=== PATIENT | female | born 1960 | race Caucasian/White ===

== ENCOUNTER 2016-08-13 15:13 | Inpatient (IN) | payer MEDICARE, MEDICAID ==
[2016-08-13] MEDS ORDERED: MAGNESIUM HYDROXIDE 2,400 MG/10 ML CUP PO PRN (18:42)
[2016-08-13] MEDS ORDERED: ZIPRASIDONE 20 MG VIAL IM PRN (18:42)
[2016-08-13] MEDS ORDERED: ACETAMINOPHEN TAB 325 MG TAB PO PRN (18:42)
[2016-08-13] MEDS ORDERED: MAG HYDROX/AL HYDROX/SIMETH 30 ML CUP PO PRN (18:42)
[2016-08-13] MEDS ORDERED: LORazepam 2 MG/ML SYRINGE IM PRN (18:47)
[2016-08-13] MEDS ORDERED: LORazepam 1 MG TAB PO PRN (18:47)
[2016-08-13 20:02] VITALS: BMI 28.0
[2016-08-13 20:26] LABS: Appearance,Urine Cloudy (Clear); Bacteria,Urine Rare /hpf; Bilirubin,Urine 1+ (Negative); Calcium Oxalate Crystals,Urine Many /hpf; Glucose,Urine (UA) Negative (Negative); Ketones,Urine Trace (Negative); Leukocyte Esterase,Urine Small (Negative); Mucus,Urine Occasional /hpf; Nitrite,Urine Negative (Negative); PH, Urine 5.5 (5.0-8.0); Particle Count 4212; Protein,Urine Trace (Negative); RBC,Urine 8 /hpf (0-5); Specific Gravity,Urine 1.027 (1.001-1.035); Squamous Epithelial Cell,Urine 5 /hpf (0-4); UA Billing (MACRO vs. MICRO) MICRO; WBC,Urine 5 /hpf (0-5)
[2016-08-13] MEDS: LORazepam 0.5 MG TAB PO SCH (21:39)
[2016-08-13] MEDS: BENZTROPINE MESYLATE 1 MG TAB PO SCH (21:39)
[2016-08-13] MEDS: risperiDONE 2 MG TAB PO SCH (21:40)
[2016-08-14] MEDS: risperiDONE 2 MG TAB PO SCH ×2 (09:20→20:25)
[2016-08-14] MEDS: LORATADINE 10 MG TAB PO SCH (09:20)
[2016-08-14] MEDS: DOCUSATE 100 MG CAP PO SCH (09:20)
[2016-08-14] MEDS: LISINOPRIL 2.5 MG TAB PO SCH (09:20)
[2016-08-14] MEDS: LORazepam 0.5 MG TAB PO SCH ×2 (09:20→20:25)
[2016-08-14] MEDS: BENZTROPINE MESYLATE 1 MG TAB PO SCH ×2 (09:21→20:24)
[2016-08-14 11:56] LABS: Basophils % (A) 1 %; CH 31.6; CHCM 33.6; Eosinophils % (A) 1 %; HCT 43.9 % (34.0-46.0); HDW 2.67; HGB 14.1 gm/dL (11.4-16.0); Luc # (Auto) 0.07; Luc % (Auto) 2; Lymphocytes # (A) 0.9 k/uL (1.0-4.8); Lymphocytes % (A) 19 %; MCH 30.3 pg (25.0-35.0); MCV 94.6 fL (80.0-100.0); Mean Platelet Volume 7.7; Monocytes # (A) 0.4 k/uL (0-1.0); Monocytes % (A) 10 %; Neutrophils % (A) 68 %; RBC 4.65 m/uL (3.80-5.40); RDW 13.4 % (11.5-15.5); WBC 4.5 k/uL (3.8-10.6); WBC (Perox) 4.97
[2016-08-14] MEDS: CALCIUM CARB-VIT D 500MG-200UN 1 EACH TAB PO SCH (12:17)
[2016-08-14] MEDS: THIAMINE 100 MG TAB PO SCH (12:17)
[2016-08-14 12:19] LABS: ALT 25 U/L (9-52); AST 27 U/L (14-36); Alkaline Phosphatase 95 U/L (38-126); Anion Gap 14 mmol/L; Blood Urea Nitrogen 10 mg/dL (7-17); Calcium 9.9 mg/dL (8.4-10.2); Carbon Dioxide 23 mmol/L (22-30); Chloride 108 mmol/L (98-107); Glucose 116 mg/dL (74-99); Non-African American GFR(MDRD) 57 (>60 ml/min/1.73 sqM); Potassium 3.6 mmol/L (3.5-5.1); Sodium 145 mmol/L (137-145); Total Bilirubin 0.6 mg/dL (0.2-1.3); Total Protein 7.6 g/dL (6.3-8.2)
--- NOTE | 2016-08-14 13:29 | P.HP ---
Psychiatric H&P - . H&P Date: 08/14/16 History & Physical: IDENTIFYING DATA: Ms. Stallings is a 56-year-old single female who has a history of a schizoaffective disorder. She presented to the unit voluntarily with complaints of suicidal ideation. HISTORY OF PRESENT ILLNESS: According to EMR she presented to the ED with suicidal thoughts. She told the psychiatric nurse that she was having thoughts of drowning herself in the bathtub. I reviewed the medical record, interviewed Ms. Stallings and discuss her presentation and history with the treatment team. She is well known to the unit from prior admissions. We discharged her last on 09/25/2014 with the diagnosis of a schizoaffective disorder. Her discharge medications included Abilify 50 mg daily and lorazepam 0.5 mg 3 times a day when necessary. She is involved with [facility] team. Ms. Stallings stated that she was having thoughts of stabbing herself. She stated that she has been attending "group meetings" at her buddhist every Wednesday. "I think about the buddhist. The meetings are pretty important. ... I feel out of place. I'm not working. I don't have children children. I feel at a place at the buddhist. ... I tried to kill myself. Tried to stab myself. I got too scared." She was unable to provide a coherent explanation as to the reason for this admission other than she felt frightened and had thoughts of self-harm. She perseverated on the buddhist meetings as a source of her concern and distress. She did not express any clear organize paranoid or delusional belief. She was not overtly religiously preoccupied beyond the preoccupation with the buddhist meetings. In response to questions about depression and anxiety she replied "yes". I was unable to elicit further information about her feelings. She denied experiencing auditory or visual hallucinations. PAST PSYCHIATRIC HISTORY: She has had multiple psychiatric hospitalization and a well-established diagnosis of a schizophrenia disorder and treated with Risperdal Consta IM 12.5 mg every 2 weeks. PAST MEDICAL HISTORY: According to EMR, she has history of GERD, hyperlipidemia , hypertension and memory impairment. ALLERGIES: No known ALLERGIES. SUBSTANCE USE HISTORY: She denied the use of alcohol or drugs to get high, help her sleep or change her mood. According to the EMR she has no history of drug or alcohol use problems. Tobacco use: She is a nonsmoker FAMILY PSYCHIATRIC/SUBSTANCE USE HISTORY: She has a sister who has history of a schizophrenia. LEGAL HISTORY: She has no history of arrests or time in [facility]. She has a public guardian, Kindra Goins. SOCIAL HISTORY: She was born and raised in [place]. She graduated from high school and attended community college. She was never and has no children. She has 3 sisters and 1 brother. She feels estranged from one sister and has not spoken to her brother since her mother 4 years ago. She lives alone in an apartment. MENTAL STATUS EXAM: She presented as a disheveled appearing 56-year-old woman wearing hospital gown. She made eye contact and at times did not appear to attend to the interview. She had a slow and slightly unsteady gait with decreased associated movements. She showed frequent shuffling of her feet and intermittent tremor of her hands. She had slightly increase muscle tone without cogwheeling. She showed psychomotor retardation and akathetic movements. Her speech was not spontaneous. He had decreased rate, rhythm and volume. She had no articulation difficulties. Her affect was flat. She described suicidal thoughts without intent or plan. She described depressive cognitions including hopelessness, helplessness and worthlessness. She ruminated on her buddhist and her feeling that she is a social outcast. She denied phobias. She denied ideas of reference. She denies express clear paranoid ideation or delusional thoughts. When I asked her about thought broadcasting she smiled, paused for a few seconds and asked me to repeat the sentence. She stated that she sometimes "has that" (referring to thought broadcasting) "from my family". She denied auditory or visual hallucinations but appeared to be responding to internal stimuli. Global impression of intellect is average. She has no insight or understanding of her illness. We completed the [facility] Cognitive Assessment. Her total score was 21/30 suggesting cognitive impairments. She sold some visual spatial/executive impairment and that she was unable to copy to kill (however, she was able to perform alternating trails and draw the clock. She had no impairment in naming or registration. She had difficulties with attention as demonstrated by impairment of reverse digits, vigilance and serial sevens. She had some language impairment in that she had difficulty repeating one of the 2 sentences and was only able to produce 8 words over 60 seconds. Her interpretation of proverbs wwere concrete. She recalled 3 of the 5 words. She knew the date, month, year, day, place and city. STRENGTHS: Good physical health, stable income, stable housing, strong count includes the [facility] mental health services. WEAKNESSES: Chronic and severe mental illness. IMPRESSION: She is a 56-year-old woman who has a history of a schizoaffective disorder. She's had multiple psychiatric hospitalization and her diagnosis well -established. She presented with suicidal ideation and preoccupation about her buddhist and her social and functional impairments. She should best be treated inpatient basis with a combination of psychopharmacology and multimodal therapy. PRINCIPLE DIAGNOSIS: Schizoaffective disorder depressed type chronic with acute exacerbation, cognitive impairment, EPS RECOMMENDATION: Continue inpatient psychiatric treatment for depression and suicidal ideation. Obtain records from [facility]. Risperidone 2 mg by mouth twice a day and benztropine 1 mg twice a day. Consider trial of antidepressants after reviewing mental health records from [facility] Encourage participation in therapeutic groups and activities, evaluate clinical status and response to treatment daily basis. Allergies Allergy/AdvReac Type Severity Reaction Status Date / Time No Known Allergies Allergy Verified 08/13/16 20:02 Vital Signs Temp 98.3 F 08/14/16 06:53 Pulse 109 H 08/14/16 06:53 Resp 16 08/14/16 06:53 BP 131/78 08/14/16 06:53 Pulse Ox 93 L 08/13/16 20:04 Intake & Output 08/13/16 08/14/16 08/14/16 18:59 06:59 18:59 Weight 91.8 kg Laboratory Last Values WBC 4.5 k/uL (3.8-10.6) 08/14/16 10:55 RBC 4.65 m/uL (3.80-5.40) 08/14/16 10:55 Hgb 14.1 gm/dL (11.4-16.0) 08/14/16 10:55 Hct 43.9 % (34.0-46.0) 08/14/16 10:55 MCV 94.6 fL (80.0-100.0) 08/14/16 10:55 MCH 30.3 pg (25.0-35.0) 08/14/16 10:55 MCHC 32.0 g/dL (31.0-37.0) 08/14/16 10:55 RDW 13.4 % (11.5-15.5) 08/14/16 10:55 Plt Count 229 k/uL (150-450) 08/14/16 10:55 Neutrophils % 68 % 08/14/16 10:55 Lymphocytes % 19 % 08/14/16 10:55 Monocytes % 10 % 08/14/16 10:55 Eosinophils % 1 % 08/14/16 10:55 Basophils % 1 % 08/14/16 10:55 Neutrophils # 3.0 k/uL (1.3-7.7) 08/14/16 10:55 Lymphocytes # 0.9 k/uL (1.0-4.8) L 08/14/16 10:55 Monocytes # 0.4 k/uL (0-1.0) 08/14/16 10:55 Eosinophils # 0.0 k/uL (0-0.7) 08/14/16 10:55 Basophils # 0.0 k/uL (0-0.2) 08/14/16 10:55 Urine Color Yellow 08/13/16 15:44 Urine Appearance Cloudy (Clear) H 08/13/16 15:44 Urine pH 5.5 (5.0-8.0) 08/13/16 15:44 Ur Specific [place] 1.027 (1.001-1.035) 08/13/16 15:44 Urine Protein Trace (Negative) H 08/13/16 15:44 Urine Glucose (UA) Negative (Negative) 08/13/16 15:44 Urine Ketones Trace (Negative) H 08/13/16 15:44 Urine Blood Trace (Negative) H 08/13/16 15:44 Urine Nitrate Negative (Negative) 08/13/16 15:44 Urine Bilirubin 1+ (Negative) H 08/13/16 15:44 Urine Urobilinogen 3.0 mg/dL (<2.0) 08/13/16 15:44 Ur Leukocyte Esterase Small (Negative) H 08/13/16 15:44 Urine RBC 8 /hpf (0-5) H 08/13/16 15:44 Urine WBC 5 /hpf (0-5) 08/13/16 15:44 Ur Squamous Epith Cells 5 /hpf (0-4) H 08/13/16 15:44 Calcium Oxalate Crystal Many /hpf (None) H 08/13/16 15:44 Urine Bacteria Rare /hpf (None) H 08/13/16 15:44 Urine Mucus Occasional /hpf (None) H 08/13/16 15:44 Urine Opiates Screen Not Detected (NotDetected) 08/13/16 15:44 Ur Oxycodone Screen Not Detected (NotDetected) 08/13/16 15:44 Urine Methadone Screen Not Detected (NotDetected) 08/13/16 15:44 Ur Propoxyphene Screen Not Detected (NotDetected) 08/13/16 15:44 Ur Barbiturates Screen Not Detected (NotDetected) 08/13/16 15:44 U Tricyclic Antidepress Not Detected (NotDetected) 08/13/16 15:44 Ur Phencyclidine Scrn Not Detected (NotDetected) 08/13/16 15:44 Ur Amphetamines Screen Not Detected (NotDetected) 08/13/16 15:44 U Methamphetamines Scrn Not Detected (NotDetected) 08/13/16 15:44 U Benzodiazepines Scrn Not Detected (NotDetected) 08/13/16 15:44 Urine Cocaine Screen Not Detected (NotDetected) 08/13/16 15:44 U Marijuana (THC) Screen Not Detected (NotDetected) 08/13/16 15:44 08/14/16 12:59
[2016-08-14] MEDS: SULFAMETHOX-TMP 800-160MG 1 EACH TAB PO SCH ×2 (14:18→20:24)
--- NOTE | 2016-08-14 14:28 | CONS ---
DATE OF CONSULTATION: REASON FOR CONSULTATION: Advice regarding hypertension, hyperlipidemia, and multiple medical issues requested by psychiatry. HISTORY OF PRESENT ILLNESS: This 56-year-old woman with past medical history of gastroesophageal reflux disease, hypertension, hyperlipidemia, memory impairment, history of anxiety, bipolar, depression being followed by Dr. Jillian Piper in the outpatient setting was admitted for psychiatric evaluation. There is no history of fever, rigors. No history of headache, loss of consciousness, seizures. Patient except reactions from psych medications. Patient has a low affect. PAST MEDICAL HISTORY: History of hypertension, hyperlipidemia, GERD, memory impairment, history of anxiety, bipolar and depression. Medications are: 1. Risperdal Consta 25 mg IM q. 14 days. 2. Vitamin B 100 mg daily. 3. Claritin 10 mg daily. 4. Zestril 2.5 mg daily. 5. Ativan 0.5 mg b.i.d. 6. Colace 100 mg p.o. q.48 hours. 7. Calcium with vitamin D 1 p.o. daily. 8. Cogentin 1 mg p.o. b.i.d. Allergies are none. FAMILY HISTORY: No history of heart disease or strokes in the family. SOCIAL HISTORY: No history of smoking, no history of alcohol. REVIEW OF SYSTEMS: ENT: No diminished hearing or vision. CARDIOVASCULAR: No angina or palpitations. RESPIRATORY: No cough or hemoptysis. GI: No nausea. : No dysuria. NERVOUS SYSTEM: No numbness or weakness, otherwise as mentioned earlier. ALLERGY/IMMUNOLOGY: No asthma or hayfever. MUSCULOSKELETAL: As mentioned earlier. HEMATOLOGY: No history of anemia. ENDOCRINE: No history of diabetes or hypothyroidism. CONSTITUTIONAL: As mentioned earlier. DERMATOLOGY: Negative. RHEUMATOLOGY: Negative. PSYCHIATRY: As mentioned earlier. PHYSICAL EXAMINATION: Patient is alert and oriented x3. Pulse 135, blood pressure 150/90, respirations 15, temperature 97.7, pulse ox of 93% on room air. HEENT: Conjunctivae normal. Oral mucosa moist. NECK: No jugular venous distention. No carotid bruit. No lymph node enlargement. CARDIOVASCULAR: S1 and S2, tachycardic. No S3, no S4. No murmur. RESPIRATORY: Breath sounds diminished at the bases. No rhonchi, no crackles. ABDOMEN: Soft, nontender, no mass palpable. LEGS: No edema, no swelling. NERVOUS SYSTEM: Higher function as mentioned. Cranial nerves are full and intact and no nystagmus, no visual difficulties. Other cranial nerves II through XII grossly intact. Facial movements are symmetrical and equal. Otherwise moves all four limbs. Power is grade 5. Tone is slightly increased. No tremors. Gait is normal. LYMPHATIC: No lymphadenopathy in the neck, axillae or groin. SKIN: No ulcer, rash or bleeding. LABS: CBC within normal limits. UA shows 1+ bilirubin, small leukocyte esterase and rare urine bacteria. ASSESSMENT: 1. Hypertension. 2. Hyperlipidemia. 3. Anxiety, bipolar, depression. 4. Possible urinary tract infection. 5. Gastroesophageal reflux disease. 6. History of memory impairment. 7. Numerous inpatient psychiatric admissions. 8. Early symptoms, possibly secondary to medications. RECOMMENDATIONS AND DISCUSSION: This 56-year-old woman who presented with multiple complex medical issues, I would recommend to continue current medications, continue with symptomatic treatment. I would also recommend a course of antibiotics for presumed urinary tract infection. Otherwise, continue the rest of the medications. Further recommendations to follow. Patient may be asked to follow with Dr. Shon Piper closely after discharge. The home medications may be restarted. See orders for details. Monitor blood pressure closely. KENY
[2016-08-15] MEDS: LORazepam 0.5 MG TAB PO SCH ×2 (08:58→21:27)
[2016-08-15] MEDS: risperiDONE 2 MG TAB PO SCH ×2 (08:58→21:27)
[2016-08-15] MEDS: LISINOPRIL 2.5 MG TAB PO SCH (08:58)
[2016-08-15] MEDS: LORATADINE 10 MG TAB PO SCH (08:58)
[2016-08-15] MEDS: BENZTROPINE MESYLATE 1 MG TAB PO SCH ×2 (08:58→21:27)
[2016-08-15] MEDS: SULFAMETHOX-TMP 800-160MG 1 EACH TAB PO SCH ×2 (08:58→21:27)
[2016-08-15] MEDS: CALCIUM CARB-VIT D 500MG-200UN 1 EACH TAB PO SCH (12:14)
[2016-08-15] MEDS: THIAMINE 100 MG TAB PO SCH (12:14)
--- NOTE | 2016-08-15 16:11 | P.PN ---
Subjective Psychiatric progress notes. Patient is a 56-year-old female who was admitted to mental health unit on a voluntary basis due to having suicidal thoughts. When seen today covering for Dr. Calderón patient was cooperative and stated that she was here because of her suicidal thoughts and she felt out of place at the taoism group. According to her the other members of the group were all working and had their own families and she was the only one without at family-oriented job. She felt out of place and was considering suicide. She requested me to pray for her and gives her encouragement. Did not voice any other problems. Mental status. An average built female dressed in her own clothes, some degree dishevelled and possibly with some psychomotor retardation. During the evaluation patient maintained adequate eye contact and though was not spontaneous in her speech answering to questions relevantly and coherently. Speech was somewhat slow and possibly her thought process as well. Affect was restricted. Became some what more animated when she was talking about the time she had spent with her sister and family during the [place]. No evidence of any delusions or hallucinations. Patient denies having any thoughts of harm to herself. Appears to be somewhat limited in insight and judgment. Continue current treatment plans. Objective - Vital Signs Vital signs: Vital Signs Temp 98.3 F 08/14/16 06:53 Pulse 109 H 08/14/16 06:53 Resp 16 08/14/16 06:53 BP 114/58 08/15/16 09:09 Pulse Ox 93 L 08/13/16 20:04 - Labs CBC & Chem 7: 08/14/16 10:55 08/14/16 10:55
[2016-08-16] MEDS: LORATADINE 10 MG TAB PO SCH (08:55)
[2016-08-16] MEDS: LISINOPRIL 2.5 MG TAB PO SCH (08:55)
[2016-08-16] MEDS: risperiDONE 2 MG TAB PO SCH ×2 (08:55→21:00)
[2016-08-16] MEDS: DOCUSATE 100 MG CAP PO SCH (08:55)
[2016-08-16] MEDS: LORazepam 0.5 MG TAB PO SCH ×2 (08:55→21:00)
[2016-08-16] MEDS: BENZTROPINE MESYLATE 1 MG TAB PO SCH ×2 (08:55→21:00)
[2016-08-16] MEDS: SULFAMETHOX-TMP 800-160MG 1 EACH TAB PO SCH ×2 (08:56→21:01)
[2016-08-16] MEDS: CALCIUM CARB-VIT D 500MG-200UN 1 EACH TAB PO SCH (12:31)
[2016-08-16] MEDS: THIAMINE 100 MG TAB PO SCH (12:31)
--- NOTE | 2016-08-16 15:27 | P.PN ---
Subjective Psychiatric progress notes. Patient is a 56-year-old female was admitted because of her suicidal thoughts, feeling that she did not fit with the other people attending a taoist group. Patient indicates that she is not feeling that way now and again requesting to pray for her. Though she is compliant with medication and some degree participating in treatment activities by and large she is withdrawn and mostly staying in her room. Though she did not report any adverse effect her medications she seems to be showing some psychomotor retardation and tremulousness of her upper extremities, possibly EPS, in spite of her being on Cogentin. Mental status. Average built female dressed in her own clothes who comes readily for the evaluation and is cooperative. Patient does not speak spontaneously but answers to questions briefly what relevantly. Generally she is a bit withdrawn with psychomotor retardation. Speech and thought process somewhat slow. Seems to be having delusional thinking of a depressive nature. Denies any hallucinations and her affect is somewhat restricted. Reports sleeping alright. Limited in insight and judgment. Continue current treatment plans. Objective - Vital Signs Vital signs: Vital Signs Temp 98.5 F 08/16/16 06:48 Pulse 89 08/16/16 06:48 Resp 14 08/16/16 06:48 BP 119/65 08/16/16 06:48 Pulse Ox 95 08/15/16 22:32 Intake & Output 08/15/16 08/16/16 08/16/16 18:59 06:59 18:59 Weight 71.4 kg - Labs CBC & Chem 7: 08/14/16 10:55 08/14/16 10:55
[2016-08-17] MEDS: LISINOPRIL 2.5 MG TAB PO SCH (08:42)
[2016-08-17] MEDS: risperiDONE 2 MG TAB PO SCH (08:42)
[2016-08-17] MEDS: SULFAMETHOX-TMP 800-160MG 1 EACH TAB PO SCH ×2 (08:42→20:50)
[2016-08-17] MEDS: BENZTROPINE MESYLATE 1 MG TAB PO SCH ×2 (08:42→20:51)
[2016-08-17] MEDS: LORATADINE 10 MG TAB PO SCH (08:42)
[2016-08-17] MEDS: LORazepam 0.5 MG TAB PO SCH ×2 (08:42→20:50)
[2016-08-17] MEDS: THIAMINE 100 MG TAB PO SCH (12:55)
[2016-08-17] MEDS: CALCIUM CARB-VIT D 500MG-200UN 1 EACH TAB PO SCH (12:55)
--- NOTE | 2016-08-17 13:48 | P.PN ---
Progress Note - Text CLINICAL PROBLEMS: She is a 56-year-old single woman who has a history of a schizophrenia. She presented voluntarily with increasing thought disorganization, depression, anxiety, and increased involuntary movements. 24 HOUR EVENTS: She had episode of anxiety and restlessness yesterday responded to treatment with lorazepam 1 mg by mouth. She remains on 15 minute checks. She is posed no management problem and demonstrated no self-harm behaviors. She has been attending therapeutic groups and activities. EXAMINATION: She presented as a casually groomed 56-year-old female dressed in street clothes. She she had medium cropped oily straight hair. Her skin was pale and oily. She had a flat facial expression. She was alert and oriented to person, place and time. She showed psychomotor retardation with decreased associated movements. She had a slight tremor of her left hand. She had increased muscle tone in both arms with some cogwheeling in her left arm. Her speech was not spontaneous and had decreased rate, rhythm and volume. Her affect was bright but blunted; she smiled during the interview. She denied suicidal ideation or wishes. She denied homicidal ideation. She denied depressive cognitions such as hopelessness, helplessness and worthlessness. She shared an incident where she felt shunned by members of her yazidi (she encountered some yazidi members at a restaurant and they "turned their backs"). She denied experiencing ideas reference or paranoid ideation. She did not expressed delusional thoughts. Her thinking was concrete but her associations were coherent and logical. She denied hallucinations and did not appear to be responding to internal stimuli. PERTINENT DATA: She's been compliant with prescribed medications. She slept 6 hours last night. She has not required when necessary ziprasidone for agitation or acute psychosis. ASSESSMENT: She appears less depressed and less internally preoccupied. She did not volunteer concerns about her yazidi and was not preoccupied about mormon. She continues to show signs of parkinsonism but the severity of the tremor has decreased from admission. PLAN: Decrease risperidone to 1 mg by mouth twice a day, continue lorazepam 0.5 mg twice a day and 1 mg by mouth every 8 hours when necessary for anxiety or agitation, continue to encourage participation in therapeutic groups and activities, evaluate clinical status response to treatment on a daily basis, consider discharge home on 08/18/2016.
[2016-08-17] MEDS: risperiDONE 1 MG TAB PO SCH (20:50)
[2016-08-18 06:52] VITALS: TEMP 97.7
[2016-08-18] MEDS: LISINOPRIL 2.5 MG TAB PO SCH (08:55)
[2016-08-18] MEDS: LORATADINE 10 MG TAB PO SCH (08:55)
[2016-08-18] MEDS: DOCUSATE 100 MG CAP PO SCH (08:55)
[2016-08-18] MEDS: SULFAMETHOX-TMP 800-160MG 1 EACH TAB PO SCH ×2 (08:55→15:34)
[2016-08-18] MEDS: BENZTROPINE MESYLATE 1 MG TAB PO SCH (08:56)
[2016-08-18] MEDS: risperiDONE 1 MG TAB PO SCH (08:56)
[2016-08-18] MEDS: LORazepam 0.5 MG TAB PO SCH (08:56)
[2016-08-18 10:02] VITALS: BP 100/56; PULSE 122; RESP 16
--- NOTE | 2016-08-18 11:19 | P.DS ---
Providers Date of admission: 08/13/16 18:30 Attending physician: Justin Calderón MD Consults: 08/13/16 18:42 Consult Physician Routine Consulting Provider: Manuel Velasquez Consult Reason/Comments: follow up H & P Do you want consulting provider notified?: Yes Primary care physician: Shon Piper - Discharge Diagnosis(es) (1) Schizoaffective disorder, chronic condition with acute exacerbation Current Visit: Yes Status: Chronic Priority: High (2) Parkinsonism Current Visit: Yes Status: Chronic Priority: Medium Hospital Course: She is a 56-year-old single female who has a history of a schizoaffective disorder. She presented to the unit voluntarily with complaints of suicidal ideation. According to EMR she presented to the ED with suicidal thoughts. She told the psychiatric nurse that she was having thoughts of drowning herself in the bathtub. She is well known to the unit from prior admissions. We discharged her last on 09/25/2014 with the diagnosis of a schizoaffective disorder. Her discharge medications included Abilify 50 mg daily and lorazepam 0.5 mg 3 times a day when necessary. She is involved with [facility] mental health [facility] team. Ms. Stallings stated that she was having thoughts of stabbing herself. She stated that she has been attending "group meetings" at her jainism every Wednesday. "I think about the jainism. The meetings are pretty important. ... I feel out of place. I'm not working. I don't have children children. I feel at a place at the jainism. ... I tried to kill myself. Tried to stab myself. I got too scared." She was unable to provide a coherent explanation as to the reason for this admission other than she felt frightened and had thoughts of self-harm. She perseverated on the jainism meetings as a source of her concern and distress. She did not express any clear organize paranoid or delusional belief. She was not overtly religiously preoccupied beyond the preoccupation with the jainism meetings. In response to questions about depression and anxiety she replied "yes". I was unable to elicit further information about her feelings. She denied experiencing auditory or visual hallucinations. She presented as a disheveled appearing 56-year-old woman wearing hospital gown. She made eye contact and at times did not appear to attend to the interview. She had a slow and slightly unsteady gait with decreased associated movements. She showed frequent shuffling of her feet and intermittent tremor of her hands. She had slightly increase muscle tone without cogwheeling. She showed psychomotor retardation and akathetic movements. Her speech was not spontaneous. He had decreased rate, rhythm and volume. She had no articulation difficulties. Her affect was flat. She described suicidal thoughts without intent or plan. She described depressive cognitions including hopelessness, helplessness and worthlessness. She ruminated on her jainism and her feeling that she is a social outcast. She denied phobias. She denied ideas of reference. She denies express clear paranoid ideation or delusional thoughts. When I asked her about thought broadcasting she smiled, paused for a few seconds and asked me to repeat the sentence. She stated that she sometimes "has that" (referring to thought broadcasting) "from my family". She denied auditory or visual hallucinations but appeared to be responding to internal stimuli. Global impression of intellect is average. She has no insight or understanding of her illness. We completed the [facility] Cognitive Assessment. Her total score was 21/30 suggesting cognitive impairments. She sold some visual spatial/executive impairment and that she was unable to copy to kill (however, she was able to perform alternating trails and draw the clock. She had no impairment in naming or registration. She had difficulties with attention as demonstrated by impairment of reverse digits, vigilance and serial sevens. She had some language impairment in that she had difficulty repeating one of the 2 sentences and was only able to produce 8 words over 60 seconds. Her interpretation of proverbs wwere concrete. She recalled 3 of the 5 words. She knew the date, month, year, day, place and city. We admitted her to the psychiatric unit under the care of this poem writer. We provided a biopsychosocial assessment. The medical cash poster to the initial history and physical examination. She received a 3 day course of Bactrim DS one tab by mouth twice a day. We started risperidone 2 mg by mouth twice a day to augment the biweekly Risperdal Consta injections. She showed moderately severe Parkinson's symptoms including decreased associated movements, tremor and increase muscle tone. She was withdrawn and suspicious when she arrived on the unit. She denied psychotic symptoms but appeared to be responding to internal stimuli. However, she participated in therapeutic groups and activities. She showed a decrease in internal preoccupation and a marked improvement in her mood. We decreased the risperidone 1 mg by mouth twice a day to decrease EPS. At the time of discharge she was pleasant on approach. Her affect was wanted but bright. Her thinking was concrete but organized, coherent and goal directed. She denied auditory or visual hallucinations and did not appear to be responding to internal stimuli. She denied suicidal ideation, plan or intent. She has an appointment for her next Risperdal Consta injection on 08/21/2015. We recommend to taper the oral risperidone gradually over the next 2-4 weeks. Patient Condition at Discharge: Good Plan - Discharge Summary Discharge Medication List Benztropine Mesylate [Cogentin] 1 mg PO BID 08/13/16 [History] Calcium Carbonate/Vitamin D3 [Calcium 600-Vit D3 400 Caplet] 1 tab PO DAILY [History] Docusate [Colace] 100 mg PO Q48H 08/13/16 [History] LORazepam [Ativan] 0.5 mg PO BID 08/13/16 [History] Lisinopril [Zestril] 2.5 mg PO DAILY 08/13/16 [History] Loratadine [Claritin] 10 mg PO DAILY 08/13/16 [History] Thiamine [Vitamin B-1] 100 mg PO DAILY 08/13/16 [History] risperiDONE MICROSPHERES [RisperDAL CONSTA] 25 mg IM Q14D 08/13/16 [History] Follow up Appointment(s)/Referral(s): [facility] [Outside] - 1 Week (w/ ACT Team on 08/19/16 @ 10am at home.) Shon Piper DO [Primary Care Provider] - 1 Week Patient Instructions/Handouts: Brief Psychotic Disorder (DC) Activity/Diet/Wound Care/Special Instructions: Take medications as prescribed. No alcohol or street drugs. Notify your care provider of the crisis line if symptoms worsen. Crisis line no. . Regular diet. Activity as tolerated.
[2016-08-18] MEDS: THIAMINE 100 MG TAB PO SCH (13:04)
[2016-08-18] MEDS: CALCIUM CARB-VIT D 500MG-200UN 1 EACH TAB PO SCH (13:05)
--- NOTE | 2016-10-01 11:32 | ED ---
Psych HPI - General Chief Complaint: Psychiatric Symptoms Stated Complaint: Suicidal Time Seen by Provider: 08/13/16 15:28 Source: police Mode of arrival: ambulatory - History of Present Illness Initial Comments: Patient complains of suicidal ideation. She states that she wants to drown herself. She has no fevers or chills. She has no chest pain or shortness of breath. - Related Data Home Medications Medication Instructions Recorded Confirmed Benztropine Mesylate [Cogentin] 1 mg PO BID 08/13/16 08/13/16 Calcium Carbonate/Vitamin D3 1 tab PO DAILY 08/13/16 08/13/16 [Calcium 600-Vit D3 400 Caplet] Docusate [Colace] 100 mg PO Q48H 08/13/16 08/13/16 LORazepam [Ativan] 0.5 mg PO BID 08/13/16 08/13/16 Lisinopril [Zestril] 2.5 mg PO DAILY 08/13/16 08/13/16 Thiamine [Vitamin B-1] 100 mg PO DAILY 08/13/16 08/13/16 risperiDONE MICROSPHERES 25 mg IM Q14D 08/13/16 08/13/16 [RisperDAL CONSTA] Previous Rx's Medication Instructions Recorded Loratadine [Claritin] 10 mg PO DAILY tab 08/18/16 risperiDONE [RisperDAL] 1 mg PO BID #28 tab 08/18/16 Allergies Allergy/AdvReac Type Severity Reaction Status Date / Time No Known Allergies Allergy Verified 08/13/16 20:02 Review of Systems ROS Statement: Those systems with pertinent positive or pertinent negative responses have been documented in the HPI. ROS Other: All systems not noted in ROS Statement are negative. Past Medical History Past Medical History: GERD/Reflux, Hyperlipidemia, Hypertension, Memory Impairment History of Any Multi-Drug Resistant Organisms: None Reported Past Surgical History: Unable to Obtain Additional Past Surgical History / Comment(s): Non-cancerous growths removed from stomach when patient was in high school. Past Anesthesia/Blood Transfusion Reactions: Unable to Obtain Additional Past Anesthesia/Blood Transfusion Reaction / Comment(s): Unkown. Past Psychological History: Anxiety, Bipolar, Depression Additional Psychological History / Comment(s): Numerous inpatient psychiatric admissions. Open with [facility], Patient sees Lakshmi from the ACT team. Smoking Status: Never smoker Past Alcohol Use History: Occasional Past Drug Use History: None Reported Additional Drug Use History / Comment(s): Patient denies. - Past Family History Mother Family Medical History: No Reported History Father Family Medical History: Cancer Sister(s) Family Medical History: No Reported History Brother(s) Family Medical History: No Reported History General Exam General appearance: alert, in no apparent distress Head exam: Present: atraumatic, normocephalic, normal inspection Eye exam: Present: normal appearance, PERRL, EOMI. Absent: scleral icterus, conjunctival injection, periorbital swelling ENT exam: Present: normal exam, mucous membranes moist Neck exam: Present: normal inspection. Absent: tenderness, meningismus, lymphadenopathy Respiratory exam: Present: normal lung sounds bilaterally. Absent: respiratory distress, wheezes, rales, rhonchi, stridor Cardiovascular Exam: Present: regular rate, normal rhythm, normal heart sounds. Absent: systolic murmur, diastolic murmur, rubs, gallop, clicks GI/Abdominal exam: Present: soft, normal bowel sounds. Absent: distended, tenderness, guarding, rebound, rigid Extremities exam: Present: normal inspection, full ROM, normal capillary refill. Absent: tenderness, pedal edema, joint swelling, calf tenderness Back exam: Present: normal inspection Neurological exam: Present: alert, oriented X3, CN II-XII intact Psychiatric exam: Present: depressed Skin exam: Present: warm, dry, intact, normal color. Absent: rash Course Vital Signs 08/13/16 08/13/16 15:17 18:36 Temperature 97.8 F 98 F Pulse Rate 108 H 78 Respiratory 18 16 Rate Blood Pressure 140/80 130/70 O2 Sat by Pulse 95 98 Oximetry Medical Decision Making - Medical Decision Making Patient presents with psychiatric disorder. She will be admitted to the hospital. - Lab Data Result diagrams: 08/14/16 10:55 08/14/16 10:55 Lab Results 08/13/16 08/13/16 Range/Units 15:44 15:44 Urine Color Yellow Urine Appearance Cloudy H (Clear) Urine pH 5.5 (5.0-8.0) Ur Specific [place] 1.027 (1.001-1.035) Urine Protein Trace H (Negative) Urine Glucose (UA) Negative (Negative) Urine Ketones Trace H (Negative) Urine Blood Trace H (Negative) Urine Nitrate Negative (Negative) Urine Bilirubin 1+ H (Negative) Urine Urobilinogen 3.0 (<2.0) mg/dL Ur Leukocyte Esterase Small H (Negative) Urine RBC 8 H (0-5) /hpf Urine WBC 5 (0-5) /hpf Ur Squamous Epith Cells 5 H (0-4) /hpf Calcium Oxalate Crystal Many H (None) /hpf Urine Bacteria Rare H (None) /hpf Urine Mucus Occasional H (None) /hpf Urine Opiates Screen Not Detected (NotDetected) Ur Oxycodone Screen Not Detected (NotDetected) Urine Methadone Screen Not Detected (NotDetected) Ur Propoxyphene Screen Not Detected (NotDetected) Ur Barbiturates Screen Not Detected (NotDetected) U Tricyclic Antidepress Not Detected (NotDetected) Ur Phencyclidine Scrn Not Detected (NotDetected) Ur Amphetamines Screen Not Detected (NotDetected) U Methamphetamines Scrn Not Detected (NotDetected) U Benzodiazepines Scrn Not Detected (NotDetected) Urine Cocaine Screen Not Detected (NotDetected) U Marijuana (THC) Screen Not Detected (NotDetected) Disposition Clinical Impression: Depression Disposition: ADMITTED IP TO THIS [facility] Condition: Good
== END 2016-08-18 15:50 | disposition home or self-care (01) | DRG 885 ==
LOC: EC 15:13 → 3MHU 18:30
PROVIDERS: ADMIT Psychiatry & Neurology Psychiatry; ATTEND Psychiatry & Neurology Psychiatry
DX: F25.1 Schizoaffective disorder, depressive type (principal); R45.851 Suicidal ideations; N39.0 Urinary tract infection, site not specified; G20 Parkinson's disease; I10 Essential (primary) hypertension; E78.5 Hyperlipidemia, unspecified; F41.9 Anxiety disorder, unspecified; K21.9 Gastro-esophageal reflux disease without esophagitis; Z63.8 Other specified problems related to primary support group
CPT/HCPCS: 80053; 80300; 81001; 82075; 84443; 85025; 99285

== ENCOUNTER 2018-02-25 15:47 | Inpatient (IN) | payer MEDICAID, MEDICARE ==
--- NOTE | 2018-02-25 16:21 | ED ---
General Adult HPI - General Source: patient, RN notes reviewed Mode of arrival: ambulatory Limitations: no limitations <Frederic Desai - Last Filed: 02/25/18 16:19> <Braden Ceballos - Last Filed: 02/25/18 20:10> - General Chief complaint: Psychiatric Symptoms Stated complaint: Mental Health Time Seen by Provider: 02/25/18 15:59 - History of Present Illness Initial comments: Patient 58-year-old female presenting to the emergency room today with a chief complaint of suicidal ideation. Patient does admit that she was thinking about probably herself. She states that she was walking down towards the river. She states she stopped her self to Come Here to Get Help. Patient Admits That She' s Had Thoughts of Hurting Herself in the past. She States She Has Not Seen a Therapist or Counselor 3 Months. She States She Has Been Taking Her Medications. She Denies Any Homicidal Thoughts or Plans. She Denies Any Visual or Auditory Hallucinations. Patient Denies Any Other Physical Complaints. Patient denies any recent fever, chills, shortness of breath, chest pain, back pain, abdominal pain, nausea or vomiting, constipation or diarrhea, headaches or visual changes, or any other complaints. (Frederic Desai) - Related Data Home Medications Medication Instructions Recorded Confirmed Benztropine Mesylate [Cogentin] 1 mg PO BID 08/13/16 02/25/18 Calcium Carbonate/Vitamin D3 1 tab PO DAILY 08/13/16 02/25/18 [Calcium 600-Vit D3 400 Caplet] Docusate [Colace] 100 mg PO Q48H 08/13/16 02/25/18 LORazepam [Ativan] 0.5 mg PO BID 08/13/16 02/25/18 Lisinopril [Zestril] 2.5 mg PO DAILY 08/13/16 02/25/18 Thiamine [Vitamin B-1] 100 mg PO DAILY 08/13/16 02/25/18 risperiDONE MICROSPHERES 25 mg IM Q14D 08/13/16 02/25/18 [RisperDAL CONSTA] Atorvastatin [Lipitor] 10 mg PO DAILY 02/25/18 02/25/18 Ergocalciferol [Vitamin D2] 50,000 unit PO Q14D 02/25/18 02/25/18 Montelukast Sodium [Singulair] 10 mg PO HS 02/25/18 02/25/18 Previous Rx's Medication Instructions Recorded Loratadine [Claritin] 10 mg PO DAILY tab 08/18/16 Allergies Allergy/AdvReac Type Severity Reaction Status Date / Time No Known Allergies Allergy Verified 02/25/18 16:25 Review of Systems ROS Other: All systems not noted in ROS Statement are negative. <Frederic Desai - Last Filed: 02/25/18 16:19> ROS Other: All systems not noted in ROS Statement are negative. <Braden Ceballos - Last Filed: 02/25/18 20:10> ROS Statement: Those systems with pertinent positive or pertinent negative responses have been documented in the HPI. Past Medical History Past Medical History: GERD/Reflux, Hyperlipidemia, Hypertension, Memory Impairment History of Any Multi-Drug Resistant Organisms: None Reported Past Surgical History: Unable to Obtain Additional Past Surgical History / Comment(s): Non-cancerous growths removed from stomach when patient was in high school. Past Anesthesia/Blood Transfusion Reactions: Unable to Obtain Additional Past Anesthesia/Blood Transfusion Reaction / Comment(s): Unkown. Past Psychological History: Anxiety, Bipolar, Depression Smoking Status: Never smoker Past Alcohol Use History: None Reported Past Drug Use History: None Reported - Past Family History Mother Family Medical History: No Reported History Father Family Medical History: Cancer Sister(s) Family Medical History: No Reported History Brother(s) Family Medical History: No Reported History <Frederic Desai - Last Filed: 02/25/18 16:19> General Exam Limitations: no limitations <Frederic Desai - Last Filed: 02/25/18 16:19> <Braden Ceballos - Last Filed: 02/25/18 20:10> - General Exam Comments Initial Comments: General: The patient is awake and alert, in no distress, and does not appear acutely ill. Eye: Pupils are equal, round and reactive to light, extra-ocular movements are intact. No nystagmus. There is normal conjunctiva bilaterally. No signs of icterus. Ears, nose, mouth and throat: There are moist mucous membranes and no oral lesions. Neck: The neck is supple Cardiovascular: There is a regular rate and rhythm. No murmur, rub or gallop is appreciated. Respiratory: Lungs are clear to auscultation, respirations are non-labored, breath sounds are equal. No wheezes, stridor, rales, or rhonchi. Musculoskeletal: Normal ROM, no tenderness. Strength 5/5. Sensation intact. Neurological: A&O x 3. CN II-XII intact, There are no obvious motor or sensory deficits. Coordination appears grossly intact. Speech is normal. Skin: Skin is warm and dry and no rashes or lesions are noted. Psychiatric: Cooperative (Frederic Desai) Vital Signs 02/25/18 02/25/18 15:52 20:07 Temperature 98.6 F 98.1 F Pulse Rate 109 H 60 Respiratory 16 18 Rate Blood Pressure 117/75 168/78 O2 Sat by Pulse 96 97 Oximetry Medical Decision Making <Frederic Desai - Last Filed: 02/25/18 16:19> - Lab Data Result diagrams: 02/25/18 18:45 02/25/18 18:45 <Braden Ceballos - Last Filed: 02/25/18 20:10> - Medical Decision Making The patient was seen and examined. All diagnostics are reviewed. The laboratory overall is fairly unremarkable. The psychiatric nurse did evaluate the patient. Appears that she is still suicidal. He would like to admit her to the hospital for further psychiatric treatment. (Braden Ceballos) - Lab Data Lab Results 02/25/18 02/25/18 02/25/18 Range/Units 16:18 18:45 18:45 WBC 6.0 (3.8-10.6) k/uL RBC 4.46 (3.80-5.40) m/uL Hgb 13.7 (11.4-16.0) gm/dL Hct 40.4 (34.0-46.0) % MCV 90.5 (80.0-100.0) fL MCH 30.7 (25.0-35.0) pg MCHC 33.9 (31.0-37.0) g/dL RDW 13.2 (11.5-15.5) % Plt Count 203 (150-450) k/uL Neutrophils % 71 % Lymphocytes % 20 % Monocytes % 7 % Eosinophils % 1 % Basophils % 0 % Neutrophils # 4.3 (1.3-7.7) k/uL Lymphocytes # 1.2 (1.0-4.8) k/uL Monocytes # 0.4 (0-1.0) k/uL Eosinophils # 0.0 (0-0.7) k/uL Basophils # 0.0 (0-0.2) k/uL Sodium 141 (137-145) mmol/L Potassium 4.0 (3.5-5.1) mmol/L Chloride 109 H (98-107) mmol/L Carbon Dioxide 21 L (22-30) mmol/L Anion Gap 11 mmol/L BUN 16 (7-17) mg/dL Creatinine 0.96 (0.52-1.04) mg/dL Est GFR (CKD-EPI)AfAm 75 (>60 ml/min/1.73 sqM) Est GFR (CKD-EPI)NonAf 65 (>60 ml/min/1.73 sqM) Glucose 96 (74-99) mg/dL Calcium 9.3 (8.4-10.2) mg/dL Total Bilirubin 0.5 (0.2-1.3) mg/dL AST 22 (14-36) U/L ALT 23 (9-52) U/L Alkaline Phosphatase 103 (38-126) U/L Total Protein 6.8 (6.3-8.2) g/dL Albumin 4.3 (3.5-5.0) g/dL Urine Opiates Screen Not Detected (NotDetected) Ur Oxycodone Screen Not Detected (NotDetected) Urine Methadone Screen Not Detected (NotDetected) Ur Propoxyphene Screen Not Detected (NotDetected) Ur Barbiturates Screen Not Detected (NotDetected) U Tricyclic Antidepress Not Detected (NotDetected) Ur Phencyclidine Scrn Not Detected (NotDetected) Ur Amphetamines Screen Not Detected (NotDetected) U Methamphetamines Scrn Not Detected (NotDetected) U Benzodiazepines Scrn Detected H (NotDetected) Urine Cocaine Screen Not Detected (NotDetected) U Marijuana (THC) Screen Not Detected (NotDetected) Disposition <Frederic Desai - Last Filed: 02/25/18 16:19> Is patient prescribed a controlled substance at d/c from ED?: No Time of Disposition: 20:10 Decision Date: 02/25/18 Decision Time: 20:10 <Braden Ceballos - Last Filed: 02/25/18 20:10> Clinical Impression: Suicidal ideation, Major depression, Hypertension Disposition: ADMITTED IP TO THIS HOSP Condition: Fair
[2018-02-25 16:36] LABS: Amphetamine Screen,Urine Not Detected (NotDetected); Barbiturate Screen,Urine Not Detected (NotDetected); Benzodiazepines Screen,Urine Detected (NotDetected); Cocaine Screen,Urine Not Detected (NotDetected); Methadone Screen, Urine Not Detected (NotDetected); Opiate Screen,Urine Not Detected (NotDetected); Oxycodone Screen, Urine Not Detected (NotDetected); Phencyclidine Screen,Urine Not Detected (NotDetected); Tricyclic Antidepressant,Urine Not Detected (NotDetected); Urn Cannabinoid Scrn Not Detected (NotDetected)
[2018-02-25 19:01] LABS: Basophils % (A) 0 %; Eosinophils % (A) 1 %; HCT 40.4 % (34.0-46.0); HGB 13.7 gm/dL (11.4-16.0); Lymphocytes # (A) 1.2 k/uL (1.0-4.8); Lymphocytes % (A) 20 %; MCH 30.7 pg (25.0-35.0); MCHC 33.9 g/dL (31.0-37.0); MCV 90.5 fL (80.0-100.0); Mean Platelet Volume 6.9; Monocytes # (A) 0.4 k/uL (0-1.0); Monocytes % (A) 7 %; Neutrophils # (A) 4.3 k/uL (1.3-7.7); Neutrophils % (A) 71 %; Platelet Count 203 k/uL (150-450); RBC 4.46 m/uL (3.80-5.40); RDW 13.2 % (11.5-15.5)
[2018-02-25 19:08] LABS: Albumin 4.3 g/dL (3.5-5.0); Calcium 9.3 mg/dL (8.4-10.2); Total Bilirubin 0.5 mg/dL (0.2-1.3); Total Protein 6.8 g/dL (6.3-8.2)
[2018-02-25] MEDS ORDERED: MAGNESIUM HYDROXIDE 2,400 MG/10 ML CUP PO PRN (20:11)
[2018-02-25] MEDS ORDERED: ACETAMINOPHEN TAB 325 MG TAB PO PRN (20:11)
[2018-02-25] MEDS ORDERED: ZIPRASIDONE 20 MG VIAL IM PRN (20:11)
[2018-02-25] MEDS ORDERED: MAG HYDROX/AL HYDROX/SIMETH 30 ML CUP PO PRN (20:11)
[2018-02-25] MEDS: BENZTROPINE MESYLATE 1 MG TAB PO SCH (21:25)
--- NOTE | 2018-02-26 04:50 | XR ---
EXAMINATION TYPE: XR elbow limited RT DATE OF EXAM: 02/26/2018 COMPARISON: NONE HISTORY: Elbow pain TECHNIQUE: 2 views FINDINGS: I see no fracture nor dislocation. Joint spaces are normal. There is no sign of elbow joint effusion. IMPRESSION: Negative right elbow exam.
--- NOTE | 2018-02-26 07:00 | P.MDCNMH ---
History of Present Illness H&P Date: 02/26/18 Chief Complaint: Medical management 58-year-old female with no significant past medical history except for depression. Patient presented to the hospital due to overwhelming depression and suicidal ideation she had a plan of drowning herself she started walking toward the leg however she changes her mind and decided to call for help. Medicine consulted for medical management currently she denies any fevers or chills denies any chest pain or trouble breathing she denies any weight changes denies any bleeding, denies any abdominal pain or changes in her bowel habits or urinary habits she denies any focal neurologic deficits. RN reported to me that she had a fall early this morning around 4 in the morning , it's thought to be mechanical patient claims that she got tangled in her bed sheets and fell without any loss of consciousness or head injury she fell on her right elbow x-rays showed no acute fractures or any injuries patient denies any history of falls Review of Systems Pertinent positives as noted in HPI. All other systems were reviewed and are negative Past Medical History Past Medical History: GERD/Reflux, Hyperlipidemia, Hypertension, Memory Impairment History of Any Multi-Drug Resistant Organisms: None Reported Past Surgical History: Unable to Obtain Additional Past Surgical History / Comment(s): Non-cancerous growths removed from stomach when patient was in high school. Past Anesthesia/Blood Transfusion Reactions: Unable to Obtain Additional Past Anesthesia/Blood Transfusion Reaction / Comment(s): Unkown. Past Psychological History: Anxiety, Bipolar, Depression Smoking Status: Never smoker Past Alcohol Use History: None Reported Past Drug Use History: None Reported - Past Family History Mother Family Medical History: No Reported History Father Family Medical History: Cancer Sister(s) Family Medical History: No Reported History Brother(s) Family Medical History: No Reported History Medications and Allergies Home Medications Medication Instructions Recorded Confirmed Type Benztropine Mesylate [Cogentin] 1 mg PO BID 08/13/16 02/25/18 History Calcium Carbonate/Vitamin D3 1 tab PO DAILY 08/13/16 02/25/18 History [Calcium 600-Vit D3 400 Caplet] Docusate [Colace] 100 mg PO Q48H 08/13/16 02/25/18 History LORazepam [Ativan] 0.5 mg PO BID 08/13/16 02/25/18 History Lisinopril [Zestril] 2.5 mg PO DAILY 08/13/16 02/25/18 History Thiamine [Vitamin B-1] 100 mg PO DAILY 08/13/16 02/25/18 History risperiDONE MICROSPHERES 25 mg IM Q14D 08/13/16 02/25/18 History [RisperDAL CONSTA] Loratadine [Claritin] 10 mg PO DAILY tab 08/18/16 02/25/18 Rx Atorvastatin [Lipitor] 10 mg PO DAILY 02/25/18 02/25/18 History Ergocalciferol [Vitamin D2] 50,000 unit PO Q14D 02/25/18 02/25/18 History Montelukast Sodium [Singulair] 10 mg PO HS 02/25/18 02/25/18 History Allergies Allergy/AdvReac Type Severity Reaction Status Date / Time No Known Allergies Allergy Verified 02/25/18 16:25 Physical Exam Vitals: Vital Signs Temp Pulse Pulse Resp BP BP Pulse Ox 02/26/18 04:12 51 L 16 162/71 02/25/18 20:30 97.4 F L 105 H 16 142/87 02/25/18 20:07 98.1 F 60 18 168/78 97 02/25/18 15:52 98.6 F 109 H 16 117/75 96 Intake and Output 02/25/18 02/25/18 02/26/18 14:59 22:59 06:59 Other: Weight 68.492 kg Constitutional: No acute distress, conversant, pleasant Eyes: Anicteric sclerae, moist conjunctiva, no lid-lag Pupils equal round reactive to light ENMT: NC/AT Oropharynx clear, no erythema, or exudates Neck: Supple, FROM, no masses, or JVD No carotid bruits No thyromegaly Lungs: Clear to auscultation Clear to percussion Normal respiratory effort, no accessory muscle use Cardiovascular: Heart regular in rate and rhythm, No murmurs, gallops, or rubs No peripheral edema Abdominal: Soft Nontender, no guarding, rebound or rigidity Abdomen moving with respiration Normoactive bowel sounds No hepatomegaly, No splenomegaly No palpable mass No abdominal wall hernia noted Skin: Normal temperature, tone, texture, turgor No induration No subcutaneous nodules No rash, lesions No ulcers Extremities: No digital cyanosis No clubbing Pedal pulses intact and symmetrical Radial pulses intact and symmetrical No calf tenderness Psychiatric: Alert and oriented to person, place and time Flat affect Poor judgment Neuro Muscles Strength 5/5 in all 4 extremities Sensation to light touch grossly present throughout No focal sensory deficits Lymphatics: no palpable cervical or supraclavicular , or inguinal lymph nodes Cranial Nerve Examination - Cranial Nerves Cranial Nerve II- Optic: Intact Cranial Nerve III- Oculomotor: Intact Cranial Nerve IV- Trochlear: Intact Cranial Nerve V- Trigeminal: Intact Cranial Nerve - Abducens: Intact Cranial Nerve VII- Facial: Intact Cranial Nerve VIII- Auditory: Intact Cranial Nerve IX- Glossopharyngeal: Intact Cranial Nerve X- Vagus: Intact Cranial Nerve XI- Accessory: Intact Cranial Nerve XII- Hypoglossal: Intact Results CBC & Chem 7: 02/25/18 18:45 02/25/18 18:45 Labs: Abnormal Lab Results - Last 24 Hours (Table) 02/25/18 02/25/18 Range/Units 16:18 18:45 Chloride 109 H (98-107) mmol/L Carbon Dioxide 21 L (22-30) mmol/L U Benzodiazepines Scrn Detected H (NotDetected) Assessment and Plan Assessment: 58-year-old female with no significant past medical history, presented to the hospital due to overwhelming depression and suicidal ideation medicine was counseled for medical management currently she has no medical concerns or complaints. Plan: Overwhelming depression and suicidal ideation Management per psychiatry Suicidal precautions Labs reviewed and unremarkable Thank you for allowing us to participate in the care of this patient. We will follow peripherally. Do not hesitate to contact us with questions. Someone can be reached from the [facility] hospitalist group at all hours of the day at [phone].
[2018-02-26 08:22] LABS: Albumin 4.5 g/dL (3.5-5.0); Bilirubin, Delta 0.2 mg/dL (0.0-0.2); Bilirubin,Unconjugated 0.4 mg/dL (0.0-1.1); Calcium 9.8 mg/dL (8.4-10.2); Potassium 4.2 mmol/L (3.5-5.1); Total Bilirubin 0.6 mg/dL (0.2-1.3); Total Protein 7.3 g/dL (6.3-8.2)
[2018-02-26] MEDS: BENZTROPINE MESYLATE 1 MG TAB PO SCH ×2 (09:23→20:12)
[2018-02-26] MEDS: DOCUSATE 100 MG CAP PO SCH (09:23)
[2018-02-26] MEDS: ATORVASTATIN 10 MG TAB PO SCH (09:23)
[2018-02-26] MEDS: CALCIUM CARB-VIT D 500MG-200UN 1 EACH TAB PO SCH (09:23)
--- NOTE | 2018-02-26 11:57 | P.HP ---
Psychiatric H&P - . H&P Date: 02/26/18 History & Physical: Allergies Allergy/AdvReac Type Severity Reaction Status Date / Time No Known Allergies Allergy Verified 02/25/18 16:25 Vital Signs Temp 97.4 F L 02/25/18 20:30 Pulse 51 L 02/26/18 04:12 Resp 16 02/26/18 04:12 BP 162/71 02/26/18 04:12 Pulse Ox 97 02/25/18 20:07 Intake & Output 02/25/18 02/26/18 02/26/18 18:59 06:59 18:59 Weight 68.492 kg Laboratory Last Values WBC 6.0 k/uL (3.8-10.6) 02/25/18 18:45 RBC 4.46 m/uL (3.80-5.40) 02/25/18 18:45 Hgb 13.7 gm/dL (11.4-16.0) 02/25/18 18:45 Hct 40.4 % (34.0-46.0) 02/25/18 18:45 MCV 90.5 fL (80.0-100.0) 02/25/18 18:45 MCH 30.7 pg (25.0-35.0) 02/25/18 18:45 MCHC 33.9 g/dL (31.0-37.0) 02/25/18 18:45 RDW 13.2 % (11.5-15.5) 02/25/18 18:45 Plt Count 203 k/uL (150-450) 02/25/18 18:45 Neutrophils % 71 % 02/25/18 18:45 Lymphocytes % 20 % 02/25/18 18:45 Monocytes % 7 % 02/25/18 18:45 Eosinophils % 1 % 02/25/18 18:45 Basophils % 0 % 02/25/18 18:45 Neutrophils # 4.3 k/uL (1.3-7.7) 02/25/18 18:45 Lymphocytes # 1.2 k/uL (1.0-4.8) 02/25/18 18:45 Monocytes # 0.4 k/uL (0-1.0) 02/25/18 18:45 Eosinophils # 0.0 k/uL (0-0.7) 02/25/18 18:45 Basophils # 0.0 k/uL (0-0.2) 02/25/18 18:45 Sodium 143 mmol/L (137-145) 02/26/18 07:36 Potassium 4.2 mmol/L (3.5-5.1) 02/26/18 07:36 Chloride 111 mmol/L (98-107) H 02/26/18 07:36 Carbon Dioxide 20 mmol/L (22-30) L 02/26/18 07:36 Anion Gap 12 mmol/L 02/26/18 07:36 BUN 14 mg/dL (7-17) 02/26/18 07:36 Creatinine 0.87 mg/dL (0.52-1.04) 02/26/18 07:36 Est GFR (CKD-EPI)AfAm 85 (>60 ml/min/1.73 sqM) 02/26/18 07:36 Est GFR (CKD-EPI)NonAf 73 (>60 ml/min/1.73 sqM) 02/26/18 07:36 Glucose 104 mg/dL (74-99) H 02/26/18 07:36 Calcium 9.8 mg/dL (8.4-10.2) 02/26/18 07:36 Total Bilirubin 0.6 mg/dL (0.2-1.3) 02/26/18 07:36 Conjugated Bilirubin 0.0 mg/dL (0.0-0.3) 02/26/18 07:36 Unconjugated Bilirubin 0.4 mg/dL (0.0-1.1) 02/26/18 07:36 Delta Bilirubin 0.2 mg/dL (0.0-0.2) 02/26/18 07:36 AST 25 U/L (14-36) 02/26/18 07:36 ALT 24 U/L (9-52) 02/26/18 07:36 Alkaline Phosphatase 88 U/L (38-126) 02/26/18 07:36 Total Protein 7.3 g/dL (6.3-8.2) 02/26/18 07:36 Albumin 4.5 g/dL (3.5-5.0) 02/26/18 07:36 Triglycerides 70 mg/dL (<150) 02/26/18 07:36 Cholesterol 191 mg/dL (<200) 02/26/18 07:36 LDL Cholesterol, Calc 99 mg/dL (0-99) 02/26/18 07:36 HDL Cholesterol 78 mg/dL (40-60) H 02/26/18 07:36 TSH 2.700 mIU/L (0.465-4.680) 02/26/18 07:36 Urine Opiates Screen Not Detected (NotDetected) 02/25/18 16:18 Ur Oxycodone Screen Not Detected (NotDetected) 02/25/18 16:18 Urine Methadone Screen Not Detected (NotDetected) 02/25/18 16:18 Ur Propoxyphene Screen Not Detected (NotDetected) 02/25/18 16:18 Ur Barbiturates Screen Not Detected (NotDetected) 02/25/18 16:18 U Tricyclic Antidepress Not Detected (NotDetected) 02/25/18 16:18 Ur Phencyclidine Scrn Not Detected (NotDetected) 02/25/18 16:18 Ur Amphetamines Screen Not Detected (NotDetected) 02/25/18 16:18 U Methamphetamines Scrn Not Detected (NotDetected) 02/25/18 16:18 U Benzodiazepines Scrn Detected (NotDetected) H 02/25/18 16:18 Urine Cocaine Screen Not Detected (NotDetected) 02/25/18 16:18 U Marijuana (THC) Screen Not Detected (NotDetected) 02/25/18 16:18 02/26/18 11:46 IDENTIFYING DATA: 58-year-old female patient HPI: Patient admitted to the inpatient psychiatric unit [facility] on a voluntary basis with recent concerns of depression, thoughts of suicide. Patient states she's been feeling depressed for about 9 years. She says her level of depression is about the same. She says she was walking to the river and was going to drown herself. Says she had just gotten back to her place and on the loaded her groceries and started thinking that way. She says she proceeded to call 911. She verbalizes that she quit taking her medications for a couple of days. She does make reference to that she starts getting anxious and does some compulsive, repetitive cleaning. She tends to obsess about cleanliness. PAST PSYCHIATRIC HISTORY: Patient reports that she's had more than 3 inpatient psychiatric admissions. She says she's had at least 2 suicide attempts one was an overdose and one she tried to hang herself. She says she has a history of being on Ativan and Risperdal. She thinks she's been on Paxil past but is not sure how she didn't do that. She doesn't think she's been on many SSRIs. She says she has a history of bipolar disorder and schizophrenia. Previous chart diagnosis was schizoaffective disorder depressive type. She denies any history of hallucinations. She denies any significant paranoid thoughts. She does sometimes she feels confused and disorganized. She is also recently been on Risperdal constant which she says she received past . She sees Dr. Lawrence for her psychiatrist and [place] for her counselor. PMH: Denies ALLERGIES: No known ALLERGIES MEDICATIONS: Tylenol when necessary, Maalox when necessary, Lipitor, Cogentin, [place] 500+ D, Colace, vitamin D2, milk of magnesia when necessary, Geodon when necessary CHEMICAL DEPENDENCY HISTORY: Patient denies FAMILY PSYCHIATRIC HISTORY: She relays she thinks her sister had schizophrenia FAMILY CHEMICAL DEPENDENCY HISTORY: None known at this time SOCIAL HISTORY: Currently lives by herself. She has been once and . She does not have any children. She is on disability. MENTAL STATUS EXAM: She is alert and cooperative with the interview. Her speech is fluent, not rapid or pressured. Thought processes currently are organized. She does not verbalize any israel delusions. Her mood is described as "fairly good." She denies any current thoughts of harm to self or others. She denies any current hallucinations. She does not show any agitation. I do not note any significant disorientation or significant memory disturbance. Her insight is adequate, judgment shows evidence of recent impairment. STRENGTHS/WEAKNESSES: Strengths-in active outpatient treatment; weaknesses- coping skills INTELLECTUAL FUNCTIONING: Average IMPRESSIONS: Schizoaffective disorder, depressive type, unspecified anxiety disorder, rule out OCD PLAN: Patient is admitted to the inpatient psychiatric unit [facility] on a voluntary basis. She will be placed on SP 15 minute precautions. Baseline laboratory workup will be done the patient and medical consultation will be ordered. She is currently on Risperdal Constar every 2 weeks which she just recently received. We will initiate Lexapro for 10 mg daily for mood as well as some anxiety symptoms. we will look into possible support systems. She' ll participate in group and activity therapies. Estimated length of stay is 3- 5 days. Prognosis is guarded.
[2018-02-26] MEDS: ESCITALOPRAM 10 MG TAB PO SCH (14:49)
[2018-02-26 15:42] LABS: Appearance,Urine Clear (Clear); Bacteria,Urine Rare /hpf; Bilirubin,Urine Negative (Negative); Blood,Urine Moderate (Negative); Color,Urine Yellow; Glucose,Urine (UA) Negative (Negative); Ketones,Urine 1+ (Negative); Leukocyte Esterase,Urine Moderate (Negative); Mucus,Urine Few /hpf; Nitrite,Urine Negative (Negative); PH, Urine 5.5 (5.0-8.0); Protein,Urine Trace (Negative); RBC,Urine 11 /hpf (0-5); Specific Gravity,Urine 1.028 (1.001-1.035); Squamous Epithelial Cell,Urine 1 /hpf (0-4); WBC,Urine 20 /hpf (0-5)
--- NOTE | 2018-02-26 17:37 | P.CNPUL ---
History of Present Illness Consult date: 02/26/18 Reason for consult: asthma Chief complaint: Mood disorder depression History of present illness: 58-year-old female with a remote history of smoking sees Kiara Zhao on outpatient setting patient presented into the emergency department with issues associated with worsening of depression along with suicidal ideation and thought , on specific questioning she denies any chest pain shortness of breath denies any cough or sputum production respiratory status stable in terms of mood she is feeling slightly better no desire for smoking her breathing has been stable denies any cough or sputum production denies any night sweats or fever or chills , denies any seizure-like to a loss of consciousness), denies any bowel or bladder dysfunction or problems Past Medical History Past Medical History: GERD/Reflux, Hyperlipidemia, Hypertension, Memory Impairment History of Any Multi-Drug Resistant Organisms: None Reported Past Surgical History: Unable to Obtain Additional Past Surgical History / Comment(s): Non-cancerous growths removed from stomach when patient was in high school. Past Anesthesia/Blood Transfusion Reactions: Unable to Obtain Additional Past Anesthesia/Blood Transfusion Reaction / Comment(s): Unkown. Past Psychological History: Anxiety, Bipolar, Depression Smoking Status: Never smoker Past Alcohol Use History: None Reported Past Drug Use History: None Reported - Past Family History Mother Family Medical History: No Reported History Father Family Medical History: Cancer Sister(s) Family Medical History: No Reported History Brother(s) Family Medical History: No Reported History Medications and Allergies Home Medications Medication Instructions Recorded Confirmed Type Benztropine Mesylate [Cogentin] 1 mg PO BID 08/13/16 02/25/18 History Calcium Carbonate/Vitamin D3 1 tab PO DAILY 08/13/16 02/25/18 History [Calcium 600-Vit D3 400 Caplet] Docusate [Colace] 100 mg PO Q48H 08/13/16 02/26/18 History LORazepam [Ativan] 0.5 mg PO BID 08/13/16 02/25/18 History Lisinopril [Zestril] 2.5 mg PO DAILY 08/13/16 02/25/18 History Thiamine [Vitamin B-1] 100 mg PO DAILY 08/13/16 02/25/18 History risperiDONE MICROSPHERES 25 mg IM Q14D 08/13/16 02/25/18 History [RisperDAL CONSTA] Loratadine [Claritin] 10 mg PO DAILY tab 08/18/16 02/25/18 Rx Atorvastatin [Lipitor] 10 mg PO DAILY 02/25/18 02/25/18 History Ergocalciferol [Vitamin D2] 50,000 unit PO Q14D 02/25/18 02/26/18 History Montelukast Sodium [Singulair] 10 mg PO HS 02/25/18 02/25/18 History Allergies Allergy/AdvReac Type Severity Reaction Status Date / Time No Known Allergies Allergy Verified 02/25/18 16:25 Physical Exam Vitals: Vital Signs Temp Pulse Pulse Resp BP BP Pulse Ox 02/26/18 04:12 51 L 16 162/71 02/25/18 20:30 97.4 F L 105 H 16 142/87 02/25/18 20:07 98.1 F 60 18 168/78 97 General: The patient is awake and alert, in no distress, and does not appear acutely ill. Eye: Pupils are equal, round and reactive to light, extra-ocular movements are intact. No nystagmus. There is normal conjunctiva bilaterally. No signs of icterus. Ears, nose, mouth and throat: There are moist mucous membranes and no oral lesions. Neck: The neck is supple Cardiovascular: There is a regular rate and rhythm. No murmur, rub or gallop is appreciated. Respiratory: Lungs are clear to auscultation, respirations are non-labored, breath sounds are equal. No wheezes, stridor, rales, or rhonchi. Musculoskeletal: Normal ROM, no tenderness. Strength 5/5. Sensation intact. Neurological: A&O x 3. CN II-XII intact, There are no obvious motor or sensory deficits. Coordination appears grossly intact. Speech is normal. Skin: Skin is warm and dry and no rashes or lesions are noted. Psychiatric: Cooperative Results - Laboratory Findings CBC and BMP: 02/25/18 18:45 02/26/18 07:36 Abnormal lab findings: Abnormal Labs 02/25/18 02/25/18 02/26/18 16:18 18:45 07:36 Chloride 109 H 111 H Carbon Dioxide 21 L 20 L Glucose 104 H HDL Cholesterol 78 H Urine Protein Urine Ketones Urine Blood Ur Leukocyte Esterase Urine RBC Urine WBC Urine Bacteria Urine Mucus U Benzodiazepines Scrn Detected H 02/26/18 15:25 Chloride Carbon Dioxide Glucose HDL Cholesterol Urine Protein Trace H Urine Ketones 1+ H Urine Blood Moderate H Ur Leukocyte Esterase Moderate H Urine RBC 11 H Urine WBC 20 H Urine Bacteria Rare H Urine Mucus Few H U Benzodiazepines Scrn Assessment and Plan Assessment: Major depression Suicidal ideation and thought History of mild intermittent asthma History of smoking remotely Recent fall Plan: Continue to optimize psychiatric care and therapy Fall precautions Suicide precautions Follow-up at [facility] with Kiara Zhao Overall patient is stable from pulmonary critical care standpoint we'll be available if needed her eyes for now we'll sign off Time with Patient: Greater than 30
[2018-02-26 18:34] LABS: Hemoglobin A1C 5.3 % (4.0-6.0)
[2018-02-27] MEDS: CALCIUM CARB-VIT D 500MG-200UN 1 EACH TAB PO SCH (09:09)
[2018-02-27] MEDS: ESCITALOPRAM 10 MG TAB PO SCH (09:09)
[2018-02-27] MEDS: ATORVASTATIN 10 MG TAB PO SCH (09:09)
[2018-02-27] MEDS: BENZTROPINE MESYLATE 1 MG TAB PO SCH ×2 (09:09→20:16)
--- NOTE | 2018-02-27 13:52 | P.PN ---
Progress Note - Text Progress Note Date: 02/27/18 Interval history: Patient is seen in [facility] [place]. He reports that she does better today. She seems to be tolerating the Lexapro fine. She slept at least 8 hours last night. She reports that her mood is improved today and she is having less anxiety. Mental status exam: She is alert, cooperative. She reports improved mood today. She denies any thoughts of harm to self or others. She does not verbalize any hallucinations or israel delusional thoughts. She does not show any agitation. She does show some range of affect. Plan: Patient will be maintained on Lexapro which has been initiated. She is also on Cogentin and receives IM antipsychotic which she received just prior to hospitalization.
[2018-02-28] MEDS: ATORVASTATIN 10 MG TAB PO SCH (08:51)
[2018-02-28] MEDS: DOCUSATE 100 MG CAP PO SCH (08:51)
[2018-02-28] MEDS: CALCIUM CARB-VIT D 500MG-200UN 1 EACH TAB PO SCH (08:51)
[2018-02-28] MEDS: ESCITALOPRAM 10 MG TAB PO SCH (08:51)
[2018-02-28] MEDS: BENZTROPINE MESYLATE 1 MG TAB PO SCH (08:51)
[2018-02-28] MEDS ORDERED: ERGOCALCIFEROL 50,000 UNIT CAP PO SCH (09:00)
--- NOTE | 2018-02-28 14:13 | P.PN ---
Progress Note - Text Progress Note Date: 02/28/18 Interval History: Patient is a 58-year-old female who was seen today and she reports that she is no longer feeling suicidal and states that she had been thinking about her mother's and asked why she thought of trying to drown herself. She states that she misses her mother. Patient states that she had not been taking her meds because her pillbox was dirty. Patient states she is feeling better today still sad about her mother's and did sleep well last evening. She states that she is no longer having suicidal thoughts and her appetite is good. Patient could not identify any precipitant to her having suicidal ideation at the time of admission. Mental Status: Appearance/Attitude: Patient is casually dressed and makes eye contact and is cooperative Behavior: Patient does not exhibit any psychomotor agitation or retardation. Speech/Language: Patient responds to questions, with brief sentences a little elaboration she speaks in a normal volume and rhythm and he is coherent Thought Process: Patient is goal-directed there is no evidence of loose association or flight of ideas Thought Content: Patient denies any current auditory or visual hallucinations no delusions or paranoid ideation were elicited. Patient states that she missed her mother and asked why she thought of drowning herself prior to admission, she states that she also wasn't taking her medication because her pillbox was dirty. Patient states she's sleeping and eating currently and is still sad about her mother but reports no longer having suicidal thoughts. Suicidal/Homicidal Ideation: Patient denies any current suicidal or homicidal ideation Sensorium/Cognition: Patient is alert and oriented to person, place and time and her recent and remote memory were not formally tested. Patient on MOCA given in 2016 at some evidence of neurocognitive deficits. Mood/Affect: Patient's mood was slightly sad and her affect is blunted Insight/Judgment: Patient's insight and judgment are limited Assessment: Patient reports no longer having any suicidal ideation and has been compliant with her medication here. She states that she thought of drowning herself because she missed her mother who 10 years ago. Patient also reported that she hadn't been taking her meds recently because her pillbox was dirty, however the only psychotropic medication that was in her pillbox would' ve been Ativan and Cogentin. Patient states that she sleeping and eating well and is feeling better. Patient was given a MOCA in 2016 which showed some neurocognitive deficits and the patient currently does have a public guardian. Plan: Patient will continue on Risperdal Consta 25 mg every 14 days her next injection is due on March 10. Patient has been also prescribed Ativan 0.5 mg twice a day and this was restarted and her Cogentin dosage was corrected to 0.5 mg twice a day after speaking with community mental health liaison. Patient lives in an apartment independently and she reported to me that she does cook and clean for herself and is followed by the act team. Will consider discharge on Wednesday should the patient continued to report no current suicidal ideation
[2018-02-28] MEDS: LORazepam 0.5 MG TAB PO SCH (20:57)
[2018-02-28] MEDS: BENZTROPINE MESYLATE 0.5 MG TAB PO SCH (20:57)
[2018-03-01] MEDS: BENZTROPINE MESYLATE 0.5 MG TAB PO SCH ×2 (08:14→20:06)
[2018-03-01] MEDS: LORazepam 0.5 MG TAB PO SCH ×2 (08:14→20:06)
[2018-03-01] MEDS: ESCITALOPRAM 10 MG TAB PO SCH (08:14)
[2018-03-01] MEDS: ATORVASTATIN 10 MG TAB PO SCH (08:14)
[2018-03-01] MEDS: CALCIUM CARB-VIT D 500MG-200UN 1 EACH TAB PO SCH (08:14)
--- NOTE | 2018-03-01 13:37 | P.PN ---
Progress Note - Text Progress Note Date: 03/01/18 Interval History: Patient is a 58-year-old female who was seen today. She reports that she is doing okay. She states that she has not had any crying spells is eating okay and sleeping okay. She states that she is not feeling as sad. She states that she has not had any side effects from the new medication. Mental Status: Appearance/Attitude: Patient is casually dressed, makes eye contact and was cooperative Behavior: Patient does not display any psychomotor agitation or retardation. Speech/Language: Patient was not spontaneous only responding to questions, she speaks in a soft voice in a normal rhythm and he is coherent Thought Process: Patient is goal-directed although her responses are brief with little elaboration there is no evidence of loose association or flight of ideas. Thought Content: Patient denied any auditory or visual hallucinations no paranoid or delusional ideation was elicited. She states that she is not as sad about the loss of her mother. She reports no crying spells and states that she's been eating and sleeping well. Suicidal/Homicidal Ideation: Patient denied any current suicidal or homicidal ideation. Sensorium/Cognition: Patient is alert and oriented to person, place, and time and her recent and remote memory are grossly intact Mood/Affect: Patient's mood is restricted and her affect is blunted Insight/Judgment: Patient's insight and judgment are limited Assessment: Patient has been sleeping and eating well, and she states that she is no longer feeling sad about the loss of her mother. She states that she is not hearing voices and no other psychotic symptoms were elicited. Patient has been attending groups but with limited participation. Patient states that she feels better on the new medication. She had no complaints of side effects from the Lexapro. Plan: Patient continue on Cogentin 0.5 mg twice a day, Ativan 0.5 mg twice a day and Lexapro 10 mg daily. Patient and I discussed returning to her apartment tomorrow and she was agreeable with this plan, the act team will visit the patient. Patient will continue on Risperdal Consta 25 mg every 2 weeks.
[2018-03-02 06:49] VITALS: BP 134/65; PULSE 89; RESP 18; TEMP 97.4
[2018-03-02] MEDS: ATORVASTATIN 10 MG TAB PO SCH (09:25)
[2018-03-02] MEDS: ESCITALOPRAM 10 MG TAB PO SCH (09:26)
[2018-03-02] MEDS: CALCIUM CARB-VIT D 500MG-200UN 1 EACH TAB PO SCH (09:26)
[2018-03-02] MEDS: DOCUSATE 100 MG CAP PO SCH (09:26)
[2018-03-02] MEDS: LORazepam 0.5 MG TAB PO SCH (09:26)
[2018-03-02] MEDS: BENZTROPINE MESYLATE 0.5 MG TAB PO SCH (09:26)
--- NOTE | 2018-03-02 10:30 | P.DS ---
Providers Date of admission: 02/25/18 20:06 Expected date of discharge: 03/02/18 Attending physician: Maryana Leal MD Consults: 02/25/18 20:11 Consult Physician Routine Consulting Provider: Tj Harrison Consult Reason/Comments: H & P and medical care Do you want consulting provider notified?: Yes Primary care physician: Charito Michelle [facility] Hospital Course: Discharge Diagnosis: Schizoaffective disorder, depressive type; unspecified anxiety disorder Reason for Admission: 58-year-old female patient. Patient admitted to the inpatient psychiatric unit [facility] on a voluntary basis with recent concerns of depression, thoughts of suicide. Patient states she's been feeling depressed for about 9 years. She says her level of depression is about the same. She says she was walking to the river and was going to drown herself. Says she had just gotten back to her place and on the loaded her groceries and started thinking that way. She says she proceeded to call 911. She verbalizes that she quit taking her medications for a couple of days. She does make reference to that she starts getting anxious and does some compulsive, repetitive cleaning. She tends to obsess about cleanliness. MENTAL STATUS EXAM on admission: She is alert and cooperative with the interview. Her speech is fluent, not rapid or pressured. Thought processes currently are organized. She does not verbalize any israel delusions. Her mood is described as "fairly good." She denies any current thoughts of harm to self or others. She denies any current hallucinations. She does not show any agitation. I do not note any significant disorientation or significant memory disturbance. Her insight is adequate, judgment shows evidence of recent impairment. Hospital Course: Patient was admitted on a voluntary basis, routine will observation was ordered as well as group and activity therapy. Patient received medical consultation and had routine laboratory studies. Patient was continued on her prior psychiatric medications were [facility] with [facility], Ativan 0.5 mg twice a day, Cogentin 0.5 mg twice a day, patient is also maintained on Risperdal Consta 25 mg every 14 days which is due on March 10. Patient was begun on Lexapro 10 mg to target her depressive symptoms. Patient responded to the Lexapro reporting she was no longer having suicidal thoughts, states that she was feeling happier and was seen on the unit smiling. Patient did attend groups and activities however with minimal participation. Patient reported that she was sleeping well and eating well. Patient stated that she hadn't been taking her medication prior to admission because her pillbox was dirty however later in the admission she reported that she would be compliant with her medications as an outpatient. Patient does have a public guardian and lives in her own apartment and is followed by the act team. Patient reports that she was doing much better, stated she was feeling happy and was eager to return to her apartment. Patient was compliant with medication while in the hospital and reported that she had no side effects from the medication. Patient felt she was ready to return to her apartment. Allergies No Known Allergies Allergy (Verified 02/25/18 16:25) Laboratory Last Values WBC 6.0 k/uL (3.8-10.6) 02/25/18 18:45 RBC 4.46 m/uL (3.80-5.40) 02/25/18 18:45 Hgb 13.7 gm/dL (11.4-16.0) 02/25/18 18:45 Hct 40.4 % (34.0-46.0) 02/25/18 18:45 MCV 90.5 fL (80.0-100.0) 02/25/18 18:45 MCH 30.7 pg (25.0-35.0) 02/25/18 18:45 MCHC 33.9 g/dL (31.0-37.0) 02/25/18 18:45 RDW 13.2 % (11.5-15.5) 02/25/18 18:45 Plt Count 203 k/uL (150-450) 02/25/18 18:45 Neutrophils % 71 % 02/25/18 18:45 Lymphocytes % 20 % 02/25/18 18:45 Monocytes % 7 % 02/25/18 18:45 Eosinophils % 1 % 02/25/18 18:45 Basophils % 0 % 02/25/18 18:45 Neutrophils # 4.3 k/uL (1.3-7.7) 02/25/18 18:45 Lymphocytes # 1.2 k/uL (1.0-4.8) 02/25/18 18:45 Monocytes # 0.4 k/uL (0-1.0) 02/25/18 18:45 Eosinophils # 0.0 k/uL (0-0.7) 02/25/18 18:45 Basophils # 0.0 k/uL (0-0.2) 02/25/18 18:45 Sodium 143 mmol/L (137-145) 02/26/18 07:36 Potassium 4.2 mmol/L (3.5-5.1) 02/26/18 07:36 Chloride 111 mmol/L (98-107) H 02/26/18 07:36 Carbon Dioxide 20 mmol/L (22-30) L 02/26/18 07:36 Anion Gap 12 mmol/L 02/26/18 07:36 BUN 14 mg/dL (7-17) 02/26/18 07:36 Creatinine 0.87 mg/dL (0.52-1.04) 02/26/18 07:36 Est GFR (CKD-EPI)AfAm 85 (>60 ml/min/1.73 sqM) 02/26/18 07:36 Est GFR (CKD-EPI)NonAf 73 (>60 ml/min/1.73 sqM) 02/26/18 07:36 Glucose 104 mg/dL (74-99) H 02/26/18 07:[address] Glu mg/dL 105 02/26/18 07:36 Hemoglobin A1c 5.3 % (4.0-6.0) 02/26/18 07:36 Calcium 9.8 mg/dL (8.4-10.2) 02/26/18 07:36 Total Bilirubin 0.6 mg/dL (0.2-1.3) 02/26/18 07:36 Conjugated Bilirubin 0.0 mg/dL (0.0-0.3) 02/26/18 07:36 Unconjugated Bilirubin 0.4 mg/dL (0.0-1.1) 02/26/18 07:36 Delta Bilirubin 0.2 mg/dL (0.0-0.2) 02/26/18 07:36 AST 25 U/L (14-36) 02/26/18 07:36 ALT 24 U/L (9-52) 02/26/18 07:36 Alkaline Phosphatase 88 U/L (38-126) 02/26/18 07:36 Total Protein 7.3 g/dL (6.3-8.2) 02/26/18 07:36 Albumin 4.5 g/dL (3.5-5.0) 02/26/18 07:36 Triglycerides 70 mg/dL (<150) 02/26/18 07:36 Cholesterol 191 mg/dL (<200) 02/26/18 07:36 LDL Cholesterol, Calc 99 mg/dL (0-99) 02/26/18 07:36 HDL Cholesterol 78 mg/dL (40-60) H 02/26/18 07:36 TSH 2.700 mIU/L (0.465-4.680) 02/26/18 07:36 Urine Color Yellow 02/26/18 15:25 Urine Appearance Clear (Clear) 02/26/18 15:25 Urine pH 5.5 (5.0-8.0) 02/26/18 15:25 Ur Specific [place] 1.028 (1.001-1.035) 02/26/18 15:25 Urine Protein Trace (Negative) H 02/26/18 15:25 Urine Glucose (UA) Negative (Negative) 02/26/18 15:25 Urine Ketones 1+ (Negative) H 02/26/18 15:25 Urine Blood Moderate (Negative) H 02/26/18 15:25 Urine Nitrite Negative (Negative) 02/26/18 15:25 Urine Bilirubin Negative (Negative) 02/26/18 15:25 Urine Urobilinogen 2.0 mg/dL (<2.0) 02/26/18 15:25 Ur Leukocyte Esterase Moderate (Negative) H 02/26/18 15:25 Urine RBC 11 /hpf (0-5) H 02/26/18 15:25 Urine WBC 20 /hpf (0-5) H 02/26/18 15:25 Ur Squamous Epith Cells 1 /hpf (0-4) 02/26/18 15:25 Urine Bacteria Rare /hpf (None) H 02/26/18 15:25 Urine Mucus Few /hpf (None) H 02/26/18 15:25 Urine Opiates Screen Not Detected (NotDetected) 02/25/18 16:18 Ur Oxycodone Screen Not Detected (NotDetected) 02/25/18 16:18 Urine Methadone Screen Not Detected (NotDetected) 02/25/18 16:18 Ur Propoxyphene Screen Not Detected (NotDetected) 02/25/18 16:18 Ur Barbiturates Screen Not Detected (NotDetected) 02/25/18 16:18 U Tricyclic Antidepress Not Detected (NotDetected) 02/25/18 16:18 Ur Phencyclidine Scrn Not Detected (NotDetected) 02/25/18 16:18 Ur Amphetamines Screen Not Detected (NotDetected) 02/25/18 16:18 U Methamphetamines Scrn Not Detected (NotDetected) 02/25/18 16:18 U Benzodiazepines Scrn Detected (NotDetected) H 02/25/18 16:18 Urine Cocaine Screen Not Detected (NotDetected) 02/25/18 16:18 U Marijuana (THC) Screen Not Detected (NotDetected) 02/25/18 16:18 Discharge Mental Status: Appearance/Attitude: Patient is casually dressed, made good eye contact and was cooperative. Behavior: Patient does not exhibit any psychomotor agitation or retardation. Speech/Language: Patient's speech is of normal volume and rhythm, she responds to questions but does not initiate conversation and was coherent Thought Process: Patient was goal-directed, there is no evidence of loose association or flight of ideas Thought Content: Patient denied any auditory or visual hallucinations and no delusions or paranoid ideation were elicited. Patient was not ruminating about cleanliness. She stated that she was eager to return to her own apartment, was sleeping and eating well. She stated that she was no longer thinking about suicide, stated she was feeling much happier. Suicidal/Homicidal Ideation: Patient denied any current suicidal or homicidal ideation Sensorium/Cognition: Patient was alert and oriented to person, situation and further cognitive testing was not performed Mood/Affect: Patient's mood was pleasant, patient states that she is feeling happy and her affect was slightly blunted Insight/Judgment: Patient's insight and judgment are limited Risk Assessment: Patient's risk for self harm is low patient has been compliant with medication, followed by the act team Discharge Plan: Patient will return to her own apartment, she is followed by the act team. Patient will continue on Lexapro 10 mg in the morning, Ativan 0.5 mg twice a day, Cogentin 0.5 mg twice a day as well as her Lipitor, [place], Colace, vitamin D. Patient also will continue on Risperdal Consta 25 mg every 2 weeks next dose is due on March 10. Patient will be given a prescription for Lexapro 10 mg in the morning as her other medications are unchanged from admission. Patient will [facility] with [facility] after discharge. Patient was encouraged to be compliant with her medication. Patient Condition at Discharge: Stable Plan - Discharge Summary New Discharge Prescriptions: New Benztropine Mesylate [Cogentin] 0.5 mg PO BID tab Escitalopram [Lexapro] 10 mg PO DAILY #14 tab Continue Lisinopril [Zestril] 2.5 mg PO DAILY risperiDONE MICROSPHERES [RisperDAL CONSTA] 25 mg IM Q14D Docusate [Colace] 100 mg PO Q48H Thiamine [Vitamin B-1] 100 mg PO DAILY Calcium Carbonate/Vitamin D3 [Calcium 600-Vit D3 400 Caplet] 1 tab PO DAILY LORazepam [Ativan] 0.5 mg PO BID Loratadine [Claritin] 10 mg PO DAILY tab Montelukast Sodium [Singulair] 10 mg PO HS Ergocalciferol [Vitamin D2 (DRISDOL)] 50,000 unit PO Q14D Atorvastatin [Lipitor] 10 mg PO DAILY Discontinued Benztropine Mesylate [Cogentin] 1 mg PO BID Discharge Medication List Calcium Carbonate/Vitamin D3 [Calcium 600-Vit D3 400 Caplet] 1 tab PO DAILY [History] Docusate [Colace] 100 mg PO Q48H 08/13/16 [History] LORazepam [Ativan] 0.5 mg PO BID 08/13/16 [History] Lisinopril [Zestril] 2.5 mg PO DAILY 08/13/16 [History] Thiamine [Vitamin B-1] 100 mg PO DAILY 08/13/16 [History] risperiDONE MICROSPHERES [RisperDAL CONSTA] 25 mg IM Q14D 08/13/16 [History] Loratadine [Claritin] 10 mg PO DAILY tab 08/18/16 [Rx] Atorvastatin [Lipitor] 10 mg PO DAILY 02/25/18 [History] Ergocalciferol [Vitamin D2 (DRISDOL)] 50,000 unit PO Q14D 02/25/18 [History] Montelukast Sodium [Singulair] 10 mg PO HS 02/25/18 [History] Benztropine Mesylate [Cogentin] 0.5 mg PO BID tab 03/02/18 [Rx] Escitalopram [Lexapro] 10 mg PO DAILY #14 tab 03/02/18 [Rx] Follow up Appointment(s)/Referral(s): [facility] [Outside] - 03/02/18 1:00 pm (03/02/18 at 100 on unit with ACT 03-22-18 @ 1:[address] Lawrence) Debbie Zhao NPC [Nurse Practitioner] - 1-2 days Activity/Diet/Wound Care/Special Instructions: Activity and diet as tolerated. Avoid the use of street drugs and alcohol. Remove all firearms from the home. Take all medications as prescribed. Follow up with your Primary Care Physician in one to two days. When you are in need of refills on your medications please contact your medical provider and/or your outpatient psychiatrist to have this done. Please go to the scheduled outpatient appointment for aftercare. If symptoms return or become worse call the crisis line and/ or go the nearest emergency room for an evaluation. l Discharge Disposition: HOME SELF-CARE
== END 2018-03-02 12:40 | disposition home or self-care (01) | DRG 885 ==
LOC: EC 15:47 → 3MHU 20:06
PROVIDERS: ADMIT Psychiatry & Neurology Psychiatry; ATTEND Psychiatry & Neurology Psychiatry
DX: F25.1 Schizoaffective disorder, depressive type (principal); R45.851 Suicidal ideations; F41.9 Anxiety disorder, unspecified; I10 Essential (primary) hypertension; K21.9 Gastro-esophageal reflux disease without esophagitis; E78.5 Hyperlipidemia, unspecified; J45.20 Mild intermittent asthma, uncomplicated; Z79.899 Other long term (current) drug therapy; Z91.5 Personal history of self-harm; Z87.891 Personal history of nicotine dependence; Z81.8 Family history of other mental and behavioral disorders
CPT/HCPCS: 36415; 80053; 80061; 80306; 81001; 82075; 82248; 83036; 84443; 85025; 99285

== ENCOUNTER 2019-05-10 15:51 | Emergency (ER) | payer MEDICARE, OTHER ==
[2019-05-10 16:12] VITALS: RESP 18
[2019-05-10 17:01] LABS: Basophils % (A) 1 %; Eosinophils % (A) 1 %; HCT 39.2 % (34.0-46.0); HGB 12.8 gm/dL (11.4-16.0); Lymphocytes # (A) 0.9 k/uL (1.0-4.8); Lymphocytes % (A) 15 %; MCH 30.2 pg (25.0-35.0); MCHC 32.7 g/dL (31.0-37.0); MCV 92.5 fL (80.0-100.0); Mean Platelet Volume 7.6; Monocytes # (A) 0.5 k/uL (0-1.0); Monocytes % (A) 8 %; Neutrophils # (A) 4.7 k/uL (1.3-7.7); Neutrophils % (A) 75 %; Platelet Count 166 k/uL (150-450); RBC 4.24 m/uL (3.80-5.40); RDW 13.4 % (11.5-15.5); WBC 6.2 k/uL (3.8-10.6)
[2019-05-10 17:16] LABS: Appearance,Urine Clear (Clear); Bilirubin,Urine Negative (Negative); Blood,Urine Trace (Negative); Color,Urine Yellow; Glucose,Urine (UA) Negative (Negative); Ketones,Urine Negative (Negative); Leukocyte Esterase,Urine Trace (Negative); Mucus,Urine Rare /hpf; Nitrite,Urine Negative (Negative); PH, Urine 5.5 (5.0-8.0); Protein,Urine Negative (Negative); RBC,Urine 1 /hpf (0-5); Specific Gravity,Urine 1.008 (1.001-1.035); Squamous Epithelial Cell,Urine <1 /hpf (0-4); Urobilinogen,Urine <2.0 mg/dL (<2.0); WBC,Urine 1 /hpf (0-5)
[2019-05-10 17:18] LABS: Acetaminophen <10.0 ug/mL; African American GFR (CKD) 72 (>60 ml/min/1.73 sqM); Anion Gap 11 mmol/L; Blood Urea Nitrogen 10 mg/dL (7-17); Calcium 9.8 mg/dL (8.4-10.2); Carbon Dioxide 22 mmol/L (22-30); Chloride 109 mmol/L (98-107); Glucose 95 mg/dL (74-99); Potassium 3.1 mmol/L (3.5-5.1); Salicylate <1.0 mg/dL; Sodium 142 mmol/L (137-145)
[2019-05-10 17:19] LABS: Amphetamine Screen,Urine Not Detected (NotDetected); Barbiturate Screen,Urine Not Detected (NotDetected); Benzodiazepines Screen,Urine Not Detected (NotDetected); Cocaine Screen,Urine Not Detected (NotDetected); Methadone Screen, Urine Not Detected (NotDetected); Opiate Screen,Urine Not Detected (NotDetected); Oxycodone Screen, Urine Not Detected (NotDetected); Phencyclidine Screen,Urine Not Detected (NotDetected); Tricyclic Antidepressant,Urine Not Detected (NotDetected); Urn Cannabinoid Scrn Not Detected (NotDetected)
--- NOTE | 2019-05-10 17:23 | XR ---
EXAMINATION TYPE: XR chest 2V DATE OF EXAM: 05/10/2019 COMPARISON: 08/12/2012 HISTORY: Cough TECHNIQUE: Frontal and lateral views of the chest are obtained. FINDINGS: Cardiomediastinal silhouette is enlarged. There is diffuse interstitial prominence. On the lateral view there is peribronchial cuffing centrally. Pulmonary hyperinflation is compatible with u nderlying COPD. Mild degenerative changes of the spine. IMPRESSION: 1. Peribronchial cuffing on the lateral view suggests reactive or infectious airway disease. 2. Cardiomegaly with chronic interstitial prominence.
[2019-05-10] MEDS ORDERED: POTASSIUM CHLORIDE ER 20 MEQ TAB.ER PO STA (19:27)
--- NOTE | 2019-05-10 19:54 | ED ---
Psych HPI - General Chief Complaint: Psychiatric Symptoms Stated Complaint: mental health Time Seen by Provider: 05/10/19 16:05 Source: patient Mode of arrival: EMS - History of Present Illness Initial Comments: The patient is a 59-year-old female who presents to the emergency Department with reported suicidal ideations. The patient does have a history of depression. States she's been previously admitted for her depression in the past. States last of which was approximately one year ago. Patient reports today that she was feeling depressed over the loss of her mother. She did lose her mother several years ago. States that today she had thoughts about drowning herself in the bathtub. She did call EMS to transfer her to the hospital. She denies any attempts. Reports that she is on medication for depression. She does see a psychiatrist. They recently took her off of her Ativan 2 weeks ago. States that she's felt anxious since she stopped taking it. She denies any substance abuse. No homicidal ideations or hallucinations. She denies any additional symptoms to include chest pain, shortness of breath, abdominal pain, nausea or vomiting. No headaches or visual changes. There are no other alleviating, precipitating or modifying factors - Related Data Home Medications Medication Instructions Recorded Confirmed Thiamine [Vitamin B-1] 100 mg PO DAILY 08/13/16 05/10/19 risperiDONE MICROSPHERES 25 mg IM Q14D 08/13/16 05/10/19 [RisperDAL CONSTA] Atorvastatin [Lipitor] 10 mg PO DAILY 02/25/18 05/10/19 Cholecalciferol [Vitamin D3 (25 5,000 unit PO DAILY 05/10/19 05/10/19 Mcg = 1000 Iu)] Escitalopram Oxalate [Lexapro] 20 mg PO DAILY 05/10/19 05/10/19 Allergies Allergy/AdvReac Type Severity Reaction Status Date / Time No Known Allergies Allergy Verified 05/10/19 16:12 Review of Systems ROS Statement: Those systems with pertinent positive or pertinent negative responses have been documented in the HPI. ROS Other: All systems not noted in ROS Statement are negative. Past Medical History Past Medical History: GERD/Reflux, Hyperlipidemia, Hypertension, Memory Impairment History of Any Multi-Drug Resistant Organisms: None Reported Past Surgical History: Unable to Obtain Additional Past Surgical History / Comment(s): Non-cancerous growths removed from stomach when patient was in high school. Past Anesthesia/Blood Transfusion Reactions: Unable to Obtain Additional Past Anesthesia/Blood Transfusion Reaction / Comment(s): Unkown. Past Psychological History: Anxiety, Bipolar, Depression Smoking Status: Never smoker Past Alcohol Use History: None Reported Past Drug Use History: None Reported - Past Family History Mother Family Medical History: No Reported History Father Family Medical History: Cancer Sister(s) Family Medical History: No Reported History Brother(s) Family Medical History: No Reported History General Exam Limitations: no limitations General appearance: alert, in no apparent distress Head exam: Present: atraumatic, normocephalic, normal inspection Eye exam: Present: normal appearance, PERRL, EOMI. Absent: scleral icterus, conjunctival injection, periorbital swelling ENT exam: Present: normal exam, mucous membranes moist Neck exam: Present: normal inspection. Absent: tenderness, meningismus, lymphadenopathy Respiratory exam: Present: normal lung sounds bilaterally. Absent: respiratory distress, wheezes, rales, rhonchi, stridor Cardiovascular Exam: Present: regular rate, irregular rhythm, normal heart sounds. Absent: systolic murmur, diastolic murmur, rubs, gallop, clicks GI/Abdominal exam: Present: soft, normal bowel sounds. Absent: distended, tenderness, guarding, rebound, rigid Extremities exam: Present: normal inspection, full ROM, normal capillary refill. Absent: tenderness, pedal edema, joint swelling, calf tenderness Back exam: Present: normal inspection Neurological exam: Present: alert, oriented X3, CN II-XII intact Psychiatric exam: Present: depressed, flat affect Skin exam: Present: warm, dry, intact, normal color. Absent: rash Course Vital Signs 05/10/19 05/10/19 16:00 20:58 Temperature 97.7 F 98.1 F Pulse Rate 52 L 56 L Respiratory 18 18 Rate Blood Pressure 130/98 146/86 O2 Sat by Pulse 96 96 Oximetry Medical Decision Making - Medical Decision Making Upon arrival the patient is placed into room 12. A thorough history and physical exam was performed. I did perform laboratory studies on the patient. Potassium is 3.1. Urinalysis shows trace blood, trace leukocyte esterase and rare mucous. Urine drug screen is negative. Blood is negative for acetaminophen and salicylates. I did discuss these results with the patient. I did order a 12-lead EKG she does report to a history of abnormal heart rhythm. EKG does demonstrate a bigeminy rhythm. The patient denies having any active chest pain, dizziness or shortness of breath. She reports feeling asymptomatic. EPS evaluates the patient. They did call the patient's guardian. The patient does have have an appointment with her counselor tomorrow. The guardian does request that she follow up with this appointment and not be admitted. The patient is reevaluated and states that she has no plans of harming herself when she goes home. I instructed her if she has any worsening symptoms that she call EMS and return to the emergency room. The guardian does provide a ride home for the patient. She was discharged in stable condition - Lab Data Result diagrams: 05/10/19 16:50 05/10/19 16:50 Lab Results 05/10/19 05/10/19 05/10/19 Range/Units 16:50 16:50 16:50 WBC 6.2 (3.8-10.6) k/uL RBC 4.24 (3.80-5.40) m/uL Hgb 12.8 (11.4-16.0) gm/dL Hct 39.2 (34.0-46.0) % MCV 92.5 (80.0-100.0) fL MCH 30.2 (25.0-35.0) pg MCHC 32.7 (31.0-37.0) g/dL RDW 13.4 (11.5-15.5) % Plt Count 166 (150-450) k/uL Neutrophils % 75 % Lymphocytes % 15 % Monocytes % 8 % Eosinophils % 1 % Basophils % 1 % Neutrophils # 4.7 (1.3-7.7) k/uL Lymphocytes # 0.9 L (1.0-4.8) k/uL Monocytes # 0.5 (0-1.0) k/uL Eosinophils # 0.0 (0-0.7) k/uL Basophils # 0.0 (0-0.2) k/uL Sodium 142 (137-145) mmol/L Potassium 3.1 L (3.5-5.1) mmol/L Chloride 109 H (98-107) mmol/L Carbon Dioxide 22 (22-30) mmol/L Anion Gap 11 mmol/L BUN 10 (7-17) mg/dL Creatinine 0.99 (0.52-1.04) mg/dL Est GFR (CKD-EPI)AfAm 72 (>60 ml/min/1.73 sqM) Est GFR (CKD-EPI)NonAf 62 (>60 ml/min/1.73 sqM) Glucose 95 (74-99) mg/dL Calcium 9.8 (8.4-10.2) mg/dL Urine Color Yellow Urine Appearance Clear (Clear) Urine pH 5.5 (5.0-8.0) Ur Specific [place] 1.008 (1.001-1.035) Urine Protein Negative (Negative) Urine Glucose (UA) Negative (Negative) Urine Ketones Negative (Negative) Urine Blood Trace H (Negative) Urine Nitrite Negative (Negative) Urine Bilirubin Negative (Negative) Urine Urobilinogen <2.0 (<2.0) mg/dL Ur Leukocyte Esterase Trace H (Negative) Urine RBC 1 (0-5) /hpf Urine WBC 1 (0-5) /hpf Ur Squamous Epith Cells <1 (0-4) /hpf Urine Mucus Rare H (None) /hpf Salicylates <1.0 mg/dL Urine Opiates Screen Not Detected (NotDetected) Ur Oxycodone Screen Not Detected (NotDetected) Urine Methadone Screen Not Detected (NotDetected) Ur Propoxyphene Screen Not Detected (NotDetected) Acetaminophen <10.0 ug/mL Ur Barbiturates Screen Not Detected (NotDetected) U Tricyclic Antidepress Not Detected (NotDetected) Ur Phencyclidine Scrn Not Detected (NotDetected) Ur Amphetamines Screen Not Detected (NotDetected) U Methamphetamines Scrn Not Detected (NotDetected) U Benzodiazepines Scrn Not Detected (NotDetected) Urine Cocaine Screen Not Detected (NotDetected) U Marijuana (THC) Screen Not Detected (NotDetected) - EKG Data EKG Comments: EKG demonstrates a bigeminy rhythm with frequent premature ventricular complexes. Rate on EKG is 110 however tachycardia related rate appears to be 85. No acute ST segment elevations. No ST depression. There are some PACs. Baseline artifact. Compared to previous EKG for which the patient did have notable PVCs Disposition Clinical Impression: Depression Disposition: HOME SELF-CARE Condition: Stable Instructions (If sedation given, give patient instructions): Depression (ED) Additional Instructions: Please follow-up at your scheduled appointment tomorrow. Return to the emergency room for any new or worsening symptoms Is patient prescribed a controlled substance at d/c from ED?: No Referrals: [facility] [Primary Care Provider] - 1-2 days Time of Disposition: 19:54
[2019-05-10 21:01] VITALS: BP 146/86; PULSE 56; TEMP 98.1
== END 2019-05-10 20:58 | disposition home or self-care (01) ==
LOC: EC 15:51
DX: F31.30 Bipolar disorder, current episode depressed, mild or moderate severity, unspecified (principal); R31.9 Hematuria, unspecified; R82.998 Other abnormal findings in urine; I49.9 Cardiac arrhythmia, unspecified; E78.5 Hyperlipidemia, unspecified; I10 Essential (primary) hypertension; F41.9 Anxiety disorder, unspecified; Z79.899 Other long term (current) drug therapy; Z63.4 Disappearance and death of family member
CPT/HCPCS: 99285; 82075; 36415; 93005; 80048; 85025; 81001; 80306; 83520; 71046; G0480; 80329

== ENCOUNTER 2020-02-14 11:01 | Inpatient (IN) | payer MEDICARE, OTHER ==
[2020-02-14 11:53] LABS: Basophils % (A) 0 %; Eosinophils # (A) 0.1 k/uL (0-0.7); Eosinophils % (A) 1 %; HCT 39.2 % (34.0-46.0); Hypochromasia Slight; Lymphocytes # (A) 1.3 k/uL (1.0-4.8); Lymphocytes % (A) 16 %; MCH 32.3 pg (25.0-35.0); MCHC 33.1 g/dL (31.0-37.0); MCV 97.4 fL (80.0-100.0); Monocytes # (A) 0.8 k/uL (0-1.0); Monocytes % (A) 9 %; Neutrophils # (A) 6.2 k/uL (1.3-7.7); Neutrophils % (A) 73 %; Platelet Count 133 k/uL (150-450); RBC 4.02 m/uL (3.80-5.40); RDW 15.1 % (11.5-15.5); WBC 8.6 k/uL (3.8-10.6)
--- NOTE | 2020-02-14 11:59 | XR ---
EXAMINATION TYPE: XR chest 2V DATE OF EXAM: 02/14/2020 COMPARISON: Prior chest x-ray 05/10/2019 HISTORY: Difficulty breathing TECHNIQUE: Frontal and lateral views of the chest are obtained. FINDINGS: Patient is rotated. Heart is enlarged. Interstitium is increased. There is no pneumothorax or pleural effusion. Pulmonary vascularity mildly prominent centrally. Bone mineralization is stable . Possible bronchial wall thickening similar to prior. IMPRESSION: Correlate for pulmonary venous hypertension and interstitial edema.
[2020-02-14 12:00] LABS: INR 1.6 (<1.2); Prothrombin Time 15.4 sec (9.0-12.0)
[2020-02-14 12:19] LABS: Albumin 3.2 g/dL (3.5-5.0); Potassium 3.2 mmol/L (3.5-5.1); Total Protein 5.5 g/dL (6.3-8.2)
[2020-02-14] MEDS ORDERED: FUROSEMIDE 10 MG/ML 4 ML VIAL IV STA (12:32)
[2020-02-14] MEDS ORDERED: HEPARIN SODIUM,PORCINE 5,000 UNIT/ML 1 ML VIAL IV PRN (13:10)
[2020-02-14] MEDS ORDERED: HEPARIN SODIUM,PORCINE 5,000 UNIT/ML 1 ML VIAL IV ONE (13:10)
[2020-02-14] MEDS ORDERED: HEPARIN SOD,PORK IN 0.45% NACL 25,000 UNIT in 0.45% NACL 1 250ML.BAG IV SCH (13:15)
--- NOTE | 2020-02-14 13:59 | CT ---
EXAMINATION TYPE: CT chest angio for PE DATE OF EXAM: 02/14/2020 COMPARISON: Chest x-ray same date HISTORY: LIANNE; elevated d-dimer CT DLP: 310.6 mGycm Automated exposure control for dose reduction was used. CONTRAST: CT Chest for pulmonary embolism performed with without and with IV Contrast, patient injected with 10 0 ml mL of Isovue 370. FINDINGS: LUNGS: there is no concerning parenchymal mass or nodule identified. Interlobular septal pleural line s are present. Some central groundglass opacities present in the perihilar locations. There is no pn eumothorax seen. There is a small right pleural effusion. The tracheobronchial tree is patent. MEDIASTINUM: There is satisfactory enhancement of the pulmonary artery, there is limited enhancement of the segmental branches possibly due to heart failure. There are no greater than 1 cm hilar or med iastinal lymph nodes. The heart is markedly enlarged. There is reflux of contrast into the inferior v terry cava and hepatic veins. No pericardial effusion is seen. AORTA: No additional significant abnormality is seen. OTHER: No additional significant abnormality is seen. IMPRESSION: As noted on plain film, findings consistent with pulmonary venous hypertension and interstitial edema . There is evidence of right heart failure. Small right pleural effusion. No evident pulmonary emboli sm with limitations as described.
[2020-02-14] MEDS ORDERED: POTASSIUM CHLORIDE ER 10 MEQ TAB.ER.PRT PO STA (14:05)
[2020-02-14] MEDS ORDERED: NITROGLYCERIN SL TABS 0.4 MG TAB SUBLINGUAL PRN (14:12)
--- NOTE | 2020-02-14 14:12 | ED ---
SOB HPI - General Chief Complaint: Shortness of Breath Stated Complaint: LIANNE Time Seen by Provider: 02/14/20 11:22 Source: patient, EMS Mode of arrival: EMS Limitations: no limitations - History of Present Illness Initial Comments: 60-year-old female with history of HTN, HLD, schizophrenia presenting for shortness of breath she states the past 2-3 weeks she's been treated for what they thought was possibly an upper respiratory infection she states she has been on antibiotics and steroids she states that when she continued to cough and shortness of breath she was told to come to the emergency department for further evaluation. Patient states she has no chest pain she states that she has a uneasy feeling in her chest but no pain. Patient states that she has had some diarrhea no vomiting she denies history of diarrhea. He denies any bloody stoo ls vomiting nausea jaw pain arm pain. Patient has a known history of blood clots. Patient states that she has not had a fever to knowledge but has been sweating more than usual and noted that her ankles/feet have been swollen. SOB increases with walking. Denies hemoptysis, pain wtih deep inspiration. patient denies active cancer, history of recent surgical procedures. She states outpatient covid testing was (-)> patient appears slightly tachypneic on arrival. BP within acceptable limits as is oxygen saturation. HR elevated. Overall patient poor at describing symptoms, but not appears acute altered. - Related Data Home Medications Medication Instructions Recorded Confirmed risperiDONE MICROSPHERES 25 mg IM Q14D 08/13/16 02/14/20 [RisperDAL CONSTA] Atorvastatin [Lipitor] 10 mg PO DAILY 02/25/18 02/14/20 Cholecalciferol [Vitamin D3 (25 5,000 unit PO DAILY 05/10/19 02/14/20 Mcg = 1000 Iu)] Albuterol Sulfate [Albuterol 2 puff PO RT-Q6H PRN 02/14/20 02/14/20 Sulfate Hfa] Atorvastatin [Lipitor] 10 mg PO DAILY 02/14/20 02/14/20 Americo/D3/Mag11/Zinc/Veneer Marker/Nando/Bor 1 tab PO DAILY 02/14/20 02/14/20 [Caltrate 600+D Plus Tablet] DULoxetine HCL [Cymbalta] 60 mg PO DAILY 02/14/20 02/14/20 LORazepam [Ativan] 0.5 mg PO TID 02/14/20 02/14/20 Loratadine [Claritin] 10 mg PO DAILY 02/14/20 02/14/20 Montelukast [Singulair] 10 mg PO HS 02/14/20 02/14/20 Allergies Allergy/AdvReac Type Severity Reaction Status Date / Time No Known Allergies Allergy Verified 02/14/20 12:19 Review of Systems ROS Statement: Those systems with pertinent positive or pertinent negative responses have been documented in the HPI. ROS Other: All systems not noted in ROS Statement are negative. Past Medical History Past Medical History: GERD/Reflux, Hyperlipidemia, Hypertension, Memory Impairment History of Any Multi-Drug Resistant Organisms: None Reported Past Surgical History: Unable to Obtain Additional Past Surgical History / Comment(s): Non-cancerous growths removed from stomach when patient was in high school. Past Anesthesia/Blood Transfusion Reactions: Unable to Obtain Additional Past Anesthesia/Blood Transfusion Reaction / Comment(s): Unkown. Past Psychological History: Anxiety, Bipolar, Depression, Schizophrenia Smoking Status: Never smoker Past Alcohol Use History: None Reported Past Drug Use History: None Reported - Past Family History Mother Family Medical History: No Reported History Father Family Medical History: Cancer Sister(s) Family Medical History: No Reported History Brother(s) Family Medical History: No Reported History General Exam - General Exam Comments Initial Comments: General: The patient is awake and alert Eye: +3 mm pupils are equal, round and reactive to light, extra-ocular movements are intact. No nystagmus. There is normal conjunctiva bilaterally. No signs of icterus. Ears, nose, mouth and throat: There are moist mucous membranes and no oral lesions. Neck: The neck is supple, there is no tenderness. Noted JVD. Cardiovascular: There is a increased rate and regular appearing rhythm. Slight murmu. No rub or gallop is appreciated. Respiratory: Respirations are mildly-labored, breath sounds are equal. MIld rales noted at lung bases. No wheezes, stridor, or rhonchi. Gastrointestinal: Soft, non-distended, non-tender abdomen without masses or organomegaly noted. There is no rebound or guarding present. Musculoskeletal: Normal ROM, no tenderness. Strength 5/5. Sensation intact. radial and DP pulses equal bilaterally 2+. Neurological: A&O x 3. CN II-XII intact grossly, There are no obvious motor or sensory deficits. Coordination appears grossly intact. Speech is normal. Skin: Skin is warm and dry and no rashes or lesions are noted. B/l lower leg edema. Psychiatric: Cooperative Limitations: no limitations Course Vital Signs 02/14/20 02/14/20 02/14/20 11:06 11:10 11:20 Temperature 98.5 F Pulse Rate 116 H 128 H 117 H Respiratory 28 H 20 20 Rate Blood Pressure 107/81 107/81 107/81 O2 Sat by Pulse 98 97 97 Oximetry 02/14/20 02/14/20 02/14/20 11:30 11:50 12:00 Temperature Pulse Rate 120 H 121 H 117 H Respiratory 22 22 31 H Rate Blood Pressure 107/81 125/89 125/89 O2 Sat by Pulse 98 99 99 Oximetry 02/14/20 13:08 Temperature Pulse Rate 114 H Respiratory 22 Rate Blood Pressure 105/67 O2 Sat by Pulse 98 Oximetry Medical Decision Making - Medical Decision Making 60-year-old female presenting today for chief complaint of shortness of breath leg swelling. Describes as an uneasy sensation in her chest. Patient significantly elevated BNP denied known history of CHF. Patient has slight bump in her liver enzymes concerning for possible cor pulmonale. Pateint has findings consistent with pulmonary HTN, midl interstitial edema. No focal consolidations, patient afebrile. Patient troponin elevated. No ST elevation on EKG. Patient on telemetry. Patient will be placed on heparin/lasix and admitted for suspected heart failure, cannot rule out that this was caused by an acute cardiac event. Cardiology will be on consultation. Dr. parra is agreeable to care plan and admission. total of 30 minutes of critical care time was spent on patient. - Lab Data Result diagrams: 02/14/20 11:09 02/14/20 11:09 Lab Results 02/14/20 02/14/20 02/14/20 Range/Units 11:09 11:09 11:09 WBC 8.6 (3.8-10.6) k/uL RBC 4.02 (3.80-5.40) m/uL Hgb 13.0 (11.4-16.0) gm/dL Hct 39.2 (34.0-46.0) % MCV 97.4 (80.0-100.0) fL MCH 32.3 (25.0-35.0) pg MCHC 33.1 (31.0-37.0) g/dL RDW 15.1 (11.5-15.5) % Plt Count 133 L (150-450) k/uL Neutrophils % 73 % Lymphocytes % 16 % Monocytes % 9 % Eosinophils % 1 % Basophils % 0 % Neutrophils # 6.2 (1.3-7.7) k/uL Lymphocytes # 1.3 (1.0-4.8) k/uL Monocytes # 0.8 (0-1.0) k/uL Eosinophils # 0.1 (0-0.7) k/uL Basophils # 0.0 (0-0.2) k/uL Hypochromasia Slight PT 15.4 H (9.0-12.0) sec INR 1.6 H (<1.2) APTT 25.0 (22.0-30.0) sec D-Dimer (<0.60) mg/L FEU Sodium 133 L (137-145) mmol/L Potassium 3.2 L (3.5-5.1) mmol/L Chloride 101 (98-107) mmol/L Carbon Dioxide 22 (22-30) mmol/L Anion Gap 10 mmol/L BUN 21 H (7-17) mg/dL Creatinine 1.09 H (0.52-1.04) mg/dL Est GFR (CKD-EPI)AfAm 64 (>60 ml/min/1.73 sqM) Est GFR (CKD-EPI)NonAf 55 (>60 ml/min/1.73 sqM) Glucose 128 H (74-99) mg/dL Plasma Lactic Acid Gerardo (0.7-2.0) mmol/L Calcium 9.0 (8.4-10.2) mg/dL Total Bilirubin 2.0 H (0.2-1.3) mg/dL AST 259 H (14-36) U/L ALT 205 H (4-34) U/L Alkaline Phosphatase 109 (38-126) U/L Troponin I (0.000-0.034) ng/mL NT-Pro-B Natriuret Pep pg/mL Total Protein 5.5 L (6.3-8.2) g/dL Albumin 3.2 L (3.5-5.0) g/dL 07/01/20 07/01/20 07/01/20 Range/Units 11:09 11:09 11:09 WBC (3.8-10.6) k/uL RBC (3.80-5.40) m/uL Hgb (11.4-16.0) gm/dL Hct (34.0-46.0) % MCV (80.0-100.0) fL MCH (25.0-35.0) pg MCHC (31.0-37.0) g/dL RDW (11.5-15.5) % Plt Count (150-450) k/uL Neutrophils % % Lymphocytes % % Monocytes % % Eosinophils % % Basophils % % Neutrophils # (1.3-7.7) k/uL Lymphocytes # (1.0-4.8) k/uL Monocytes # (0-1.0) k/uL Eosinophils # (0-0.7) k/uL Basophils # (0-0.2) k/uL Hypochromasia PT (9.0-12.0) sec INR (<1.2) APTT (22.0-30.0) sec D-Dimer (<0.60) mg/L FEU Sodium (137-145) mmol/L Potassium (3.5-5.1) mmol/L Chloride (98-107) mmol/L Carbon Dioxide (22-30) mmol/L Anion Gap mmol/L BUN (7-17) mg/dL Creatinine (0.52-1.04) mg/dL Est GFR (CKD-EPI)AfAm (>60 ml/min/1.73 sqM) Est GFR (CKD-EPI)NonAf (>60 ml/min/1.73 sqM) Glucose (74-99) mg/dL Plasma Lactic Acid Gerardo 3.3 H* (0.7-2.0) mmol/L Calcium (8.4-10.2) mg/dL Total Bilirubin (0.2-1.3) mg/dL AST (14-36) U/L ALT (4-34) U/L Alkaline Phosphatase (38-126) U/L Troponin I 0.157 H* (0.000-0.034) ng/mL NT-Pro-B Natriuret Pep 21459 pg/mL Total Protein (6.3-8.2) g/dL Albumin (3.5-5.0) g/dL 02/14/20 Range/Units 11:09 WBC (3.8-10.6) k/uL RBC (3.80-5.40) m/uL Hgb (11.4-16.0) gm/dL Hct (34.0-46.0) % MCV (80.0-100.0) fL MCH (25.0-35.0) pg MCHC (31.0-37.0) g/dL RDW (11.5-15.5) % Plt Count (150-450) k/uL Neutrophils % % Lymphocytes % % Monocytes % % Eosinophils % % Basophils % % Neutrophils # (1.3-7.7) k/uL Lymphocytes # (1.0-4.8) k/uL Monocytes # (0-1.0) k/uL Eosinophils # (0-0.7) k/uL Basophils # (0-0.2) k/uL Hypochromasia PT (9.0-12.0) sec INR (<1.2) APTT (22.0-30.0) sec D-Dimer 6.43 H (<0.60) mg/L FEU Sodium (137-145) mmol/L Potassium (3.5-5.1) mmol/L Chloride (98-107) mmol/L Carbon Dioxide (22-30) mmol/L Anion Gap mmol/L BUN (7-17) mg/dL Creatinine (0.52-1.04) mg/dL Est GFR (CKD-EPI)AfAm (>60 ml/min/1.73 sqM) Est GFR (CKD-EPI)NonAf (>60 ml/min/1.73 sqM) Glucose (74-99) mg/dL Plasma Lactic Acid Gerardo (0.7-2.0) mmol/L Calcium (8.4-10.2) mg/dL Total Bilirubin (0.2-1.3) mg/dL AST (14-36) U/L ALT (4-34) U/L Alkaline Phosphatase (38-126) U/L Troponin I (0.000-0.034) ng/mL NT-Pro-B Natriuret Pep pg/mL Total Protein (6.3-8.2) g/dL Albumin (3.5-5.0) g/dL Disposition Clinical Impression: Heart failure, Tachycardia, SOB (shortness of breath), Elevated brain natriuretic peptide (BNP) level, Leg swelling, Hypokalemia, Lactic acidosis Disposition: ADMITTED IP TO THIS [facility] Condition: Serious Is patient prescribed a controlled substance at d/c from ED?: No Referrals: [facility] [Primary Care Provider] - 1-2 days Time of Disposition: 14:11 Decision to Admit Reason: Admit from EC Decision Date: 02/14/20 Decision Time: 14:11
--- NOTE | 2020-02-14 22:40 | P.HPIM ---
History of Present Illness H&P Date: 02/14/20 Chief Complaint: Severe dyspnea and shortness of breath, elevated troponin, early pulmonary 60-year-old [facility] patient with past medical history of hypertension hyperlipidemia and schizophrenic effect who developed to have worsening shortness of breath for the last 2-3 weeks according to her was seen at [facility] treated for bronchitis with no effect. Patient call the clinic concern that she is having more dyspnea and shortness of breath with worsening symptoms was instructed to come to [facility] department. Was seen and evaluated has been having significant and worsening shortness of breath with minimum exertion increased PND orthopnea no angina had some abdominal discomfort with diarrhea no vomiting no worsening cough fever or chills. [facility] trop[facility] was elevated BNP was quite bit high at the time l actic acid was elevated as well patient chest x-ray showed early pulmonary edema with venous congestion. Patient d-dimer was elevated and ended up going for CTA showed no pulmonary embolism but sign of pulmonary edema and pulmonary hypertension. Patient was started on IV diuretics heparin drip and nitro and admitted to the hospital for elevated troponin with possible non-ST CA, pulmonary edema, congestive heart failure excessive patient. Review of Systems CONSTITUTIONAL: Well-developed mild respiratory distress EYES: No icterus sclerae, no conjunctivitis. EARS, NOSE, MOUTH, THROAT, and FACE: No sore throat, lymphadenopathy, carotid bruits or deformity. RESPIRATORY: Positive shortness of breath cough wheezes. CARDIOVASCULAR: Positive PND orthopnea palpitation with worsening dyspnea. GASTROINTESTINAL: No Abd pain, Nausea or vomiting, no Diarrhea or constipation, No GI Bleed, no distention or masses. GENITOURINARY: Negative for Hematuria or UTI, no kidney stones. INTEGUMENT/BREAST: Negative for any muscular injury with mild osteoarthritis.. HEMATOLOGIC/LYMPHATIC: Negative for bleed or purpura. MUSCULOSKELTAL: Negative for Myalgia or arthralgia. NEURLOGICAL: No LOC, Sz or syncope, blurred vision dizziness or abnormality.. BEHAVIORAL/PSYCH: Negative. ENDOCRINE: Negative. Past Medical History Past Medical History: GERD/Reflux, Hyperlipidemia, Hypertension, Memory Impairment History of Any Multi-Drug Resistant Organisms: None Reported Past Surgical History: Unable to Obtain Additional Past Surgical History / Comment(s): Non-cancerous growths removed from stomach when patient was in high school. Past Anesthesia/Blood Transfusion Reactions: Unable to Obtain Additional Past Anesthesia/Blood Transfusion Reaction / Comment(s): Unkown. Past Psychological History: Anxiety, Bipolar, Depression, Schizophrenia Smoking Status: Never smoker Past Alcohol Use History: None Reported Past Drug Use History: None Reported - Past Family History Mother Family Medical History: No Reported History Father Family Medical History: Cancer Sister(s) Family Medical History: No Reported History Brother(s) Family Medical History: No Reported History Medications and Allergies Home Medications Medication Instructions Recorded Confirmed Type risperiDONE MICROSPHERES 25 mg IM Q14D 08/13/16 02/14/20 History [RisperDAL CONSTA] Atorvastatin [Lipitor] 10 mg PO DAILY 02/25/18 02/14/20 History Cholecalciferol [Vitamin D3 (25 5,000 unit PO DAILY 05/10/19 02/14/20 History Mcg = 1000 Iu)] Albuterol Sulfate [Albuterol 2 puff PO RT-Q6H PRN 02/14/20 02/14/20 History Sulfate Hfa] Atorvastatin [Lipitor] 10 mg PO DAILY 02/14/20 02/14/20 History Americo/D3/Mag11/Zinc/Label Stamper/Nando/Bor 1 tab PO DAILY 02/14/20 02/14/20 History [Caltrate 600+D Plus Tablet] DULoxetine HCL [Cymbalta] 60 mg PO DAILY 02/14/20 02/14/20 History LORazepam [Ativan] 0.5 mg PO TID 02/14/20 02/14/20 History Loratadine [Claritin] 10 mg PO DAILY 02/14/20 02/14/20 History Montelukast [Singulair] 10 mg PO HS 02/14/20 02/14/20 History Allergies Allergy/AdvReac Type Severity Reaction Status Date / Time No Known Allergies Allergy Verified 02/14/20 12:19 Physical Exam Vitals: Vital Signs Temp Pulse Resp BP Pulse Ox 02/14/20 15:30 112 H 20 102/85 99 02/14/20 15:00 118 H 24 112/98 98 02/14/20 14:30 123 H 26 H 102/89 97 02/14/20 14:00 115 H 20 116/77 02/14/20 13:08 114 H 22 105/67 98 02/14/20 13:00 112 H 20 103/89 98 02/14/20 12:30 106 H 16 107/80 97 02/14/20 12:00 117 H 31 H 125/89 99 02/14/20 11:50 121 H 22 125/89 99 02/14/20 11:30 120 H 22 107/81 98 02/14/20 11:20 117 H 20 107/81 97 02/14/20 11:10 128 H 20 107/81 97 02/14/20 11:06 98.5 F 116 H 28 H 10781 98 Intake and Output 02/14/20 02/14/20 02/14/20 06:59 14:59 22:59 Other: Weight 72.575 kg General Appearance: Alert, cooperative, mild distress. Neck HEENT: Supple, no lymphadenopathy, no thyroid enlargement, no carotid bruits. Lungs: Decrease breath sound bilaterally with fine rhonchi slight Rales in the bases with mild expiratory wheezes. Chest Wall: Decrease expansion with deep inspiration no tenderness and no deformity was found on exam, no costochondral pain or discomfort. Heart: Regular rate and rhythm, S1, S2 positive S3 positive JVD. Back: Symmetric, no curvature, ROM normal, no CVA tenderness. Abdomen: Soft, non-tender, bowel sounds active all four quadrants, no masses, no organomegaly. Extremities: Trace edema positive mild arthritis with slight discoloration of the skin from the knee down. Pulses: 2+ and symmetric. Skin: Skin color, texture, tugor normal, no rashes or lesions. Neurologic: Alert oriented x3 cranial nerves II through XII intact, no motor deficit, no abnormal balance or gait. Results CBC & Chem 7: 02/14/20 11:09 02/14/20 11:09 Labs: Abnormal Lab Results - Last 24 Hours (Table) 02/14/20 02/14/20 02/14/20 Range/Units 11:09 11:09 11:09 Plt Count 133 L (150-450) k/uL PT 15.4 H (9.0-12.0) sec INR 1.6 H (<1.2) D-Dimer (<0.60) mg/L FEU Sodium 133 L (137-145) mmol/L Potassium 3.2 L (3.5-5.1) mmol/L BUN 21 H (7-17) mg/dL Creatinine 1.09 H (0.52-1.04) mg/dL Glucose 128 H (74-99) mg/dL Plasma Lactic Acid Gerardo (0.7-2.0) mmol/L Total Bilirubin 2.0 H (0.2-1.3) mg/dL AST 259 H (14-36) U/L ALT 205 H (4-34) U/L Troponin I (0.000-0.034) ng/mL Total Protein 5.5 L (6.3-8.2) g/dL Albumin 3.2 L (3.5-5.0) g/dL 02/14/20 02/14/20 02/14/20 Range/Units 11:09 11:09 11:09 Plt Count (150-450) k/uL PT (9.0-12.0) sec INR (<1.2) D-Dimer 6.43 H (<0.60) mg/L FEU Sodium (137-145) mmol/L Potassium (3.5-5.1) mmol/L BUN (7-17) mg/dL Creatinine (0.52-1.04) mg/dL Glucose (74-99) mg/dL Plasma Lactic Acid Gerardo 3.3 H* (0.7-2.0) mmol/L Total Bilirubin (0.2-1.3) mg/dL AST (14-36) U/L ALT (4-34) U/L Troponin I 0.157 H* (0.000-0.034) ng/mL Total Protein (6.3-8.2) g/dL Albumin (3.5-5.0) g/dL 02/14/20 02/14/20 02/14/20 Range/Units 15:11 15:11 17:17 Plt Count (150-450) k/uL PT (9.0-12.0) sec INR (<1.2) D-Dimer (<0.60) mg/L FEU Sodium (137-145) mmol/L Potassium (3.5-5.1) mmol/L BUN (7-17) mg/dL Creatinine (0.52-1.04) mg/dL Glucose (74-99) mg/dL Plasma Lactic Acid Gerardo 2.8 H* (0.7-2.0) mmol/L Total Bilirubin (0.2-1.3) mg/dL AST (14-36) U/L ALT (4-34) U/L Troponin I 0.167 H* 0.172 H* (0.000-0.034) ng/mL Total Protein (6.3-8.2) g/dL Albumin (3.5-5.0) g/dL Thrombosis Risk Factor Assmnt - DVT/VTE Prophylaxis DVT/VTE Prophylaxis: Pharmacologic Prophylaxis ordered, Mechanical Prophylaxis ordered Assessment and Plan Assessment: 1 severe dyspnea and shortness of breath: Combination of early pulmonary edema, possible non-ST CA, and congestive heart failure most likely diastolic dysfunction. 2 congestive heart failure exacerbation: Not a clear etiology with significant fluid overload, patient be on furosemide 40 mg IV twice a day continue to treat this as a systolic dysfunction congestive heart failure with the blood pressure been elevated we will make sure to add small dose of beta nadir and ERIC inhibitor consult cardiology echocardiogram was ordered. 3 elevated troponin: With possible non-ST CA, if echocardiogram showed significant wall motion abnormality patient might require to go for heart cath. 4 significantly abnormal liver function test with elevated troponin AST and ALT: Not a clear etiology at this point will order an ultrasound of the liver watch for any gallstone or Nelson. 5 history of asthma/COPD: Patient will be continue on albuterol along with Singulair. Continue O2 as needed. 6 hyperlipidemia: Remain on atorvastatin 10 mg a day. 7 chronic depression: Has been on duloxetine 60 mg a day along with lorazepam 0.5 mg 3 times a day. 8 history of schizoaffective disorders: Has been on risperidone 25 mg IM injection every 14 days and seen psych on regular basis. 9 acute kidney injury: Stage II with the current management repeat BUN/creatinine daily in the next 2 days. 10 mild coagulopathy: With elevated PT/INR, especially with abnormal liver function test this could be sign of chronic hepatitis of some kind most likely Nelson. 11 DVT prophylaxis: Patient will be on heparin drip. 12 GI prophylaxis: Patient be on pantoprazole orally. CODE STATUS: Full code. Admit patient to inpatient service for more than 2 nights.
[2020-02-14] MEDS: MONTELUKAST 10 MG TAB PO SCH (23:15)
[2020-02-14] MEDS: FUROSEMIDE 10 MG/ML 4 ML VIAL IV SCH (23:15)
[2020-02-15 07:05] LABS: Basophils % (A) 0 %; Eosinophils # (A) 0.2 k/uL (0-0.7); Eosinophils % (A) 3 %; HCT 36.6 % (34.0-46.0); HGB 11.9 gm/dL (11.4-16.0); Hypochromasia Slight; Lymphocytes # (A) 1.4 k/uL (1.0-4.8); Lymphocytes % (A) 20 %; MCH 31.9 pg (25.0-35.0); MCHC 32.6 g/dL (31.0-37.0); Mean Platelet Volume 8.9; Monocytes # (A) 0.4 k/uL (0-1.0); Monocytes % (A) 6 %; Neutrophils % (A) 69 %; Platelet Count 128 k/uL (150-450); RBC 3.74 m/uL (3.80-5.40); WBC 7.2 k/uL (3.8-10.6)
[2020-02-15 07:29] LABS: INR 1.5 (<1.2); Prothrombin Time 14.7 sec (9.0-12.0)
[2020-02-15 07:46] LABS: Partial Thromboplastin Time 182.3 sec (22.0-30.0)
[2020-02-15 07:48] LABS: Albumin 2.7 g/dL (3.5-5.0); Calcium 7.8 mg/dL (8.4-10.2); Total Bilirubin 1.6 mg/dL (0.2-1.3)
[2020-02-15] MEDS: LORazepam 0.5 MG TAB PO SCH ×4 (08:33→20:31)
[2020-02-15] MEDS: LORATADINE 10 MG TAB PO SCH (08:35)
[2020-02-15] MEDS: DULoxetine HCL 60 MG CAPSULE.DR PO SCH (08:35)
[2020-02-15] MEDS: CARVEDILOL 3.125 MG TAB PO SCH ×3 (08:35→16:43)
[2020-02-15] MEDS: PANTOPRAZOLE 40 MG TABLET PO SCH (08:36)
[2020-02-15] MEDS: ATORVASTATIN 10 MG TAB PO SCH (08:37)
[2020-02-15] MEDS: CALCIUM CARB-VIT D 500MG-200UN 1 EACH TAB PO SCH (08:37)
[2020-02-15] MEDS ORDERED: Potassium Replacement Protocol 1 EACH MISC MISCELLANE PRN (08:39)
[2020-02-15] MEDS: CHOLECALCIFEROL 1,000 UNIT TAB PO SCH (08:42)
[2020-02-15] MEDS: FUROSEMIDE 10 MG/ML 4 ML VIAL IV SCH ×3 (08:43→23:02)
--- NOTE | 2020-02-15 08:57 | US ---
EXAMINATION TYPE: US liver DATE OF EXAM: 02/15/2020 COMPARISON: CT CLINICAL HISTORY: Abx LFT. Patient denies RUQ pain after meals. EXAM MEASUREMENTS: Liver Length: 18.3 cm Gallbladder Wall: 0.4 cm CBD: 0.5 cm Right Kidney: 9.4 x 5.2 x 3.9 cm Pancreas: hyperechoic Liver: hyperechoic, prominent left lobe Gallbladder: abnormally thickened wall, nonmobile echoes in neck, mobile, shadowing gallstone within and size = 1.7 x 1.3 x 0.8cm Evidence for sonographic Albert's sign: no CBD: wnl Right Kidney: possible renal stone(calcification) in upper pole seen = 0.5 x 0.5 x 0.4cm, couple of renal cysts seen with larger complex cyst in upper cortex = 2.8 x 2.7 x 2.4cm. IMPRESSION: 1. Correlate for acute cholecystitis. 2. Nephrolithiasis. 3. Fatty liver.
[2020-02-15] MEDS ORDERED: ASPIRIN 325 MG TAB PO SCH (09:00)
[2020-02-15] MEDS ORDERED: POTASSIUM CHLORIDE ER 20 MEQ TAB.ER PO SCH (09:15)
[2020-02-15] MEDS: LISINOPRIL 5 MG TAB PO SCH (09:47)
--- NOTE | 2020-02-15 10:19 | P.PN ---
Subjective 60-year-old female [facility] patient with past medical history of hypertension hyperlipidemia and schizophrenic effect who developed to have worsening shortness of breath for the last 2-3 weeks according to her was seen at [facility] treated for bronchitis with no effect. Patient call the clinic concern that she is having more dyspnea and shortness of breath with worsening symptoms was instructed to come to the emergency department. Was seen and evaluated has been having significant and worsening shortness of breath with mi nimum exertion increased PND orthopnea no angina had some abdominal discomfort with diarrhea no vomiting no worsening cough fever or chills. Jeanie was seen a [facility] department her troponin was elevated BNP was quite bit high at the time lactic acid was elevated as well patient chest x-ray showed early pulmonary edema with venous congestion. Patient d-dimer was elevated and ended up going for CTA showed no pulmonary embolism but sign of pulmonary edema and pulmonary hypertension. Patient was started on IV diuretics heparin drip and nitro and admitted to the hospital for elevated troponin with possible non-ST OR, pulmonary edema, congestive heart failure excessive patient. 02/14: Patient evaluated, denies any further complaints of shortness of breath. Liver enzymes still noted to be elevated AST 140, ALT 160, total bilirubin 1.6, potassium 3.0, sodium 136, BUN 22, creatinine 0.98. Potassium replaced per protocol. Liver ultrasound obtained for abnormal liver function, showed the gal lbladder with abnormally thickened wall and gallstones, correlate for acute cholecystitis, nephrolithiasis, and fatty liver. Will consult surgery for acute cholecystitis. She continues on Lasix 40 mg daily IVP, cardiology on consult. Echocardiogram showed mild concentric left ventricular hypertrophy, left ventricular systolic function moderately impaired with an EF of 35-40%, increased LAP grade 2 diastolic dysfunction, LA is severely dilated, severe mitral regurgitation, moderate mitral valve prolapse, moderate tricuspid regurgitation, moderate pulmonary hypertension. Vital signs are stable, afebrile 97.6, heart rate 65, wrist rate 22, blood pressure 126/66 she's 98% on 2 L via nasal cannula. Objective - Vital Signs Vital signs: Vital Signs Temp 97.6 F 02/15/20 04:00 Pulse 65 02/15/20 04:00 Resp 22 02/15/20 04:00 BP 126/66 02/15/20 04:00 Pulse Ox 99 02/15/20 04:00 Intake & Output 02/14/20 02/15/20 02/15/20 18:59 06:59 18:59 Intake Total 62.415 125.334 Balance 62.415 125.334 Weight 72.575 kg 78.5 kg Intake: Intake, IV Titration 62.415 125.334 Amount Heparin Sod,Pork in 0.45% 62.415 125.334 NaCl 25,000 unit In 0.45 % NaCl 1 250ml.bag @ 12 UNITS/KG/HR 8.709 mls/hr IV .Q24H [facility] Rx#: [id number] Other: Voiding Method Toilet Diaper # Voids 5 - Constitutional General appearance: Present: cooperative, no acute distress - EENT Eyes: Present: EOMI, PERRLA, normal appearance ENT: Present: hearing grossly normal, normal oropharynx - Neck Neck: Present: normal ROM. Absent: lymphadenopathy, thyromegaly - Respiratory Respiratory: bilateral: diminished, rales, wheezing - Cardiovascular Rhythm: regular Heart sounds: normal: S1, S2 - Gastrointestinal General gastrointestinal: Present: normal bowel sounds. Absent: distended, organomegaly, tenderness - Neurologic Neurologic: Present: CNII-XII intact. Absent: focal deficits - Musculoskeletal Musculoskeletal: Present: gait normal, strength equal bilaterally - Psychiatric Psychiatric: Present: A&O x's 3, appropriate affect - Labs CBC & Chem 7: 02/15/20 06:48 02/15/20 06:48 Labs: Abnormal Lab Results - Last 24 Hours (Table) 02/14/20 02/14/20 02/14/20 Range/Units 11:09 11:09 11:09 RBC (3.80-5.40) m/uL Plt Count 133 L (150-450) k/uL PT 15.4 H (9.0-12.0) sec INR 1.6 H (<1.2) APTT (22.0-30.0) sec D-Dimer (<0.60) mg/L FEU Sodium 133 L (137-145) mmol/L Potassium 3.2 L (3.5-5.1) mmol/L BUN 21 H (7-17) mg/dL Creatinine 1.09 H (0.52-1.04) mg/dL Glucose 128 H (74-99) mg/dL Plasma Lactic Acid Gerardo (0.7-2.0) mmol/L Calcium (8.4-10.2) mg/dL Total Bilirubin 2.0 H (0.2-1.3) mg/dL AST 259 H (14-36) U/L ALT 205 H (4-34) U/L Troponin I (0.000-0.034) ng/mL Total Protein 5.5 L (6.3-8.2) g/dL Albumin 3.2 L (3.5-5.0) g/dL HDL Cholesterol (40-60) mg/dL 02/14/20 02/14/20 02/14/20 Range/Units 11:09 11:09 11:09 RBC (3.80-5.40) m/uL Plt Count (150-450) k/uL PT (9.0-12.0) sec INR (<1.2) APTT (22.0-30.0) sec D-Dimer 6.43 H (<0.60) mg/L FEU Sodium (137-145) mmol/L Potassium (3.5-5.1) mmol/L BUN (7-17) mg/dL Creatinine (0.52-1.04) mg/dL Glucose (74-99) mg/dL Plasma Lactic Acid Gerardo 3.3 H* (0.7-2.0) mmol/L Calcium (8.4-10.2) mg/dL Total Bilirubin (0.2-1.3) mg/dL AST (14-36) U/L ALT (4-34) U/L Troponin I 0.157 H* (0.000-0.034) ng/mL Total Protein (6.3-8.2) g/dL Albumin (3.5-5.0) g/dL HDL Cholesterol (40-60) mg/dL 02/14/20 02/14/20 02/14/20 Range/Units 15:11 15:11 17:17 RBC (3.80-5.40) m/uL Plt Count (150-450) k/uL PT (9.0-12.0) sec INR (<1.2) APTT (22.0-30.0) sec D-Dimer (<0.60) mg/L FEU Sodium (137-145) mmol/L Potassium (3.5-5.1) mmol/L BUN (7-17) mg/dL Creatinine (0.52-1.04) mg/dL Glucose (74-99) mg/dL Plasma Lactic Acid Gerardo 2.8 H* (0.7-2.0) mmol/L Calcium (8.4-10.2) mg/dL Total Bilirubin (0.2-1.3) mg/dL AST (14-36) U/L ALT (4-34) U/L Troponin I 0.167 H* 0.172 H* (0.000-0.034) ng/mL Total Protein (6.3-8.2) g/dL Albumin (3.5-5.0) g/dL HDL Cholesterol (40-60) mg/dL 02/14/20 02/15/20 02/15/20 Range/Units 18:13 06:48 06:48 RBC 3.74 L (3.80-5.40) m/uL Plt Count 128 L (150-450) k/uL PT (9.0-12.0) sec INR (<1.2) APTT 32.8 H (22.0-30.0) sec D-Dimer (<0.60) mg/L FEU Sodium 136 L (137-145) mmol/L Potassium 3.0 L (3.5-5.1) mmol/L BUN 22 H (7-17) mg/dL Creatinine (0.52-1.04) mg/dL Glucose (74-99) mg/dL Plasma Lactic Acid Gerardo (0.7-2.0) mmol/L Calcium 7.8 L (8.4-10.2) mg/dL Total Bilirubin 1.6 H (0.2-1.3) mg/dL AST 140 H (14-36) U/L ALT 168 H (4-34) U/L Troponin I (0.000-0.034) ng/mL Total Protein 5.0 L (6.3-8.2) g/dL Albumin 2.7 L (3.5-5.0) g/dL HDL Cholesterol 24 L (40-60) mg/dL 02/15/20 Range/Units 06:48 RBC (3.80-5.40) m/uL Plt Count (150-450) k/uL PT 14.7 H (9.0-12.0) sec INR 1.5 H (<1.2) APTT 182.3 H* (22.0-30.0) sec D-Dimer (<0.60) mg/L FEU Sodium (137-145) mmol/L Potassium (3.5-5.1) mmol/L BUN (7-17) mg/dL Creatinine (0.52-1.04) mg/dL Glucose (74-99) mg/dL Plasma Lactic Acid Gerardo (0.7-2.0) mmol/L Calcium (8.4-10.2) mg/dL Total Bilirubin (0.2-1.3) mg/dL AST (14-36) U/L ALT (4-34) U/L Troponin I (0.000-0.034) ng/mL Total Protein (6.3-8.2) g/dL Albumin (3.5-5.0) g/dL HDL Cholesterol (40-60) mg/dL Assessment and Plan Plan: 1 severe dyspnea and shortness of breath: Combination of early pulmonary edema, possible non-ST OR, and congestive heart failure most likely diastolic dysfunction. 2 congestive heart failure exacerbation: Not a clear etiology with significant fluid overload, continue on furosemide 40 mg IV twice a day continue to treat this as a systolic dysfunction congestive heart failure with the blood pressure been elevated we will make sure to add small dose of beta nadir and ERIC inhibitor consult cardiology echocardiogram was ordered. 3 elevated troponin: With possible non-ST OR, if echocardiogram showed significant wall motion abnormality patient might require to go for heart cath. 4 significantly abnormal liver function test with elevated troponin AST and ALT: Not a clear etiology at this point will order an ultrasound of the liver watch for any gallstone or Nelson, liver ultrasound showed acute cholecystitis, consult placed to surgery. 5 history of asthma/COPD: Patient will be continue on albuterol along with Singulair. Continue O2 as needed. 6 hyperlipidemia: Remain on atorvastatin 10 mg a day. 7 chronic depression: Has been on duloxetine 60 mg a day along with lorazepam 0.5 mg 3 times a day. 8 history of schizoaffective disorders: Has been on risperidone 25 mg IM injection every 14 days and seen psych on regular basis. 9 acute kidney injury: Stage II with the current management repeat BUN/creatinine daily in the next 2 days. 10 mild coagulopathy: With elevated PT/INR, especially with abnormal liver function test this could be sign of chronic hepatitis of some kind most likely Nelson. 11 DVT prophylaxis: Patient will be on heparin drip. 12 GI prophylaxis: Patient be on pantoprazole orally. CODE STATUS: Full code. Admit patient to inpatient service for more than 2 nights. The above impression and plan of care have been discussed and directed by signing physician. Jenn Murillo nurse practitioner acting as scribe for signing physician.
[2020-02-15] MEDS: POTASSIUM CHLORIDE ER 20 MEQ TAB.ER PO SCH ×3 (10:46→20:31)
--- NOTE | 2020-02-15 12:13 | ECHOF ---
Referral Reason:per Dr Win accepting admitting, CHF MEASUREMENTS -------- HEIGHT: 160.0 cm WEIGHT: 78.5 kg BP: 126/66 RVIDd: 2.5 cm (< 3.3) IVSd: 1.0 cm (0.6 - 1.1) LVIDd: 5.9 cm (3.9 - 5.3) LVPWd: 1.3 cm (0.6 - 1.1) IVSs: 1.1 cm LVIDs: 5.0 cm LVPWs: 1.5 cm LAESV Index (A-L): 108.22 ml/m Ao Diam: 2.7 cm (2.0 - 3.7) AV Cusp: 2.0 cm (1.5 - 2.6) LA Diam: 5.7 cm (2.7 - 3.8) MV EXCURSION: 21.171 mm (> 18.000) MV EF SLOPE: 109 mm/s (70 - 150) EPSS: 1.4 cm MV E Ted: 1.12 m/s MV DecT: 205 ms MV A Ted: 0.32 m/s MV E/A Ratio: 3.46 RAP: 15.00 mmHg RVSP: 55.80 mmHg TAPSE: 15.12 mm FINDINGS -------- Sinus rhythm with extra systolic beats. This was a technically good study. The left ventricle is moderately dilated. There is mild concentric left ventricular hypertrophy. Overall left ventricular systolic function is moderately impaired with, an EF between 35 - 40 %. In creased LAP Grade 2 Diastolic Dysfunction. The right ventricle is normal in size. LA is severely dilated >40 ml/m2 The right atrial size is normal. Aortic valve is trileaflet and is mildly thickened. Severe mitral regurgitation is present. There is moderate mitral valve prolapse , predominately an anteriorly directed jet. Moderate prolapse of the posterior mitral valve leaflet. Cannot exclude flail leaflet . The tricuspid valve appears structurally normal. Moderate tricuspid regurgitation present. There is moderate pulmonary hypertension. The right ventricular systolic pressure, as measured by Doppler , is 55.80mmHg. There is no pulmonic regurgitation present. The aortic root size is normal. The inferior vena cava is mildly dilated. There is a trivial pericardial effusion present. CONCLUSIONS -------- 1. Sinus rhythm with extra systolic beats. 2. This was a technically good study. 3. The left ventricle is moderately dilated. 4. There is mild concentric left ventricular hypertrophy. 5. Overall left ventricular systolic function is moderately impaired with, an EF between 35 - 40 %. 6. Increased LAP Grade 2 Diastolic Dysfunction. 7. The right ventricle is normal in size. 8. LA is severely dilated >40 ml/m2 9. The right atrial size is normal. 10. Aortic valve is trileaflet and is mildly thickened. 11. Severe mitral regurgitation is present. 12. There is moderate mitral valve prolapse. 13. , predominately an anteriorly directed jet. 14. Moderate prolapse of the posterior mitral valve leaflet. 15. Cannot exclude flail leaflet . 16. The tricuspid valve appears structurally normal. 17. Moderate tricuspid regurgitation present. 18. There is moderate pulmonary hypertension. 19. The right ventricular systolic pressure, as measured by Doppler, is 55.80mmHg. 20. There is no pulmonic regurgitation present. 21. The aortic root size is normal. 22. The inferior vena cava is mildly dilated. 23. There is a trivial pericardial effusion present. PACK MASTER: Aurora Young RDCS
--- NOTE | 2020-02-15 12:41 | P.GSCN ---
<Luli Bedolla - Last Filed: 02/15/20 13:03> History of Present Illness Consult date: 02/15/20 Reason for Consult: Acute cholecystitis Requesting physician: Jenn Murillo History of present illness: CHIEF COMPLAINT: Acute cholecystitis HISTORY OF PRESENT ILLNESS: 60-year-old female who presented to the emergency room chief complaint of shortness of breath. Patient was found to be in CHF with pulmonary edema along with elevated troponins. She was placed on IV lasix and IV heparin. LFTs were elevated and abdominal US was obtained. General surgery was consulted for further evaluation. Patient examined at the bedside. She denies abdominal pain. Denies nausea or vomiting. Denies diarrhea or constipation. Denies known history of gallbladder disease herself or in her family. Denies intolerance to greasy or fatty foods. PAST MEDICAL HISTORY: See list. PAST SURGICAL HISTORY: See list. SOCIAL HISTORY: No illicit drug use. REVIEW OF SYSTEMS: CONSTITUTIONAL: Denies fever or chills. HEENT: Denies blurred vision, vision changes, or eye pain. Denies hemoptysis CARDIOVASCULAR: Denies chest pain or pressure. RESPIRATORY: Positive for shortness of breath. GASTROINTESTINAL: Refer to HPI for pertinent findings HEMATOLOGIC: Denies bleeding disorders. GENITOURINARY: Denies any blood in urine. SKIN: Denies pruitis. Denies rash. PHYSICAL EXAM: VITAL SIGNS: Reviewed. GENERAL: Well-developed in no acute distress. HEENT: No sclera icterus. Extraocular movements grossly intact. Moist buccal mucosa. Head is atraumatic, normocephalic. ABDOMEN: Soft. Nondistended. Nontender. NEUROLOGIC: Alert and oriented. Cranial nerves II through XII grossly intact. LABORATORY DATA: WBC 7.2. Hemoglobin 11.9. Platelet count 128. Bilirubin 1.6. AST 140. ALT 168. IMAGING: Abdominal ultrasound: Thickened gallbladder wall measuring 0.4 cm with gallstones present. ASSESSMENT: 1. Abnormal US revealing gallstones and thickened gallbladder wall PLAN: Continue diet as tolerated Monitor LFTs Patient will be evaluated by surgeon this afternoon Nurse practitioner note has been reviewed by physician. Signing provider agrees with the documented findings, assessment, and plan of care. Past Medical History Past Medical History: GERD/Reflux, Hyperlipidemia, Hypertension, Memory Impairment History of Any Multi-Drug Resistant Organisms: None Reported Past Surgical History: Unable to Obtain Additional Past Surgical History / Comment(s): Non-cancerous growths removed from stomach when patient was in high school. Past Anesthesia/Blood Transfusion Reactions: Unable to Obtain Additional Past Anesthesia/Blood Transfusion Reaction / Comm: Unkown. Past Psychological History: Anxiety, Bipolar, Depression, Schizophrenia Smoking Status: Never smoker Past Alcohol Use History: None Reported Past Drug Use History: None Reported - Past Family History Mother Family Medical History: No Reported History Father Family Medical History: Cancer Sister(s) Family Medical History: No Reported History Brother(s) Family Medical History: No Reported History Medications and Allergies Home Medications Medication Instructions Recorded Confirmed Type risperiDONE MICROSPHERES 25 mg IM Q14D 08/13/16 02/14/20 History [RisperDAL CONSTA] Atorvastatin [Lipitor] 10 mg PO DAILY 02/25/18 02/14/20 History Cholecalciferol [Vitamin D3 (25 5,000 unit PO DAILY 05/10/19 02/14/20 History Mcg = 1000 Iu)] Albuterol Sulfate [Albuterol 2 puff PO RT-Q6H PRN 02/14/20 02/14/20 History Sulfate Hfa] Atorvastatin [Lipitor] 10 mg PO DAILY 02/14/20 02/14/20 History Americo/D3/Mag11/Zinc/Baker Operator Automatic/Nando/Bor 1 tab PO DAILY 02/14/20 02/14/20 History [Caltrate 600+D Plus Tablet] DULoxetine HCL [Cymbalta] 60 mg PO DAILY 02/14/20 02/14/20 History LORazepam [Ativan] 0.5 mg PO TID 02/14/20 02/14/20 History Loratadine [Claritin] 10 mg PO DAILY 02/14/20 02/14/20 History Montelukast [Singulair] 10 mg PO HS 02/14/20 02/14/20 History Allergies Allergy/AdvReac Type Severity Reaction Status Date / Time No Known Allergies Allergy Verified 02/14/20 12:19 Surgical - Exam Vital Signs Temp Pulse Resp BP Pulse Ox 98.5 F 116 H 28 H 107/81 98 02/14/20 11:06 02/14/20 11:06 02/14/20 11:06 02/14/20 11:06 02/14/20 11:06 Results - Labs 02/15/20 06:48 07/02/20 06:48 Abnormal Lab Results - Last 24 Hours (Table) 02/14/20 02/14/20 02/14/20 Range/Units 11:09 11:09 11:09 RBC (3.80-5.40) m/uL Plt Count 133 L (150-450) k/uL PT 15.4 H (9.0-12.0) sec INR 1.6 H (<1.2) APTT (22.0-30.0) sec D-Dimer (<0.60) mg/L FEU Sodium 133 L (137-145) mmol/L Potassium 3.2 L (3.5-5.1) mmol/L BUN 21 H (7-17) mg/dL Creatinine 1.09 H (0.52-1.04) mg/dL Glucose 128 H (74-99) mg/dL Plasma Lactic Acid Gerardo (0.7-2.0) mmol/L Calcium (8.4-10.2) mg/dL Total Bilirubin 2.0 H (0.2-1.3) mg/dL AST 259 H (14-36) U/L ALT 205 H (4-34) U/L Troponin I (0.000-0.034) ng/mL Total Protein 5.5 L (6.3-8.2) g/dL Albumin 3.2 L (3.5-5.0) g/dL HDL Cholesterol (40-60) mg/dL 02/14/20 02/14/20 02/14/20 Range/Units 11:09 11:09 11:09 RBC (3.80-5.40) m/uL Plt Count (150-450) k/uL PT (9.0-12.0) sec INR (<1.2) APTT (22.0-30.0) sec D-Dimer 6.43 H (<0.60) mg/L FEU Sodium (137-145) mmol/L Potassium (3.5-5.1) mmol/L BUN (7-17) mg/dL Creatinine (0.52-1.04) mg/dL Glucose (74-99) mg/dL Plasma Lactic Acid Gerardo 3.3 H* (0.7-2.0) mmol/L Calcium (8.4-10.2) mg/dL Total Bilirubin (0.2-1.3) mg/dL AST (14-36) U/L ALT (4-34) U/L Troponin I 0.157 H* (0.000-0.034) ng/mL Total Protein (6.3-8.2) g/dL Albumin (3.5-5.0) g/dL HDL Cholesterol (40-60) mg/dL 02/14/20 02/14/20 02/14/20 Range/Units 15:11 15:11 17:17 RBC (3.80-5.40) m/uL Plt Count (150-450) k/uL PT (9.0-12.0) sec INR (<1.2) APTT (22.0-30.0) sec D-Dimer (<0.60) mg/L FEU Sodium (137-145) mmol/L Potassium (3.5-5.1) mmol/L BUN (7-17) mg/dL Creatinine (0.52-1.04) mg/dL Glucose (74-99) mg/dL Plasma Lactic Acid Gerardo 2.8 H* (0.7-2.0) mmol/L Calcium (8.4-10.2) mg/dL Total Bilirubin (0.2-1.3) mg/dL AST (14-36) U/L ALT (4-34) U/L Troponin I 0.167 H* 0.172 H* (0.000-0.034) ng/mL Total Protein (6.3-8.2) g/dL Albumin (3.5-5.0) g/dL HDL Cholesterol (40-60) mg/dL 02/14/20 02/15/20 02/15/20 Range/Units 18:13 06:48 06:48 RBC 3.74 L (3.80-5.40) m/uL Plt Count 128 L (150-450) k/uL PT (9.0-12.0) sec INR (<1.2) APTT 32.8 H (22.0-30.0) sec D-Dimer (<0.60) mg/L FEU Sodium 136 L (137-145) mmol/L Potassium 3.0 L (3.5-5.1) mmol/L BUN 22 H (7-17) mg/dL Creatinine (0.52-1.04) mg/dL Glucose (74-99) mg/dL Plasma Lactic Acid Gerardo (0.7-2.0) mmol/L Calcium 7.8 L (8.4-10.2) mg/dL Total Bilirubin 1.6 H (0.2-1.3) mg/dL AST 140 H (14-36) U/L ALT 168 H (4-34) U/L Troponin I (0.000-0.034) ng/mL Total Protein 5.0 L (6.3-8.2) g/dL Albumin 2.7 L (3.5-5.0) g/dL HDL Cholesterol 24 L (40-60) mg/dL 02/15/20 Range/Units 06:48 RBC (3.80-5.40) m/uL Plt Count (150-450) k/uL PT 14.7 H (9.0-12.0) sec INR 1.5 H (<1.2) APTT 182.3 H* (22.0-30.0) sec D-Dimer (<0.60) mg/L FEU Sodium (137-145) mmol/L Potassium (3.5-5.1) mmol/L BUN (7-17) mg/dL Creatinine (0.52-1.04) mg/dL Glucose (74-99) mg/dL Plasma Lactic Acid Gerardo (0.7-2.0) mmol/L Calcium (8.4-10.2) mg/dL Total Bilirubin (0.2-1.3) mg/dL AST (14-36) U/L ALT (4-34) U/L Troponin I (0.000-0.034) ng/mL Total Protein (6.3-8.2) g/dL Albumin (3.5-5.0) g/dL HDL Cholesterol (40-60) mg/dL Diabetes panel 02/14/20 02/15/20 Range/Units 11:09 06:48 Sodium 133 L 136 L (137-145) mmol/L Potassium 3.2 L 3.0 L (3.5-5.1) mmol/L Chloride 101 102 (98-107) mmol/L Carbon Dioxide 22 27 (22-30) mmol/L BUN 21 H 22 H (7-17) mg/dL Creatinine 1.09 H 0.98 (0.52-1.04) mg/dL Glucose 128 H 95 (74-99) mg/dL Calcium 9.0 7.8 L (8.4-10.2) mg/dL AST 259 H 140 H (14-36) U/L ALT 205 H 168 H (4-34) U/L Alkaline Phosphatase 109 105 (38-126) U/L Total Protein 5.5 L 5.0 L (6.3-8.2) g/dL Albumin 3.2 L 2.7 L (3.5-5.0) g/dL Triglycerides 72 (<150) mg/dL HDL Cholesterol 24 L (40-60) mg/dL Calcium panel 02/14/20 02/15/20 Range/Units 11:09 06:48 Calcium 9.0 7.8 L (8.4-10.2) mg/dL Albumin 3.2 L 2.7 L (3.5-5.0) g/dL Pituitary panel 02/14/20 02/15/20 Range/Units 11:09 06:48 Sodium 133 L 136 L (137-145) mmol/L Potassium 3.2 L 3.0 L (3.5-5.1) mmol/L Chloride 101 102 (98-107) mmol/L Carbon Dioxide 22 27 (22-30) mmol/L BUN 21 H 22 H (7-17) mg/dL Creatinine 1.09 H 0.98 (0.52-1.04) mg/dL Glucose 128 H 95 (74-99) mg/dL Calcium 9.0 7.8 L (8.4-10.2) mg/dL Adrenal panel 02/14/20 02/15/20 Range/Units 11:09 06:48 Sodium 133 L 136 L (137-145) mmol/L Potassium 3.2 L 3.0 L (3.5-5.1) mmol/L Chloride 101 102 (98-107) mmol/L Carbon Dioxide 22 27 (22-30) mmol/L BUN 21 H 22 H (7-17) mg/dL Creatinine 1.09 H 0.98 (0.52-1.04) mg/dL Glucose 128 H 95 (74-99) mg/dL Calcium 9.0 7.8 L (8.4-10.2) mg/dL Total Bilirubin 2.0 H 1.6 H (0.2-1.3) mg/dL AST 259 H 140 H (14-36) U/L ALT 205 H 168 H (4-34) U/L Alkaline Phosphatase 109 105 (38-126) U/L Total Protein 5.5 L 5.0 L (6.3-8.2) g/dL Albumin 3.2 L 2.7 L (3.5-5.0) g/dL <Claudia Maurer N - Last Filed: 02/17/20 22:24> History of Present Illness History of present illness: Patient seen and evaluated with nurse practitioner. Additional findings described below. HISTORY OF PRESENT ILLNESS: The patient is a 60-year-old female with schizophrenia, bipolar disorder, including hypertensive heart disease who presented to the hospital with dyspnea. Most history is obtained from patient's chart secondary to memory impairment. On workup for dyspnea, CT chest demonstrated pulmonary hypertension without pulmonary embolism. She had moderately elevated BNP levels. She also had elevated liver enzymes prompting additional workup with liver ultrasound. Liver ultrasound demonstrated gallstone including thickened gallbladder wall for cholecystitis. General surgery is consulted for cholecystitis. Patient had denied any abdominal pain. Since admission, no leukocytosis. She is undergoing workup for cardiac disease for elevated troponin levels. PAST MEDICAL HISTORY: See list and reviewed. Findings of schizophrenia, depression, hypertension. PAST SURGICAL HISTORY: See list and reviewed. No abdominal surgeries. MEDICATIONS: See list and reviewed. Including Cymbalta and risperidone. ALLERGIES: See list and reviewed SOCIAL HISTORY: See list and reviewed FAMILY HISTORY: See list and reviewed REVIEW OF ORGAN SYSTEMS: CONSTITUTIONAL: No fevers or chills. EYES: No trouble with vision. No glasses. HEENT: No difficulties with hearing. No nosebleeds. No difficulty swallowing. RESPIRATORY: Had troubles with breathing and dyspnea on exertion. Has pulmonary edema. CARDIOVASCULAR: Has elevated troponins for recent heart attacks. GASTROINTESTINAL: No change in bowel habits and gas bloat. GENITOURINARY: Denies any blood in urine or increased urinary frequency. NEUROLOGICAL: Denies any numbness or tingling along the distal extremities. MUSCULOSKELETAL: Denies any back pain, stiffness or joint arthritis. SKIN: No current skin cancer. No rash. PSYCHIATRIC: Has depression, schizophrenia ENDOCRINE: No thyroid disorders. Denies any blood sugar glucose intolerance. HEME/LYMPHATIC: Denies any lumps and bumps around the neck. No recent deep venous thrombosis. ALLERGY/IMMUNOLOGY: No immunoglobulin therapy. No immune deficiencies. BREAST: Denies current breast lumps, pain or nipple discharge. PHYSICAL EXAM: VITALS: Reviewed CONSTITUTIONAL: Well developed and in no acute distress. EYES: Conjuctivae without sclera icterus. Pupils are equally round and reactive to light. Extraocular movements grossly intact. HEAD, EARS, NOSE, THROAT: Moist buccal mucosa. Head is atraumatic, norm ocephalic. Hears conversational speech. No nasal drainage. NECK: Supple. No JV distention. No thyroidomegaly. RESPIRATORY: Non-labored respirations and equal bilateral excursions. No gross wheezes. CARDIOVASCULAR: Palpable 2+ radial pulses. ABDOMEN: Soft. Non-tender. Nondistended. LYMPH: No neck lymphadenopathy. MUSCULOSKELETAL: Nail and fingers with good capillary refill. SKIN: Warm and well perfused with good skin turgor. NEUROLOGIC: Cranial nerves II through XII grossly intact. Sensation upper and extremities intact. No focal or lateralizing signs. PSYCH: Flat affect. Alert to person. CLINCAL LABS: Reviewed. WBC on admission 8600 normal. Potassium 3.2 low on admission. Lactate elevated 3.3 on admission. LFTs elevated including total bilirubin 2.0, AST 259, ALT 205, alkaline phosphatase normal at 109. IMAGING: Independently reviewed ultrasound with sizable gallstone over 1.5 cm. Gallbladder wall thickened. RADIOLOGY: Report reviewed CT chest with findings of pulmonary edema without pulmonary embolism ASSESSMENT: 1. Abnormal ultrasound with gallstones 2. Congestive heart failure PLAN: 1. Patient presents with multiple cardiac abnormalities including acute congestive heart failure for which surgical intervention is contraindicated. She is extremely high-risk for any surgical intervention. 2. Recommend IV antibiotics in the interim. 3. Ideally, HIDA scan may be obtained to exclude acute cholecystitis. A positive HIDA scan may be addressed with interventional radiology placement of cholecystostomy tube. Thank you for this kind consultation. Surgical - Exam Vital Signs Temp Pulse Resp BP Pulse Ox 98.5 F 116 H 28 H 107/81 98 02/14/20 11:06 02/14/20 11:06 02/14/20 11:06 02/14/20 11:06 02/14/20 11:06 Results - Labs 02/17/20 05:42 02/17/20 11:45 Abnormal Lab Results - Last 24 Hours (Table) 02/16/20 02/17/20 02/17/20 Range/Units 22:07 00:02 01:00 MCHC (31.0-37.0) g/dL Plt Count (150-450) k/uL Lymphocytes # (Manual) (1.0-4.8) k/uL Monocytes # (Manual) (0-1.0) k/uL ABG pH 7.48 H (7.35-7.45) ABG pCO2 33 L (35-45) mmHg ABG pO2 79 L (83-108) mmHg ABG Total CO2 26 H (19-24) mmol/L Sodium (137-145) mmol/L Potassium (3.5-5.1) mmol/L Carbon Dioxide (22-30) mmol/L BUN (7-17) mg/dL Creatinine (0.52-1.04) mg/dL Glucose (74-99) mg/dL Plasma Lactic Acid Gerardo 2.8 H* (0.7-2.0) mmol/L Calcium (8.4-10.2) mg/dL Total Bilirubin (0.2-1.3) mg/dL AST (14-36) U/L ALT (4-34) U/L Alkaline Phosphatase (38-126) U/L Total Protein (6.3-8.2) g/dL Albumin (3.5-5.0) g/dL Urine Appearance Cloudy H (Clear) Urine Protein 1+ H (Negative) Urine Blood Moderate H (Negative) Urine RBC 27 H (0-5) /hpf Urine WBC 17 H (0-5) /hpf Amorphous Sediment Rare H (None) /hpf Urine Mucus Rare H (None) /hpf 02/17/20 02/17/20 02/17/20 Range/Units 03:08 05:42 05:42 MCHC 30.8 L (31.0-37.0) g/dL Plt Count 122 L (150-450) k/uL Lymphocytes # (Manual) 0.92 L (1.0-4.8) k/uL Monocytes # (Manual) 1.09 H (0-1.0) k/uL ABG pH (7.35-7.45) ABG pCO2 (35-45) mmHg ABG pO2 (83-108) mmHg ABG Total CO2 (19-24) mmol/L Sodium 135 L (137-145) mmol/L Potassium 5.7 H (3.5-5.1) mmol/L Carbon Dioxide 21 L (22-30) mmol/L BUN 30 H (7-17) mg/dL Creatinine 1.30 H (0.52-1.04) mg/dL Glucose (74-99) mg/dL Plasma Lactic Acid Gerardo 4.1 H* (0.7-2.0) mmol/L Calcium 7.9 L (8.4-10.2) mg/dL Total Bilirubin 2.5 H (0.2-1.3) mg/dL AST 223 H (14-36) U/L ALT 132 H (4-34) U/L Alkaline Phosphatase 130 H (38-126) U/L Total Protein 5.5 L (6.3-8.2) g/dL Albumin 3.0 L (3.5-5.0) g/dL Urine Appearance (Clear) Urine Protein (Negative) Urine Blood (Negative) Urine RBC (0-5) /hpf Urine WBC (0-5) /hpf Amorphous Sediment (None) /hpf Urine Mucus (None) /hpf 02/17/20 02/17/20 02/17/20 Range/Units 07:27 11:45 11:45 MCHC (31.0-37.0) g/dL Plt Count (150-450) k/uL Lymphocytes # (Manual) (1.0-4.8) k/uL Monocytes # (Manual) (0-1.0) k/uL ABG pH (7.35-7.45) ABG pCO2 (35-45) mmHg ABG pO2 (83-108) mmHg ABG Total CO2 (19-24) mmol/L Sodium 133 L (137-145) mmol/L Potassium 5.5 H (3.5-5.1) mmol/L Carbon Dioxide (22-30) mmol/L BUN 31 H (7-17) mg/dL Creatinine 1.39 H (0.52-1.04) mg/dL Glucose 117 H (74-99) mg/dL Plasma Lactic Acid Gerardo 2.6 H* (0.7-2.0) mmol/L Calcium 7.3 L (8.4-10.2) mg/dL Total Bilirubin 3.0 H (0.2-1.3) mg/dL AST 1155 H (14-36) U/L ALT 283 H (4-34) U/L Alkaline Phosphatase (38-126) U/L Total Protein 4.9 L (6.3-8.2) g/dL Albumin 2.8 L (3.5-5.0) g/dL Urine Appearance (Clear) Urine Protein (Negative) Urine Blood (Negative) Urine RBC (0-5) /hpf Urine WBC (0-5) /hpf Amorphous Sediment (None) /hpf Urine Mucus (None) /hpf Microbiology - Last 24 Hours (Table) 02/14/20 11:09 Blood Culture - Preliminary Blood No Growth after 72 hours 02/17/20 01:00 Urine Culture - Preliminary Urine,Catheterized Diabetes panel 02/17/20 02/17/20 02/17/20 Range/Units 05:42 07:27 11:45 Sodium 135 L 133 L (137-145) mmol/L Potassium 5.7 H 5.5 H 4.0 (3.5-5.1) mmol/L Chloride 104 101 (98-107) mmol/L Carbon Dioxide 21 L 24 (22-30) mmol/L BUN 30 H 31 H (7-17) mg/dL Creatinine 1.30 H 1.39 H (0.52-1.04) mg/dL Glucose 75 117 H (74-99) mg/dL Calcium 7.9 L 7.3 L (8.4-10.2) mg/dL AST 223 H 1155 H (14-36) U/L ALT 132 H 283 H (4-34) U/L Alkaline Phosphatase 130 H 126 (38-126) U/L Total Protein 5.5 L 4.9 L (6.3-8.2) g/dL Albumin 3.0 L 2.8 L (3.5-5.0) g/dL Calcium panel 02/17/20 02/17/20 Range/Units 05:42 11:45 Calcium 7.9 L 7.3 L (8.4-10.2) mg/dL Albumin 3.0 L 2.8 L (3.5-5.0) g/dL Pituitary panel 02/17/20 02/17/20 02/17/20 Range/Units 05:42 07:27 11:45 Sodium 135 L 133 L (137-145) mmol/L Potassium 5.7 H 5.5 H 4.0 (3.5-5.1) mmol/L Chloride 104 101 (98-107) mmol/L Carbon Dioxide 21 L 24 (22-30) mmol/L BUN 30 H 31 H (7-17) mg/dL Creatinine 1.30 H 1.39 H (0.52-1.04) mg/dL Glucose 75 117 H (74-99) mg/dL Calcium 7.9 L 7.3 L (8.4-10.2) mg/dL Adrenal panel 02/17/20 02/17/20 02/17/20 Range/Units 05:42 07:27 11:45 Sodium 135 L 133 L (137-145) mmol/L Potassium 5.7 H 5.5 H 4.0 (3.5-5.1) mmol/L Chloride 104 101 (98-107) mmol/L Carbon Dioxide 21 L 24 (22-30) mmol/L BUN 30 H 31 H (7-17) mg/dL Creatinine 1.30 H 1.39 H (0.52-1.04) mg/dL Glucose 75 117 H (74-99) mg/dL Calcium 7.9 L 7.3 L (8.4-10.2) mg/dL Total Bilirubin 2.5 H 3.0 H (0.2-1.3) mg/dL AST 223 H 1155 H (14-36) U/L ALT 132 H 283 H (4-34) U/L Alkaline Phosphatase 130 H 126 (38-126) U/L Total Protein 5.5 L 4.9 L (6.3-8.2) g/dL Albumin 3.0 L 2.8 L (3.5-5.0) g/dL Assessment and Plan (1) Gallstone Current Visit: Yes Status: Acute Code(s): K80.20 - CALCULUS OF GALLBLADDER W/O CHOLECYSTITIS W/O OBSTRUCTION SNOMED Code(s): 945716622 (2) Elevated LFTs Current Visit: Yes Status: Acute Code(s): R79.89 - OTHER SPECIFIED ABNORMAL FINDINGS OF BLOOD CHEMISTRY SNOMED Code(s): 746799528 (3) Acute systolic heart failure Current Visit: Yes Status: Acute Code(s): I50.21 - ACUTE SYSTOLIC (CONGESTIVE) HEART FAILURE SNOMED Code(s): 741218186 (4) Cardiomyopathy Current Visit: Yes Status: Acute Code(s): I42.9 - CARDIOMYOPATHY, UNSPECIFIED SNOMED Code(s): 34169611 (5) Elevated brain natriuretic peptide (BNP) level Current Visit: Yes Status: Acute Code(s): R79.89 - OTHER SPECIFIED ABNORMAL FINDINGS OF BLOOD CHEMISTRY SNOMED Code(s): 390053638 (6) Heart failure Current Visit: Yes Status: Acute Code(s): I50.9 - HEART FAILURE, UNSPECIFIED SNOMED Code(s): 01828699 (7) Hypokalemia Current Visit: Yes Status: Acute Code(s): E87.6 - HYPOKALEMIA SNOMED Code(s): 92066889 (8) Lactic acidosis Current Visit: Yes Status: Acute Code(s): E87.2 - ACIDOSIS SNOMED Code(s): 94247329 (9) Depression Current Visit: No Status: Acute Code(s): F32.9 - MAJOR DEPRESSIVE DISORDER, SINGLE EPISODE, UNSPECIFIED SNOMED Code(s): 36540032 (10) Schizoaffective disorder, chronic condition with acute exacerbation Current Visit: No Status: Chronic Priority: High Code(s): F25.8 - OTHER SCHIZOAFFECTIVE DISORDERS SNOMED Code(s): 255994354
--- NOTE | 2020-02-15 13:01 | CONS ---
CONSULTATION CHIEF COMPLAINT: Leg edema. Debbie is a 60-year-old lady with history of hypertension, dyslipidemia, and schizophrenia who presented to the hospital primarily initially with symptoms of bronchitis and subsequently with progressively worsening shortness of breath and leg edema. She was found to be in congestive heart failure on her initial presentation and Cardiology had been consulted for combination of problems including elevated troponin and heart failure. At the time of my evaluation this morning, she appears comfortable at rest. Complains of leg edema. Denies chest pain or difficulty in breathing. She had mild troponin elevation. EKG showed sinus rhythm, PVCs and nonspecific ST-T wave changes. Creatinine is normal at 0.9. Potassium is low, which is being supplemented. Tropes are mildly elevated at 0.1, 0.1 and 0.1. PAST MEDICAL HISTORY: Significant for dyslipidemia, COPD. CURRENT MEDICATIONS: Include Singulair, Ativan, Claritin, Cymbalta, Lipitor. ALLERGIES: No known drug allergies. FAMILY HISTORY: Negative for premature coronary artery disease. SOCIAL HISTORY: Negative for current smoking, EtOH abuse, or drug abuse. REVIEW OF SYSTEMS: HEENT is unremarkable. Cardiac as described above. Respiratory as described above. GI negative. negative. Allergy none. Immunology negative. Skin negative. Musculoskeletal significant for arthritis. Psychosocial negative. Endocrine negative. CONSTITUTIONAL negative. ONCOLOGICAL: Negative NON PROFIT JOB TITLES negative. Rest of the system review is not relevant. EXAM: Patient is comfortable at rest. Afebrile. Heart rate is 60 beats per minute. Blood pressure is 100/66, respiratory rate is 18, O2 saturation is 99% on 2 L. there is no jugular venous distention. Chest exam reveals good air entry bilaterally. Heart exam reveals first and second heart sounds and a systolic murmur at the left lower sternal border. Abdomen is soft, nontender. Exam of extremities reveals bilateral moderate pitting edema. His CTA of the chest showed congestive heart failure without any evidence of pulmonary embolism. ASSESSMENT: 1. Acute onset congestive heart failure of indeterminate LV function at this time. 2. Mildly elevated troponins of unclear clinical significance. There is no set pattern to the troponin elevation. 3. History of chronic obstructive pulmonary disease. PLAN: I am going to obtain a 2D echo to evaluate her LV function and wall motion and decide on further course of action based on how things evolve. I will increase the dose of Lasix, supplement the potassium. Continue the ERIC inhibitors and beta blockers. MMODL / IJN: [id number] /
[2020-02-15] MEDS: PIPERACILLIN-TAZOBACTAM 3.375 GM in SODIUM CHLORIDE 0.9% 100 ML IVPB SCH ×2 (15:57→23:02)
[2020-02-15] MEDS: HEPARIN SODIUM,PORCINE 5,000 UNIT/ML 1 ML VIAL SQ SCH (20:31)
[2020-02-15] MEDS: MONTELUKAST 10 MG TAB PO SCH (20:31)
[2020-02-16 05:47] LABS: Basophils % (A) 0 %; Eosinophils # (A) 0.2 k/uL (0-0.7); Eosinophils % (A) 2 %; HCT 38.5 % (34.0-46.0); HGB 12.6 gm/dL (11.4-16.0); Hypochromasia Slight; Lymphocytes # (A) 1.4 k/uL (1.0-4.8); Lymphocytes % (A) 22 %; MCH 32.3 pg (25.0-35.0); MCHC 32.8 g/dL (31.0-37.0); MCV 98.5 fL (80.0-100.0); Macrocytosis Slight; Mean Platelet Volume 9.2; Monocytes # (A) 0.5 k/uL (0-1.0); Monocytes % (A) 8 %; Neutrophils % (A) 65 %; Platelet Count 116 k/uL (150-450); RBC 3.91 m/uL (3.80-5.40); RDW 14.8 % (11.5-15.5); WBC 6.2 k/uL (3.8-10.6)
[2020-02-16 05:54] LABS: Albumin 2.7 g/dL (3.5-5.0); Calcium 7.9 mg/dL (8.4-10.2); Magnesium 1.5 mg/dL (1.6-2.3); Total Bilirubin 1.5 mg/dL (0.2-1.3)
[2020-02-16] MEDS: PANTOPRAZOLE 40 MG TABLET PO SCH (05:55)
[2020-02-16] MEDS ORDERED: POTASSIUM CHLORIDE ER 20 MEQ TAB.ER PO STA (06:02)
[2020-02-16] MEDS: MAGNESIUM SULFATE-D5W PMX 1 GM in DEXTROSE/WATER 1 100ML.BAG IVPB SCH ×2 (06:09→08:39)
[2020-02-16] MEDS: CHOLECALCIFEROL 1,000 UNIT TAB PO SCH (08:21)
[2020-02-16] MEDS: ASPIRIN 81 MG PO SCH (08:21)
[2020-02-16] MEDS: LISINOPRIL 5 MG TAB PO SCH (08:22)
[2020-02-16] MEDS: CALCIUM CARB-VIT D 500MG-200UN 1 EACH TAB PO SCH (08:22)
[2020-02-16] MEDS: POTASSIUM CHLORIDE ER 20 MEQ TAB.ER PO SCH (08:22)
[2020-02-16] MEDS: ATORVASTATIN 10 MG TAB PO SCH (08:23)
[2020-02-16] MEDS: LORazepam 0.5 MG TAB PO SCH ×2 (08:23→17:01)
[2020-02-16] MEDS: LORATADINE 10 MG TAB PO SCH (08:24)
[2020-02-16] MEDS: HEPARIN SODIUM,PORCINE 5,000 UNIT/ML 1 ML VIAL SQ SCH (08:24)
[2020-02-16] MEDS: FUROSEMIDE 10 MG/ML 4 ML VIAL IV SCH ×2 (08:24→17:01)
[2020-02-16] MEDS: DULoxetine HCL 60 MG CAPSULE.DR PO SCH (08:24)
[2020-02-16] MEDS: PIPERACILLIN-TAZOBACTAM 3.375 GM in SODIUM CHLORIDE 0.9% 100 ML IVPB SCH ×2 (08:36→17:01)
--- NOTE | 2020-02-16 10:44 | P.PN ---
Subjective 60-year-old female [facility] patient with past medical history of hypertension hyperlipidemia and schizophrenic effect who developed to have worsening shortness of breath for the last 2-3 weeks according to her was seen at [facility] treated for bronchitis with no effect. Patient call the clinic concern that she is having more dyspnea and shortness of breath with worsening symptoms was instructed to come to the emergency department. Was seen and evaluated has been having significant and worsening shortness of breath with mi nimum exertion increased PND orthopnea no angina had some abdominal discomfort with diarrhea no vomiting no worsening cough fever or chills. [facility] troponin was elevated BNP was quite bit high at the time lactic acid was elevated as well patient chest x-ray showed early pulmonary edema with venous congestion. Patient d-dimer was elevated and ended up going for CTA showed no pulmonary embolism but sign of pulmonary edema and pulmonary hypertension. Patient was started on IV diuretics heparin drip and nitro and admitted to the hospital for elevated troponin with possible non-ST SC, pulmonary edema, congestive heart failure excessive patient. 02/14: Patient evaluated, denies any further complaints of shortness of breath. Liver enzymes still noted to be elevated AST 140, ALT 160, total bilirubin 1.6, potassium 3.0, sodium 136, BUN 22, creatinine 0.98. Potassium replaced per protocol. Liver ultrasound obtained for abnormal liver function, showed the gal lbladder with abnormally thickened wall and gallstones, correlate for acute cholecystitis, nephrolithiasis, and fatty liver. Will consult surgery for acute cholecystitis. She continues on Lasix 40 mg daily IVP, cardiology on consult. Echocardiogram showed mild concentric left ventricular hypertrophy, left ventricular systolic function moderately impaired with an EF of 35-40%, increased LAP grade 2 diastolic dysfunction, LA is severely dilated, severe mitral regurgitation, moderate mitral valve prolapse, moderate tricuspid regurgitation, moderate pulmonary hypertension. Vital signs are stable, afebrile 97.6, heart rate 65, wrist rate 22, blood pressure 126/66 she's 98% on 2 L via nasal cannula. 02/15: Patient evaluated this morning, resting comfortably in bed. Denies any shortness of breath or chest pain. Liver enzymes are trending downwards, AST 100, ALT 129, total bilirubin 1.5, she is asymptomatic and tolerating food and fluids without nausea or vomiting or abdominal pain. Surgery is on consult, may need cholecystectomy as an outpatient basis once her cardiac status is stabili zed. Cardiology on consult, may need cardiac cath, she remains on furosemide 40 mg IV push every 8 hours along with carvedilol 3.125 mg twice a day and lisinopril 5 mg daily. Vital signs are stable 109/75, respiratory rate of 22, heart rate 95, afebrile 97.8, 98% on 2 L via nasal cannula. Magnesium low at 1.5, potassium is also low at 3.0, electrolyte replacement has been ordered. Objective - Vital Signs Vital signs: Vital Signs Temp 97.8 F 02/16/20 03:48 Pulse 95 02/16/20 03:48 Resp 22 02/16/20 03:48 BP 109/75 02/16/20 03:48 Pulse Ox 98 02/16/20 07:20 Intake & Output 02/15/20 02/16/20 02/16/20 18:59 06:59 18:59 Intake Total 597.334 240 Output Total 600 300 Balance -2.666 -60 Weight 78.5 kg 77.5 kg Intake: Intake, IV Titration 125.334 Amount Heparin Sod,Pork in 0.45% 125.334 NaCl 25,000 unit In 0.45 % NaCl 1 250ml.bag @ 12 UNITS/KG/HR 8.709 mls/hr IV .Q24H [facility] Rx#: [id number] Oral 472 240 Output: Urine 600 300 Other: Voiding Method Toilet Toilet Diaper Diaper # Voids 2 1 - Exam - Constitutional General appearance: Present: cooperative, no acute distress - EENT Eyes: Present: EOMI, PERRLA, normal appearance ENT: Present: hearing grossly normal, normal oropharynx - Neck Neck: Present: normal ROM. Absent: lymphadenopathy, thyromegaly - Respiratory Respiratory: bilateral: diminished, rales, wheezing - Cardiovascular Rhythm: regular Heart sounds: normal: S1, S2, bilateral lower extremity edema - Gastrointestinal General gastrointestinal: Present: normal bowel sounds. Absent: distended, organomegaly, tenderness - Neurologic Neurologic: Present: CNII-XII intact. Absent: focal deficits - Musculoskeletal Musculoskeletal: Present: gait normal, strength equal bilaterally - Psychiatric Psychiatric: Present: A&O x's 3, appropriate affect - Labs CBC & Chem 7: 02/16/20 05:27 02/16/20 05:27 Labs: Abnormal Lab Results - Last 24 Hours (Table) 02/16/20 02/16/20 Range/Units 05:27 05:27 Plt Count 116 L (150-450) k/uL Sodium 136 L (137-145) mmol/L Potassium 3.0 L (3.5-5.1) mmol/L BUN 25 H (7-17) mg/dL Glucose 106 H (74-99) mg/dL Calcium 7.9 L (8.4-10.2) mg/dL Magnesium 1.5 L (1.6-2.3) mg/dL Total Bilirubin 1.5 H (0.2-1.3) mg/dL AST 100 H (14-36) U/L ALT 129 H (4-34) U/L Total Protein 5.0 L (6.3-8.2) g/dL Albumin 2.7 L (3.5-5.0) g/dL Microbiology - Last 24 Hours (Table) 02/14/20 11:09 Blood Culture - Preliminary Blood No Growth after 24 hours Assessment and Plan Plan: 1 severe dyspnea and shortness of breath: Combination of early pulmonary edema, possible non-ST SC, and congestive heart failure most likely diastolic dysfunct ion. 2 congestive heart failure exacerbation: Not a clear etiology with significant fluid overload, continue on furosemide 40 mg IV twice a day continue to treat this as a systolic dysfunction congestive heart failure with the blood pressure been elevated we will make sure to add small dose of beta nadir and ERIC inhibitor consult cardiology echocardiogram completed, continue on lisinopril 5 mg daily, Court 3.125 mg twice a day. 3 elevated troponin: With possible non-ST SC, if echocardiogram showed significant wall motion abnormality patient might require to go for heart cath. 4 significantly abnormal liver function test with elevated troponin AST and ALT: Not a clear etiology at this point will order an ultrasound of the liver watch for any gallstone or Nelson, liver ultrasound showed acute cholecystitis, consult placed to surgery, will more than likely need cholecystectomy as an outpatient basis. 5 history of asthma/COPD: Patient will be continue on albuterol along with Singulair. Continue O2 as needed. 6 hyperlipidemia: Remain on atorvastatin 10 mg a day. 7 chronic depression: Has been on duloxetine 60 mg a day along with lorazepam 0.5 mg 3 times a day. 8 history of schizoaffective disorders: Has been on risperidone 25 mg IM injection every 14 days and seen psych on regular basis. 9 acute kidney injury: Stage II with the current management repeat BUN/creatinine daily in the next 2 days. 10 mild coagulopathy: With elevated PT/INR, especially with abnormal liver fun ction test this could be sign of chronic hepatitis of some kind most likely Nelson. 11 DVT prophylaxis: Patient will be on heparin drip. 12 GI prophylaxis: Patient be on pantoprazole orally. CODE STATUS: Full code. Admit patient to inpatient service for more than 2 nights. The above impression and plan of care have been discussed and directed by signing physician. Jenn Murillo nurse practitioner acting as scribe for signing physician.
--- NOTE | 2020-02-16 11:28 | P.PN ---
Subjective Progress Note Date: 02/16/20 This is a 60-year-old female was admitted to the hospital with complaints of increasing shortness of breath and pedal edema. She was found to be in congestive heart failure. Clinically patient has a systolic murmur at the apex consistent with mitral regurgitation. Echo Cardigan showed evidence of mitral valve prolapse with severe regurgitation with impaired LV function. Patient has been on IV Lasix and seemed to be diuresing well. Her potassium and magnesium some low. Patient has been having runs of nonsustained V. tach. We will correct the potassium and magnesium levels. If she continues to have nonsustained V. tach, we'll start her on IV amiodarone. Patient will require TERE and cardiac catheterization and possible mitral valve repair. Meanwhile I will also add Aldactone and follow her lites closely. Objective - Vital Signs Vital signs: Vital Signs Temp 97.4 F L 02/16/20 08:00 Pulse 106 H 02/16/20 08:00 Resp 18 02/16/20 08:00 BP 107/78 02/16/20 08:00 Pulse Ox 99 02/16/20 08:00 Intake & Output 02/15/20 02/16/20 02/16/20 18:59 06:59 18:59 Intake Total 597.334 240 Output Total 600 300 Balance -2.666 -60 Weight 78.5 kg 77.5 kg Intake: Intake, IV Titration 125.334 Amount Heparin Sod,Pork in 0.45% 125.334 NaCl 25,000 unit In 0.45 % NaCl 1 250ml.bag @ 12 UNITS/KG/HR 8.709 mls/hr IV .Q24H [facility] Rx#: [id number] Oral 472 240 Output: Urine 600 300 Other: Voiding Method Toilet Toilet Toilet Diaper Diaper Diaper # Voids 2 1 - Exam GENERAL EXAM: Patient is alert and oriented and doesn't appear to be in any acute distress HEENT: Normocephalic. Normal reaction of pupils, equal size, normal range of extraocular motion. No erythema or exudates in the throat. NECK: No masses, no nuchal rigidity. CHEST: No chest wall deformity. LUNGS: Diminished breath sounds HEART: S1 and S2 normal, systolic murmur at the apex ABDOMEN: No hepatosplenomegaly, normal bowel sounds, no guarding or rigidity. SKIN: No rashes CENTRAL NERVOUS SYSTEM: No focal deficits. EXTREMITIES: No cyanosis, clubbing or edema. - Labs CBC & Chem 7: 02/16/20 05:27 02/16/20 05:27 Labs: Abnormal Lab Results - Last 24 Hours (Table) 02/16/20 02/16/20 Range/Units 05:27 05:27 Plt Count 116 L (150-450) k/uL Sodium 136 L (137-145) mmol/L Potassium 3.0 L (3.5-5.1) mmol/L BUN 25 H (7-17) mg/dL Glucose 106 H (74-99) mg/dL Calcium 7.9 L (8.4-10.2) mg/dL Magnesium 1.5 L (1.6-2.3) mg/dL Total Bilirubin 1.5 H (0.2-1.3) mg/dL AST 100 H (14-36) U/L ALT 129 H (4-34) U/L Total Protein 5.0 L (6.3-8.2) g/dL Albumin 2.7 L (3.5-5.0) g/dL Microbiology - Last 24 Hours (Table) 02/14/20 11:09 Blood Culture - Preliminary Blood No Growth after 24 hours Assessment and Plan (1) Mitral valve prolapse Current Visit: Yes Status: Acute Code(s): I34.1 - NONRHEUMATIC MITRAL (VALVE) PROLAPSE SNOMED Code(s): 533441490 (2) Severe mitral regurgitation Current Visit: Yes Status: Acute Code(s): I34.0 - NONRHEUMATIC MITRAL (VALVE) INSUFFICIENCY SNOMED Code(s): 07957074 (3) Cardiomyopathy Current Visit: Yes Status: Acute Code(s): I42.9 - CARDIOMYOPATHY, UNSPECIFIE D SNOMED Code(s): 67883992 (4) Acute systolic heart failure Current Visit: Yes Status: Acute Code(s): I50.21 - ACUTE SYSTOLIC (CONGESTIVE) HEART FAILURE SNOMED Code(s): 680780875 Plan: Continue current therapy. Add Aldactone. May consider adding IV amiodarone, If she continues to have nonsustained V. tach. Patient used to TERE and cardiac catheterization which will be arranged for next week.
--- NOTE | 2020-02-16 11:46 | P.PN ---
<Luli Bedolla Tenisha - Last Filed: 02/16/20 11:42> Subjective Progress Note Date: 02/16/20 CHIEF COMPLAINT: Acute cholecystitis HISTORY OF PRESENT ILLNESS: Patient examined at the bedside with Dr. Maurer. She denies abdominal pain. Tolerating diet. Denies nausea or vomiting. PHYSICAL EXAM: VITAL SIGNS: Reviewed GENERAL: Well-developed in no acute distress. HEENT: No sclera icterus. Extraocular movements grossly intact. Moist buccal mucosa. Head is atraumatic, normocephalic. Hears conversational speech. No nasal drainage. NECK: Supple without lymphadenopathy. CHEST: Non-labored respirations and equal bilateral excursions. CARDIOVASCULAR: Regular rate with regular rhythm. Palpable 2+ radial pulses. ABDOMEN: Soft. Nondistended. Nontender. MUSCULOSKELETAL: No clubbing or cyanosis. NEUROLOGIC: No focal or lateralizing signs. Cranial nerves II through XII grossly intact. PSYCH: Appropriate affect. Alert and oriented to person, place and time. SKIN: Well perfused. Good skin turgor. ASSESSMENT: 1. Abnormal US revealing gallstones and thickened gallbladder wall, suspect acute cholecystitis PLAN: Continue diet as tolerated Monitor LFTs No surgical intervention recommended at this time Patient may follow up outpatient for possible cholecystectomy in the future Nurse practitioner note has been reviewed by physician. Signing provider agrees with the documented findings, assessment, and plan of care. Objective - Vital Signs Vital signs: Vital Signs Temp 97.4 F L 02/16/20 08:00 Pulse 106 H 02/16/20 08:00 Resp 18 02/16/20 08:00 BP 107/78 02/16/20 08:00 Pulse Ox 99 02/16/20 08:00 Intake & Output 02/15/20 02/16/20 02/16/20 18:59 06:59 18:59 Intake Total 597.334 240 Output Total 600 300 Balance -2.666 -60 Weight 78.5 kg 77.5 kg Intake: Intake, IV Titration 125.334 Amount Heparin Sod,Pork in 0.45% 125.334 NaCl 25,000 unit In 0.45 % NaCl 1 250ml.bag @ 12 UNITS/KG/HR 8.709 mls/hr IV .Q24H [facility] Rx#: [id number] Oral 472 240 Output: Urine 600 300 Other: Voiding Method Toilet Toilet Toilet Diaper Diaper Diaper # Voids 2 1 - Labs CBC & Chem 7: 02/16/20 05:27 02/16/20 05:27 Labs: Abnormal Lab Results - Last 24 Hours (Table) 02/16/20 02/16/20 Range/Units 05:27 05:27 Plt Count 116 L (150-450) k/uL Sodium 136 L (137-145) mmol/L Potassium 3.0 L (3.5-5.1) mmol/L BUN 25 H (7-17) mg/dL Glucose 106 H (74-99) mg/dL Calcium 7.9 L (8.4-10.2) mg/dL Magnesium 1.5 L (1.6-2.3) mg/dL Total Bilirubin 1.5 H (0.2-1.3) mg/dL AST 100 H (14-36) U/L ALT 129 H (4-34) U/L Total Protein 5.0 L (6.3-8.2) g/dL Albumin 2.7 L (3.5-5.0) g/dL Microbiology - Last 24 Hours (Table) 02/14/20 11:09 Blood Culture - Preliminary Blood No Growth after 24 hours <Claudia Maurer N - Last Filed: 02/17/20 22:34> Subjective Patient seen and evaluated with nurse practitioner. Additional findings below. HISTORY OF PRESENT ILLNESS: The patient is a 60-year-old female admitted with dyspnea on exertion, pulmonary hypertension, lactic acidosis including elevated LFTs. During workup, liver ultrasound confirmed gallstones. Patient has been completely asymptomatic for abdominal pain and tolerating diet. She is in the intensive care unit for additional cardiac workup is still pending. REVIEW OF ORGAN SYSTEMS: No fevers or chills. No nausea or vomiting. No abdominal pain. PHYSICAL EXAM: VITALS: Reviewed CONSTITUTIONAL: Well developed and in no acute distress. EYES: Conjuctivae without sclera icterus. Extraocular movements grossly intact. HEAD, EARS, NOSE, THROAT: Moist buccal mucosa. Head is atraumatic, normocephali c. Hears conversational speech. No nasal drainage. NECK: Supple. No JV distention. No thyroidomegaly. RESPIRATORY: Non-labored respirations and equal bilateral excursions. No gross wheezes. CARDIOVASCULAR: Palpable 2+ radial pulses. ABDOMEN: Soft. Non-tender. Nondistended. MUSCULOSKELETAL: Nail and fingers with good capillary refill. SKIN: Warm and well perfused with good skin turgor. NEUROLOGIC: Cranial nerves II through XII grossly intact. Sensation upper and extremities intact. No focal or lateralizing signs. PSYCH: Flat affect. Alert to person. CLINCAL LABS: Reviewed. WBC normal at 8600. Total bilirubin improved from 2.0- 1.5. ALT down to 59-100. AST down 259 to 100 ECHO: Ejection fraction down to 35-40%. Diastolic dysfunction identified. Severe mitral regurgitation. Moderate pulmonary hypertension. ASSESSMENT: 1. Abnormal ultrasound with gallstones 2. Congestive heart failure PLAN: 1. Overall, she is tolerating diet. No surgical intervention advised secondary to severe cardiac disease 2. Recommend conservative management with IV antibiotics. Objective - Vital Signs Vital signs: Vital Signs Temp 97.8 F 02/17/20 20:00 Pulse 97 02/17/20 21:00 Resp 22 02/17/20 20:00 BP 101/68 02/17/20 21:00 Pulse Ox 96 02/17/20 20:30 Intake & Output 02/17/20 02/17/20 02/18/20 06:59 18:59 06:59 Intake Total 2358.907 1856.665 550 Output Total 185 899 140 Balance 2173.907 957.665 410 Weight 84.8 kg Intake: IV 2300 900 200 Magnesium Sulfate-D5w Pmx 100 1 gm In Dextrose/Water 1 100ml.bag @ 100 mls/hr IVPB ONCE ONE Rx#: [id number] Potassium Chloride 10 meq 500 In Water For Injection 1 100ml.bag @ 100 mls/hr IVPB Q1HR [facility] Rx#: [id number] Sodium Chloride 0.9% 1, 100 900 200 000 ml @ 100 mls/hr IV . Q10H [facility] Rx#:[id number] Sodium Chloride 0.9% 500 1600 ml 500 ml @ 999 mls/hr IV .Q31M [facility] Rx#:[id number] Intake, IV Titration 58.907 956.665 100 Amount Amiodarone 300 mg In 250 Dextrose 5% in Water 250 ml @ 0.5 MG/MIN 25 mls/hr IV .Q10H [facility] Rx#: [id number] Phenylephrine 40 mg In 58.907 406.665 Sodium Chloride 0.9% 250 ml @ 0.5 MCG/KG/MIN 14. 764 mls/hr IV .[id number] [facility] Rx#:[id number] Piperacillin-Tazobactam 3 100 .375 gm In Sodium Chloride 0.9% 100 ml @ 25 mls/hr IVPB Q8HR [facility] Rx# :[id number] Sodium Chloride 0.9% 1, 200 100 000 ml @ 100 mls/hr IV . Q10H [facility] Rx#:[id number] Oral 250 Output: Urine 185 899 140 Other: Voiding Method Indwelling Catheter Indwelling Catheter Indwelling Catheter # Bowel Movements 1 1 - Labs CBC & Chem 7: 02/17/20 05:42 02/17/20 11:45 Labs: Abnormal Lab Results - Last 24 Hours (Table) 02/17/20 02/17/20 02/17/20 Range/Units 00:02 01:00 03:08 MCHC (31.0-37.0) g/dL Plt Count (150-450) k/uL Lymphocytes # (Manual) (1.0-4.8) k/uL Monocytes # (Manual) (0-1.0) k/uL Sodium (137-145) mmol/L Potassium (3.5-5.1) mmol/L Carbon Dioxide (22-30) mmol/L BUN (7-17) mg/dL Creatinine (0.52-1.04) mg/dL Glucose (74-99) mg/dL Plasma Lactic Acid Gerardo 2.8 H* 4.1 H* (0.7-2.0) mmol/L Calcium (8.4-10.2) mg/dL Total Bilirubin (0.2-1.3) mg/dL AST (14-36) U/L ALT (4-34) U/L Alkaline Phosphatase (38-126) U/L Total Protein (6.3-8.2) g/dL Albumin (3.5-5.0) g/dL Urine Appearance Cloudy H (Clear) Urine Protein 1+ H (Negative) Urine Blood Moderate H (Negative) Urine RBC 27 H (0-5) /hpf Urine WBC 17 H (0-5) /hpf Amorphous Sediment Rare H (None) /hpf Urine Mucus Rare H (None) /hpf 02/17/20 02/17/20 02/17/20 Range/Units 05:42 05:42 07:27 MCHC 30.8 L (31.0-37.0) g/dL Plt Count 122 L (150-450) k/uL Lymphocytes # (Manual) 0.92 L (1.0-4.8) k/uL Monocytes # (Manual) 1.09 H (0-1.0) k/uL Sodium 135 L (137-145) mmol/L Potassium 5.7 H 5.5 H (3.5-5.1) mmol/L Carbon Dioxide 21 L (22-30) mmol/L BUN 30 H (7-17) mg/dL Creatinine 1.30 H (0.52-1.04) mg/dL Glucose (74-99) mg/dL Plasma Lactic Acid Gerardo (0.7-2.0) mmol/L Calcium 7.9 L (8.4-10.2) mg/dL Total Bilirubin 2.5 H (0.2-1.3) mg/dL AST 223 H (14-36) U/L ALT 132 H (4-34) U/L Alkaline Phosphatase 130 H (38-126) U/L Total Protein 5.5 L (6.3-8.2) g/dL Albumin 3.0 L (3.5-5.0) g/dL Urine Appearance (Clear) Urine Protein (Negative) Urine Blood (Negative) Urine RBC (0-5) /hpf Urine WBC (0-5) /hpf Amorphous Sediment (None) /hpf Urine Mucus (None) /hpf 02/17/20 02/17/20 Range/Units 11:45 11:45 MCHC (31.0-37.0) g/dL Plt Count (150-450) k/uL Lymphocytes # (Manual) (1.0-4.8) k/uL Monocytes # (Manual) (0-1.0) k/uL Sodium 133 L (137-145) mmol/L Potassium (3.5-5.1) mmol/L Carbon Dioxide (22-30) mmol/L BUN 31 H (7-17) mg/dL Creatinine 1.39 H (0.52-1.04) mg/dL Glucose 117 H (74-99) mg/dL Plasma Lactic Acid Gerardo 2.6 H* (0.7-2.0) mmol/L Calcium 7.3 L (8.4-10.2) mg/dL Total Bilirubin 3.0 H (0.2-1.3) mg/dL AST 1155 H (14-36) U/L ALT 283 H (4-34) U/L Alkaline Phosphatase (38-126) U/L Total Protein 4.9 L (6.3-8.2) g/dL Albumin 2.8 L (3.5-5.0) g/dL Urine Appearance (Clear) Urine Protein (Negative) Urine Blood (Negative) Urine RBC (0-5) /hpf Urine WBC (0-5) /hpf Amorphous Sediment (None) /hpf Urine Mucus (None) /hpf Microbiology - Last 24 Hours (Table) 02/14/20 11:09 Blood Culture - Preliminary Blood No Growth after 72 hours 02/17/20 01:00 Urine Culture - Preliminary Urine,Catheterized Assessment and Plan (1) Gallstone Current Visit: Yes Status: Acute Code(s): K80.20 - CALCULUS OF GALLBLADDER W/O CHOLECYSTITIS W/O OBSTRUCTION SNOMED Code(s): 629872152 (2) Elevated LFTs Current Visit: Yes Status: Acute Code(s): R79.89 - OTHER SPECIFIED ABNORMAL FINDINGS OF BLOOD CHEMISTRY SNOMED Code(s): 199085484 (3) Acute systolic heart failure Current Visit: Yes Status: Acute Code(s): I50.21 - ACUTE SYSTOLIC (CONGESTIVE) HEART FAILURE SNOMED Code(s): 459140651 (4) Cardiomyopathy Current Visit: Yes Status: Acute Code(s): I42.9 - CARDIOMYOPATHY, UNSPECIFIED SNOMED Code(s): 01219631 (5) Elevated brain natriuretic peptide (BNP) level Current Visit: Yes Status: Acute Code(s): R79.89 - OTHER SPECIFIED ABNORMAL FINDINGS OF BLOOD CHEMISTRY SNOMED Code(s): 510870031 (6) Heart failure Current Visit: Yes Status: Acute Code(s): I50.9 - HEART FAILURE, UNSPECIFIED SNOMED Code(s): 85264535 (7) Hypokalemia Current Visit: Yes Status: Acute Code(s): E87.6 - HYPOKALEMIA SNOMED C ode(s): 33733630 (8) Lactic acidosis Current Visit: Yes Status: Acute Code(s): E87.2 - ACIDOSIS SNOMED Code(s): 67949049 (9) Depression Current Visit: No Status: Acute Code(s): F32.9 - MAJOR DEPRESSIVE DISORDER, SINGLE EPISODE, UNSPECIFIED SNOMED Code(s): 16117642 (10) Schizoaffective disorder, chronic condition with acute exacerbation Current Visit: No Status: Chronic Priority: High Code(s): F25.8 - OTHER SCHIZOAFFECTIVE DISORDERS SNOMED Code(s): 303540339
[2020-02-16] MEDS ORDERED: DEXTROSE 5% IN WATER 100 ML with AMIODARONE 150 MG IV ONE ×2 (12:53→13:00)
[2020-02-16] MEDS ORDERED: DEXTROSE 5% IN WATER 250 ML with AMIODARONE 300 MG IV ONE (13:00)
[2020-02-16 13:15] LABS: Magnesium 2.3 mg/dL (1.6-2.3)
[2020-02-16] MEDS ORDERED: AMIODARONE 360 MG in DEXTROSE 5% IN WATER 200 ML IV ONE ×2 (13:15)
[2020-02-16] MEDS: SPIRONOLACTONE 25 MG TAB PO SCH (15:03)
[2020-02-16] MEDS ORDERED: SODIUM CHLORIDE 0.9% 1,000 ML IV SCH (15:15)
[2020-02-16] MEDS: POTASSIUM CHLORIDE 10 MEQ in WATER FOR INJECTION 1 100ML.BAG IVPB SCH ×5 (15:22→23:55)
[2020-02-16] MEDS: CARVEDILOL 3.125 MG TAB PO SCH (17:02)
[2020-02-16] MEDS ORDERED: SODIUM CHLORIDE 0.9% 500 ML 250 ML IV ONE (17:17)
[2020-02-16] MEDS ORDERED: AMIODARONE 300 MG in DEXTROSE 5% IN WATER 250 ML IV SCH ×2 (19:00)
[2020-02-16] MEDS: ALBUTEROL NEBULIZED 2.5 MG/3 ML INHALATION PRN (20:31)
[2020-02-16] MEDS ORDERED: SODIUM CHLORIDE 0.9% 500 ML 500 ML IV ONE (20:38)
--- NOTE | 2020-02-16 20:49 | XR ---
EXAMINATION TYPE: XR chest 1V portable DATE OF EXAM: 02/16/2020 COMPARISON: . Respiratory distress. HISTORY: Difficulty breathing TECHNIQUE: FINDINGS: Heart is enlarged. There is no gross heart failure. Costophrenic angles are clear. There ar e chest leads. IMPRESSION: Cardiomegaly. There is clearing of some mild pulmonary congestion compared to recent exam . No heart failure seen.
[2020-02-16 20:59] LABS: Basophils # (A) 0.1 k/uL (0-0.2); Basophils % (A) 1 %; Eosinophils # (A) 0.2 k/uL (0-0.7); Eosinophils % (A) 3 %; HCT 41.7 % (34.0-46.0); HGB 13.2 gm/dL (11.4-16.0); Hypochromasia Moderate; Lymphocytes # (A) 1.4 k/uL (1.0-4.8); Lymphocytes % (A) 17 %; MCH 31.4 pg (25.0-35.0); MCHC 31.5 g/dL (31.0-37.0); MCV 99.5 fL (80.0-100.0); Macrocytosis Slight; Mean Platelet Volume 9.6; Monocytes # (A) 0.7 k/uL (0-1.0); Monocytes % (A) 9 %; Neutrophils % (A) 70 %; Platelet Count 132 k/uL (150-450); RBC 4.19 m/uL (3.80-5.40); RDW 14.8 % (11.5-15.5); WBC 8.6 k/uL (3.8-10.6)
[2020-02-16 21:01] LABS: Glucose,Whole Blood 110 mg/dL (75-99)
[2020-02-16 21:35] LABS: Calcium 6.7 mg/dL (8.4-10.2); Magnesium 1.8 mg/dL (1.6-2.3); Phosphorus 2.5 mg/dL (2.5-4.5); Potassium 3.4 mmol/L (3.5-5.1)
[2020-02-16 22:16] LABS: ABG Base Excess 0.9 mmol/L; ABG HCO3 25 mmol/L (21-25); ABG Oxygen Saturation 95.9 % (94-97); ABG PCO2 33 mmHg (35-45); ABG PH 7.48 (7.35-7.45); ABG PO2 79 mmHg (83-108); ABG TCO2 26 mmol/L (19-24); Allen Test Performed? Yes
[2020-02-16] MEDS: PHENYLEPHRINE 40 MG in SODIUM CHLORIDE 0.9% 250 ML IV SCH (23:20)
[2020-02-17] MEDS: HEPARIN SODIUM,PORCINE 5,000 UNIT/ML 1 ML VIAL SQ SCH ×3 (00:02→21:00)
[2020-02-17] MEDS: LORazepam 0.5 MG TAB PO SCH ×4 (00:04→21:01)
[2020-02-17] MEDS: MONTELUKAST 10 MG TAB PO SCH ×2 (00:15→21:02)
[2020-02-17] MEDS: PIPERACILLIN-TAZOBACTAM 3.375 GM in SODIUM CHLORIDE 0.9% 100 ML IVPB SCH ×3 (00:16→17:08)
[2020-02-17] MEDS: FUROSEMIDE 10 MG/ML 4 ML VIAL IV SCH ×2 (00:17→12:03)
[2020-02-17] MEDS ORDERED: MAGNESIUM SULFATE-D5W PMX 1 GM in DEXTROSE/WATER 1 100ML.BAG IVPB ONE (00:27)
[2020-02-17] MEDS: POTASSIUM CHLORIDE 10 MEQ in WATER FOR INJECTION 1 100ML.BAG IVPB SCH ×3 (01:06→03:14)
[2020-02-17 01:24] LABS: Amorphous Sediment,Urine Rare /hpf; Appearance,Urine Cloudy (Clear); Bilirubin,Urine Negative (Negative); Blood,Urine Moderate (Negative); Color,Urine Yellow; Glucose,Urine (UA) Negative (Negative); Ketones,Urine Negative (Negative); Leukocyte Esterase,Urine Negative (Negative); Mucus,Urine Rare /hpf; Nitrite,Urine Negative (Negative); PH, Urine 5.5 (5.0-8.0); Protein,Urine 1+ (Negative); RBC,Urine 27 /hpf (0-5); Specific Gravity,Urine 1.026 (1.001-1.035); Squamous Epithelial Cell,Urine 3 /hpf (0-4); WBC,Urine 17 /hpf (0-5)
[2020-02-17] MEDS: AMIODARONE 300 MG in DEXTROSE 5% IN WATER 250 ML IV SCH ×4 (02:07→12:19)
[2020-02-17 05:59] LABS: HCT 44.2 % (34.0-46.0); HGB 13.6 gm/dL (11.4-16.0); Hypochromasia Moderate; MCH 30.2 pg (25.0-35.0); MCHC 30.8 g/dL (31.0-37.0); MCV 98.2 fL (80.0-100.0); Mean Platelet Volume 9.6; Platelet Count 122 k/uL (150-450); RBC 4.51 m/uL (3.80-5.40); RDW 14.8 % (11.5-15.5); WBC 8.4 k/uL (3.8-10.6)
[2020-02-17 06:14] LABS: Lymphocytes # (M) 0.92 k/uL (1.0-4.8); Monocytes # (M) 1.09 k/uL (0-1.0); Neutrophils # (M) 6.38 k/uL (1.3-7.7); Neutrophils % (M) 76 %; Nucleated Red Blood Cells 0 /100 WBC (0-0); Total Cells Counted 100
[2020-02-17 06:36] LABS: Calcium 7.9 mg/dL (8.4-10.2); Magnesium 2.3 mg/dL (1.6-2.3); Total Bilirubin 2.5 mg/dL (0.2-1.3); Total Protein 5.5 g/dL (6.3-8.2)
[2020-02-17 06:40] LABS: Potassium 5.7 mmol/L (3.5-5.1)
[2020-02-17] MEDS: PANTOPRAZOLE 40 MG TABLET PO SCH (06:58)
--- NOTE | 2020-02-17 07:29 | XR ---
EXAMINATION TYPE: XR chest 1V portable DATE OF EXAM: 02/17/2020 COMPARISON: 02/16/2020 INDICATION: Short of breath cardiomegaly TECHNIQUE: Single frontal view of the chest is obtained. FINDINGS: The heart size is enlarged. This is stable.. The pulmonary vasculature is normal. There is poor visualization left diaphragm which is worsened. Correlate for atelectasis or small effu gerald. IMPRESSION: 1. Stable cardiomegaly. 2. Left lower lobe infiltrate and/or effusion developing.
[2020-02-17] MEDS: CARVEDILOL 3.125 MG TAB PO SCH ×2 (07:52→15:59)
[2020-02-17] MEDS: ALBUTEROL NEBULIZED 2.5 MG/3 ML INHALATION PRN (08:04)
[2020-02-17] MEDS ORDERED: DIGOXIN 250 MCG/ML 2 ML AMP IVP ONE ×2 (09:00→15:00)
--- NOTE | 2020-02-17 09:07 | P.PN ---
Subjective Progress Note Date: 02/17/20 60-[facility] with past medical history of hypertension hyperlipidemia and schizophrenic effect who developed to have worsening shortness of breath for the last 2-3 weeks according to her was seen at [facility] treated for bronchitis with no effect. Patient call the clinic concern that she is having more dyspnea and shortness of breath with worsening symptoms was instructed to come to the emergency department. Was seen and evaluated has been having significant and worsening shortness of breath with minimum exertion increased PND orthopnea no angina had some abdominal discomfort with diarrhea no vomiting no worsening cough fever or chills. Jeanie was seen a [facility] department her troponin was elevated BNP was quite bit high at the time lactic acid was elevated as well patient chest x-ray showed early pulmonary edema with venous congestion. Patient d-dimer was elevated and ended up going for CTA showed no pulmonary embolism but sign of pulmonary edema and pulmonary hypertension. Patient was started on IV diuretics heparin drip and nitro and admitted to the hospital for elevated troponin with possible non-ST WI, pulmonary edema, congestive heart failure excessive patient. 02/14: Patient evaluated, denies any further complaints of shortness of breath. Liver enzymes still noted to be elevated AST 140, ALT 160, total bilirubin 1.6, potassium 3.0, sodium 136, BUN 22, creatinine 0.98. Potassium replaced per protocol. Liver ultrasound obtained for abnormal liver function, showed the gallbladder with abnormally thickened wall and gallstones, correlate for acute cholecystitis, nephrolithiasis, and fatty liver. Will consult surgery for acute cholecystitis. She continues on Lasix 40 mg daily IVP, cardiology on consult. Echocardiogram showed mild concentric left ventricular hypertrophy, left ventricular systolic function moderately impaired with an EF of 35-40%, increased LAP grade 2 diastolic dysfunction, LA is severely dilated, severe mitral regurgitation, moderate mitral valve prolapse, moderate tricuspid regurgitation, moderate pulmonary hypertension. Vital signs are stable, afebrile 97.6, heart rate 65, wrist rate 22, blood pressure 126/66 she's 98% on 2 L via nasal cannula. 3: Patient evaluated this morning, resting comfortably in bed. Denies any shortness of breath or chest pain. Liver enzymes are trending downwards, AST 100, ALT 129, total bilirubin 1.5, she is asymptomatic and tolerating food and fluids without nausea or vomiting or abdominal pain. Surgery is on consult, may need cholecystectomy as an outpatient basis once her cardiac status is stabilized. Cardiology on consult, may need cardiac cath, she remains on furosemide 40 mg IV push every 8 hours along with carvedilol 3.125 mg twice a day and lisinopril 5 mg daily. Vital signs are stable 109/75, respiratory rate of 22, heart rate 95, afebrile 97.8, 98% on 2 L via nasal cannula. Magnesium low at 1.5, potassium is also low at 3.0, electrolyte replacement has been ordered. 02/16 Overnight patient was to ICU around 10 pm for worsening blood pressure and shortness of breath. Patient was given a total of 1600 ml of fluids, chest helped the pressure briefly. Patient was started on Neosynephrine . Patient is maintaining the MAP at 60. Patient is currently on 3 L and did not need BiPAP overnight. Blood gases were done which suggested a pH of 7.48 CO2 33 pO2 79 bicarb 26 which didinot suggest need the BIPAP. UO was 25 ml/ hr. Lasix was given 40 iv once which did not improve the urine output. Labs his sodium is 135 potassium 5.7 bicarb 21 creatinine increased to 1.3 last lactic acid was 4.1 at 3 in the morning repeat lactic acid is pending. Total bilirubin is 2.5 liver enzymes is elevated. Urinalysis suggestive of ketones, wbc's and rbc's.: Patient currently on Zosyn. Surgery is not planning any intervention for acute cholecystitis. Patient is currently on Zosyn patient appears very unstable and prognosis appears guarded. On evaluation patient endorses shortness of breath denies any cough or sputum production. She denies any abdominal pain. Patient is started on dobutamine drip and digoxin by cardiology. Lasix switched to oral twice a day. Review of system Constitutional: Denies chills, Denies fever, Denies lethargy, Denies malaise, Denies poor appetite, Denies weakness, Denies weight loss Eyes: denies decreased vision, denies diplopia, denies discharge, denies pain Ears: deny: decreased hearing Ears, nose, mouth and throat: Denies dental pain, Denies headache, Denies nasal discharge, Denies nose pain Cardiovascular: Denies chest pain, Denies decreased exercise tolerance, Denies edema, Denies high blood pressure, Denies irregular heart beat, Denies palpitations, Denies paroxysmal nocturnal dyspnea, Denies rapid heart beat, Denies shortness of breath Respiratory: Denies congestion, Denies cough, Denies cough with sputum, positive for dyspnea Denies home oxygen, Denies wheezing Gastrointestinal: Denies abdominal pain, Denies change in bowel habits, Denies coffee ground emesis, Denies early satiety, Denies excessive gas, Denies heartburn, Denies hematemesis, Denies hematochezia, Denies loss of appetite, Denies nausea, Denies vomiting Genitourinary: Denies dysuria, Denies flank pain, Denies kidney stones, Denies menorrhagia, Denies urgency, Denies urinary frequency Musculoskeletal: Denies gait dysfunction, Denies limitation of motion, Denies morning stiffness, Denies muscle cramps Integumentary: Denies rash, Denies wounds, Denies brittle nails, Denies change in hair/nails, Denies darkening of skin Neurological: Denies balance difficulties, Denies change in speech, Denies double vision, Denies gait dysfunction, Denies loss of vision, Denies motor disturbance, Denies numbness, Denies paralysis, Denies paresthesias, Denies seizures Psychiatric: Denies anxiety, Denies depression Endocrine: Denies excessive sweating, Denies excessive thirst, Denies high blood sugars, Denies palpitations Hematologic/Lymphatic: Denies easy bruising, Denies lymphadenopathy Objective - Vital Signs Vital signs: Vital Signs Temp 96.6 F L 02/17/20 03:30 Pulse 100 02/17/20 06:00 Resp 18 02/17/20 06:00 BP 83/60 02/17/20 06:00 Pulse Ox 100 02/17/20 06:00 Intake & Output 02/16/20 02/17/20 02/17/20 18:59 06:59 18:59 Intake Total 2358.907 119.634 Output Total 185 Balance 2173.907 119.634 Weight 84.8 kg Intake: IV 2300 Magnesium Sulfate-D5w Pmx 100 1 gm In Dextrose/Water 1 100ml.bag @ 100 mls/hr IVPB ONCE ONE Rx#: [id number] Potassium Chloride 10 meq 500 In Water For Injection 1 100ml.bag @ 100 mls/hr IVPB Q1HR JACK Rx#: [id number] Sodium Chloride 0.9% 1, 100 000 ml @ 100 mls/hr IV . Q10H [facility] Rx#:[id number] Sodium Chloride 0.9% 500 1600 ml 500 ml @ 999 mls/hr IV .Q31M ONE Rx#:[id number] Intake, IV Titration 58.907 119.634 Amount Phenylephrine 40 mg In 58.907 119.634 Sodium Chloride 0.9% 250 ml @ 0.5 MCG/KG/MIN 14. 764 mls/hr IV .[id number] [facility] Rx#:[id number] Output: Urine 185 Other: Voiding Method Toilet Indwelling Catheter Diaper # Voids 2 # Bowel Movements 1 1 - Exam - Exam - Constitutional General appearance: Present: cooperative, no acute distress - EENT Eyes: Present: EOMI, PERRLA, normal appearance ENT: Present: hearing grossly normal, normal oropharynx - Neck Neck: Present: normal ROM. Absent: lymphadenopathy, thyromegaly - Respiratory Respiratory: bilateral: diminished, rales, wheezing - Cardiovascular Rhythm: regular Heart sounds: normal: S1, S2, bilateral lower extremity edema - Gastrointestinal General gastrointestinal: Present: normal bowel sounds. Absent: distended, organomegaly, tenderness - Neurologic Neurologic: Present: CNII-XII intact. Absent: focal deficits - Musculoskeletal Musculoskeletal: Present: gait normal, strength equal bilaterally bilateral pitting lower extremity edema - Psychiatric Psychiatric: Present: A&O x's 3, appropriate affect - Labs CBC & Chem 7: 02/17/20 05:42 02/17/20 07:27 Labs: Abnormal Lab Results - Last 24 Hours (Table) 02/16/20 02/16/20 02/16/20 Range/Units 12:30 20:42 20:42 MCHC (31.0-37.0) g/dL Plt Count 132 L (150-450) k/uL Lymphocytes # (Manual) (1.0-4.8) k/uL Monocytes # (Manual) (0-1.0) k/uL ABG pH (7.35-7.45) ABG pCO2 (35-45) mmHg ABG pO2 (83-108) mmHg ABG Total CO2 (19-24) mmol/L Sodium 135 L (137-145) mmol/L Potassium 3.0 L 3.4 L (3.5-5.1) mmol/L Carbon Dioxide (22-30) mmol/L BUN 25 H (7-17) mg/dL Creatinine 1.06 H (0.52-1.04) mg/dL POC Glucose (mg/dL) (75-99) mg/dL Plasma Lactic Acid Gerardo (0.7-2.0) mmol/L Calcium 6.7 L (8.4-10.2) mg/dL Total Bilirubin (0.2-1.3) mg/dL AST (14-36) U/L ALT (4-34) U/L Alkaline Phosphatase (38-126) U/L Total Protein (6.3-8.2) g/dL Albumin (3.5-5.0) g/dL Urine Appearance (Clear) Urine Protein (Negative) Urine Blood (Negative) Urine RBC (0-5) /hpf Urine WBC (0-5) /hpf Amorphous Sediment (None) /hpf Urine Mucus (None) /hpf 02/16/20 02/16/20 02/16/20 Range/Units 21:00 21:13 22:07 MCHC (31.0-37.0) g/dL Plt Count (150-450) k/uL Lymphocytes # (Manual) (1.0-4.8) k/uL Monocytes # (Manual) (0-1.0) k/uL ABG pH 7.48 H (7.35-7.45) ABG pCO2 33 L (35-45) mmHg ABG pO2 79 L (83-108) mmHg ABG Total CO2 26 H (19-24) mmol/L Sodium (137-145) mmol/L Potassium (3.5-5.1) mmol/L Carbon Dioxide (22-30) mmol/L BUN (7-17) mg/dL Creatinine (0.52-1.04) mg/dL POC Glucose (mg/dL) 110 H (75-99) mg/dL Plasma Lactic Acid Gerardo 2.9 H* (0.7-2.0) mmol/L Calcium (8.4-10.2) mg/dL Total Bilirubin (0.2-1.3) mg/dL AST (14-36) U/L ALT (4-34) U/L Alkaline Phosphatase (38-126) U/L Total Protein (6.3-8.2) g/dL Albumin (3.5-5.0) g/dL Urine Appearance (Clear) Urine Protein (Negative) Urine Blood (Negative) Urine RBC (0-5) /hpf Urine WBC (0-5) /hpf Amorphous Sediment (None) /hpf Urine Mucus (None) /hpf 02/17/20 02/17/20 02/17/20 Range/Units 00:02 01:00 03:08 MCHC (31.0-37.0) g/dL Plt Count (150-450) k/uL Lymphocytes # (Manual) (1.0-4.8) k/uL Monocytes # (Manual) (0-1.0) k/uL ABG pH (7.35-7.45) ABG pCO2 (35-45) mmHg ABG pO2 (83-108) mmHg ABG Total CO2 (19-24) mmol/L Sodium (137-145) mmol/L Potassium (3.5-5.1) mmol/L Carbon Dioxide (22-30) mmol/L BUN (7-17) mg/dL Creatinine (0.52-1.04) mg/dL POC Glucose (mg/dL) (75-99) mg/dL Plasma Lactic Acid Gerardo 2.8 H* 4.1 H* (0.7-2.0) mmol/L Calcium (8.4-10.2) mg/dL Total Bilirubin (0.2-1.3) mg/dL AST (14-36) U/L ALT (4-34) U/L Alkaline Phosphatase (38-126) U/L Total Protein (6.3-8.2) g/dL Albumin (3.5-5.0) g/dL Urine Appearance Cloudy H (Clear) Urine Protein 1+ H (Negative) Urine Blood Moderate H (Negative) Urine RBC 27 H (0-5) /hpf Urine WBC 17 H (0-5) /hpf Amorphous Sediment Rare H (None) /hpf Urine Mucus Rare H (None) /hpf 02/17/20 02/17/20 Range/Units 05:42 05:42 MCHC 30.8 L (31.0-37.0) g/dL Plt Count 122 L (150-450) k/uL Lymphocytes # (Manual) 0.92 L (1.0-4.8) k/uL Monocytes # (Manual) 1.09 H (0-1.0) k/uL ABG pH (7.35-7.45) ABG pCO2 (35-45) mmHg ABG pO2 (83-108) mmHg ABG Total CO2 (19-24) mmol/L Sodium 135 L (137-145) mmol/L Potassium 5.7 H (3.5-5.1) mmol/L Carbon Dioxide 21 L (22-30) mmol/L BUN 30 H (7-17) mg/dL Creatinine 1.30 H (0.52-1.04) mg/dL POC Glucose (mg/dL) (75-99) mg/dL Plasma Lactic Acid Gerardo (0.7-2.0) mmol/L Calcium 7.9 L (8.4-10.2) mg/dL Total Bilirubin 2.5 H (0.2-1.3) mg/dL AST 223 H (14-36) U/L ALT 132 H (4-34) U/L Alkaline Phosphatase 130 H (38-126) U/L Total Protein 5.5 L (6.3-8.2) g/dL Albumin 3.0 L (3.5-5.0) g/dL Urine Appearance (Clear) Urine Protein (Negative) Urine Blood (Negative) Urine RBC (0-5) /hpf Urine WBC (0-5) /hpf Amorphous Sediment (None) /hpf Urine Mucus (None) /hpf Microbiology - Last 24 Hours (Table) 02/14/20 11:09 Blood Culture - Preliminary Blood No Growth after 48 hours Assessment and Plan Plan: 1 acute hypoxic respiratory failure Combination of early pulmonary edema, possible non-ST WI, and congestive heart failure . Echo with ejection fraction 35-40% severe MR moderate mitral valve prolapse moderate pulmonary hypertension and moderate tricuspid regurgitation. Plan for TERE and cardiac cath next week. 2 acute congestive heart failure exacerbation continue on furosemide 40 mg by mouth twice day continue to treat this as a systolic dysfunction congestive heart failure hold lisinopril, Coreg 3.125 mg twice a day. Initiated on d obutamine drip 3 elevated troponin: With possible non-ST WI, Echo with ejection fraction 35-40% severe MR moderate mitral valve prolapse moderate pulmonary hypertension and moderate tricuspid regurgitation. Plan for TERE and cardiac cath next week. 4 significantly abnormal liver function test with elevated troponin AST and ALT: Secondary to decompensated congestive heart failure and acute cholecystitis, cholecystectomy as an outpatient basis. 5 history of asthma/COPD: Patient will be continue on albuterol along with Singulair. Continue O2 as needed. 6 hyperlipidemia: Remain on atorvastatin 10 mg a day. 7 chronic depression: Has been on duloxetine 60 mg a day along with lorazepam 0.5 mg 3 times a day. 8 history of schizoaffective disorders: Has been on risperidone 25 mg IM injection every 14 days and seen psych on regular basis. 9 acute kidney injury: No urine output Lasix 40 by mouth twice a day Stage II with the current management repeat BUN/creatinine daily in the next 2 days. 10 mild coagulopathy: With elevated PT/INR, secondary to decompensated congestive heart failure 11 DVT prophylaxis: Heparin 5000 every 12 12 GI prophylaxis: Patient be on pantoprazole orally. 12 hypotension likely secondary to cardiogenic shock. Dobutamine drip initiated Lanoxin initiated today CODE STATUS: Full code.
[2020-02-17] MEDS: DOBUTamine DRIP 500 MG in DEXTROSE/WATER 1 250ML.BAG IV SCH (09:11)
[2020-02-17] MEDS: PHENYLEPHRINE 40 MG in SODIUM CHLORIDE 0.9% 250 ML IV SCH ×2 (09:19→17:22)
--- NOTE | 2020-02-17 09:54 | P.PN ---
Progress Note - Text Progress Note Date: 02/17/20 This is a 60-year-old female who was admitted to the hospital with shortness of breath and congestive heart failure. Her echocardiogram showed evidence of ruptured chordae tendineae with the partial flail posterior mitral leaflet with severe mitral regurgitation. LV function is moderately impaired. Given degree of mitral regurgitation, LV function was be less than described. Her urine output is low. Patient was hypotensive yesterday after giving IV amiodarone for episodes of nonsustained V. tach. Patient hasn't had any nonsustained V. tach today. Her potassium and magnesium levels are corrected. Her BUN and creatinine are slightly elevated. I'm going to start her on IV dobutamine and also some digoxin by mouth. If her urine output doesn't pick remover and continues to be hypotensive, may consider TERE followed by a cardiac cath and probably intra-aortic balloon insertion. Patient may need mitral valve repair. I doubt that patient has underlying ischemic heart disease. Prognosis is guarded. Physical examination reveals a 60-year-old female who is tachypneic. Denies any chest pain. Claims she is feeling better compared to yesterday. Lungs appeared to be clear. Chest x-ray showed clearing of CHF with some developing left-sided pleural effusion. Belly showed a potassium level of about 5.5. Creatinine is about 1.3 Final impression: #1. 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 Severe cardiomyopathy with gener alized hypokinesia #3. Acute on chronic CHF. Plan. We'll start her on IV dobutamine and also by mouth Lanoxin. Continue to monitor urine output and vital signs. If necessary we may consider intact balloon pump and probably TERE and cardiac cath also. Prognosis is guarded
[2020-02-17] MEDS: ASPIRIN 81 MG PO SCH (11:15)
[2020-02-17] MEDS: DULoxetine HCL 60 MG CAPSULE.DR PO SCH (11:15)
[2020-02-17] MEDS: SPIRONOLACTONE 25 MG TAB PO SCH (11:16)
[2020-02-17] MEDS: LORATADINE 10 MG TAB PO SCH (11:16)
[2020-02-17] MEDS: ATORVASTATIN 10 MG TAB PO SCH (11:16)
[2020-02-17] MEDS: CALCIUM CARB-VIT D 500MG-200UN 1 EACH TAB PO SCH (11:16)
[2020-02-17] MEDS: FUROSEMIDE 40 MG TAB PO SCH ×2 (11:16→17:08)
[2020-02-17] MEDS: POTASSIUM CHLORIDE ER 20 MEQ TAB.ER PO SCH (11:16)
[2020-02-17] MEDS: CHOLECALCIFEROL 1,000 UNIT TAB PO SCH (12:05)
[2020-02-17 12:12] LABS: Albumin 2.8 g/dL (3.5-5.0); Calcium 7.3 mg/dL (8.4-10.2); Total Protein 4.9 g/dL (6.3-8.2)
--- NOTE | 2020-02-17 12:58 | P.CNPUL ---
History of Present Illness Consult date: 02/17/20 Requesting physician: Dio Angel Reason for consult: dyspnea, other (Hypotension) Chief complaint: Shortness of breath History of present illness: This is a 60-year-old female with history of multiple medical problems including hypertension, dyslipidemia, schizophrenia, patient was admitted on 02/14/20 with mostly symptoms of shortness of breath, dyspnea on exertion, increased PND, orthopnea, and some vague abdominal discomfort. Chest x-ray on admission showed mild interstitial edema and venous congestion. Patient was found to have significantly elevated d-dimer , CT angiogram of the chest showed no pulmonary embolism but there was signs of pulmonary edema and pulmonary hypertension. Patient was placed on diuretics, heparin, nitroglycerin, and she is there was a major concern about osmole non-ST elevation myocardial infarction with elevated troponin. Patient was seen on consultation by Dr. Piedra/informatics spec, and he recommended a 2-D echocardiogram to assess LV function. Her echocardiogram showed LV dysfunction with ejection fraction of 35-40%. It also showed severe mitral regurgitation and moderate mitral valve prolapse. There is moderate prolapse of the posterior mitral valve leaflet. And there was evidence of moderate pulmonary hypertension. Last night, the patient had an episode of nonsustained ventricular tachycardia, hypotension, and worsening shortness of b reath. I was made aware of this patient, she was transferred to the ICU, and for her hypotension and I recommended Sridhar-Synephrine. She was also placed on amiodarone by cardiology as well as Dobutrex. Her Dobutrex is at 5 mcg/kg/m, Sridhar-Synephrine is at 1.1 mcg/kg/m, seen by cardiology again this morning, and she it was felt that the patient has partial flail posterior mitral leaflet secondary to rupture of chordae tendineae. Hence the patient was placed on dobutamine, Lanoxin, and she is being considered for possible intra-aortic balloon pump placement and probable TERE. This is yet to be decided upon by cardiology on the case. I saw this patient this morning, and she had no adequate venous access, she is on multiple drips including inotropes and pressors, and I went ahead and placed a right femoral triple-lumen catheter in this patient. Reviewed her medications and her chest x-ray, and recommended that we continue Lasix. Chest x-ray showed mostly cardiomegaly and small left pleural effusion and atelectasis no evidence of infiltrate Review of Systems CONSTITUTIONAL: Denies any fever chills or weight loss. EYES: Denies any blurred vision dizziness or diplopia. EARS, NOSE, MOUTH, THROAT, and FACE: Denies sore throat. RESPIRATORY: Shortness of breath on exertion, orthopnea, PND, and occasional wheezing CARDIOVASCULAR: As noted in HPI. GASTROINTESTINAL: Denies abdominal pain nausea vomiting or melena or hematemesis. GENITOURINARY: Denied dysuria frequency urgency. Or hematuria.. INTEGUMENT/BREAST: Denies any rashes. HEMATOLOGIC/LYMPHATIC: Denies any clotting bleeding or bruising MUSCULOSKELTAL: Denies arthralgia or myalgia NEURLOGICAL: Denies headache blurred vision dizziness syncope BEHAVIORAL/PSYCH: Denies any symptoms of depression ENDOCRINE: Denies any heat or cold intolerance Past Medical History Past Medical History: GERD/Reflux, Hyperlipidemia, Hypertension, Memory Impairment History of Any Multi-Drug Resistant Organisms: None Reported Past Surgical History: Unable to Obtain Additional Past Surgical History / Comment(s): Non-cancerous growths removed from stomach when patient was in high school. Past Anesthesia/Blood Transfusion Reactions: Unable to Obtain Additional Past Anesthesia/Blood Transfusion Reaction / Comment(s): Unkown. Past Psychological History: Anxiety, Bipolar, Depression, Schizophrenia Smoking Status: Never smoker Past Alcohol Use History: None Reported Past Drug Use History: None Reported - Past Family History Mother Family Medical History: No Reported History Father Family Medical History: Cancer Sister(s) Family Medical History: No Reported History Brother(s) Family Medical History: No Reported History Medications and Allergies Home Medications Medication Instructions Recorded Confirmed Type risperiDONE MICROSPHERES 25 mg IM Q14D 08/13/16 02/14/20 History [RisperDAL CONSTA] Atorvastatin [Lipitor] 10 mg PO DAILY 02/25/18 02/14/20 History Cholecalciferol [Vitamin D3 (25 5,000 unit PO DAILY 05/10/19 02/14/20 History Mcg = 1000 Iu)] Albuterol Sulfate [Albuterol 2 puff PO RT-Q6H PRN 02/14/20 02/14/20 History Sulfate Hfa] Atorvastatin [Lipitor] 10 mg PO DAILY 02/14/20 02/14/20 History Americo/D3/Mag11/Zinc/Assistant/Nando/Bor 1 tab PO DAILY 02/14/20 02/14/20 History [Caltrate 600+D Plus Tablet] DULoxetine HCL [Cymbalta] 60 mg PO DAILY 02/14/20 02/14/20 History LORazepam [Ativan] 0.5 mg PO TID 02/14/20 02/14/20 History Loratadine [Claritin] 10 mg PO DAILY 02/14/20 02/14/20 History Montelukast [Singulair] 10 mg PO HS 02/14/20 02/14/20 History Allergies Allergy/AdvReac Type Severity Reaction Status Date / Time No Known Allergies Allergy Verified 02/14/20 12:19 Physical Exam Vitals: Vital Signs Temp Pulse Pulse Resp BP BP BP 02/17/20 11:30 86 20 109/66 02/17/20 11:00 85 20 99/66 02/17/20 10:30 86 20 104/57 02/17/20 10:00 89 20 104/74 02/17/20 09:30 86 63/40 02/17/20 09:00 86 20 89/62 02/17/20 08:30 90 91/57 02/17/20 08:16 88 02/17/20 08:06 86 02/17/20 08:00 97.8 F 85 20 84/45 02/17/20 07:30 86 79/53 02/17/20 07:00 86 22 93/73 02/17/20 06:30 87 86/33 02/17/20 06:00 100 18 83/60 02/17/20 05:30 98 84/56 02/17/20 05:00 99 24 98/71 02/17/20 04:30 101 H 96/63 02/17/20 04:00 102 H 18 105/65 02/17/20 03:30 96.6 F L 101 H 20 85/65 02/17/20 03:00 100 33 H 91/76 02/17/20 02:30 101 H 20 86/57 02/17/20 02:00 85 26 H 79/62 02/17/20 01:30 89 34 H 02/17/20 01:00 91 14 92/81 02/17/20 00:30 92 20 88/72 02/17/20 00:00 98 83/65 07/03/20 23:30 84 22 86/67 02/16/20 23:00 97.1 F L 99 21 58/38 02/16/20 22:30 02/16/20 22:00 72/53 02/16/20 20:53 88 02/16/20 20:33 88 02/16/20 20:30 02/16/20 20:27 88 42 H 02/16/20 20:24 89 42 H 75/50 02/16/20 20:05 54/36 02/16/20 18:24 90/53 02/16/20 17:34 109/52 02/16/20 17:10 76/31 02/16/20 16:10 103 H 20 105/56 02/16/20 16:00 97.7 F 105 H 36 H 80/49 BP Pulse Ox 02/17/20 11:30 96 02/17/20 11:00 96 02/17/20 10:30 96 02/17/20 10:00 96 02/17/20 09:30 100 02/17/20 09:00 100 02/17/20 08:30 100 02/17/20 08:16 02/17/20 08:06 02/17/20 08:00 100 02/17/20 07:30 02/17/20 07:00 99 02/17/20 06:30 100 02/17/20 06:00 100 02/17/20 05:30 02/17/20 05:00 98 02/17/20 04:30 100 02/17/20 04:00 94 L 02/17/20 03:30 98 02/17/20 03:00 02/17/20 02:30 100 02/17/20 02:00 100 02/17/20 01:30 100 02/17/20 01:00 100 02/17/20 00:30 96 02/17/20 00:00 02/16/20 23:30 100 02/16/20 23:00 99 02/16/20 22:30 100 02/16/20 22:00 02/16/20 20:53 02/16/20 20:33 98 02/16/20 20:30 59/51 02/16/20 20:27 67/48 97 02/16/20 20:24 71/49 98 02/16/20 20:05 02/16/20 18:24 02/16/20 17:34 02/16/20 17:10 02/16/20 16:10 96 02/16/20 16:00 99 Intake and Output 02/16/20 02/17/20 02/17/20 22:59 06:59 14:59 Intake Total 2358.907 430.854 Output Total 185 25 Balance 2173.907 405.854 Intake: IV 2300 Magnesium Sulfate-D5w Pmx 100 1 gm In Dextrose/Water 1 100ml.bag @ 100 mls/hr IVPB ONCE ONE Rx#: [id number] Potassium Chloride 10 meq 500 In Water For Injection 1 100ml.bag @ 100 mls/hr IVPB Q1HR [facility] Rx#: [id number] Sodium Chloride 0.9% 1, 100 000 ml @ 100 mls/hr IV . Q10H [facility] Rx#:[id number] Sodium Chloride 0.9% 500 1600 ml 500 ml @ 999 mls/hr IV .Q31M ONE Rx#:[id number] Intake, IV Titration 58.907 430.854 Amount Amiodarone 300 mg In 250 Dextrose 5% in Water 250 ml @ 0.5 MG/MIN 25 mls/hr IV .Q10H [facility] Rx#: [id number] Phenylephrine 40 mg In 58.907 180.854 Sodium Chloride 0.9% 250 ml @ 0.5 MCG/KG/MIN 14. 764 mls/hr IV .[id number] [facility] Rx#:[id number] Output: Urine 185 25 Other: Voiding Method Indwelling Catheter # Bowel Movements 1 Weight 84.8 kg General Appearance: Revealed a 60-year-old female, in no distress. Noted to be a bit anxious. On few liters nasal cannula. HEENT: PERRLA, EOMI, no icterus, no neck masses, no JVD, no stridor. Lungs: Diminished breath sounds at the left base, no crackles or rhonchi or wheezes. Symmetrical chest expansion Chest symmetrical chest expansion, no chest wall tenderness. Heart: Regular rate and rhythm, S1, S2 positive S3 positive JVD. 2/6 systolic murmur thought the precordium. Back: Symmetric, no curvature, ROM normal, no CVA tenderness. Abdomen: Soft nontender no megaly no rebound no guarding. Extremities: Trace of bipedal edema. Pulses: Good pulses bilaterally. Skin: No rashes, no erythema, normal turgor. Neurologic: Alert and oriented 3, no gross focal neurologic deficit. Results - Laboratory Findings CBC and BMP: 02/17/20 05:42 02/17/20 11:45 ABG ABG pH 7.48 (7.35-7.45) H 02/16/20 22:07 ABG pCO2 33 mmHg (35-45) L 02/16/20 22:07 ABG pO2 79 mmHg (83-108) L 02/16/20 22:07 ABG O2 Saturation 95.9 % (94-97) 02/16/20 22:07 PT/INR, D-dimer PT 14.7 sec (9.0-12.0) H 02/15/20 06:48 INR 1.5 (<1.2) H 02/15/20 06:48 D-Dimer 6.43 mg/L FEU (<0.60) H 02/14/20 11:09 Abnormal lab findings: Abnormal Labs 02/14/20 02/14/20 02/14/20 11:09 11:09 11:09 RBC MCHC Plt Count 133 L Lymphocytes # (Manual) Monocytes # (Manual) PT 15.4 H INR 1.6 H APTT D-Dimer ABG pH ABG pCO2 ABG pO2 ABG Total CO2 Sodium 133 L Potassium 3.2 L Carbon Dioxide BUN 21 H Creatinine 1.09 H Glucose 128 H POC Glucose (mg/dL) Plasma Lactic Acid Gerardo Calcium Magnesium Total Bilirubin 2.0 H AST 259 H ALT 205 H Alkaline Phosphatase Troponin I Total Protein 5.5 L Albumin 3.2 L HDL Cholesterol Urine Appearance Urine Protein Urine Blood Urine RBC Urine WBC Amorphous Sediment Urine Mucus 02/14/20 02/14/20 02/14/20 11:09 11:09 11:09 RBC MCHC Plt Count Lymphocytes # (Manual) Monocytes # (Manual) PT INR APTT D-Dimer 6.43 H ABG pH ABG pCO2 ABG pO2 ABG Total CO2 Sodium Potassium Carbon Dioxide BUN Creatinine Glucose POC Glucose (mg/dL) Plasma Lactic Acid Gerardo 3.3 H* Calcium Magnesium Total Bilirubin AST ALT Alkaline Phosphatase Troponin I 0.157 H* Total Protein Albumin HDL Cholesterol Urine Appearance Urine Protein Urine Blood Urine RBC Urine WBC Amorphous Sediment Urine Mucus 02/14/20 02/14/20 02/14/20 15:11 15:11 17:17 RBC MCHC Plt Count Lymphocytes # (Manual) Monocytes # (Manual) PT INR APTT D-Dimer ABG pH ABG pCO2 ABG pO2 ABG Total CO2 Sodium Potassium Carbon Dioxide BUN Creatinine Glucose POC Glucose (mg/dL) Plasma Lactic Acid Gerardo 2.8 H* Calcium Magnesium Total Bilirubin AST ALT Alkaline Phosphatase Troponin I 0.167 H* 0.172 H* Total Protein Albumin HDL Cholesterol Urine Appearance Urine Protein Urine Blood Urine RBC Urine WBC Amorphous Sediment Urine Mucus 02/14/20 02/15/20 02/15/20 18:13 06:48 06:48 RBC 3.74 L MCHC Plt Count 128 L Lymphocytes # (Manual) Monocytes # (Manual) PT INR APTT 32.8 H D-Dimer ABG pH ABG pCO2 ABG pO2 ABG Total CO2 Sodium 136 L Potassium 3.0 L Carbon Dioxide BUN 22 H Creatinine Glucose POC Glucose (mg/dL) Plasma Lactic Acid Gerardo Calcium 7.8 L Magnesium Total Bilirubin 1.6 H AST 140 H ALT 168 H Alkaline Phosphatase Troponin I Total Protein 5.0 L Albumin 2.7 L HDL Cholesterol 24 L Urine Appearance Urine Protein Urine Blood Urine RBC Urine WBC Amorphous Sediment Urine Mucus 02/15/20 02/16/20 02/16/20 06:48 05:27 05:27 RBC MCHC Plt Count 116 L Lymphocytes # (Manual) Monocytes # (Manual) PT 14.7 H INR 1.5 H APTT 182.3 H* D-Dimer ABG pH ABG pCO2 ABG pO2 ABG Total CO2 Sodium 136 L Potassium 3.0 L Carbon Dioxide BUN 25 H Creatinine Glucose 106 H POC Glucose (mg/dL) Plasma Lactic Acid Gerardo Calcium 7.9 L Magnesium 1.5 L Total Bilirubin 1.5 H AST 100 H ALT 129 H Alkaline Phosphatase Troponin I Total Protein 5.0 L Albumin 2.7 L HDL Cholesterol Urine Appearance Urine Protein Urine Blood Urine RBC Urine WBC Amorphous Sediment Urine Mucus 02/16/20 02/16/20 02/16/20 12:30 20:42 20:42 RBC MCHC Plt Count 132 L Lymphocytes # (Manual) Monocytes # (Manual) PT INR APTT D-Dimer ABG pH ABG pCO2 ABG pO2 ABG Total CO2 Sodium 135 L Potassium 3.0 L 3.4 L Carbon Dioxide BUN 25 H Creatinine 1.06 H Glucose POC Glucose (mg/dL) Plasma Lactic Acid Gerardo Calcium 6.7 L Magnesium Total Bilirubin AST ALT Alkaline Phosphatase Troponin I Total Protein Albumin HDL Cholesterol Urine Appearance Urine Protein Urine Blood Urine RBC Urine WBC Amorphous Sediment Urine Mucus 02/16/20 02/16/20 02/16/20 21:00 21:13 22:07 RBC MCHC Plt Count Lymphocytes # (Manual) Monocytes # (Manual) PT INR APTT D-Dimer ABG pH 7.48 H ABG pCO2 33 L ABG pO2 79 L ABG Total CO2 26 H Sodium Potassium Carbon Dioxide BUN Creatinine Glucose POC Glucose (mg/dL) 110 H Plasma Lactic Acid Gerardo 2.9 H* Calcium Magnesium Total Bilirubin AST ALT Alkaline Phosphatase Troponin I Total Protein Albumin HDL Cholesterol Urine Appearance Urine Protein Urine Blood Urine RBC Urine WBC Amorphous Sediment Urine Mucus 02/17/20 02/17/20 02/17/20 00:02 01:00 03:08 RBC MCHC Plt Count Lymphocytes # (Manual) Monocytes # (Manual) PT INR APTT D-Dimer ABG pH ABG pCO2 ABG pO2 ABG Total CO2 Sodium Potassium Carbon Dioxide BUN Creatinine Glucose POC Glucose (mg/dL) Plasma Lactic Acid Gerardo 2.8 H* 4.1 H* Calcium Magnesium Total Bilirubin AST ALT Alkaline Phosphatase Troponin I Total Protein Albumin HDL Cholesterol Urine Appearance Cloudy H Urine Protein 1+ H Urine Blood Moderate H Urine RBC 27 H Urine WBC 17 H Amorphous Sediment Rare H Urine Mucus Rare H 02/17/20 02/17/20 02/17/20 05:42 05:42 07:27 RBC MCHC 30.8 L Plt Count 122 L Lymphocytes # (Manual) 0.92 L Monocytes # (Manual) 1.09 H PT INR APTT D-Dimer ABG pH ABG pCO2 ABG pO2 ABG Total CO2 Sodium 135 L Potassium 5.7 H 5.5 H Carbon Dioxide 21 L BUN 30 H Creatinine 1.30 H Glucose POC Glucose (mg/dL) Plasma Lactic Acid Gerardo Calcium 7.9 L Magnesium Total Bilirubin 2.5 H AST 223 H ALT 132 H Alkaline Phosphatase 130 H Troponin I Total Protein 5.5 L Albumin 3.0 L HDL Cholesterol Urine Appearance Urine Protein Urine Blood Urine RBC Urine WBC Amorphous Sediment Urine Mucus 02/17/20 02/17/20 11:45 11:45 RBC MCHC Plt Count Lymphocytes # (Manual) Monocytes # (Manual) PT INR APTT D-Dimer ABG pH ABG pCO2 ABG pO2 ABG Total CO2 Sodium 133 L Potassium Carbon Dioxide BUN 31 H Creatinine 1.39 H Glucose 117 H POC Glucose (mg/dL) Plasma Lactic Acid Gerardo 2.6 H* Calcium 7.3 L Magnesium Total Bilirubin 3.0 H AST 1155 H ALT 283 H Alkaline Phosphatase Troponin I Total Protein 4.9 L Albumin 2.8 L HDL Cholesterol Urine Appearance Urine Protein Urine Blood Urine RBC Urine WBC Amorphous Sediment Urine Mucus - Diagnostic Findings Chest x-ray: image reviewed (As noted in HPI.) Assessment and Plan Assessment: Impression: Acute systolic congestive heart failure Severe dyspnea on exertion secondary to above. Possible non-ST elevation myocardial infarction. Severe mitral regurgitation and possible chordae tendaeni rupture. Acute kidney injury, suspected cardiorenal in nature. History of schizoaffective disorder. Dyslipidemia. History of smoking and mild COPD, presently inactive. Elevated liver enzymes, being addressed by the admitting physician. Recommendation: Continue present treatment plan including diuretics, amiodarone, dobutamine, Coreg, Lanoxin, Sridhar-Synephrine and titrate accordingly. Continue to monitor the patient in the ICU as she is requiring inotropes and pressors at present Agree with TERE and cardiac catheterization. Central IV access was established Resume home meds/bronchodilators. GI and DVT prophylaxis. Close monitoring of the pulmonary status as the patient could easily develop pulmonary edema/flash pulmonary edema. We'll continue to follow in the intensive care unit Time with Patient: Greater than 30
--- NOTE | 2020-02-17 13:25 | P.PN ---
Subjective Progress Note Date: 02/17/20 CHIEF COMPLAINT: Gallstones HISTORY OF PRESENT ILLNESS: The patient is a 60-year-old female admitted with pulmonary hypertension including pulmonary edema, congestive heart failure. She has baseline history of schizophrenia, bipolar disorder. Secondary to diagnostic studies including liver ultrasound, findings include gallstones. General surgery is following. She is tolerating diet. No reports of abdominal pain. REVIEW OF ORGAN SYSTEMS: No fevers or chills. No nausea or vomiting. No abdominal pain. PHYSICAL EXAM: VITALS: Reviewed CONSTITUTIONAL: Well developed and in no acute distress. EYES: Conjuctivae without sclera icterus. Extraocular movements grossly intact. HEAD, EARS, NOSE, THROAT: Moist buccal mucosa. Head is atraumatic, normocephalic. Hears conversational speech. No nasal drainage. NECK: Supple. No JV distention. No thyroidomegaly. RESPIRATORY: Non-labored respirations and equal bilateral excursions. No gross wheezes. CARDIOVASCULAR: Palpable 2+ radial pulses. ABDOMEN: Soft. Non-tender. Nondistended. MUSCULOSKELETAL: Nail and fingers with good capillary refill. No clubbing cyanosis. SKIN: Warm and well perfused with good skin turgor. NEUROLOGIC: Cranial nerves II through XII grossly intact. Sensation upper and extremities intact. No focal or lateralizing signs. PSYCH: Flat affect. Alert to person. CLINCAL LABS: Reviewed. WBC normal at 8600. Total bilirubin improved from 2.0- 1.5, now 3.0. Liver enzymes are elevated, AST 1155, ALT 283 and elevated. RADIOLOGY: X-ray demonstrates new left lower lobe infiltrate ASSESSMENT: 1. Abnormal ultrasound with gallstones 2. Congestive heart failure PLAN: 1. She has diastolic dysfunction including severe mitral regurgitation for which surgical intervention is high-risk and contraindicated. 2. Additionally, patient is asymptomatic regarding abdominal pain. 3. Recommend GI consultation for elevated liver enzymes 4. Conservative management in the interim with IV antibiotics Objective - Vital Signs Vital signs: Vital Signs Temp 97.8 F 02/17/20 08:00 Pulse 87 02/17/20 13:00 Resp 20 02/17/20 13:00 BP 90/61 02/17/20 13:00 Pulse Ox 100 02/17/20 13:00 Intake & Output 02/16/20 02/17/20 02/17/20 18:59 06:59 18:59 Intake Total 2358.907 1030.854 Output Total 185 275 Balance 2173.907 755.854 Weight 84.8 kg Intake: IV 2300 500 Magnesium Sulfate-D5w Pmx 100 1 gm In Dextrose/Water 1 100ml.bag @ 100 mls/hr IVPB ONCE ONE Rx#: [id number] Potassium Chloride 10 meq 500 In Water For Injection 1 100ml.bag @ 100 mls/hr IVPB Q1HR [facility] Rx#: [id number] Sodium Chloride 0.9% 1, 100 500 000 ml @ 100 mls/hr IV . Q10H [facility] Rx#:[id number] Sodium Chloride 0.9% 500 1600 ml 500 ml @ 999 mls/hr IV .Q31M ONE Rx#:[id number] Intake, IV Titration 58.907 530.854 Amount Amiodarone 300 mg In 250 Dextrose 5% in Water 250 ml @ 0.5 MG/MIN 25 mls/hr IV .Q10H [facility] Rx#: [id number] Phenylephrine 40 mg In 58.907 180.854 Sodium Chloride 0.9% 250 ml @ 0.5 MCG/KG/MIN 14. 764 mls/hr IV .[id number] [facility] Rx#:[id number] Piperacillin-Tazobactam 3 100 .375 gm In Sodium Chloride 0.9% 100 ml @ 25 mls/hr IVPB Q8HR [facility] Rx# :[id number] Output: Urine 185 275 Other: Voiding Method Toilet Indwelling Catheter Indwelling Catheter Diaper # Voids 2 # Bowel Movements 1 1 1 - Labs CBC & Chem 7: 02/17/20 05:42 02/17/20 11:45 Labs: Abnormal Lab Results - Last 24 Hours (Table) 02/16/20 02/16/20 02/16/20 Range/Units 20:42 20:42 21:00 MCHC (31.0-37.0) g/dL Plt Count 132 L (150-450) k/uL Lymphocytes # (Manual) (1.0-4.8) k/uL Monocytes # (Manual) (0-1.0) k/uL ABG pH (7.35-7.45) ABG pCO2 (35-45) mmHg ABG pO2 (83-108) mmHg ABG Total CO2 (19-24) mmol/L Sodium 135 L (137-145) mmol/L Potassium 3.4 L (3.5-5.1) mmol/L Carbon Dioxide (22-30) mmol/L BUN 25 H (7-17) mg/dL Creatinine 1.06 H (0.52-1.04) mg/dL Glucose (74-99) mg/dL POC Glucose (mg/dL) 110 H (75-99) mg/dL Plasma Lactic Acid Gerardo (0.7-2.0) mmol/L Calcium 6.7 L (8.4-10.2) mg/dL Total Bilirubin (0.2-1.3) mg/dL AST (14-36) U/L ALT (4-34) U/L Alkaline Phosphatase (38-126) U/L Total Protein (6.3-8.2) g/dL Albumin (3.5-5.0) g/dL Urine Appearance (Clear) Urine Protein (Negative) Urine Blood (Negative) Urine RBC (0-5) /hpf Urine WBC (0-5) /hpf Amorphous Sediment (None) /hpf Urine Mucus (None) /hpf 02/16/20 02/16/20 02/17/20 Range/Units 21:13 22:07 00:02 MCHC (31.0-37.0) g/dL Plt Count (150-450) k/uL Lymphocytes # (Manual) (1.0-4.8) k/uL Monocytes # (Manual) (0-1.0) k/uL ABG pH 7.48 H (7.35-7.45) ABG pCO2 33 L (35-45) mmHg ABG pO2 79 L (83-108) mmHg ABG Total CO2 26 H (19-24) mmol/L Sodium (137-145) mmol/L Potassium (3.5-5.1) mmol/L Carbon Dioxide (22-30) mmol/L BUN (7-17) mg/dL Creatinine (0.52-1.04) mg/dL Glucose (74-99) mg/dL POC Glucose (mg/dL) (75-99) mg/dL Plasma Lactic Acid Gerardo 2.9 H* 2.8 H* (0.7-2.0) mmol/L Calcium (8.4-10.2) mg/dL Total Bilirubin (0.2-1.3) mg/dL AST (14-36) U/L ALT (4-34) U/L Alkaline Phosphatase (38-126) U/L Total Protein (6.3-8.2) g/dL Albumin (3.5-5.0) g/dL Urine Appearance (Clear) Urine Protein (Negative) Urine Blood (Negative) Urine RBC (0-5) /hpf Urine WBC (0-5) /hpf Amorphous Sediment (None) /hpf Urine Mucus (None) /hpf 02/17/20 02/17/20 02/17/20 Range/Units 01:00 03:08 05:42 MCHC 30.8 L (31.0-37.0) g/dL Plt Count 122 L (150-450) k/uL Lymphocytes # (Manual) 0.92 L (1.0-4.8) k/uL Monocytes # (Manual) 1.09 H (0-1.0) k/uL ABG pH (7.35-7.45) ABG pCO2 (35-45) mmHg ABG pO2 (83-108) mmHg ABG Total CO2 (19-24) mmol/L Sodium (137-145) mmol/L Potassium (3.5-5.1) mmol/L Carbon Dioxide (22-30) mmol/L BUN (7-17) mg/dL Creatinine (0.52-1.04) mg/dL Glucose (74-99) mg/dL POC Glucose (mg/dL) (75-99) mg/dL Plasma Lactic Acid Gerardo 4.1 H* (0.7-2.0) mmol/L Calcium (8.4-10.2) mg/dL Total Bilirubin (0.2-1.3) mg/dL AST (14-36) U/L ALT (4-34) U/L Alkaline Phosphatase (38-126) U/L Total Protein (6.3-8.2) g/dL Albumin (3.5-5.0) g/dL Urine Appearance Cloudy H (Clear) Urine Protein 1+ H (Negative) Urine Blood Moderate H (Negative) Urine RBC 27 H (0-5) /hpf Urine WBC 17 H (0-5) /hpf Amorphous Sediment Rare H (None) /hpf Urine Mucus Rare H (None) /hpf 02/17/20 02/17/20 02/17/20 Range/Units 05:42 07:27 11:45 MCHC (31.0-37.0) g/dL Plt Count (150-450) k/uL Lymphocytes # (Manual) (1.0-4.8) k/uL Monocytes # (Manual) (0-1.0) k/uL ABG pH (7.35-7.45) ABG pCO2 (35-45) mmHg ABG pO2 (83-108) mmHg ABG Total CO2 (19-24) mmol/L Sodium 135 L 133 L (137-145) mmol/L Potassium 5.7 H 5.5 H (3.5-5.1) mmol/L Carbon Dioxide 21 L (22-30) mmol/L BUN 30 H 31 H (7-17) mg/dL Creatinine 1.30 H 1.39 H (0.52-1.04) mg/dL Glucose 117 H (74-99) mg/dL POC Glucose (mg/dL) (75-99) mg/dL Plasma Lactic Acid Gerardo (0.7-2.0) mmol/L Calcium 7.9 L 7.3 L (8.4-10.2) mg/dL Total Bilirubin 2.5 H 3.0 H (0.2-1.3) mg/dL AST 223 H 1155 H (14-36) U/L ALT 132 H 283 H (4-34) U/L Alkaline Phosphatase 130 H (38-126) U/L Total Protein 5.5 L 4.9 L (6.3-8.2) g/dL Albumin 3.0 L 2.8 L (3.5-5.0) g/dL Urine Appearance (Clear) Urine Protein (Negative) Urine Blood (Negative) Urine RBC (0-5) /hpf Urine WBC (0-5) /hpf Amorphous Sediment (None) /hpf Urine Mucus (None) /hpf 02/17/20 Range/Units 11:45 MCHC (31.0-37.0) g/dL Plt Count (150-450) k/uL Lymphocytes # (Manual) (1.0-4.8) k/uL Monocytes # (Manual) (0-1.0) k/uL ABG pH (7.35-7.45) ABG pCO2 (35-45) mmHg ABG pO2 (83-108) mmHg ABG Total CO2 (19-24) mmol/L Sodium (137-145) mmol/L Potassium (3.5-5.1) mmol/L Carbon Dioxide (22-30) mmol/L BUN (7-17) mg/dL Creatinine (0.52-1.04) mg/dL Glucose (74-99) mg/dL POC Glucose (mg/dL) (75-99) mg/dL Plasma Lactic Acid Gerardo 2.6 H* (0.7-2.0) mmol/L Calcium (8.4-10.2) mg/dL Total Bilirubin (0.2-1.3) mg/dL AST (14-36) U/L ALT (4-34) U/L Alkaline Phosphatase (38-126) U/L Total Protein (6.3-8.2) g/dL Albumin (3.5-5.0) g/dL Urine Appearance (Clear) Urine Protein (Negative) Urine Blood (Negative) Urine RBC (0-5) /hpf Urine WBC (0-5) /hpf Amorphous Sediment (None) /hpf Urine Mucus (None) /hpf Microbiology - Last 24 Hours (Table) 02/17/20 01:00 Urine Culture - Preliminary Urine,Catheterized 02/14/20 11:09 Blood Culture - Preliminary Blood No Growth after 48 hours
--- NOTE | 2020-02-17 23:12 | PCN ---
PROCEDURE NOTE PROCEDURE PERFORMED: Placement of the right femoral triple-lumen catheter. PREOP DIAGNOSIS: Hypotension and the patient is requiring pressors. POSTOP DIAGNOSIS: Hypotension and the patient is requiring pressors. ANESTHESIA: 2 mL of 1% lidocaine. PROCEDURE: The patient was placed in the supine position, the area of the right groin was prepared in a sterile fashion and drapes were applied. The area was locally anesthetized with lidocaine. Then, the right femoral vein was cannulated easily, and a guidewire was placed. The area around the wire was dilated. Then a triple-lumen catheter was inserted over the guidewire, and the guidewire was removed. Good blood flow was noted in the 3 different ports of the triple-lumen catheter, and there was no evidence of any immediate complications. The line was secured using 3.0 silk sutures. MMODL / IJN: [id number] /
[2020-02-18] MEDS: PIPERACILLIN-TAZOBACTAM 3.375 GM in SODIUM CHLORIDE 0.9% 100 ML IVPB SCH ×3 (01:11→18:13)
[2020-02-18] MEDS: PHENYLEPHRINE 40 MG in SODIUM CHLORIDE 0.9% 250 ML IV SCH (01:12)
[2020-02-18] MEDS: DOBUTamine DRIP 500 MG in DEXTROSE/WATER 1 250ML.BAG IV SCH ×2 (04:25→21:50)
[2020-02-18 05:26] LABS: Albumin 2.4 g/dL (3.5-5.0); Calcium 6.8 mg/dL (8.4-10.2); Potassium 3.4 mmol/L (3.5-5.1); Total Bilirubin 1.5 mg/dL (0.2-1.3); Total Protein 4.5 g/dL (6.3-8.2)
[2020-02-18 05:28] LABS: Basophils % (A) 0 %; Eosinophils # (A) 0.2 k/uL (0-0.7); Eosinophils % (A) 2 %; HCT 37.4 % (34.0-46.0); Hypochromasia Moderate; Lymphocytes # (A) 1.8 k/uL (1.0-4.8); Lymphocytes % (A) 17 %; MCH 31.4 pg (25.0-35.0); MCV 98.2 fL (80.0-100.0); Monocytes # (A) 0.8 k/uL (0-1.0); Monocytes % (A) 8 %; Neutrophils # (A) 7.4 k/uL (1.3-7.7); Neutrophils % (A) 71 %; Platelet Count 151 k/uL (150-450); RBC 3.81 m/uL (3.80-5.40); RDW 14.9 % (11.5-15.5); WBC 10.4 k/uL (3.8-10.6)
[2020-02-18] MEDS: POTASSIUM CHLORIDE 20 MEQ in WATER FOR INJECTION 1 100ML.BAG IVPB SCH ×2 (05:53→08:26)
[2020-02-18] MEDS: PANTOPRAZOLE 40 MG TABLET PO SCH (06:45)
--- NOTE | 2020-02-18 07:27 | XR ---
EXAMINATION TYPE: XR chest 1V portable DATE OF EXAM: 02/18/2020 COMPARISON: 02/17/2020 HISTORY: Shortness of breath TECHNIQUE: Single frontal view of the chest is obtained. FINDINGS: The heart is enlarged. Coarsened interstitium. No pneumothorax. No pleural effusion. Left basilar subsegmental consolidation. IMPRESSION: 1. Stable cardiomegaly with coarsened interstitium correlate for interstitial pneumonitis or mild 2. Stable left lower lobe infiltrate or atelectasis.
[2020-02-18] MEDS: CARVEDILOL 3.125 MG TAB PO SCH ×2 (08:05→17:07)
[2020-02-18] MEDS: FUROSEMIDE 40 MG TAB PO SCH ×2 (08:26→17:07)
[2020-02-18] MEDS: LORATADINE 10 MG TAB PO SCH (08:26)
[2020-02-18] MEDS: DULoxetine HCL 60 MG CAPSULE.DR PO SCH (08:26)
[2020-02-18] MEDS: ATORVASTATIN 10 MG TAB PO SCH (08:26)
[2020-02-18] MEDS: CHOLECALCIFEROL 1,000 UNIT TAB PO SCH (08:26)
[2020-02-18] MEDS: LORazepam 0.5 MG TAB PO SCH ×3 (08:26→21:13)
[2020-02-18] MEDS: HEPARIN SODIUM,PORCINE 5,000 UNIT/ML 1 ML VIAL SQ SCH ×2 (08:26→21:09)
[2020-02-18] MEDS: CALCIUM CARB-VIT D 500MG-200UN 1 EACH TAB PO SCH (08:26)
[2020-02-18] MEDS: POTASSIUM CHLORIDE ER 20 MEQ TAB.ER PO SCH (08:26)
[2020-02-18] MEDS: ASPIRIN 81 MG PO SCH (08:26)
[2020-02-18] MEDS: SPIRONOLACTONE 25 MG TAB PO SCH (08:26)
--- NOTE | 2020-02-18 09:47 | P.PN ---
Subjective Progress Note Date: 02/18/20 This is a 60-year-old female was admitted to the hospital with complaints of increasing shortness of breath and pedal edema. She was found to be in congestive heart failure. Clinically patient has a systolic murmur at the apex consistent with mitral regurgitation. Echo Cardigan showed evidence of mitral valve prolapse with severe regurgitation with impaired LV function. Patient has been on IV Lasix and seemed to be diuresing well. Her potassium and magnesium some low. Patient has been having runs of nonsustained V. tach. We will correct the potassium and magnesium levels. If she continues to have nonsustained V. tach, we'll start her on IV amiodarone. Patient will require TERE and cardiac catheterization and possible mitral valve repair. Meanwhile I will also add Aldactone and follow her lites closely. 02/18/2020: Patient is clinically doing better. Diuresing well. Appears to be less short of breath. Maintaining sinus rhythm. No complaints of chest pain. Patient is being scheduled for a TERE examination tomorrow to be done by Dr. Crump. Patient also may require cardiac catheterization and possible mitral valve repair. Meanwhile we'll continue current medical therapy. Lab values showed mild hypokalemia. Her liver function tests are improving. Most probably liver enzyme abnormalities are related to passive congestion. Her edema is also down Objective - Vital Signs Vital signs: Vital Signs Temp 98 F 02/18/20 08:00 Pulse 102 H 02/18/20 08:00 Resp 15 02/18/20 08:00 BP 109/63 02/18/20 08:00 Pulse Ox 100 02/18/20 08:00 Intake & Output 02/17/20 02/18/20 02/18/20 18:59 06:59 18:59 Intake Total 0846.261 2803.050 345.399 Output Total 899 1140 275 Balance 957.665 870.050 70.399 Weight 87.2 kg Intake: IV 900 1050 300 Potassium Chloride 20 meq 50 100 In Water For Injection 1 100ml.bag @ 50 mls/hr IVPB Q2H [facility] Rx#: [id number] Sodium Chloride 0.9% 1, 900 1000 200 000 ml @ 100 mls/hr IV . Q10H [facility] Rx#:[id number] Intake, IV Titration 956.665 710.050 45.399 Amount Amiodarone 300 mg In 250 Dextrose 5% in Water 250 ml @ 0.5 MG/MIN 25 mls/hr IV .Q10H [facility] Rx#: [id number] DOBUTamine DRIP 500 mg In 244.648 Dextrose/Water 1 250ml. bag @ 5 MCG/KG/MIN 12.72 mls/hr IV .[id number] [facility] Rx #:[id number] Phenylephrine 40 mg In 406.665 365.402 45.399 Sodium Chloride 0.9% 250 ml @ 0.5 MCG/KG/MIN 14. 764 mls/hr IV .[id number] [facility] Rx#:[id number] Piperacillin-Tazobactam 3 100 .375 gm In Sodium Chloride 0.9% 100 ml @ 25 mls/hr IVPB Q8HR [facility] Rx# :[id number] Sodium Chloride 0.9% 1, 200 100 000 ml @ 100 mls/hr IV . Q10H [facility] Rx#:[id number] Oral 250 Output: Urine 899 1140 275 Other: Voiding Method Indwelling Catheter Indwelling Catheter # Bowel Movements 1 - Exam GENERAL EXAM: Patient is alert and oriented and doesn't appear to be in any acute distress HEENT: Normocephalic. Normal reaction of pupils, equal size, normal range of extraocular motion. No erythema or exudates in the throat. NECK: No masses, no nuchal rigidity. CHEST: No chest wall deformity. LUNGS: Diminished breath sounds HEART: S1 and S2 normal, systolic murmur at the apex ABDOMEN: No hepatosplenomegaly, normal bowel sounds, no guarding or rigidity. SKIN: No rashes CENTRAL NERVOUS SYSTEM: No focal deficits. EXTREMITIES: Edema improving - Labs CBC & Chem 7: 02/18/20 05:00 02/18/20 05:00 Labs: Abnormal Lab Results - Last 24 Hours (Table) 02/17/20 02/17/20 02/18/20 Range/Units 11:45 11:45 05:00 Sodium 133 L 133 L (137-145) mmol/L Potassium 3.4 L (3.5-5.1) mmol/L BUN 31 H 27 H (7-17) mg/dL Creatinine 1.39 H 1.23 H (0.52-1.04) mg/dL Glucose 117 H (74-99) mg/dL Plasma Lactic Acid Gerardo 2.6 H* (0.7-2.0) mmol/L Calcium 7.3 L 6.8 L (8.4-10.2) mg/dL Total Bilirubin 3.0 H 1.5 H (0.2-1.3) mg/dL AST 1155 H 756 H (14-36) U/L ALT 283 H 220 H (4-34) U/L Total Protein 4.9 L 4.5 L (6.3-8.2) g/dL Albumin 2.8 L 2.4 L (3.5-5.0) g/dL Microbiology - Last 24 Hours (Table) 02/17/20 05:42 Blood Culture - Preliminary Blood No Growth after 24 hours 02/14/20 11:09 Blood Culture - Preliminary Blood No Growth after 72 hours 02/17/20 01:00 Urine Culture - Preliminary Urine,Catheterized Assessment and Plan (1) Mitral valve prolapse Current Visit: Yes Status: Acute Code(s): I34.1 - NONRHEUMATIC MITRAL (VALVE) PROLAPSE SNOMED Code(s): 936573333 (2) Severe mitral regurgitation Current Visit: Yes Status: Acute Code(s): I34.0 - NONRHEUMATIC MITRAL (VALVE) INSUFFICIENCY SNOMED Code(s): 42064759 (3) Cardiomyopathy Current Visit: Yes Status: Acute Code(s): I42.9 - CARDIOMYOPATHY, UNSPECIFIED SNOMED Code(s): 35132500 (4) Acute systolic heart failure Current Visit: Yes Status: Acute Code(s): I50.21 - ACUTE SYSTOLIC (CONGESTIVE) HEART FAILURE SNOMED Code(s): 981052315 Plan: Patient is clinically looking better. Less short of breath. Diuresing well. P otassium is low which will be corrected. Patient to be scheduled for a TERE to be done by Dr. Zuñiga tomorrow
--- NOTE | 2020-02-18 09:52 | P.PN ---
Subjective Progress Note Date: 02/18/20 60-[facility]-old female [facility] patient with past medical history of hypertension hyperlipidemia and schizophrenic effect who developed to have worsening shortness of breath for the last 2-3 weeks according to her was seen at [facility] treated for bronchitis with no effect. Patient call the clinic concern that she is having more dyspnea and shortness of breath with worsening symptoms was instructed to come to the emergency department. Was seen and evaluated has been having significant and worsening shortness of breath with minimum exertion increased PND orthopnea no angina had some abdominal discomfort with diarrhea no vomiting no worsening cough fever or chills. Jeanie was seen a [facility] department her troponin was elevated BNP was quite bit high at the time lactic acid was elevated as well patient chest x-ray showed early pulmonary edema with venous congestion. Patient d-dimer was elevated and ended up going for CTA showed no pulmonary embolism but sign of pulmonary edema and pulmonary hypertension. Patient was started on IV diuretics heparin drip and nitro and admitted to the hospital for elevated troponin with possible non-ST GA, pulmonary edema, congestive heart failure excessive patient. 02/14: Patient evaluated, denies any further complaints of shortness of breath. Liver enzymes still noted to be elevated AST 140, ALT 160, total bilirubin 1.6, potassium 3.0, sodium 136, BUN 22, creatinine 0.98. Potassium replaced per protocol. Liver ultrasound obtained for abnormal liver function, showed the gallbladder with abnormally thickened wall and gallstones, correlate for acute cholecystitis, nephrolithiasis, and fatty liver. Will consult surgery for acute cholecystitis. She continues on Lasix 40 mg daily IVP, cardiology on consult. Echocardiogram showed mild concentric left ventricular hypertrophy, left ventricular systolic function moderately impaired with an EF of 35-40%, increased LAP grade 2 diastolic dysfunction, LA is severely dilated, severe mitral regurgitation, moderate mitral valve prolapse, moderate tricuspid regurgitation, moderate pulmonary hypertension. Vital signs are stable, afebrile 97.6, heart rate 65, wrist rate 22, blood pressure 126/66 she's 98% on 2 L via nasal cannula. 02/15: Patient evaluated this morning, resting comfortably in bed. Denies any shortness of breath or chest pain. Liver enzymes are trending downwards, AST 100, ALT 129, total bilirubin 1.5, she is asymptomatic and tolerating food and fluids without nausea or vomiting or abdominal pain. Surgery is on consult, may need cholecystectomy as an outpatient basis once her cardiac status is stabilized. Cardiology on consult, may need cardiac cath, she remains on furosemide 40 mg IV push every 8 hours along with carvedilol 3.125 mg twice a day and lisinopril 5 mg daily. Vital signs are stable 109/75, respiratory rate of 22, heart rate 95, afebrile 97.8, 98% on 2 L via nasal cannula. Magnesium low at 1.5, potassium is also low at 3.0, electrolyte replacement has been ordered. 02/16 Overnight patient was to ICU around 10 pm for worsening blood pressure and shortness of breath. Patient was given a total of 1600 ml of fluids, chest helped the pressure briefly. Patient was started on Neosynephrine . Patient is maintaining the MAP at 60. Patient is currently on 3 L and did not need BiPAP overnight. Blood gases were done which suggested a pH of 7.48 CO2 33 pO2 79 bicarb 26 which didinot suggest need the BIPAP. UO was 25 ml/ hr. Lasix was given 40 iv once which did not improve the urine output. Labs his sodium is 135 potassium 5.7 bicarb 21 creatinine increased to 1.3 last lactic acid was 4.1 at 3 in the morning repeat lactic acid is pending. Total bilirubin is 2.5 liver enzymes is elevated. Urinalysis suggestive of ketones, wbc's and rbc's.: Patient currently on Zosyn. Surgery is not planning any intervention for acute cholecystitis. Patient is currently on Zosyn patient appears very unstable and prognosis appears guarded. On evaluation patient endorses shortness of breath denies any cough or sputum production. She denies any abdominal pain. Patient is started on dobutamine drip and digoxin by cardiology. Lasix switched to oral twice a day. 02/17 patient evaluated bedside. Denies any shortness of breath, chest main, palpitation, cough with sputum production. She denies any abdominal pain. On evaluation patient's vital signs,patient is afebrile to respiratory rate 22 blood pressure 99/70 96% onroom air with a pulse of 90. CBC is unremarkable hemoglobin is maintaining 12 sodium 133 potassium 3.4 BUN 27 creatinine 1.23, total bilirubin is improved to 1.5 AST improved to 756 from 1155 ALT 220 from 283. Chest x-ray done this morning suggestive of cardiomegaly with worsening interstitial suggestive for interstitial pneumonitis and stable left lower lobe infiltrate. Continue Lasix and Aldactone. Continue digoxin and Coreg. Continue dobutamine adjusted to the map of 60. off phenylephrine drip Review of system Constitutional: Denies chills, Denies fever, Denies lethargy, Denies malaise, Denies poor appetite, Denies weakness, Denies weight loss Eyes: denies decreased vision, denies diplopia, denies discharge, denies pain Ears: deny: decreased hearing Ears, nose, mouth and throat: Denies dental pain, Denies headache, Denies nasal discharge, Denies nose pain Cardiovascular: Denies chest pain, Denies decreased exercise tolerance, Denies edema, Denies high blood pressure, Denies irregular heart beat, Denies palpitations, Denies paroxysmal nocturnal dyspnea, Denies rapid heart beat, Denies shortness of breath Respiratory: Denies congestion, Denies cough, Denies cough with sputum, positive for dyspnea Denies home oxygen, Denies wheezing Gastrointestinal: Denies abdominal pain, Denies change in bowel habits, Denies coffee ground emesis, Denies early satiety, Denies excessive gas, Denies heartburn, Denies hematemesis, Denies hematochezia, Denies loss of appetite, Denies nausea, Denies vomiting Genitourinary: Denies dysuria, Denies flank pain, Denies kidney stones, Denies menorrhagia, Denies urgency, Denies urinary frequency Musculoskeletal: Denies gait dysfunction, Denies limitation of motion, Denies morning stiffness, Denies muscle cramps Integumentary: Denies rash, Denies wounds, Denies brittle nails, Denies change in hair/nails, Denies darkening of skin Neurological: Denies balance difficulties, Denies change in speech, Denies double vision, Denies gait dysfunction, Denies loss of vision, Denies motor disturbance, Denies numbness, Denies paralysis, Denies paresthesias, Denies seizures Psychiatric: Denies anxiety, Denies depression Endocrine: Denies excessive sweating, Denies excessive thirst, Denies high blood sugars, Denies palpitations Hematologic/Lymphatic: Denies easy bruising, Denies lymphadenopathy Objective - Vital Signs Vital signs: Vital Signs Temp 96.8 F L 02/18/20 04:30 Pulse 92 02/18/20 06:30 Resp 22 02/18/20 06:30 BP 81/68 02/18/20 06:30 Pulse Ox 96 02/18/20 06:30 Intake & Output 02/17/20 02/18/20 02/18/20 18:59 06:59 18:59 Intake Total 8721.271 7664.050 45.399 Output Total 899 1140 Balance 957.665 870.050 45.399 Weight 87.2 kg Intake: IV 900 1050 Potassium Chloride 20 meq 50 In Water For Injection 1 100ml.bag @ 50 mls/hr IVPB Q2H [facility] Rx#: [id number] Sodium Chloride 0.9% 1, 900 1000 000 ml @ 100 mls/hr IV . Q10H [facility] Rx#:[id number] Intake, IV Titration 956.665 710.050 45.399 Amount Amiodarone 300 mg In 250 Dextrose 5% in Water 250 ml @ 0.5 MG/MIN 25 mls/hr IV .Q10H [facility] Rx#: [id number] DOBUTamine DRIP 500 mg In 244.648 Dextrose/Water 1 250ml. bag @ 5 MCG/KG/MIN 12.72 mls/hr IV .[id number] [facility] Rx #:[id number] Phenylephrine 40 mg In 406.665 365.402 45.399 Sodium Chloride 0.9% 250 ml @ 0.5 MCG/KG/MIN 14. 764 mls/hr IV .[id number] [facility] Rx#:[id number] Piperacillin-Tazobactam 3 100 .375 gm In Sodium Chloride 0.9% 100 ml @ 25 mls/hr IVPB Q8HR [facility] Rx# :[id number] Sodium Chloride 0.9% 1, 200 100 000 ml @ 100 mls/hr IV . Q10H [facility] Rx#:[id number] Oral 250 Output: Urine 899 1140 Other: Voiding Method Indwelling Catheter Indwelling Catheter # Bowel Movements 1 - Exam - Exam - Constitutional General appearance: Present: cooperative, no acute distress - EENT Eyes: Present: EOMI, PERRLA, normal appearance ENT: Present: hearing grossly normal, normal oropharynx - Neck Neck: Present: normal ROM. Absent: lymphadenopathy, thyromegaly - Respiratory Respiratory: bilateral: diminished, rales, wheezing - Cardiovascular Rhythm: regular Heart sounds: normal: S1, S2, bilateral lower extremity edema - Gastrointestinal General gastrointestinal: Present: normal bowel sounds. Absent: distended, organomegaly, tenderness - Neurologic Neurologic: Present: CNII-XII intact. Absent: focal deficits - Musculoskeletal Musculoskeletal: Present: gait normal, strength equal bilaterally bilateral pitting lower extremity edema - Psychiatric Psychiatric: Present: A&O x's 3, appropriate affect - Labs CBC & Chem 7: 02/18/20 05:00 02/18/20 05:00 Labs: Abnormal Lab Results - Last 24 Hours (Table) 02/17/20 02/17/20 02/18/20 Range/Units 11:45 11:45 05:00 Sodium 133 L 133 L (137-145) mmol/L Potassium 3.4 L (3.5-5.1) mmol/L BUN 31 H 27 H (7-17) mg/dL Creatinine 1.39 H 1.23 H (0.52-1.04) mg/dL Glucose 117 H (74-99) mg/dL Plasma Lactic Acid Gerardo 2.6 H* (0.7-2.0) mmol/L Calcium 7.3 L 6.8 L (8.4-10.2) mg/dL Total Bilirubin 3.0 H 1.5 H (0.2-1.3) mg/dL AST 1155 H 756 H (14-36) U/L ALT 283 H 220 H (4-34) U/L Total Protein 4.9 L 4.5 L (6.3-8.2) g/dL Albumin 2.8 L 2.4 L (3.5-5.0) g/dL Microbiology - Last 24 Hours (Table) 02/17/20 05:42 Blood Culture - Preliminary Blood No Growth after 24 hours 02/14/20 11:09 Blood Culture - Preliminary Blood No Growth after 72 hours 02/17/20 01:00 Urine Culture - Preliminary Urine,Catheterized Assessment and Plan Plan: 1 acute hypoxic respiratory failure Combination of early pulmonary edema, possible non-ST GA, and congestive heart failure . Echo with ejection fraction 35-40% severe MR moderate mitral valve prolapse moderate pulmonary hypertension and moderate tricuspid regurgitation. Plan for TERE and cardiac cath next week. 2 acute congestive heart failure exacerbation continue on furosemide 40 mg by mouth twice day continue to treat this as a systolic dysfunction congestive heart failure hold lisinopril, Coreg 3.125 mg twice a day. Initiated on dobutamine drip 3 elevated troponin: With possible non-ST GA, Echo with ejection fraction 35-40% severe MR moderate mitral valve prolapse moderate pulmonary hypertension and moderate tricuspid regurgitation. Plan for TERE and cardiac cath next week. 4 significantly abnormal liver function test with elevated troponin AST and ALT: Secondary to decompensated congestive heart failure and acute cholecystitis, cholecystectomy as an outpatient basis. 5 history of asthma/COPD: Patient will be continue on albuterol along with Singulair. Continue O2 as needed. 6 hyperlipidemia: Remain on atorvastatin 10 mg a day. 7 chronic depression: Has been on duloxetine 60 mg a day along with lorazepam 0.5 mg 3 times a day. 8 history of schizoaffective disorders: Has been on risperidone 25 mg IM injection every 14 days and seen psych on regular basis. 9 acute kidney injury: No urine output Lasix 40 by mouth twice a day Stage II with the current management repeat BUN/creatinine daily in the next 2 days. 10 mild coagulopathy: With elevated PT/INR, secondary to decompensated congestive heart failure 11 DVT prophylaxis: Heparin 5000 every 12 12 GI prophylaxis: Patient be on pantoprazole orally. 12 hypotension likely secondary to cardiogenic shock. Dobutamine drip initiated Lanoxin initiated today CODE STATUS: Full code.
--- NOTE | 2020-02-18 13:24 | P.PN ---
Subjective Progress Note Date: 02/18/20 CHIEF COMPLAINT: Gallstones HISTORY OF PRESENT ILLNESS: The patient is a 60-year-old female admitted with pulmonary hypertension including pulmonary edema, congestive heart failure. She has baseline history of schizophrenia, bipolar disorder. Additional cardiac workup including TERE is pending. Overall patient has global cardiac dysfunction contraindicated for surgery. She is tolerating diet and denies any abdominal pain. REVIEW OF ORGAN SYSTEMS: No fevers or chills. No nausea or vomiting. No abdominal pain. PHYSICAL EXAM: VITALS: Reviewed CONSTITUTIONAL: Well developed and in no acute distress. EYES: Conjuctivae without sclera icterus. Extraocular movements grossly intact. HEAD, EARS, NOSE, THROAT: Moist buccal mucosa. Head is atraumatic, normocephalic. Hears conversational speech. No nasal drainage. NECK: Supple. No JV distention. No thyroidomegaly. RESPIRATORY: Non-labored respirations and equal bilateral excursions. No gross wheezes. CARDIOVASCULAR: Palpable 2+ radial pulses. ABDOMEN: Soft. Non-tender. Nondistended. MUSCULOSKELETAL: Nail and fingers with good capillary refill. No clubbing cyanosis. SKIN: Warm and well perfused with good skin turgor. NEUROLOGIC: Cranial nerves II through XII grossly intact. Sensation upper and extremities intact. No focal or lateralizing signs. PSYCH: Flat affect. Alert to person. CLINCAL LABS: Reviewed. WBC normal at 8600. LFTs improving compared to yesterday. ASSESSMENT: 1. Abnormal ultrasound with gallstones 2. Congestive heart failure PLAN: 1. Overall, with patient cardiac history, surgical intervention is high risk and contraindicated. 2. She is asymptomatic regarding abdominal pain for which outpatient cholecystectomy may performed once patient is cleared from a cardiology standpoint. 3. She is tolerating diet and asymptomatic. We'll sign off. 4. Please reconsult if needed Objective - Vital Signs Vital signs: Vital Signs Temp 98 F 02/18/20 08:00 Pulse 96 02/18/20 10:00 Resp 15 02/18/20 10:00 BP 105/69 02/18/20 10:00 Pulse Ox 99 02/18/20 10:00 Intake & Output 02/17/20 02/18/20 02/18/20 18:59 06:59 18:59 Intake Total 5310.796 6104.050 522.583 Output Total 899 1140 450 Balance 957.665 870.050 72.583 Weight 87.2 kg Intake: IV 900 1050 420 Potassium Chloride 20 meq 50 100 In Water For Injection 1 100ml.bag @ 50 mls/hr IVPB Q2H [facility] Rx#: [id number] Sodium Chloride 0.9% 1, 900 1000 320 000 ml @ 100 mls/hr IV . Q10H [facility] Rx#:[id number] Intake, IV Titration 956.665 710.050 102.583 Amount Amiodarone 300 mg In 250 Dextrose 5% in Water 250 ml @ 0.5 MG/MIN 25 mls/hr IV .Q10H [facility] Rx#: [id number] DOBUTamine DRIP 500 mg In 244.648 Dextrose/Water 1 250ml. bag @ 5 MCG/KG/MIN 12.72 mls/hr IV .[id number] [facility] Rx #:[id number] Phenylephrine 40 mg In 406.665 365.402 102.583 Sodium Chloride 0.9% 250 ml @ 0.5 MCG/KG/MIN 14. 764 mls/hr IV .[id number] [facility] Rx#:[id number] Piperacillin-Tazobactam 3 100 .375 gm In Sodium Chloride 0.9% 100 ml @ 25 mls/hr IVPB Q8HR [facility] Rx# :[id number] Sodium Chloride 0.9% 1, 200 100 000 ml @ 100 mls/hr IV . Q10H [facility] Rx#:[id number] Oral 250 Output: Urine 899 1140 450 Other: Voiding Method Indwelling Catheter Indwelling Catheter # Bowel Movements 1 - Labs CBC & Chem 7: 02/18/20 05:00 02/18/20 05:00 Labs: Abnormal Lab Results - Last 24 Hours (Table) 02/18/20 Range/Units 05:00 Sodium 133 L (137-145) mmol/L Potassium 3.4 L (3.5-5.1) mmol/L BUN 27 H (7-17) mg/dL Creatinine 1.23 H (0.52-1.04) mg/dL Calcium 6.8 L (8.4-10.2) mg/dL Total Bilirubin 1.5 H (0.2-1.3) mg/dL AST 756 H (14-36) U/L ALT 220 H (4-34) U/L Total Protein 4.5 L (6.3-8.2) g/dL Albumin 2.4 L (3.5-5.0) g/dL Microbiology - Last 24 Hours (Table) 02/17/20 01:00 Urine Culture - Final Urine,Catheterized 02/17/20 05:42 Blood Culture - Preliminary Blood No Growth after 24 hours 02/14/20 11:09 Blood Culture - Preliminary Blood No Growth after 72 hours
--- NOTE | 2020-02-18 13:24 | P.PN ---
Subjective Progress Note Date: 02/18/20 Principal diagnosis: Acute systolic congestive heart failure This is a 60-year-old female with history of multiple medical problems including hypertension, dyslipidemia, schizophrenia, patient was admitted on 02/14/20 with mostly symptoms of shortness of breath, dyspnea on exertion, increased PND, orthopnea, and some vague abdominal discomfort. Chest x-ray on admission showed mild interstitial edema and venous congestion. Patient was found to have significantly elevated d-dimer , CT angiogram of the chest showed no pulmonary embolism but there was signs of pulmonary edema and pulmonary hypertension. Patient was placed on diuretics, heparin, nitroglycerin, and she is there was a major concern about osmole non-ST elevation myocardial infarction with elevated troponin. Patient was seen on consultation by Dr. Piedra/ordnance mechanic, and he recommended a 2-D echocardiogram to assess LV function. Her echocardiogram showed LV dysfunction with ejection fraction of 35-40%. It also showed severe mitral regurgitation and moderate mitral valve prolapse. There is moderate pro lapse of the posterior mitral valve leaflet. And there was evidence of moderate pulmonary hypertension. Last night, the patient had an episode of nonsustained ventricular tachycardia, hypotension, and worsening shortness of breath. I was made aware of this patient, she was transferred to the ICU, and for her hypotension and I recommended Sridhar-Synephrine. She was also placed on amiodarone by cardiology as well as Dobutrex. Her Dobutrex is at 5 mcg/kg/m, Sridhar- Synephrine is at 1.1 mcg/kg/m, seen by cardiology again this morning, and she it was felt that the patient has partial flail posterior mitral leaflet secondary to rupture of chordae tendineae. Hence the patient was placed on dobutamine, Lanoxin, and she is being considered for possible intra-aortic balloon pump placement and probable TERE. This is yet to be decided upon by cardiology on the case. I saw this patient this morning, and she had no adequate venous access, she is on multiple drips including inotropes and pressors, and I went ahead and placed a right femoral triple-lumen catheter in this patient. Reviewed her medications and her chest x-ray, and recommended that we continue Lasix. Chest x-ray showed mostly cardiomegaly and small left pleural effusion and atelectasis no evidence of infiltrate Patient was reevaluated today on 02/18/20, remains in the intensive care unit, but feeling much better. Remains on Sridhar-Synephrine at 0.7 mcg/kg/m, and I went ahead and recommended stopping the Sridhar-Synephrine. Remains on Dobutrex at 5 mcg/kg/m. Patient has IV fluids KVO, she is on room air, denies any cough wheezing or shortness of breath, remains on Zosyn empirically. And there is significant improvement over the last 24 hours. Chest x-ray continues to show cardiomegaly and prominent coarse interstitium suggestive of interstitial edema. CBC is relatively normal potassium is low at 3.4. Otherwise electrolytes are normal, BUN is 27 creatinine is improved down to 1.23. Objective - Vital Signs Vital signs: Vital Signs Temp 98 F 02/18/20 08:00 Pulse 96 02/18/20 10:00 Resp 15 02/18/20 10:00 BP 105/69 02/18/20 10:00 Pulse Ox 99 02/18/20 10:00 Intake & Output 02/17/20 02/18/20 02/18/20 18:59 06:59 18:59 Intake Total 3403.195 9248.050 522.583 Output Total 899 1140 450 Balance 957.665 870.050 72.583 Weight 87.2 kg Intake: IV 900 1050 420 Potassium Chloride 20 meq 50 100 In Water For Injection 1 100ml.bag @ 50 mls/hr IVPB Q2H [facility] Rx#: [id number] Sodium Chloride 0.9% 1, 900 1000 320 000 ml @ 100 mls/hr IV . Q10H [facility] Rx#:[id number] Intake, IV Titration 956.665 710.050 102.583 Amount Amiodarone 300 mg In 250 Dextrose 5% in Water 250 ml @ 0.5 MG/MIN 25 mls/hr IV .Q10H [facility] Rx#: [id number] DOBUTamine DRIP 500 mg In 244.648 Dextrose/Water 1 250ml. bag @ 5 MCG/KG/MIN 12.72 mls/hr IV .[id number] [facility] Rx #:[id number] Phenylephrine 40 mg In 406.665 365.402 102.583 Sodium Chloride 0.9% 250 ml @ 0.5 MCG/KG/MIN 14. 764 mls/hr IV .[id number] [facility] Rx#:[id number] Piperacillin-Tazobactam 3 100 .375 gm In Sodium Chloride 0.9% 100 ml @ 25 mls/hr IVPB Q8HR [facility] Rx# :[id number] Sodium Chloride 0.9% 1, 200 100 000 ml @ 100 mls/hr IV . Q10H [facility] Rx#:[id number] Oral 250 Output: Urine 899 1140 450 Other: Voiding Method Indwelling Catheter Indwelling Catheter # Bowel Movements 1 - Exam General Appearance: Revealed a 60-year-old female, in no distress. HEENT: PERRLA, EOMI, no icterus, no neck masses, no JVD, no stridor. Lungs: Diminished breath sounds at the left base, no crackles or rhonchi or wheezes. Symmetrical chest expansion Chest symmetrical chest expansion, no chest wall tenderness. Heart: Regular rate and rhythm, S1, S2 positive S3 positive JVD. 2/6 systolic murmur thought the precordium. Back: Symmetric, no curvature, ROM normal, no CVA tenderness. Abdomen: Soft nontender no megaly no rebound no guarding. Extremities: Trace of bipedal edema. Pulses: Good pulses bilaterally. Skin: No rashes, no erythema, normal turgor. Neurologic: Alert and oriented 3, no gross focal neurologic deficit. - Labs CBC & Chem 7: 02/18/20 05:00 02/18/20 05:00 Labs: Abnormal Lab Results - Last 24 Hours (Table) 02/18/20 Range/Units 05:00 Sodium 133 L (137-145) mmol/L Potassium 3.4 L (3.5-5.1) mmol/L BUN 27 H (7-17) mg/dL Creatinine 1.23 H (0.52-1.04) mg/dL Calcium 6.8 L (8.4-10.2) mg/dL Total Bilirubin 1.5 H (0.2-1.3) mg/dL AST 756 H (14-36) U/L ALT 220 H (4-34) U/L Total Protein 4.5 L (6.3-8.2) g/dL Albumin 2.4 L (3.5-5.0) g/dL Microbiology - Last 24 Hours (Table) 02/17/20 01:00 Urine Culture - Final Urine,Catheterized 02/17/20 05:42 Blood Culture - Preliminary Blood No Growth after 24 hours 02/14/20 11:09 Blood Culture - Preliminary Blood No Growth after 72 hours Assessment and Plan Assessment: Impression: Acute systolic congestive heart failure Severe dyspnea on exertion secondary to above. Possible non-ST elevation myocardial infarction. Severe mitral regurgitation and possible chordae tend rupture. Acute kidney injury, suspected cardiorenal in nature. History of schizoaffective disorder. Dyslipidemia. History of smoking and mild COPD, presently inactive. Elevated liver enzymes, being addressed by the admitting physician. Recommendation: Continue present treatment plan including diuretics, amiodarone, dobutamine, Co reg, Lanoxin, discontinue Sridhar-Synephrine today. Continue to monitor the patient in the ICU as she is requiring inotropes /dobutamine. Agree with TERE and cardiac catheterization. GI and DVT prophylaxis. Close monitoring of the pulmonary status as the patient could easily develop pulmonary edema/flash pulmonary edema. We'll continue to follow in the intensive care unit Time with Patient: Less than 30
[2020-02-18] MEDS: MONTELUKAST 10 MG TAB PO SCH (21:11)
[2020-02-18] MEDS ORDERED: POTASSIUM CHLORIDE 20 MEQ in WATER FOR INJECTION 1 100ML.BAG IVPB STA (21:48)
[2020-02-19] MEDS: PIPERACILLIN-TAZOBACTAM 3.375 GM in SODIUM CHLORIDE 0.9% 100 ML IVPB SCH ×3 (01:05→18:17)
[2020-02-19 05:30] LABS: Basophils % (A) 1 %; Eosinophils # (A) 0.3 k/uL (0-0.7); Eosinophils % (A) 4 %; HCT 35.6 % (34.0-46.0); HGB 11.6 gm/dL (11.4-16.0); Hypochromasia Moderate; Lymphocytes # (A) 1.4 k/uL (1.0-4.8); Lymphocytes % (A) 21 %; MCH 31.9 pg (25.0-35.0); MCHC 32.6 g/dL (31.0-37.0); MCV 97.8 fL (80.0-100.0); Mean Platelet Volume 8.6; Monocytes # (A) 0.6 k/uL (0-1.0); Monocytes % (A) 9 %; Neutrophils # (A) 4.1 k/uL (1.3-7.7); Neutrophils % (A) 63 %; Platelet Count 152 k/uL (150-450); Poikilocytosis Slight; RBC 3.64 m/uL (3.80-5.40); RDW 14.8 % (11.5-15.5); WBC 6.5 k/uL (3.8-10.6)
[2020-02-19 05:40] LABS: Albumin 2.5 g/dL (3.5-5.0); Calcium 7.1 mg/dL (8.4-10.2); Potassium 4.1 mmol/L (3.5-5.1); Total Bilirubin 1.7 mg/dL (0.2-1.3); Total Protein 4.4 g/dL (6.3-8.2)
[2020-02-19 05:49] LABS: INR 1.3 (<1.2); Partial Thromboplastin Time 27.6 sec (22.0-30.0); Prothrombin Time 13.2 sec (9.0-12.0)
[2020-02-19] MEDS: PANTOPRAZOLE 40 MG TABLET PO SCH (06:41)
[2020-02-19] MEDS ORDERED: BENZOCAINE SPRAY 1 CAN MUCOUS MEM PRN (08:18)
[2020-02-19] MEDS: POTASSIUM CHLORIDE ER 20 MEQ TAB.ER PO SCH (08:29)
[2020-02-19] MEDS: CALCIUM CARB-VIT D 500MG-200UN 1 EACH TAB PO SCH (08:29)
[2020-02-19] MEDS: FUROSEMIDE 40 MG TAB PO SCH ×2 (08:29→16:41)
[2020-02-19] MEDS: CHOLECALCIFEROL 1,000 UNIT TAB PO SCH (08:29)
[2020-02-19] MEDS: ATORVASTATIN 10 MG TAB PO SCH (08:29)
[2020-02-19] MEDS: DULoxetine HCL 60 MG CAPSULE.DR PO SCH (08:29)
[2020-02-19] MEDS: LORATADINE 10 MG TAB PO SCH (08:29)
[2020-02-19] MEDS: CARVEDILOL 3.125 MG TAB PO SCH ×2 (08:29→18:20)
[2020-02-19] MEDS: ASPIRIN 81 MG PO SCH (08:29)
[2020-02-19] MEDS: LORazepam 0.5 MG TAB PO SCH ×3 (08:29→20:09)
[2020-02-19] MEDS: SPIRONOLACTONE 25 MG TAB PO SCH (08:29)
[2020-02-19] MEDS: POTASSIUM CHLORIDE ER 10 MEQ TAB.ER.PRT PO SCH (08:29)
[2020-02-19] MEDS: HEPARIN SODIUM,PORCINE 5,000 UNIT/ML 1 ML VIAL SQ SCH ×2 (08:30→20:08)
--- NOTE | 2020-02-19 08:37 | XR ---
EXAMINATION TYPE: XR chest 1V portable DATE OF EXAM: 02/19/2020 COMPARISON: Prior chest x-ray 02/18/2020 HISTORY: Congestive heart failure and shortness of breath TECHNIQUE: Single frontal view of the chest is obtained. FINDINGS: The heart remains enlarged. Some mild retrocardiac density persists. There is no pneumotho rax or sizable effusion evident. Interstitium is mildly increased. Pulmonary vascularity and david are not significantly changed. There are overlying cardiac leads. IMPRESSION: Findings are similar to prior exam. Cardiomegaly. Possible left lower lobe atelectasis, edema, correlate to exclude pneumonia. Mild prominence of interstitium.
[2020-02-19] MEDS ORDERED: MIDAZOLAM 1 MG/ML 5 ML VIAL IV STA (10:00)
[2020-02-19] MEDS ORDERED: fentaNYL (PF) 50 MCG/ML 2 ML AMP IVP PRN (10:00)
[2020-02-19] MEDS ORDERED: MIDAZOLAM 2 MG/2 ML VIAL ONE (10:02)
[2020-02-19] MEDS ORDERED: fentaNYL (PF) 50 MCG/ML 2 ML AMP ONE (10:02)
--- NOTE | 2020-02-19 10:48 | P.PN ---
Subjective Progress Note Date: 02/19/20 60-year-[facility] female [facility] patient with past medical history of hypertension hyperlipidemia and schizophrenic effect who developed to have worsening shortness of breath for the last 2-3 weeks according to her was seen at [facility] treated for bronchitis with no effect. Patient call the clinic concern that she is having more dyspnea and shortness of breath with worsening symptoms was instructed to come to the emergency department. Was seen and evaluated has been having significant and worsening shortness of breath with minimum exertion increased PND orthopnea no angina had some abdominal discomfort with diarrhea no vomiting no worsening cough fever or chills. Jeanie was [facility] her troponin was elevated BNP was quite bit high at the time lactic acid was elevated as well patient chest x-ray showed early pulmonary edema with venous congestion. Patient d-dimer was elevated and ended up going for CTA showed no pulmonary embolism but sign of pulmonary edema and pulmonary hypertension. Patient was started on IV diuretics heparin drip and nitro and admitted to the hospital for elevated troponin with possible non-ST ME, pulmonary edema, congestive heart failure excessive patient. 02/14: Patient evaluated, denies any further complaints of shortness of breath. Liver enzymes still noted to be elevated AST 140, ALT 160, total bilirubin 1.6, potassium 3.0, sodium 136, BUN 22, creatinine 0.98. Potassium replaced per protocol. Liver ultrasound obtained for abnormal liver function, showed the gallbladder with abnormally thickened wall and gallstones, correlate for acute cholecystitis, nephrolithiasis, and fatty liver. Will consult surgery for acute cholecystitis. She continues on Lasix 40 mg daily IVP, cardiology on consult. Echocardiogram showed mild concentric left ventricular hypertrophy, left ventricular systolic function moderately impaired with an EF of 35-40%, increased LAP grade 2 diastolic dysfunction, LA is severely dilated, severe mitral regurgitation, moderate mitral valve prolapse, moderate tricuspid regurgitation, moderate pulmonary hypertension. Vital signs are stable, afebrile 97.6, heart rate 65, wrist rate 22, blood pressure 126/66 she's 98% on 2 L via nasal cannula. 02/15: Patient evaluated this morning, resting comfortably in bed. Denies any shortness of breath or chest pain. Liver enzymes are trending downwards, AST 100, ALT 129, total bilirubin 1.5, she is asymptomatic and tolerating food and fluids without nausea or vomiting or abdominal pain. Surgery is on consult, may need cholecystectomy as an outpatient basis once her cardiac status is stabilized. Cardiology on consult, may need cardiac cath, she remains on furosemide 40 mg IV push every 8 hours along with carvedilol 3.125 mg twice a day and lisinopril 5 mg daily. Vital signs are stable 109/75, respiratory rate of 22, heart rate 95, afebrile 97.8, 98% on 2 L via nasal cannula. Magnesium low at 1.5, potassium is also low at 3.0, electrolyte replacement has been ordered. 02/16 Overnight patient was to ICU around 10 pm for worsening blood pressure and shortness of breath. Patient was given a total of 1600 ml of fluids, chest helped the pressure briefly. Patient was started on Neosynephrine . Patient is maintaining the MAP at 60. Patient is currently on 3 L and did not need BiPAP overnight. Blood gases were done which suggested a pH of 7.48 CO2 33 pO2 79 bicarb 26 which didinot suggest need the BIPAP. UO was 25 ml/ hr. Lasix was given 40 iv once which did not improve the urine output. Labs his sodium is 135 potassium 5.7 bicarb 21 creatinine increased to 1.3 last lactic acid was 4.1 at 3 in the morning repeat lactic acid is pending. Total bilirubin is 2.5 liver enzymes is elevated. Urinalysis suggestive of ketones, wbc's and rbc's.: Patient currently on Zosyn. Surgery is not planning any intervention for acute cholecystitis. Patient is currently on Zosyn patient appears very unstable and prognosis appears guarded. On evaluation patient endorses shortness of breath denies any cough or sputum production. She denies any abdominal pain. Patient is started on dobutamine drip and digoxin by cardiology. Lasix switched to oral twice a day. 02/17 patient evaluated bedside. Denies any shortness of breath, chest main, palpitation, cough with sputum production. She denies any abdominal pain. On evaluation patient's vital signs,patient is afebrile to respiratory rate 22 blood pressure 99/70 96% onroom air with a pulse of 90. CBC is unremarkable hemoglobin is maintaining 12 sodium 133 potassium 3.4 BUN 27 creatinine 1.23, total bilirubin is improved to 1.5 AST improved to 756 from 1155 ALT 220 from 283. Chest x-ray done this morning suggestive of cardiomegaly with worsening interstitial suggestive for interstitial pneumonitis and stable left lower lobe infiltrate. Continue Lasix and Aldactone. Continue digoxin and Coreg. Continue dobutamine adjusted to the map of 60. off phenylephrine drip 02/18: Patient remains in the intensive care unit. She was started on dobutamine yesterday. She is scheduled for TERE today to evaluate mitral valve. She will also require cardiac catheterization and possible mitral valve repair. Cardiology is following closely. Atrial fibrillation converted to a sinus tachycardia. Chest x-ray this morning reveals similar to prior exam. Cardiomegaly. Possible left lower lobe atelectasis, edema, correlate to exclude pneumonia. Mild prominence of interstitium. General surgery has been following the patient and signed off at this point. No plan for any surgical intervention at this point. 111, blood pressure 111/76, pulse ox 98% on room air. CBC is unremarkable. INR 1.3. Sodium 133. Total bilirubin 1.7, liver function tests are improving with AST of 263, ALT 163, alkaline phosphatase 96. Urine culture has been finalized with no growth. Blood culture no growth at 96 hours and second set at 48 hours. Patient questioned about alcohol intake and there is concern the patient does have alcohol abuse history. No definitive details given by the patient. Review of systems Constitutional: Denies chills, Denies fever, Denies lethargy, Denies malaise, Denies poor appetite, Denies weakness, Denies weight loss Eyes: denies decreased vision, denies diplopia, denies discharge, denies pain Ears: deny: decreased hearing Ears, nose, mouth and throat: Denies dental pain, Denies headache, Denies nasal discharge, Denies nose pain Cardiovascular: Denies chest pain, Denies decreased exercise tolerance, Denies edema, Denies high blood pressure, Denies irregular heart beat, Denies palpitations, Denies paroxysmal nocturnal dyspnea, Denies rapid heart beat, Denies shortness of breath Respiratory: Denies congestion, Denies cough, Denies cough with sputum, positive for dyspnea Denies home oxygen, Denies wheezing Gastrointestinal: Denies abdominal pain, Denies change in bowel habits, Denies coffee ground emesis, Denies early satiety, Denies excessive gas, Denies heartburn, Denies hematemesis, Denies hematochezia, Denies loss of appetite, Denies nausea, Denies vomiting Genitourinary: Denies dysuria, Denies flank pain, Denies kidney stones, Denies menorrhagia, Denies urgency, Denies urinary frequency Musculoskeletal: Denies gait dysfunction, Denies limitation of motion, Denies morning stiffness, Denies muscle cramps Integumentary: Denies rash, Denies wounds, Denies brittle nails, Denies change in hair/nails, Denies darkening of skin Neurological: Denies balance difficulties, Denies change in speech, Denies double vision, Denies gait dysfunction, Denies loss of vision, Denies motor disturbance, Denies numbness, Denies paralysis, Denies paresthesias, Denies seizures Psychiatric: Denies anxiety, Denies depression Endocrine: Denies excessive sweating, Denies excessive thirst, Denies high blood sugars, Denies palpitations Hematologic/Lymphatic: Denies easy bruising, Denies lymphadenopathy Physical Examination Gen: This is a 60-year-old female. Patient is resting in the ICU bed and appears to be comfortable and in no acute distress. HEENT: Head is atraumatic, normocephalic. Pupils equal, round. Sclerae is anicteric. NECK: Supple. No JVD. No lymphadenopathy. No thyromegaly. LUNGS: Diminished bilaterally. No wheezes or rhonchi. No intercostal retractions. HEART: Regular rate and rhythm. 2/6 systolic murmur. ABDOMEN: Soft. Bowel sounds are present. No masses. No tenderness. EXTREMITIES: Bilateral pedal edema. No calf tenderness. NEUROLOGICAL: Patient is awake, alert and oriented x3. Cranial nerves 2 through 12 are grossly intact. Assessment and Plan 1. Acute hypoxic respiratory failure secondary to a combination of possible n on-ST ME, and congestive heart failure. Plan for TERE today and cardiac catheterization to be determined. Cardiology consult appreciated. 2. Acute systolic heart failure. Continue dobutamine drip, Lasix 40 mg oral twice daily, Aldactone 25 mg daily, Coreg 3.125 mg twice daily. 3. Possible non-ST ME. Continue aspirin 81 mg daily, Lipitor 10 mg daily, Coreg. 4. Severe MR moderate mitral valve prolapse moderate pulmonary hypertension and moderate tricuspid regurgitation. Plan for TERE and cardiac cath this week. 5. Abnormal liver function test secondary to decompensated congestive heart failure and acute cholecystitis, cholecystectomy as an outpatient basis. General surgery has signed off. 6. Acute kidney injury. With chronic kidney disease stage II. Monitor BUN and creatinine. Avoid nephrotoxic agents. 7. Hypotension secondary to cardiogenic shock. Dobutamine drip 8. New onset atrial fibrillation, paroxysmal atrial fibrillation. Continue Coreg. Cardiology consult appreciated. 9. Hyperlipidemia. Continue atorvastatin 10 mg a day. 10. Mild intermittent asthma. Continue Singulair 10 mg at bedtime, Claritin 10 mg daily. 11. Recurrent depression. Continue Cymbalta 60 mg daily, Ativan 0.5 mg 3 times daily. 12. History of schizoaffective disorders: Has been on risperidone 25 mg IM injection every 14 days and seen psych on regular basis. 13. Mild coagulopathy: With elevated PT/INR, secondary to decompensated congestive heart failure. 14. DVT prophylaxis: Heparin 5000 every 12 hours. 15. GI prophylaxis. Continue pantoprazole orally. 16. COVID-19 infection not present. CODE STATUS: Full code. Discharge plan: Home with [facility]. Impression and plan of care have been directed as dictated by the signing physician. Eli Perry nurse practitioner acting as scribe for signing physician. Objective - Vital Signs Vital signs: Vital Signs Temp 98.0 F 02/19/20 04:00 Pulse 109 H 02/19/20 07:30 Resp 15 02/19/20 07:00 BP 109/81 02/19/20 07:30 Pulse Ox 97 02/19/20 07:00 Intake & Output 02/18/20 02/19/20 02/19/20 18:59 06:59 18:59 Intake Total 682.583 711.54 20 Output Total 9235 4225 150 Balance -1892.417 -3513.46 -130 Weight 82.3 kg Intake: IV 580 240 20 0.9 KVO 160 240 20 Potassium Chloride 20 meq 100 In Water For Injection 1 100ml.bag @ 50 mls/hr IVPB Q2H [facility] Rx#: [id number] Sodium Chloride 0.9% 1, 320 000 ml @ 100 mls/hr IV . Q10H [facility] Rx#:[id number] Intake, IV Titration 102.583 221.54 Amount DOBUTamine DRIP 500 mg In 221.54 Dextrose/Water 1 250ml. bag @ 5 MCG/KG/MIN 12.72 mls/hr IV .[id number] [facility] Rx #:[id number] Phenylephrine 40 mg In 102.583 Sodium Chloride 0.9% 250 ml @ 0.5 MCG/KG/MIN 14. 764 mls/hr IV .[id number] [facility] Rx#:[id number] Oral 250 Output: Urine 2575 4225 150 Other: Voiding Method Indwelling Catheter Indwelling Catheter - Labs CBC & Chem 7: 02/19/20 05:20 02/19/20 05:20 Labs: Abnormal Lab Results - Last 24 Hours (Table) 02/19/20 02/19/20 02/19/20 Range/Units 05:20 05:20 05:20 RBC 3.64 L (3.80-5.40) m/uL PT 13.2 H (9.0-12.0) sec INR 1.3 H (<1.2) Sodium 133 L (137-145) mmol/L Calcium 7.1 L (8.4-10.2) mg/dL Total Bilirubin 1.7 H (0.2-1.3) mg/dL AST 263 H (14-36) U/L ALT 163 H (4-34) U/L Total Protein 4.4 L (6.3-8.2) g/dL Albumin 2.5 L (3.5-5.0) g/dL Microbiology - Last 24 Hours (Table) 02/17/20 05:42 Blood Culture - Preliminary Blood No Growth after 48 hours 02/14/20 11:09 Blood Culture - Preliminary Blood No Growth after 96 hours 02/17/20 01:00 Urine Culture - Final Urine,Catheterized
--- NOTE | 2020-02-19 11:19 | PN ---
PROGRESS NOTE PULMONARY/CRITICAL CARE PROGRESS NOTE: DATE OF SERVICE: 02/19/2020 This is a 60-year-old female admitted with a diagnosis of acute systolic heart failure and possible non ST-segment elevation myocardial infarction. She was admitted back on February 13. They were concerned about a possible rupture of the chordae tendineae so a transesophageal echocardiogram is scheduled for today. She has severe mitral regurgitation with a possible rupture of the chordae tendineae as I mentioned. She also has a history of acute kidney injury, schizoaffective disorder, hyperlipidemia, history of tobacco use with mild COPD, and elevated liver enzymes. She is on no supplemental oxygen. She is getting saline at KVO. She is on dobutamine at 5 mcg/minute. She is currently resting comfortably. No acute distress. No dyspnea. No conversational dyspnea, audible wheezing or other signs or symptoms of respiratory distress. Vital signs are reviewed. Temperature is 98 degrees, heart rate is 109, respiratory rate is 15, blood pressure 109/81 mean 90 and room air saturation 97%. Appears in no acute distress. HEENT: Examination is grossly unremarkable. No supplemental oxygen. Neck is supple, full range of motion. No adenopathy, thyromegaly or neck vein distention. CARDIOVASCULAR: Examination reveals tachycardia. It is regular. Heart rate about 110 beats per minute. S1, S2 normal. There is a systolic murmur. LUNGS: Reveal diffuse bibasilar crackles. A few scattered rhonchi. No wheezes. Breath sounds equal. ABDOMEN: Soft. EXTREMITIES: Intact. No cyanosis, clubbing, or edema. SKIN: Without rash. NEUROLOGIC: Examination is brief but nonfocal. LABS: Reviewed. White count 6.5, hemoglobin 11.6, hematocrit 35.6, platelet count 152,000. PT, INR was 13.2 and 1.3 respectively. PTT is 27.6. Sodium 133, potassium 4.1, chloride is 101, CO2 is 28, anion gap is 4. BUN and creatinine were 15 and 0.96. Liver enzymes include an AST of 263 and an ALT of 163 compared to 756 and 220 yesterday. Albumin 2.5. Microbiology is currently all negative. Chest x-ray from this morning shows some mild cardiomegaly, small left-sided pleural effusion and maybe some mild cephalization. No overt failure is noted. MEDICATIONS: Reviewed. She is currently on [facility]erol [facility], aspirin, Lipitor, benzocaine spray, calcium with vitamin D, Coreg, vitamin D3, dobutamine, Cymbalta, Lasix, heparin subcu, loratadine, Ativan, Singulair, nitroglycerin tablets p.r.n., Protonix, Zosyn, potassium replacement, and Aldactone. ASSESSMENT: 1. Acute systolic congestive heart failure. 2. Severe shortness of breath, improved, secondary to #1. 3. Possible non ST-segment elevation myocardial infarction. 4. Severe mitral regurgitation with possible rupture of the chordae tendineae. 5. Acute kidney injury, possibly related to underlying cardiorenal syndrome. 6. History of schizoaffective disorder. 7. Hyperlipidemia. 8. Mild chronic obstructive pulmonary disease, currently inactive. 9. Elevated liver enzymes, which may relate to underlying congestive hepatopathy from heart failure. PLAN: The patient is going to have a transesophageal echocardiogram today. Cardiology is currently evaluating for severe mitral regurgitation and possible rupture of the chordae tendineae. From the pulmonary standpoint, she is stable. She remains on dobutamine. Albuterol is discontinued. She is on Zosyn, but I am not sure exactly why. It is not necessary for her to be on it, it should be discontinued. Will continue to follow. Prognosis is guarded. MMODL / IJN: [id number] /
--- NOTE | 2020-02-19 11:27 | ECHOT ---
TRANSESOPHAGEAL ECHOCARDIOGRAM INDICATION: Congestive heart failure with severe mitral regurgitation on a 2D echo. PROCEDURE NOTE: After obtaining informed consent, transesophageal echocardiogram is performed in left lateral position using an Omni plane probe. Local and IV sedation were obtained by Xylocaine spray, 1 mg of Versed and 50 mcg of fentanyl. Patient tolerated the procedure well without any obvious immediate complications. FINDINGS: 1. MITRAL VALVE: There is partial flail of the posterior mitral leaflet with severe anteriorly directed mitral regurgitation. 2. Left atrium appears moderately enlarged. Right atrium and right ventricle seen within normal limits. Left ventricle appears enlarged with diffuse global hypokinesis with severe LV dysfunction with an ejection fraction of 35%. There is moderate tricuspid regurgitation noted. 3. INTERATRIAL SEPTUM: There is no evidence of [id number]-[id number] shunt by color-flow Doppler or [id number] shunt by agitated saline contrast study. 4. Aortic valve is a 3-leaflet valve. There is no evidence of aortic stenosis or regurgitation. CONCLUSION: 1. Severe anteriorly directed mitral regurgitation secondary to partial flail of the posterior leaflet. 2. Moderate mitral regurgitation. 3. Severe LV dysfunction. PLAN: Patient will undergo left heart catheterization to rule out ischemic heart disease and will be referred for mitral valve repair. MMODL / IJN: [id number] /
--- NOTE | 2020-02-19 15:55 | P.PN ---
Subjective Progress Note Date: 02/19/20 This is a 60-year-old female was admitted to the hospital with complaints of increasing shortness of breath and pedal edema. She was found to be in congestive heart failure. Clinically patient has a systolic murmur at the apex consistent with mitral regurgitation. Echo Cardigan showed evidence of mitral valve prolapse with severe regurgitation with impaired LV function. Patient has been on IV Lasix and seemed to be diuresing well. Her potassium and magnesium some low. Patient has been having runs of nonsustained V. tach. We will correct the potassium and magnesium levels. If she continues to have nonsustained V. tach, we'll start her on IV amiodarone. Patient will require TERE and cardiac catheterization and possible mitral valve repair. Meanwhile I will also add Aldactone and follow her lites closely. 02/18/2020: Patient is clinically doing better. Diuresing well. Appears to be less short of breath. Maintaining sinus rhythm. No complaints of chest pain. Patient is being scheduled for a TERE examination tomorrow to be done by Dr. Crump. Patient also may require cardiac catheterization and possible mitral valve repair. Meanwhile we'll continue current medical therapy. Lab values showed mild hypokalemia. Her liver function tests are improving. Most probably liver enzyme abnormalities are related to passive congestion. Her edema is also down. 02/19/2020: Patient is clinically better. Diuresing well. He had a TERE which is consistent with partial flail of the posterior mitral leaflet. Patient is going to have cardiac cath tomorrow by Dr. Zuñiga. Meanwhile we'll continue current medical therapy. We'll may also get surgical consult regarding possible mitral valve repair. Objective - Vital Signs Vital signs: Vital Signs Temp 98.1 F 02/19/20 08:38 Pulse 100 02/19/20 15:00 Resp 22 02/19/20 15:00 BP 91/67 02/19/20 15:00 Pulse Ox 97 02/19/20 15:00 Intake & Output 02/18/20 02/19/20 02/19/20 18:59 06:59 18:59 Intake Total 682.583 711.54 140 Output Total 0135 5005 9290 Balance -1892.417 -3363.46 2560 Weight 82.3 kg Intake: IV 580 240 140 0.9 KVO 160 240 140 Potassium Chloride 20 meq 100 In Water For Injection 1 100ml.bag @ 50 mls/hr IVPB Q2H JACK Rx#: [id number] Sodium Chloride 0.9% 1, 320 000 ml @ 100 mls/hr IV . Q10H JACK Rx#:[id number] Intake, IV Titration 102.583 221.54 Amount DOBUTamine DRIP 500 mg In 221.54 Dextrose/Water 1 250ml. bag @ 5 MCG/KG/MIN 12.72 mls/hr IV .[id number] JACK Rx #:[id number] Phenylephrine 40 mg In 102.583 Sodium Chloride 0.9% 250 ml @ 0.5 MCG/KG/MIN 14. 764 mls/hr IV .[id number] JACK Rx#:[id number] Oral 250 Output: Urine 2575 4225 2700 Other: Voiding Method Indwelling Catheter Indwelling Catheter Indwelling Catheter - Exam GENERAL EXAM: Patient is alert and oriented and doesn't appear to be in any acute distress HEENT: Normocephalic. Normal reaction of pupils, equal size, normal range of extraocular motion. No erythema or exudates in the throat. NECK: No masses, no nuchal rigidity. CHEST: No chest wall deformity. LUNGS: Diminished breath sounds HEART: S1 and S2 normal, systolic murmur at the apex ABDOMEN: No hepatosplenomegaly, normal bowel sounds, no guarding or rigidity. SKIN: No rashes CENTRAL NERVOUS SYSTEM: No focal deficits. EXTREMITIES: Edema improving - Labs CBC & Chem 7: 02/19/20 05:20 02/19/20 05:20 Labs: Abnormal Lab Results - Last 24 Hours (Table) 02/19/20 02/19/20 02/19/20 Range/Units 05:20 05:20 05:20 RBC 3.64 L (3.80-5.40) m/uL PT 13.2 H (9.0-12.0) sec INR 1.3 H (<1.2) Sodium 133 L (137-145) mmol/L Calcium 7.1 L (8.4-10.2) mg/dL Total Bilirubin 1.7 H (0.2-1.3) mg/dL AST 263 H (14-36) U/L ALT 163 H (4-34) U/L Total Protein 4.4 L (6.3-8.2) g/dL Albumin 2.5 L (3.5-5.0) g/dL Microbiology - Last 24 Hours (Table) 02/14/20 11:09 Blood Culture - Preliminary Blood No Growth after 120 hours 02/17/20 05:42 Blood Culture - Preliminary Blood No Growth after 48 hours 02/17/20 01:00 Urine Culture - Final Urine,Catheterized Assessment and Plan (1) Mitral valve prolapse Current Visit: Yes Status: Acute Code(s): I34.1 - NONRHEUMATIC MITRAL (VALVE) PROLAPSE SNOMED Code(s): 208903873 (2) Severe mitral regurgitation Current Visit: Yes Status: Acute Code(s): I34.0 - NONRHEUMATIC MITRAL (VALVE) INSUFFICIENCY SNOMED Code(s): 13378407 (3) Cardiomyopathy Current Visit: Yes Status: Acute Code(s): I42.9 - CARDIOMYOPATHY, UNSPECIFIED SNOMED Code(s): 67218574 (4) Acute systolic heart failure Current Visit: Yes Status: Acute Code(s): I50.21 - ACUTE SYSTOLIC (CONGESTIVE) HEART FAILURE SNOMED Code(s): 120261041 Plan: TERE confirms presence of flail posterior mitral leaflet related to ruptured chordae tendineae. Patient is going to have a cardiac cath tomorrow. Meanwhile, continue current medical therapy. Surgical consult also to be ob tained
[2020-02-19] MEDS: DOBUTamine DRIP 500 MG in DEXTROSE/WATER 1 250ML.BAG IV SCH (19:36)
[2020-02-19] MEDS: MONTELUKAST 10 MG TAB PO SCH (20:09)
[2020-02-20] MEDS: PIPERACILLIN-TAZOBACTAM 3.375 GM in SODIUM CHLORIDE 0.9% 100 ML IVPB SCH ×3 (01:09→18:41)
[2020-02-20 04:25] LABS: Basophils # (A) 0.1 k/uL (0-0.2); Basophils % (A) 1 %; Eosinophils # (A) 0.3 k/uL (0-0.7); Eosinophils % (A) 5 %; HCT 36.8 % (34.0-46.0); HGB 11.5 gm/dL (11.4-16.0); Hypochromasia Moderate; Lymphocytes # (A) 1.6 k/uL (1.0-4.8); Lymphocytes % (A) 28 %; MCH 30.4 pg (25.0-35.0); MCHC 31.3 g/dL (31.0-37.0); MCV 97.1 fL (80.0-100.0); Mean Platelet Volume 8.5; Monocytes # (A) 0.6 k/uL (0-1.0); Monocytes % (A) 10 %; Neutrophils # (A) 3.1 k/uL (1.3-7.7); Neutrophils % (A) 55 %; Platelet Count 154 k/uL (150-450); RBC 3.79 m/uL (3.80-5.40); WBC 5.8 k/uL (3.8-10.6)
[2020-02-20 04:33] LABS: Albumin 2.4 g/dL (3.5-5.0); Calcium 7.4 mg/dL (8.4-10.2); Potassium 4.2 mmol/L (3.5-5.1); Total Bilirubin 1.5 mg/dL (0.2-1.3); Total Protein 4.4 g/dL (6.3-8.2)
[2020-02-20] MEDS: PANTOPRAZOLE 40 MG TABLET PO SCH (06:42)
[2020-02-20] MEDS: CARVEDILOL 3.125 MG TAB PO SCH ×2 (06:42→18:42)
[2020-02-20] MEDS: LORazepam 0.5 MG TAB PO SCH ×3 (08:16→20:45)
[2020-02-20] MEDS: DULoxetine HCL 60 MG CAPSULE.DR PO SCH (08:16)
[2020-02-20] MEDS: ASPIRIN 81 MG PO SCH (08:16)
[2020-02-20] MEDS: FUROSEMIDE 40 MG TAB PO SCH ×2 (08:16→16:25)
[2020-02-20] MEDS: CHOLECALCIFEROL 1,000 UNIT TAB PO SCH (08:16)
[2020-02-20] MEDS: LORATADINE 10 MG TAB PO SCH (08:16)
[2020-02-20] MEDS: ATORVASTATIN 10 MG TAB PO SCH (08:17)
[2020-02-20] MEDS: CALCIUM CARB-VIT D 500MG-200UN 1 EACH TAB PO SCH (08:17)
[2020-02-20] MEDS: POTASSIUM CHLORIDE ER 10 MEQ TAB.ER.PRT PO SCH (08:17)
[2020-02-20] MEDS: HEPARIN SODIUM,PORCINE 5,000 UNIT/ML 1 ML VIAL SQ SCH (08:21)
--- NOTE | 2020-02-20 08:50 | XR ---
EXAMINATION TYPE: XR chest 1V DATE OF EXAM: 02/20/2020 COMPARISON: 02/19/2020 HISTORY: 60-year-old female with CHF, shortness of breath TECHNIQUE: Single frontal view of the chest is obtained. FINDINGS: Heart remains mild to moderately enlarged. Mild interstitial prominence similar. No sizable effusion or is[place] consolidation. IMPRESSION: Mild to moderate cardiomegaly and mild interstitial change persists. Correlate for mild pulmonary vas cular congestion.
--- NOTE | 2020-02-20 09:43 | PN ---
PROGRESS NOTE PULMONARY/CRITICAL CARE PROGRESS NOTE: DATE OF SERVICE: 02/20/2020 This is a 60-year-old female who was admitted with a diagnosis of acute systolic CHF. The patient had profound shortness of breath, which is significantly improved and so much so, she is just on room air. In addition, she had a possible non ST-segment elevation myocardial infarction and has mitral regurgitation with possible rupture of the chordae tendineae. She apparently had a transesophageal echocardiogram yesterday which showed nothing different than the transthoracic echocardiogram. She apparently scheduled for cardiac catheterization today. She is getting saline at KVO, dobutamine at 5 mcg/kg per minute. She is resting comfortably in no acute distress. Current vital signs include a temperature which is 97.7, A heart rate which is 96, respiratory rate 20, blood pressure 101/76 mean 84, saturations are 96% on room air. Appears in no acute distress. HEENT: Examination is grossly unremarkable. Mucous membranes are moist. No oral lesions. NECK: Supple, full range of motion. No adenopathy. Neck veins are flat. CARDIOVASCULAR: Examination reveals regular rhythm and rate. Heart rate about 100 beats per minute or so. S1, S2 normal. She is in sinus rhythm. LUNGS: Reveal mostly clear breath sounds. A few scattered mild crackles and rhonchi. No wheezes. Breath sounds are dramatically improved. ABDOMEN: Soft, bowel sounds are heard. EXTREMITIES: Intact. No edema of any significance noted. SKIN: Without rash. NEUROLOGIC: Examination is nonfocal. LABS: Reviewed. White count 5.8, hemoglobin 11.5, hematocrit 36.8, platelet count 154,000. PT, INR were 13.2 and 1.3 respectively. PTT is 27.6. Sodium 133, potassium, chloride, CO2 all normal. Anion gap normal. BUN and creatinine were normal. She continues to have significant improvement in liver enzymes down to 131 and 130 today for her AST and ALT respectively. Microbiology is currently negative. Chest x-ray shows primarily cardiomegaly. Medications are reviewed. ASSESSMENT: 1. Acute systolic congestive heart failure. 2. Severe shortness of breath, much improved, secondary to #1. 3. Possible non ST-segment elevation myocardial infarction. 4. Severe mitral regurgitation with possible rupture of the chordae tendineae. 5. Acute kidney injury, possibly related to underlying cardiorenal syndrome. 6. History of schizoaffective disorder. 7. Hyperlipidemia. 8. Mild chronic obstructive pulmonary disease, currently inactive. 9. Elevated liver enzymes, secondary to congestive hepatopathy, from heart failure. PLAN: Currently, the patient is doing well. Transesophageal echocardiogram was performed yesterday. She is going for cardiac catheterization today. She remains on dobutamine at 5 mcg/kg per minute. She is not requiring any supplemental oxygen. Additional recommendations and suggestions are forthcoming. MMODL / IJN: [id number] /
[2020-02-20] MEDS: POTASSIUM CHLORIDE ER 20 MEQ TAB.ER PO SCH (09:44)
[2020-02-20] MEDS: SPIRONOLACTONE 25 MG TAB PO SCH (09:44)
--- NOTE | 2020-02-20 11:19 | P.PN ---
Subjective Progress Note Date: 02/20/20 60-[facility] with past medical history of hypertension hyperlipidemia and schizophrenic effect who developed to have worsening shortness of breath for the last 2-3 weeks according to her was seen at [facility], [place] treated for bronchitis with no effect. Patient call the clinic concern that she is having more dyspnea and shortness of breath with worsening symptoms was instructed to come to the emergency department. Was seen and evaluated has been having significant and worsening shortness of breath with minimum exertion increased PND orthopnea no angina had some abdominal discomfort with diarrhea no vomiting no worsening cough fever or chills. Jeanie was seen a [facility] department her troponin was elevated BNP was quite bit high at the time lactic acid was elevated as well patient chest x-ray showed early pulmonary edema with venous congestion. Patient d-dimer was elevated and ended up going for CTA showed no pulmonary embolism but sign of pulmonary edema and pulmonary hypertension. Patient was started on IV diuretics heparin drip and nitro and admitted to the hospital for elevated troponin with possible non-ST [place], pulmonary edema, congestive heart failure excessive patient. 02/14: Patient evaluated, denies any further complaints of shortness of breath. Liver enzymes still noted to be elevated AST 140, ALT 160, total bilirubin 1.6, potassium 3.0, sodium 136, BUN 22, creatinine 0.98. Potassium replaced per protocol. Liver ultrasound obtained for abnormal liver function, showed the gallbladder with abnormally thickened wall and gallstones, correlate for acute cholecystitis, nephrolithiasis, and fatty liver. Will consult surgery for acute cholecystitis. She continues on Lasix 40 mg daily IVP, cardiology on consult. Echocardiogram showed mild concentric left ventricular hypertrophy, left ventricular systolic function moderately impaired with an EF of 35-40%, increased LAP grade 2 diastolic dysfunction, LA is severely dilated, severe mitral regurgitation, moderate mitral valve prolapse, moderate tricuspid regurgitation, moderate pulmonary hypertension. Vital signs are stable, afebrile 97.6, heart rate 65, wrist rate 22, blood pressure 126/66 she's 98% on 2 L via nasal cannula. 3: Patient evaluated this morning, resting comfortably in bed. Denies any shortness of breath or chest pain. Liver enzymes are trending downwards, AST 100, ALT 129, total bilirubin 1.5, she is asymptomatic and tolerating food and fluids without nausea or vomiting or abdominal pain. Surgery is on consult, may need cholecystectomy as an outpatient basis once her cardiac status is stabilized. Cardiology on consult, may need cardiac cath, she remains on furosemide 40 mg IV push every 8 hours along with carvedilol 3.125 mg twice a day and lisinopril 5 mg daily. Vital signs are stable 109/75, respiratory rate of 22, heart rate 95, afebrile 97.8, 98% on 2 L via nasal cannula. Magnesium low at 1.5, potassium is also low at 3.0, electrolyte replacement has been ordered. 02/16 Overnight patient was to ICU around 10 pm for worsening blood pressure and shortness of breath. Patient was given a total of 1600 ml of fluids, chest helped the pressure briefly. Patient was started on Neosynephrine . Patient is maintaining the MAP at 60. Patient is currently on 3 L and did not need BiPAP overnight. Blood gases were done which suggested a pH of 7.48 CO2 33 pO2 79 bicarb 26 which didinot suggest need the BIPAP. UO was 25 ml/ hr. Lasix was given 40 iv once which did not improve the urine output. Labs his sodium is 135 potassium 5.7 bicarb 21 creatinine increased to 1.3 last lactic acid was 4.1 at 3 in the morning repeat lactic acid is pending. Total bilirubin is 2.5 liver enzymes is elevated. Urinalysis suggestive of ketones, wbc's and rbc's.: Patient currently on Zosyn. Surgery is not planning any intervention for acute cholecystitis. Patient is currently on Zosyn patient appears very unstable and prognosis appears guarded. On evaluation patient endorses shortness of breath denies any cough or sputum production. She denies any abdominal pain. Patient is started on dobutamine drip and digoxin by cardiology. Lasix switched to oral twice a day. 02/17 patient evaluated bedside. Denies any shortness of breath, chest main, palpitation, cough with sputum production. She denies any abdominal pain. On evaluation patient's vital signs,patient is afebrile to respiratory rate 22 blood pressure 99/70 96% onroom air with a pulse of 90. CBC is unremarkable hemoglobin is maintaining 12 sodium 133 potassium 3.4 BUN 27 creatinine 1.23, total bilirubin is improved to 1.5 AST improved to 756 from 1155 ALT 220 from 283. Chest x-ray done this morning suggestive of cardiomegaly with worsening interstitial suggestive for interstitial pneumonitis and stable left lower lobe infiltrate. Continue Lasix and Aldactone. Continue digoxin and Coreg. Continue dobutamine adjusted to the map of 60. off phenylephrine drip 02/18: Patient remains in the intensive care unit. She was started on dobutamine yesterday. She is scheduled for TERE today to evaluate mitral valve. She will also require cardiac catheterization and possible mitral valve repair. Cardiology is following closely. Atrial fibrillation converted to a sinus tachycardia. Chest x-ray this morning reveals similar to prior exam. Cardiomegaly. Possible left lower lobe atelectasis, edema, correlate to exclude pneumonia. Mild prominence of interstitium. General surgery has been following the patient and signed off at this point. No plan for any surgical intervention at this point. 111, blood pressure 111/76, pulse ox 98% on room air. CBC is unremarkable. INR 1.3. Sodium 133. Total bilirubin 1.7, liver function tests are improving with AST of 263, ALT 163, alkaline phosphatase 96. Urine culture has been finalized with no growth. Blood culture no growth at 96 hours and second set at 48 hours. Patient questioned about alcohol intake and there is concern the patient does have alcohol abuse history. No definitive details given by the patient. 02/19: Yesterday, patient underwent TERE that revealed severe anteriorly directed mitral regurgitation secondary to partial flail of the posterior leaflet, moderate mitral regurgitation, severe LV dysfunction with EF of 35%. She is scheduled for left heart catheterization today but her nurse is having a difficult time reaching the public guardian. Cardiovascular consult has also been added as well. Patient remains on dobutamine at 5 mcg/kg/m. Repeat chest x-ray reveals mild to moderate cardiomegaly and mild interstitial change persists. Correlate for mild pulmonary vascular congestion. She denies any chest pain or shortness of breath. She has been afebrile, heart rate 89, blood pressure 100/77, pulse ox 95% on room air. She is only reaching 500 on incentive spirometry. Therapy consult has been added and patient may require subacute rehab. programming development project manager is following. Liver enzymes continued to improve with total bilirubin 1.5, AST 131, ALT 130. Review of systems Constitutional: Denies chills, Denies fever, Denies lethargy, Denies malaise, Denies poor appetite, reports weakness Eyes: denies decreased vision, denies diplopia, denies discharge, denies pain Ears: deny: decreased hearing Ears, nose, mouth and throat: Denies dental pain, Denies headache, Denies nasal discharge, Denies nose pain Cardiovascular: Denies chest pain, Denies decreased exercise tolerance, Denies edema, Denies high blood pressure, Denies irregular heart beat, Denies palpitations, Denies paroxysmal nocturnal dyspnea, Denies rapid heart beat, Denies shortness of breath Respiratory: Denies congestion, Denies cough, Denies cough with sputum, positive for dyspnea Denies home oxygen, Denies wheezing Gastrointestinal: Denies abdominal pain, Denies change in bowel habits, Denies coffee ground emesis, Denies early satiety, Denies excessive gas, Denies heartburn, Denies hematemesis, Denies hematochezia, Denies loss of appetite, Denies nausea, Denies vomiting Genitourinary: Denies dysuria, Denies flank pain, Denies kidney stones, Denies menorrhagia, Denies urgency, Denies urinary frequency Musculoskeletal: reports gait dysfunction, Denies limitation of motion, Denies morning stiffness, Denies muscle cramps Integumentary: Denies rash, Denies wounds, Denies brittle nails, Denies change in hair/nails, Denies darkening of skin Neurological: Denies balance difficulties, Denies change in speech, Denies double vision, Denies gait dysfunction, Denies loss of vision, Denies motor disturbance, Denies numbness, Denies paralysis, Denies paresthesias, Denies seizures Psychiatric: Denies anxiety, Denies depression Endocrine: Denies excessive sweating, Denies excessive thirst, Denies high blood sugars, Denies palpitations Hematologic/Lymphatic: Denies easy bruising, Denies lymphadenopathy Physical Examination Gen: This is a 60-year-old female. Patient is resting in the ICU bed and appears to be comfortable and in no acute distress. HEENT: Head is atraumatic, normocephalic. Pupils equal, round. Sclerae is anicteric. NECK: Supple. No JVD. No lymphadenopathy. No thyromegaly. LUNGS: Diminished bilaterally. No wheezes or rhonchi. No intercostal retractions. HEART: Regular rate and rhythm. 2/6 systolic murmur. ABDOMEN: Soft. Bowel sounds are present. No masses. No tenderness. Lester catheter draining clear josy urine. EXTREMITIES: Bilateral pedal edema. No calf tenderness. NEUROLOGICAL: Patient is awake, alert and oriented x3. Cranial nerves 2 through 12 are grossly intact. Assessment and Plan 1. Acute hypoxic respiratory failure secondary to a combination of possible non-ST [place], and congestive heart failure. TERE as above. Cardiac catheterization to be completed today. Cardiology consult appreciated. 2. Acute systolic heart failure. Continue dobutamine drip, Lasix 40 mg oral twice daily, Aldactone 25 mg daily, Coreg 3.125 mg twice daily. 3. Possible non-ST [place]. Continue aspirin 81 mg daily, Lipitor 10 mg daily, Coreg. 4. Severe MR moderate mitral valve prolapse moderate pulmonary hypertension and moderate tricuspid regurgitation. Plan for TERE and cardiac cath this week. 5. Abnormal liver function test secondary to decompensated congestive heart failure and acute cholecystitis, cholecystectomy as an outpatient basis. General surgery has signed off. 6. Acute kidney injury. With chronic kidney disease stage II. Monitor BUN and creatinine. Avoid nephrotoxic agents. 7. Hypotension secondary to cardiogenic shock. Dobutamine drip 8. New onset atrial fibrillation, paroxysmal atrial fibrillation. Continue Coreg. Cardiology consult appreciated. 9. Hyperlipidemia. Continue atorvastatin 10 mg a day. 10. Mild intermittent asthma. Continue Singulair 10 mg at bedtime, Claritin 10 mg daily. 11. Recurrent depression. Continue Cymbalta 60 mg daily, Ativan 0.5 mg 3 times daily. 12. History of schizoaffective disorders: Has been on risperidone 25 mg IM injection every 14 days and seen psych on regular basis. 13. Mild coagulopathy: With elevated PT/INR, secondary to decompensated congestive heart failure. 14. DVT prophylaxis: Heparin 5000 every 12 hours. 15. GI prophylaxis. Continue pantoprazole orally. 16. COVID-19 infection not present. CODE STATUS: Full code. Discharge plan: [facility], possible need for subacute rehab. PT evaluation.. Impression and plan of care have been directed as dictated by the signing physician. Eli Perry nurse practitioner acting as scribe for signing physician. Objective - Vital Signs Vital signs: Vital Signs Temp 97.7 F 02/20/20 04:00 Pulse 103 H 02/20/20 07:00 Resp 27 H 02/20/20 07:00 BP 101/76 02/20/20 07:00 Pulse Ox 96 02/20/20 07:00 Intake & Output 02/19/20 02/20/20 02/20/20 18:59 06:59 18:59 Intake Total 490 340 40 Output Total 3850 1950 130 Balance -3360 -1610 -90 Weight 79.2 kg Intake: IV 240 340 40 0.9 KVO 240 240 40 Piperacillin-Tazobactam 3 100 .375 gm In Sodium Chloride 0.9% 100 ml @ 25 mls/hr IVPB Q8H JACK Rx#: [id number] Intake, IV Titration 250 Amount DOBUTamine DRIP 500 mg In 250 Dextrose/Water 1 250ml. bag @ 5 MCG/KG/MIN 12.72 mls/hr IV .[id number] JACK Rx #:[id number] Output: Urine 3850 1950 130 Other: Voiding Method Indwelling Catheter Indwelling Catheter - Labs CBC & Chem 7: 02/20/20 04:15 02/20/20 04:15 Labs: Abnormal Lab Results - Last 24 Hours (Table) 02/20/20 02/20/20 Range/Units 04:15 04:15 RBC 3.79 L (3.80-5.40) m/uL Sodium 133 L (137-145) mmol/L Calcium 7.4 L (8.4-10.2) mg/dL Total Bilirubin 1.5 H (0.2-1.3) mg/dL AST 131 H (14-36) U/L ALT 130 H (4-34) U/L Total Protein 4.4 L (6.3-8.2) g/dL Albumin 2.4 L (3.5-5.0) g/dL Microbiology - Last 24 Hours (Table) 02/17/20 05:42 Blood Culture - Preliminary Blood No Growth after 72 hours 02/14/20 11:09 Blood Culture - Preliminary Blood No Growth after 120 hours
[2020-02-20] MEDS: DOBUTamine DRIP 500 MG in DEXTROSE/WATER 1 250ML.BAG IV SCH (13:00)
[2020-02-20 13:48] LABS: Magnesium 1.5 mg/dL (1.6-2.3)
--- NOTE | 2020-02-20 13:53 | US ---
EXAMINATION TYPE: US venous doppler duplex LE BI DATE OF EXAM: 02/20/2020 1:42 PM COMPARISON: NONE CLINICAL HISTORY: 60-year-old female, assess for DVT. Edema bilateral legs SIDE PERFORMED: Bilateral TECHNIQUE: The lower extremity deep venous system is examined utilizing real time linear array sonog matthew with graded compression, doppler sonography and color-flow sonography. FINDINGS: VESSELS IMAGED: External Iliac Vein (EIV) Common Femoral Vein Deep Femoral Vein Greater Saphenous Vein * Femoral Vein Popliteal Vein Small Saphenous Vein * Proximal Calf Veins (* superficial vessels) Right Leg: Waste Machine Operator notes:*unable to evaluate right EIV and CFV due to IV within right groin and bandage. Positive for DVT lower right popliteal vein/upper right calf vein Left Leg: no evidence of DVT IMPRESSION: 1. Right lower extremity positive for DVT involving at least the lower popliteal vein and upper calf vein. Unable to adequately assess the external iliac vein and common femoral vein due to IV line and overlying dressing. 2. No evidence for DVT within the left lower extremity imaged from the groin to the upper calf.
[2020-02-20] MEDS ORDERED: HEPARIN SODIUM,PORCINE 5,000 UNIT/ML 1 ML VIAL IV PRN (14:13)
--- NOTE | 2020-02-20 14:39 | P.PN ---
Subjective Progress Note Date: 02/20/20 This is a 60-year-old female was admitted to the hospital with complaints of increasing shortness of breath and pedal edema. She was found to be in congestive heart failure. Clinically patient has a systolic murmur at the apex consistent with mitral regurgitation. Echo Cardigan showed evidence of mitral valve prolapse with severe regurgitation with impaired LV function. Patient has been on IV Lasix and seemed to be diuresing well. Her potassium and magnesium some low. Patient has been having runs of nonsustained V. tach. We will correct the potassium and magnesium levels. If she continues to have nonsustained V. tach, we'll start her on IV amiodarone. Patient will require TERE and cardiac catheterization and possible mitral valve repair. Meanwhile I will also add Aldactone and follow her lites closely. 02/18/2020: Patient is clinically doing better. Diuresing well. Appears to be less short of breath. Maintaining sinus rhythm. No complaints of chest pain. Patient is being scheduled for a TERE examination tomorrow to be done by Dr. Crump. Patient also may require cardiac catheterization and possible mitral valve repair. Meanwhile we'll continue current medical therapy. Lab values showed mild hypokalemia. Her liver function tests are improving. Most probably liver enzyme abnormalities are related to passive congestion. Her edema is also down. 02/19/2020: Patient is clinically better. Diuresing well. He had a TERE which is consistent with partial flail of the posterior mitral leaflet. Patient is going to have cardiac cath tomorrow by Dr. Zuñiga. Meanwhile we'll continue current medical therapy. We'll may also get surgical consult regarding possible mitral valve repair. 02/20/2020:. Patient remains clinically stable. Doesn't appear to be in acute distress. Her liver enzymes are improving. Patient is diuresing well. Patient was supposed to have a cardiac cath today. This was postponed because of lack of consent. Possible cath tomorrow. Patient is seen by [facility]. Surgeon. Venous duplex study showed evidence of DVT. Patient is being started on IV heparin. Further recommendations depend upon the findings on cardiac cath. Meanwhile will stay on the current medical therapy Objective - Vital Signs Vital signs: Vital Signs Temp 97.9 F 02/20/20 08:00 Pulse 93 02/20/20 14:00 Resp 30 H 02/20/20 14:00 BP 103/70 07/07/20 14:00 Pulse Ox 100 02/20/20 14:00 Intake & Output 02/19/20 02/20/20 02/20/20 18:59 06:59 18:59 Intake Total 490 340 461.328 Output Total 3850 1950 1974 Balance -3360 -1610 -1513.672 Weight 79.2 kg Intake: IV 240 340 240 0.9 KVO 240 240 140 Piperacillin-Tazobactam 3 100 100 .375 gm In Sodium Chloride 0.9% 100 ml @ 25 mls/hr IVPB Q8H JACK Rx#: [id number] Intake, IV Titration 250 221.328 Amount DOBUTamine DRIP 500 mg In 250 221.328 Dextrose/Water 1 250ml. bag @ 5 MCG/KG/MIN 12.72 mls/hr IV .[id number] FORMERLY [facility], 1928–1983 Rx #:[id number] Output: Urine [id number] Other: Voiding Method Indwelling Catheter Indwelling Catheter Indwelling Catheter - Exam GENERAL EXAM: Patient is alert and oriented and doesn't appear to be in any acute distress HEENT: Normocephalic. Normal reaction of pupils, equal size, normal range of extraocular motion. No erythema or exudates in the throat. NECK: No masses, no nuchal rigidity. CHEST: No chest wall deformity. LUNGS: Diminished breath sounds HEART: S1 and S2 normal, systolic murmur at the apex ABDOMEN: No hepatosplenomegaly, normal bowel sounds, no guarding or rigidity. SKIN: No rashes CENTRAL NERVOUS SYSTEM: No focal deficits. EXTREMITIES: Edema improving - Labs CBC & Chem 7: 02/20/20 04:15 02/20/20 04:15 Labs: Abnormal Lab Results - Last 24 Hours (Table) 02/20/20 02/20/20 02/20/20 Range/Units 04:15 04:15 04:15 RBC 3.79 L (3.80-5.40) m/uL Sodium 133 L (137-145) mmol/L Calcium 7.4 L (8.4-10.2) mg/dL Magnesium 1.5 L (1.6-2.3) mg/dL Total Bilirubin 1.5 H (0.2-1.3) mg/dL AST 131 H (14-36) U/L ALT 130 H (4-34) U/L Total Protein 4.4 L (6.3-8.2) g/dL Albumin 2.4 L (3.5-5.0) g/dL Microbiology - Last 24 Hours (Table) 02/14/20 11:09 Blood Culture - Final Blood No Growth after 144 hours 02/17/20 05:42 Blood Culture - Preliminary Blood No Growth after 72 hours Assessment and Plan (1) Mitral valve prolapse Current Visit: Yes Status: Acute Code(s): I34.1 - NONRHEUMATIC MITRAL (VALVE) PROLAPSE SNOMED Code(s): 414032864 (2) Severe mitral regurgitation Current Visit: Yes Status: Acute Code(s): I34.0 - NONRHEUMATIC MITRAL (VALVE) INSUFFICIENCY SNOMED Code(s): 95715330 (3) Cardiomyopathy Current Visit: Yes Status: Acute Code(s): I42.9 - CARDIOMYOPATHY, UNSPECIFIED SNOMED Code(s): 02305394 (4) Acute systolic heart failure Current Visit: Yes Status: Acute Code(s): I50.21 - ACUTE SYSTOLIC (CONGESTIVE) HEART FAILURE SNOMED Code(s): 227909488 Plan: Patient is being initiated on heparin because of DVT. Patient is going to have cardiac cath tomorrow. Further recommendations depend upon the clinical course
--- NOTE | 2020-02-20 15:26 | P.GSCN ---
History of Present Illness Consult date: 02/20/20 Reason for Consult: Moderate to severe mitral valve regurgitation, evaluation for mitral valve repair/replacement surgery. Requesting physician: Mary Carrero History of present illness: This is 60-year-old female patient [facility]. She has a past medical history significant for hypertension, hyperlipidemia, schizophrenia and depression. Recently, the patient has had complaints of progressive shortness of breath which she reports has been present for around 2-3 months. Over the past 2-3 weeks or shortness of breath has worsened and she [facility]. According to the patient she was treated with antibiotics and oral steroids on an outpatient basis. The antibiotics and steroid treatment she felt did not help much with her shortness of breath. The patient reports that she also developed some increased swelling to her bilateral lower extremities mainly to her feet and ankles. She denies any complaints of fever, chills, nausea, vomiting, orthopnea, cough, presyncope or syncope. Associated with the shortness of b reath she felt like she was having an uneasy feeling in her chest, but does not describe it as pain or pressure. Subsequently, due to her progressive shortness of breath, swelling to her bilateral feet and ankles she reported to the emergency department here at [facility] for further evaluation and treatment recommendations. On admission her lab results demonstrated a WBC count of 8.6, hemoglobin 13.0, platelets 133, PT 15.4, INR 1.6, d-dimer 6.43, sodium 133, potassium 3.2, BUN 21, creatinine 1.09, plasma lactic acid venous 3.3, AST 259, ALT 205, elevated troponin as high as 0.172, pro-BMP level 11,000 and COVID 19 test was not detected. A chest x-ray was completed which demonstrated mild interstitial edema and venous congestion. Due to her elevated d-dimer level a CT angiogram of her chest was completed which was negative for pulmonary embolism, and showed signs of pulmonary edema and pulmonary hypertension. A 12-lead EKG was also completed which showed normal sinus rhythm with PVC and nonspecific STT wave changes. On 02/16/2020 the patient developed some hypotension and was subsequently transferred to the intensive care unit for further monitoring and treatment. She was started on Sridhar-Synephrine drip which has since been discontinued. Currently she is on Dobutrex drip at 5 mcg/kg/m which is being managed by cardiology. A 2-D echocardiogram was completed on 02/15/2020 which demonstrated her to have an overall left ventricular systolic function to be moderately impaired, with an ejection fraction between 35 and 40%, severely dilated left atrium measuring greater than 40 mL/m, severe mitral valve regurgitation with a predominantly anteriorly directed jet, moderate mitral valve prolapse to the posterior mitral valve leaflet, moderate tricuspid valve regurgitation and moderate pulmonary hypertension. For further evaluation of her mitral valve she underwent a transesophageal echocardiogram on 02/19/2020 which demonstrated a severe anteriorly directed mitral valve regurgitation secondary to partial flail of the posterior leaflet, moderate mitral valve regurgitation and severe LV dysfunction with an ejection fraction of 35%. The patient reports since her admission her shortness of breath has somewhat improved and the swelling to her bilateral extremities have improved. Due to the patient's presenting symptoms, findings on her 2-D echocardiogram and transesophageal echocardiogram a consult was placed to Dr. Nate New from cardiothoracic surgery for further evaluation and treatment recommendations. Review of Systems A 14 point review of systems was completed and was negative except as mentioned in the HPI. All systems: negative - Constitutional Denies fever, Denies poor appetite, Denies weight loss - EENT Ears, nose, mouth and throat: Denies dysphagia, Denies headache, Denies nasal congestion, Denies neck lump, Denies sinus pain, Denies sinus pressure, Denies sore throat, Denies vertigo - Cardiovascular Reports decreased exercise tolerance (For the past 2-3 weeks), Reports shortness of breath, Denies edema (To her bilateral lower extremities mainly her ankles and feet), Denies irregular heart beat, Denies lightheadedness, Denies orthopnea, Denies palpitations, Denies syncope - Respiratory Denies cough, Denies cough with sputum, Denies hemoptysis, Denies home oxygen, Denies pain on inspiration, Denies sleep apnea, Denies wheezing - Gastrointestinal Denies abdominal pain, Denies change in bowel habits, Denies constipation, Denies diarrhea, Denies heartburn, Denies hematemesis, Denies jaundice, Denies nausea, Denies vomiting - Genitourinary Genitourinary: Denies flank pain, Denies hematuria, Denies hot flashes, Denies kidney stones, Denies urge incontinence, Denies urinary frequency, Denies vaginal discharge - Musculoskeletal Denies arm numbness/tingling, Denies gait dysfunction, Denies low back pain, Denies muscle weakness - Integumentary Denies dryness, Denies foot/leg ulcers, Denies lesions, Denies rash, Denies sores, Denies unusual bruising - Neurological Denies double vision, Denies headaches, Denies hearing difficulties, Denies loss of vision, Denies memory loss, Denies motor disturbance, Denies syncope, Denies tremors, Denies vertigo - Psychiatric Reports depression, Denies anxiety, Denies confusion - Endocrine Denies weight change - Hematologic/Lymphatic Denies easy bruising, Denies lymphadenopathy Past Medical History Past Medical History: GERD/Reflux, Hyperlipidemia, Hypertension, Memory Impairment History of Any Multi-Drug Resistant Organisms: None Reported Past Surgical History: Unable to Obtain Additional Past Surgical History / Comment(s): Non-cancerous growths removed from stomach when patient was in high school. Past Anesthesia/Blood Transfusion Reactions: Unable to Obtain Additional Past Anesthesia/Blood Transfusion Reaction / Comm: Unkown. Past Psychological History: Anxiety, Bipolar, Depression, Schizophrenia Smoking Status: Never smoker Past Alcohol Use History: None Reported Past Drug Use History: None Reported - Past Family History Mother Family Medical History: Cancer (Stomach), Congestive Heart Failure (CHF) Father Family Medical History: Cancer (Bone) Sister(s) Family Medical History: No Reported History Brother(s) Family Medical History: No Reported History Medications and Allergies Home Medications Medication Instructions Recorded Confirmed Type risperiDONE MICROSPHERES 25 mg IM Q14D 08/13/16 02/14/20 History [RisperDAL CONSTA] Atorvastatin [Lipitor] 10 mg PO DAILY 02/25/18 02/14/20 History Cholecalciferol [Vitamin D3 (25 5,000 unit PO DAILY 05/10/19 02/14/20 History Mcg = 1000 Iu)] Albuterol Sulfate [Albuterol 2 puff PO RT-Q6H PRN 02/14/20 02/14/20 History Sulfate Hfa] Atorvastatin [Lipitor] 10 mg PO DAILY 02/14/20 02/14/20 History Americo/D3/Mag11/Zinc/Public [facility]/Nando/Bor 1 tab PO DAILY 02/14/20 02/14/20 History [Caltrate 600+D Plus Tablet] DULoxetine HCL [Cymbalta] 60 mg PO DAILY 02/14/20 02/14/20 History LORazepam [Ativan] 0.5 mg PO TID 02/14/20 02/14/20 History Loratadine [Claritin] 10 mg PO DAILY 02/14/20 02/14/20 History Montelukast [Singulair] 10 mg PO HS 02/14/20 02/14/20 History Allergies Allergy/AdvReac Type Severity Reaction Status Date / Time No Known Allergies Allergy Verified 02/14/20 12:19 Surgical - Exam Vital Signs Temp Pulse Resp BP Pulse Ox 98.5 F 116 H 28 H 107/81 98 02/14/20 11:06 02/14/20 11:06 02/14/20 11:06 02/14/20 11:06 02/14/20 11:06 This is a pleasant 60-year-old female patient who is resting comfortably in bed in the intensive care unit. She is awake, alert and oriented 3 and is in no acute distress. She remained hemodynamically stable and is currently on Dobutrex drip at 5 mcg/kg/m. Oxygen saturations are 97% on room air. - General well developed, well nourished, no distress, no pain, obese - Eyes PERRL, normal ocular movement - ENT normal pinna, normal nares, normal mucosa, no hearing loss, no congestion, dentures - Neck Neck is supple, no lymphadenopathy. no masses, no bruits, trachea midline, no venous distension - Respiratory Lung sounds essentially clear throughout, diminished to her bilateral bases. No wheezes, rhonchi or crackles. Respirations are symmetrical and nonlabored. Oxygen saturation is 97 percent on room air. - Cardiovascular Regular rhythm and rate. S1 and S2 present, negative for S3 or gallop. Positive systolic murmur heard best to her left sternal border 2/6. +2 edema present to her right lower extremity. Right femoral line central catheter in place with Dobutrex infusing at 5 mcg/kg/m. - Abdomen Abdomen is soft, nontender and nondistended. Active bowel sounds present in all 4 abdominal quadrants. No guarding or rigidity. No organomegaly appreciated. - Genitourinary Deferred - Rectum Deferred - Integumentary no rash, no growths, no abnormal pigmentation - Neurologic Cranial nerves II through XII intact. normal coordination, normal sensation - Musculoskeletal normal gait, normal posture - Psychiatric oriented to time, oriented to person, oriented to place, speech is normal, memory intact Results - Labs 02/20/20 04:15 02/20/20 04:15 Abnormal Lab Results - Last 24 Hours (Table) 02/20/20 02/20/20 Range/Units 04:15 04:15 RBC 3.79 L (3.80-5.40) m/uL Sodium 133 L (137-145) mmol/L Calcium 7.4 L (8.4-10.2) mg/dL Total Bilirubin 1.5 H (0.2-1.3) mg/dL AST 131 H (14-36) U/L ALT 130 H (4-34) U/L Total Protein 4.4 L (6.3-8.2) g/dL Albumin 2.4 L (3.5-5.0) g/dL Microbiology - Last 24 Hours (Table) 02/17/20 05:42 Blood Culture - Preliminary Blood No Growth after 72 hours 02/14/20 11:09 Blood Culture - Preliminary Blood No Growth after 120 hours Diabetes panel 02/20/20 Range/Units 04:15 Sodium 133 L (137-145) mmol/L Potassium 4.2 (3.5-5.1) mmol/L Chloride 101 (98-107) mmol/L Carbon Dioxide 28 (22-30) mmol/L BUN 13 (7-17) mg/dL Creatinine 0.94 (0.52-1.04) mg/dL Glucose 81 (74-99) mg/dL Calcium 7.4 L (8.4-10.2) mg/dL AST 131 H (14-36) U/L ALT 130 H (4-34) U/L Alkaline Phosphatase 89 (38-126) U/L Total Protein 4.4 L (6.3-8.2) g/dL Albumin 2.4 L (3.5-5.0) g/dL Calcium panel 02/20/20 Range/Units 04:15 Calcium 7.4 L (8.4-10.2) mg/dL Albumin 2.4 L (3.5-5.0) g/dL Pituitary panel 02/20/20 Range/Units 04:15 Sodium 133 L (137-145) mmol/L Potassium 4.2 (3.5-5.1) mmol/L Chloride 101 (98-107) mmol/L Carbon Dioxide 28 (22-30) mmol/L BUN 13 (7-17) mg/dL Creatinine 0.94 (0.52-1.04) mg/dL Glucose 81 (74-99) mg/dL Calcium 7.4 L (8.4-10.2) mg/dL Adrenal panel 02/20/20 Range/Units 04:15 Sodium 133 L (137-145) mmol/L Potassium 4.2 (3.5-5.1) mmol/L Chloride 101 (98-107) mmol/L Carbon Dioxide 28 (22-30) mmol/L BUN 13 (7-17) mg/dL Creatinine 0.94 (0.52-1.04) mg/dL Glucose 81 (74-99) mg/dL Calcium 7.4 L (8.4-10.2) mg/dL Total Bilirubin 1.5 H (0.2-1.3) mg/dL AST 131 H (14-36) U/L ALT 130 H (4-34) U/L Alkaline Phosphatase 89 (38-126) U/L Total Protein 4.4 L (6.3-8.2) g/dL Albumin 2.4 L (3.5-5.0) g/dL - Imaging Chest x-ray: report reviewed, image reviewed EKG: image reviewed Additional studies: 2-D echocardiogram and transesophageal echocardiogram films reviewed by Dr. Nate New. Assessment and Plan Assessment: 1. Acute hypoxic respiratory failure secondary to acute systolic heart failure 2. Moderate to severe mitral valve regurgitation with mitral valve prolapse, identified on 2-D echocardiogram and transesophageal echocardiogram 3. Acute systolic heart failure with a documented ejection fraction of 35-40% 4. Possible non-ST elevated myocardial infarction with positive troponins as high as 0.172 5. Acute kidney injury, admission BUN 21 and creatinine 1.09 6. Elevated transaminase enzymes, possibly secondary to acute systolic heart failure or cholelithiasis 7. New-onset paroxysmal atrial fibrillation 8. Newly diagnosed deep vein thrombosis to her right leg, demonstrated on lower extremity duplex study 9. History of hypertension 10. History of hyperlipidemia 11. History of depression 12. History of schizophrenia 13. Lifetime nonsmoker Plan: The patient was seen and examined at her bedside in the intensive care unit. Her chart and diagnostics were reviewed. The patient was also seen and examined by Dr. Nate New who discussed with the patient the findings on the 2-D echocardiogram and transesophageal echocardiogram. Preoperative testing and preoperative teaching has been initiated. A venous duplex has been ordered of her bilateral lower extremities to rule out DVT as her right leg remains with +1 to +2 edema. The venous duplex was completed and demonstrated a positive deep vein thrombosis involving at least the lower popliteal vein and the upper calf vein, she has been started on a heparin drip per protocol initiated by critical care medicine. The patient is scheduled for a heart catheterization to be completed tomorrow 02/21/2020. Once the patient's preoperative testing and heart catheterization results have been obtained and reviewed, consideration for mitral valve repair replacement would be considered. A STS risk score will also be calculated and discussed with the patient. Bedside FEV1 test has been completed which demonstrated a 41% of predicted value. Remove the right femoral central catheter line, older placed for PICC line. Continue to optimize medically with aspirin, statin, beta nadir and Dobutrex drip. Medical management and other comorbidities per primary care service, cardiology and pulmonary critical care medicine. Further recommendations to follow based on patient's clinical course. Thank you Dr. Carrero for this consult and we look forward to working with you in the care of this patient. Time with Patient: Greater than 30
[2020-02-20 16:01] LABS: INR 1.1 (<1.2); Partial Thromboplastin Time 24.6 sec (22.0-30.0); Prothrombin Time 11.6 sec (9.0-12.0)
[2020-02-20] MEDS: HEPARIN SOD,PORK IN 0.45% NACL 25,000 UNIT in 0.45% NACL 1 250ML.BAG IV SCH (16:23)
--- NOTE | 2020-02-20 16:38 | US ---
EXAMINATION TYPE: US carotid duplex BILAT DATE OF EXAM: 02/20/2020 COMPARISON: 03/04/2011 CLINICAL HISTORY: 60-year-old female Pre op cardiac surgery TECHNIQUE: Carotid duplex ultrasound examination. Indirect Doppler criteria is utilized. FINDINGS: EXAM MEASUREMENTS: RIGHT: Peak Systolic Velocity (PSV) cm/sec ----- Right CCA: 49.9 ----- Right ICA: 70.5 ----- Right ECA: 52.6 ICA/CCA ratio: 1.4 RIGHT: End Diastole cm/sec ----- Right CCA: 18.8 ----- Right ICA: 30.1 ----- Right ECA: 9.9 LEFT: Peak Systolic Velocity (PSV) cm/sec ----- Left CCA: 51.2 ----- Left ICA: 56.1 ----- Left ECA: 79.1 ICA/CCA ratio: 1.1 LEFT: End Diastole cm/sec ----- Left CCA: 18.0 ----- Left ICA: 21.7 ----- Left ECA: 11.1 VERTEBRALS (direction of flow): Right Vertebral: Antegrade Left Vertebral: Antegrade Rhythm: Arrhythmia Girls Sw[employer] notes: Bilateral intimal thickening, no elevated velocities, no significant stenosis. IMPRESSION: Mild atherosclerotic change at the bifurcations. No hemodynamically significant internal carotid ericka ry stenosis on either side. Criteria for Assigning % of Stenosis / Diameter reduction (Estimation based on the indirect measurements of the internal carotid artery velocities (ICA PSV). 1. Normal (no stenosis)=ICA PSV < 125 cm/s: ratio < 2.0: ICA EDV<40 cm/s. 2. Less than 50% stenosis=ICA PSV < 125 cm/s: ratio < 2.0: ICA EDV<40 cm/s. 3. 50 to 69% stenosis=ICA PSV of 125 to 230 cm/s: ration 2.0 ? 4.0: ICA EDV 40-100 cm/s. 4. Greater than 70% stenosis to near occlusion= ICA PSV > 230 cm/s: ratio > 4.0: ICA EDV > 100 cm/s. 5. Near occlusion= ICA PSV velocities may be low or undetectable: variable ratio and ICA EDV. 6. Total occlusion=unable to detect flow.
[2020-02-20 20:26] LABS: Hepatitis A Antibody IgM Non-Reactive (Non-Reactive); Hepatitis B Core IgM Non-Reactive (Non-Reactive); Hepatitis B Surface Antigen Non-Reactive (Non-Reactive); Hepatitis C IgG Antibody Non-Reactive (Non-Reactive)
[2020-02-20] MEDS: MONTELUKAST 10 MG TAB PO SCH (20:44)
[2020-02-20] MEDS: MUPIROCIN 2% OINT 22 GM TUBE NASAL SCH (20:45)
[2020-02-20 23:32] LABS: Hemoglobin A1C 6.5 % (4.0-6.0)
[2020-02-21] MEDS: PIPERACILLIN-TAZOBACTAM 3.375 GM in SODIUM CHLORIDE 0.9% 100 ML IVPB SCH ×3 (03:16→17:37)
[2020-02-21 05:28] LABS: Calcium 8.7 mg/dL (8.4-10.2); Potassium 4.2 mmol/L (3.5-5.1)
[2020-02-21 05:36] LABS: Basophils # (A) 0.1 k/uL (0-0.2); Basophils % (A) 1 %; Eosinophils # (A) 0.4 k/uL (0-0.7); Eosinophils % (A) 7 %; Hypochromasia Moderate; Lymphocytes # (A) 1.8 k/uL (1.0-4.8); Lymphocytes % (A) 29 %; MCHC 31.8 g/dL (31.0-37.0); MCV 97.4 fL (80.0-100.0); Monocytes # (A) 0.6 k/uL (0-1.0); Monocytes % (A) 10 %; Neutrophils # (A) 3.3 k/uL (1.3-7.7); Neutrophils % (A) 52 %; Platelet Count 184 k/uL (150-450); RBC 4.21 m/uL (3.80-5.40); RDW 14.6 % (11.5-15.5); WBC 6.3 k/uL (3.8-10.6)
[2020-02-21] MEDS: CARVEDILOL 3.125 MG TAB PO SCH ×2 (07:07→17:37)
[2020-02-21] MEDS: PANTOPRAZOLE 40 MG TABLET PO SCH (07:07)
[2020-02-21] MEDS: CHOLECALCIFEROL 1,000 UNIT TAB PO SCH (08:21)
[2020-02-21] MEDS: FUROSEMIDE 40 MG TAB PO SCH ×2 (08:22→16:24)
[2020-02-21] MEDS: POTASSIUM CHLORIDE ER 20 MEQ TAB.ER PO SCH (08:23)
[2020-02-21] MEDS: SPIRONOLACTONE 25 MG TAB PO SCH (08:23)
[2020-02-21] MEDS: MUPIROCIN 2% OINT 22 GM TUBE NASAL SCH ×2 (08:23→23:28)
[2020-02-21] MEDS: ATORVASTATIN 10 MG TAB PO SCH (08:23)
[2020-02-21] MEDS: POTASSIUM CHLORIDE ER 10 MEQ TAB.ER.PRT PO SCH (08:23)
[2020-02-21] MEDS: ASPIRIN 81 MG PO SCH (08:23)
[2020-02-21] MEDS: CALCIUM CARB-VIT D 500MG-200UN 1 EACH TAB PO SCH (08:23)
[2020-02-21] MEDS: LORATADINE 10 MG TAB PO SCH (08:23)
[2020-02-21] MEDS: DULoxetine HCL 60 MG CAPSULE.DR PO SCH (08:23)
[2020-02-21] MEDS: LORazepam 0.5 MG TAB PO SCH ×3 (08:25→23:28)
[2020-02-21] MEDS ORDERED: IV FLUID CONTINUATION 300 ML IV ONE (08:45)
--- NOTE | 2020-02-21 09:09 | P.PN ---
Subjective Progress Note Date: 02/21/20 Principal diagnosis: Moderate to severe mitral valve regurgitation, mitral valve prolapse, acute systolic heart failure with a documented ejection fraction of 35-40%, new-onset paroxysmal atrial fibrillation and possible non-ST elevated myocardial infarction with positive troponins as high as 0.172. Past medical history significant for acute kidney injury with an admission BUN of 21 and creatinine 1.09, elevated transaminase, hypertension, hyperlipidemia, depression, anxiety, schizophrenia and is a lifetime nonsmoker. The patient was seen and examined in follow-up today 02/21/2020 at her bedside in intensive care unit. She is currently laying in bed and is in no acute distress. She is awake, alert and oriented 3. Currently she denies any complaints of pain or shortness of breath. Bedside telemetry showing normal sinus rhythm heart rate 88. Oxygen saturations are 95% on room air. A bedside FEV1 was completed yesterday which showed a 41% of predicted value. She is scheduled for a heart catheterization this a.m. Preoperative teaching and preoperative workup remains in place, once her preoperative workup has been completed a STS risk score will be calculated and discussed with the patient. We will obtain a 5 m walk test. Carotid duplex study was completed yesterday which showed no hemodynamically significant internal carotid artery stenosis bilaterally. The patient continues to have some right lower extremity swelling and underwent an ultrasound venous Doppler study yesterday which demonstrated a positive DVT to her right lower popliteal vein to her upper right calf vein. Heparin drip was initiated per protocol, but is currently on hold for her heart catheterization this morning. The patient remains on aspirin, statin, beta nadir and Dobutrex drip at 5 mcg/kg/m. Objective - Vital Signs Vital signs: Vital Signs Temp 97.6 F 02/21/20 08:00 Pulse 89 02/21/20 08:00 Resp 18 02/21/20 08:00 BP 102/66 02/21/20 08:00 Pulse Ox 96 02/21/20 08:00 Intake & Output 02/20/20 02/21/20 02/21/20 18:59 06:59 18:59 Intake Total 561.328 453.520 40 Output Total 3385 2820 135 Balance -2823.672 -2366.480 -95 Weight 74.2 kg Intake: IV 340 340 40 0.9 KVO 240 240 40 Piperacillin-Tazobactam 3 100 100 .375 gm In Sodium Chloride 0.9% 100 ml @ 25 mls/hr IVPB Q8H [facility] Rx#: [id number] Intake, IV Titration 221.328 113.520 Amount DOBUTamine DRIP 500 mg In 221.328 Dextrose/Water 1 250ml. bag @ 5 MCG/KG/MIN 12.72 mls/hr IV .[id number] [facility] Rx #:[id number] Heparin Sod,Pork in 0.45% 113.520 NaCl 25,000 unit In 0.45 % NaCl 1 250ml.bag @ 12 UNITS/KG/HR 9.504 mls/hr IV .Q24H [facility] Rx#: [id number] Output: Urine 3386 3180 135 Other: Voiding Method Indwelling Catheter Indwelling Catheter - Exam The patient was seen and examined at her bedside in the intensive care unit today. She is currently laying in bed in no apparent acute distress. She is awake, alert and oriented 3. Remained hemodynamically stable and is currently on Dobutrex drip at 5 mcg/kg/m. Oxygen saturations are 95% on room air. - Constitutional General appearance: Present: cooperative, no acute distress, obese - EENT Eyes: Present: edentulous, PERRLA, normal appearance. Absent: scleral icterus ENT: Present: hearing grossly normal - Neck Details: Neck is supple, no JVD. - Respiratory Details: Lung sounds essentially clear to her bilateral upper lobes, few scattered crackles to bilateral bases. No wheezes or rhonchi. Respirations are symmetrical and nonlabored. Oxygen saturation is 95% on room air. Achieving 500 mL on her incentive spirometry. - Cardiovascular Details: Regular rhythm and rate. S1 and S2 present, negative for S3 or gallop. Positive systolic murmur heard best to her left sternal border 3/6. +1 to +2 edema to her right lower extremity. Dobutrex drip at 5 mcg/kg/m. - Gastrointestinal Gastrointestinal Comment(s): Abdomen is soft, nontender and nondistended. Active bowel sounds present in all 4 abdominal quadrants. No guarding or rigidity. No organomegaly appreciated. Nothing by mouth at this time for heart cath. - Genitourinary Genitourinary Comment(s): Lester catheter for accurate I&O. Draining clear yellow urine. - Integumentary Integumentary Comment(s): Skin is warm and dry. No clubbing or cyanosis is present. No rash or abnormal pigmentation is present. - Neurologic Neurologic: Present: CNII-XII intact - Musculoskeletal Musculoskeletal: Present: gait normal, generalized weakness, strength equal chelo aterally - Psychiatric Psychiatric Comment(s): Flat affect Psychiatric: Present: A&O x's 3, intact judgment & insight - Allied health notes Allied health notes reviewed: nursing (Carotid duplex study results reviewed, venous Doppler study reviewed.) - Labs CBC & Chem 7: 02/21/20 04:18 02/21/20 04:18 Labs: Abnormal Lab Results - Last 24 Hours (Table) 02/20/20 02/20/20 02/20/20 Range/Units 04:15 04:15 22:29 APTT 79.3 H (22.0-30.0) sec Sodium (137-145) mmol/L Hemoglobin A1c 6.5 H (4.0-6.0) % Magnesium 1.5 L (1.6-2.3) mg/dL 02/21/20 02/21/20 Range/Units 04:18 04:18 APTT 70.2 H (22.0-30.0) sec Sodium 136 L (137-145) mmol/L Hemoglobin A1c (4.0-6.0) % Magnesium (1.6-2.3) mg/dL Microbiology - Last 24 Hours (Table) 02/17/20 05:42 Blood Culture - Preliminary Blood No Growth after 96 hours 02/20/20 18:54 Nasal Screen MRSA/MSSA - Preliminary Nasal Swab 02/14/20 11:09 Blood Culture - Final Blood No Growth after 144 hours Assessment and Plan Assessment: 1. Acute hypoxic respiratory failure secondary to acute systolic heart failure 2. Moderate to severe mitral valve regurgitation with mitral valve prolapse, identified on 2-D echocardiogram and transesophageal echocardiogram 3. Acute systolic heart failure with a documented ejection fraction of 35-40% 4. Possible non-ST elevated myocardial infarction with positive troponins as high as 0.172 5. Acute kidney injury, admission BUN 21 and creatinine 1.09 6. Elevated transaminase enzymes, possibly secondary to acute systolic heart failure or cholelithiasis 7. New-onset paroxysmal atrial fibrillation 8. Newly diagnosed deep vein thrombosis to her right leg, demonstrated on lower extremity duplex study 9. History of hypertension 10. History of hyperlipidemia 11. History of depression 12. History of schizophrenia 13. Lifetime nonsmoker Plan: 1. Continued optimized medically, aspirin, statin, beta nadir and Dobutrex drip. 2. Continue heparin drip per protocol when okay by cardiology to restart for right lower extremity DVT. 3. Once able to ambulate after the heart catheterization we will complete a 5 m walk test. 4. Once her preoperative testing has been completed we will calculate a STS risk score which will be discussed with the patient. 5. Encourage use of her incentive spirometry 10 times every hour while awake. 6. Increase activity as tolerated. Physical/occupational therapy and cardiac rehab following. 7. MRSA/MSSA nasal swab results remain pending. Will continue to follow. Continue mupirocin 2% nasal ointment twice a day. 8. Medical management and other comorbidities her primary care service, cardiology and pulmonary critical care medicine. 9. More recommendations to follow based on patient's clinical course. Time with Patient: Less than 30
[2020-02-21] MEDS ORDERED: fentaNYL (PF) 50 MCG/ML 2 ML AMP IV ONE (09:13)
[2020-02-21] MEDS ORDERED: MIDAZOLAM 2 MG/2 ML VIAL IV ONE (09:13)
[2020-02-21] MEDS ORDERED: LIDOCAINE 1% INJ 10MG/ML (20 ML MDV) SQ ONE (09:15)
[2020-02-21] MEDS ORDERED: VERAPAMIL SYRINGE (5 MG/10 ML) INTRAARTER ONE (09:17)
[2020-02-21] MEDS ORDERED: HEPARIN SODIUM 1,000 UN/ML (10ML VL) IV ONE (09:18)
[2020-02-21] MEDS ORDERED: IOPAMIDOL-370 100ML BTL INJ ONE (09:30)
[2020-02-21] MEDS ORDERED: SODIUM CHLORIDE 0.9% 1,000 ML IV SCH (09:45)
--- NOTE | 2020-02-21 09:53 | PN ---
PROGRESS NOTE PULMONARY/CRITICAL CARE PROGRESS NOTE: DATE OF SERVICE: 02/21/2020 A 60-year-old female who was admitted with a diagnosis of acute systolic congestive heart failure. The patient presented with severe and profound shortness of breath. In addition, she had a possible non ST-segment elevation myocardial infarction and was found to have mitral regurgitation, possibly secondary to rupture of a chordae tendineae. The patient is apparently going for cardiac catheterization today and PICC line insertion today. She was discovered to have a right leg DVT and she was started on IV heparin yesterday. Currently, she is getting room air. Her saline IV is running at 20 mL an hour. She is on dobutamine at 5 mcg/kg per minute. Heparin is on hold. Today, she is lying comfortably flat in bed. She has no particular complaints. She is not short of breath or having any chest pain or chest discomfort. Current vital signs are reviewed, temperature 97.6, heart rate 80, respiratory rate 18, blood pressure 102/66 mean 78, room-air saturation 96%. Appears in no acute distress. HEENT: Examination is grossly unremarkable. Mucous membranes are moist. No supplemental oxygen. NECK: Supple. Full range of motion. No adenopathy. Neck veins are flat. CARDIOVASCULAR: Examination reveals regular rhythm and rate. S1, S2 normal. There is no S3 or S4. There is a harsh systolic murmur. Heart rate is about 82 beats per minute. LUNGS: Reveal mostly clear breath sounds. No wheezes, rhonchi, or crackles. Breath sounds equal bilaterally. ABDOMEN: Soft, bowel sounds are heard. No masses or tenderness. EXTREMITIES: Intact. No cyanosis, clubbing, or edema. SKIN: Without rash. NEUROLOGIC: Examination is brief but nonfocal. LAB DATA: Reviewed. CBC is normal. PTT is 70.2. Sodium 136, potassium 4.2 chloride is 101, CO2 os 28, anion gap is 7 and BUN and creatinine were 13 and 0.96. Microbiology is all negative. Venous Doppler shows a DVT in the right leg. Medications are reviewed. ASSESSMENT: 1. Acute systolic congestive heart failure, improved. 2. Severe shortness of breath, much improved, secondary to #1. 3. Possible non ST-segment elevation myocardial infarction. 4. Severe mitral regurgitation with possible rupture of the chordae tendineae. 5. Right lower extremity DVT. 6. Acute kidney injury, likely related to cardiorenal syndrome. 7. History of schizoaffective disorder. 8. Hyperlipidemia. 9. Stable mild chronic obstructive pulmonary disease. 10.Elevated liver enzymes, improved, secondary to congestive hepatopathy from heart failure. PLAN: Currently, the patient is doing well. Heparin is on hold. She remains on dobutamine at 5 mcg/kg per minute. She was discovered to have a right leg DVT. Heparin was started yesterday. Today, she is going for heart catheterization and PICC line. Additional recommendations and suggestions are forthcoming. MMODL / IJN: [id number] /
[2020-02-21] MEDS: DOBUTamine DRIP 500 MG in DEXTROSE/WATER 1 250ML.BAG IV SCH (10:15)
--- NOTE | 2020-02-21 12:27 | IR ---
PICC LINE PLACEMENT: HISTORY: Infection requiring long-term antibiotic therapy PROCEDURE: Ultrasound and fluoroscopic guidance of PICC line placement. COMPLICATIONS: None ANESTHESIA: 1. 1% Lidocaine locally. FINDINGS/TECHNIQUE: The procedure was explained to the patient. The risks, complications, benefits and alternatives were discussed and any questions were answered. Informed consent was obtained. The patient was placed supine on the fluoroscopic table and prepped and draped in the usual sterile fash ion. Utilizing a 21 gauge needle and sonographic and fluoroscopic guidance, access in the right ba silic vein was achieved and there is placement of a 0.018 guidewire. The vein is patent. A 5-Fr she ath was placed over the guidewire. The guidewire and dilator were removed and a 5-F. Double lumen PI CC line was placed through the sheath with the tip at the level of the SVC. The sheath was removed, the catheter was flushed and sutured into position. The patient was stable throughout the procedure and remained stable upon discharge from the Department of Radiology. The vein puncture was patent under ultrasound. A manjarrez scale image was obtained to document patency of the vein punctured. All elements of the maximal barrier technique were utilized. FLUOROSCOPY TIME: 0.2 minutes, women's submitted IMPRESSION: Successful PICC double lumen line placement under ultrasound and fluoroscopic guidance.
--- NOTE | 2020-02-21 13:15 | P.PN ---
Subjective Progress Note Date: 02/21/20 60-year-old female [facility] with past medical history of hypertension hyperlipidemia and schizophrenic effect who developed to have worsening shortness of breath for the last 2-3 weeks according to her was seen at [facility] [place] treated for bronchitis with no effect. Patient call the clinic concern that she is having more dyspnea and shortness of breath with worsening symptoms was instructed to come to the emergency department. Was seen and evaluated has been having significant and worsening shortness of breath with minimum exertion increased PND orthopnea no angina had some abdominal discomfort with diarrhea no vomiting no worsening cough fever or chills. Jeanie was seen a [facility] department her troponin was elevated BNP was quite bit high at the time lactic acid was elevated as well patient chest x-ray showed early pulmonary edema with venous congestion. Patient d-dimer was elevated and ended up going for CTA showed no pulmonary embolism but sign of pulmonary edema and pulmonary hypertension. Patient was started on IV diuretics heparin drip and nitro and admitted to the hospital for elevated troponin with possible non-ST NH, pulmonary edema, congestive heart failure excessive patient. 02/14: Patient evaluated, denies any further complaints of shortness of breath. Liver enzymes still noted to be elevated AST 140, ALT 160, total bilirubin 1.6, potassium 3.0, sodium 136, BUN 22, creatinine 0.98. Potassium replaced per protocol. Liver ultrasound obtained for abnormal liver function, showed the gallbladder with abnormally thickened wall and gallstones, correlate for acute cholecystitis, nephrolithiasis, and fatty liver. Will consult surgery for acute cholecystitis. She continues on Lasix 40 mg daily IVP, cardiology on consult. Echocardiogram showed mild concentric left ventricular hypertrophy, left ventricular systolic function moderately impaired with an EF of 35-40%, increased LAP grade 2 diastolic dysfunction, LA is severely dilated, severe mitral regurgitation, moderate mitral valve prolapse, moderate tricuspid regurgitation, moderate pulmonary hypertension. Vital signs are stable, afebrile 97.6, heart rate 65, wrist rate 22, blood pressure 126/66 she's 98% on 2 L via nasal cannula. 02/15: Patient evaluated this morning, resting comfortably in bed. Denies any shortness of breath or chest pain. Liver enzymes are trending downwards, AST 100, ALT 129, total bilirubin 1.5, she is asymptomatic and tolerating food and fluids without nausea or vomiting or abdominal pain. Surgery is on consult, may need cholecystectomy as an outpatient basis once her cardiac status is stabilized. Cardiology on consult, may need cardiac cath, she remains on furosemide 40 mg IV push every 8 hours along with carvedilol 3.125 mg twice a day and lisinopril 5 mg daily. Vital signs are stable 109/75, respiratory rate of 22, heart rate 95, afebrile 97.8, 98% on 2 L via nasal cannula. Magnesium low at 1.5, potassium is also low at 3.0, electrolyte replacement has been ordered. 02/16 Overnight patient was to ICU around 10 pm for worsening blood pressure and shortness of breath. Patient was given a total of 1600 ml of fluids, chest helped the pressure briefly. Patient was started on Neosynephrine . Patient is maintaining the MAP at 60. Patient is currently on 3 L and did not need BiPAP overnight. Blood gases were done which suggested a pH of 7.48 CO2 33 pO2 79 bicarb 26 which didinot suggest need the BIPAP. UO was 25 ml/ hr. Lasix was given 40 iv once which did not improve the urine output. Labs his sodium is 135 potassium 5.7 bicarb 21 creatinine increased to 1.3 last lactic acid was 4.1 at 3 in the morning repeat lactic acid is pending. Total bilirubin is 2.5 liver enzymes is elevated. Urinalysis suggestive of ketones, wbc's and rbc's.: Patient currently on Zosyn. Surgery is not planning any intervention for acute cholecystitis. Patient is currently on Zosyn patient appears very unstable and prognosis appears guarded. On evaluation patient endorses shortness of breath denies any cough or sputum production. She denies any abdominal pain. Patient is started on dobutamine drip and digoxin by cardiology. Lasix switched to oral twice a day. 02/17 patient evaluated bedside. Denies any shortness of breath, chest main, palpitation, cough with sputum production. She denies any abdominal pain. On evaluation patient's vital signs,patient is afebrile to respiratory rate 22 blood pressure 99/70 96% onroom air with a pulse of 90. CBC is unremarkable hemoglobin is maintaining 12 sodium 133 potassium 3.4 BUN 27 creatinine 1.23, total bilirubin is improved to 1.5 AST improved to 756 from 1155 ALT 220 from 283. Chest x-ray done this morning suggestive of cardiomegaly with worsening interstitial suggestive for interstitial pneumonitis and stable left lower lobe infiltrate. Continue Lasix and Aldactone. Continue digoxin and Coreg. Continue dobutamine adjusted to the map of 60. off phenylephrine drip 02/18: Patient remains in the intensive care unit. She was started on dobutamine yesterday. She is scheduled for TERE today to evaluate mitral valve. She will also require cardiac catheterization and possible mitral valve repair. Cardiology is following closely. Atrial fibrillation converted to a sinus tachycardia. Chest x-ray this morning reveals similar to prior exam. Cardiomegaly. Possible left lower lobe atelectasis, edema, correlate to exclude pneumonia. Mild prominence of interstitium. General surgery has been following the patient and signed off at this point. No plan for any surgical intervention at this point. 111, blood pressure 111/76, pulse ox 98% on room air. CBC is unremarkable. INR 1.3. Sodium 133. Total bilirubin 1.7, liver function tests are improving with AST of 263, ALT 163, alkaline phosphatase 96. Urine culture has been finalized with no growth. Blood culture no growth at 96 hours and second set at 48 hours. Patient questioned about alcohol intake and there is concern the patient does have alcohol abuse history. No definitive details given by the patient. 02/19: Yesterday, patient underwent TERE that revealed severe anteriorly directed mitral regurgitation secondary to partial flail of the posterior leaflet, moderate mitral regurgitation, severe LV dysfunction with EF of 35%. She is scheduled for left heart catheterization today but her nurse is having a difficult time reaching the public guardian. Cardiovascular consult has also been added as well. Patient remains on dobutamine at 5 mcg/kg/m. Repeat chest x-ray reveals mild to moderate cardiomegaly and mild interstitial change persists. Correlate for mild pulmonary vascular congestion. She denies any chest pain or shortness of breath. She has been afebrile, heart rate 89, blood pressure 100/77, pulse ox 95% on room air. She is only reaching 500 on incentive spirometry. Therapy consult has been added and patient may require subacute rehab. sales administration manager is following. Liver enzymes continued to improve with total bilirubin 1.5, AST 131, ALT 130. 02/20: Patient remains in the intensive care unit on dobutamine. She is scheduled for heart catheterization today which was delayed by 1 day as her public guardian was not able to be reached yesterday. threat monitoring analyst is a sinus rhythm with occasional PVCs. She has a Lester catheter with good urine output. Patient had a central line removed yesterday and found DVT right lower extremity and started on heparin drip. A PICC line has been placed. Patient has been seen by cardiothoracic surgery with plan for mitral surgery awaiting heart catheterization report and stabilization of patient. At this time, patient denies any chest pain, shortness of breath. She is resting in bed appears to be comfortable. Review of systems Constitutional: Denies chills, Denies fever, Denies lethargy, Denies malaise, Denies poor appetite, reports weakness Eyes: denies decreased vision, denies diplopia, denies discharge, denies pain Ears, nose, mouth and throat: Denies dental pain, Denies headache, Denies nasal discharge, Denies nose pain Cardiovascular: Denies chest pain, Denies decreased exercise tolerance, Denies edema, Denies high blood pressure, Denies irregular heart beat, Denies palpitations, Denies paroxysmal nocturnal dyspnea, Denies rapid heart beat, Denies shortness of breath Respiratory: Denies congestion, Denies cough, Denies cough with sputum, positive for dyspnea Denies home oxygen, Denies wheezing Gastrointestinal: Denies abdominal pain, Denies change in bowel habits, Denies coffee ground emesis, Denies early satiety, Denies excessive gas, Denies heartb urn, Denies hematemesis, Denies hematochezia, Denies loss of appetite, Denies nausea, Denies vomiting Genitourinary: Denies dysuria, Denies flank pain, Denies kidney stones, Denies menorrhagia, Denies urgency, Denies urinary frequency Musculoskeletal: reports gait dysfunction, Denies limitation of motion, Denies morning stiffness, Denies muscle cramps Integumentary: Denies rash, Denies wounds, Denies brittle nails, Denies change in hair/nails, Denies darkening of skin Neurological: Denies balance difficulties, Denies change in speech, Denies double vision, Denies gait dysfunction, Denies loss of vision, Denies motor disturbance, Denies numbness, Denies paralysis, Denies paresthesias, Denies seizures Psychiatric: Denies anxiety, Denies depression Endocrine: Denies excessive sweating, Denies excessive thirst, Denies high blood sugars, Denies palpitations Hematologic/Lymphatic: Denies easy bruising, Denies lymphadenopathy Physical Examination Gen: This is a 60-year-old female. Patient is resting in the ICU bed and appears to be comfortable. HEENT: Head is atraumatic, normocephalic. Pupils equal, round. Sclerae is anicteric. NECK: Supple. No JVD. No lymphadenopathy. No thyromegaly. LUNGS: Diminished bilaterally. No wheezes or rhonchi. No intercostal retractions. HEART: Regular rate and rhythm. 2/6 systolic murmur. ABDOMEN: Soft. Bowel sounds are present. No masses. No tenderness. Lester catheter draining clear josy urine. EXTREMITIES: Bilateral pedal edema. No calf tenderness. NEUROLOGICAL: Patient is awake, alert and oriented x3. Cranial nerves 2 through 12 are grossly intact. Assessment and Plan 1. Acute hypoxic respiratory failure secondary to a combination of possible non-ST NH, and congestive heart failure. TERE as above. Cardiac catheterization to be completed today. Cardiology consult appreciated. 2. Acute systolic heart failure. Continue dobutamine drip, Lasix 40 mg oral twice daily, Aldactone 25 mg daily, Coreg 3.125 mg twice daily. 3. Possible non-ST NH. Continue aspirin 81 mg daily, Lipitor 10 mg daily, Coreg. 4. Severe MR moderate mitral valve prolapse moderate pulmonary hypertension and moderate tricuspid regurgitation. Plan for TERE and cardiac cath this week. 5. Abnormal liver function test secondary to decompensated congestive heart failure and acute cholecystitis, cholecystectomy as an outpatient basis. General surgery has signed off. 6. Acute kidney injury. With chronic kidney disease stage II. Monitor BUN and creatinine. Avoid nephrotoxic agents. 7. Hypotension secondary to cardiogenic shock. Dobutamine drip 8. New onset atrial fibrillation, paroxysmal atrial fibrillation. Continue Coreg. Cardiology consult appreciated. 9. Hyperlipidemia. Continue atorvastatin 10 mg a day. 10. Mild intermittent asthma. Continue Singulair 10 mg at bedtime, Claritin 10 mg daily. 11. Recurrent depression. Continue Cymbalta 60 mg daily, Ativan 0.5 mg 3 times daily. 12. History of schizoaffective disorders: Has been on risperidone 25 mg IM injection every 14 days and seen psych on regular basis. 13. Mild coagulopathy: With elevated PT/INR, secondary to decompensated congestive heart failure. 14. Right lower extremity DVT most likely due to central line. Patient started on heparin drip. 15. DVT prophylaxis: Heparin drip. 16. GI prophylaxis. Continue pantoprazole orally. 17. COVID-19 infection not present. CODE STATUS: Full code. Discharge plan: Home with [facility], possible need for subacute rehab. PT evaluation. Impression and plan of care have been directed as dictated by the signing physician. Eli Perry nurse practitioner acting as scribe for signing physician. Objective - Vital Signs Vital signs: Vital Signs Temp 98 F 02/21/20 04:00 Pulse 89 02/21/20 07:00 Resp 10 L 02/21/20 07:00 BP 98/76 02/21/20 07:00 Pulse Ox 95 02/21/20 07:00 Intake & Output 02/20/20 02/21/20 02/21/20 18:59 06:59 18:59 Intake Total 561.328 453.520 40 Output Total 3385 2820 135 Balance -2823.672 -2366.480 -95 Weight 74.2 kg Intake: IV 340 340 40 0.9 KVO 240 240 40 Piperacillin-Tazobactam 3 100 100 .375 gm In Sodium Chloride 0.9% 100 ml @ 25 mls/hr IVPB Q8H JACK Rx#: [id number] Intake, IV Titration 221.328 113.520 Amount DOBUTamine DRIP 500 mg In 221.328 Dextrose/Water 1 250ml. bag @ 5 MCG/KG/MIN 12.72 mls/hr IV .[id number] JACK Rx #:[id number] Heparin Sod,Pork in 0.45% 113.520 NaCl 25,000 unit In 0.45 % NaCl 1 250ml.bag @ 12 UNITS/KG/HR 9.504 mls/hr IV .Q24H JACK Rx#: [id number] Output: Urine 3385 2820 135 Other: Voiding Method Indwelling Catheter Indwelling Catheter - Labs CBC & Chem 7: 02/21/20 04:18 02/21/20 04:18 Labs: Abnormal Lab Results - Last 24 Hours (Table) 02/20/20 02/20/20 02/20/20 Range/Units 04:15 04:15 22:29 APTT 79.3 H (22.0-30.0) sec Sodium (137-145) mmol/L Hemoglobin A1c 6.5 H (4.0-6.0) % Magnesium 1.5 L (1.6-2.3) mg/dL 02/21/20 02/21/20 Range/Units 04:18 04:18 APTT 70.2 H (22.0-30.0) sec Sodium 136 L (137-145) mmol/L Hemoglobin A1c (4.0-6.0) % Magnesium (1.6-2.3) mg/dL Microbiology - Last 24 Hours (Table) 02/17/20 05:42 Blood Culture - Preliminary Blood No Growth after 96 hours 02/20/20 18:54 Nasal Screen MRSA/MSSA - Preliminary Nasal Swab 02/14/20 11:09 Blood Culture - Final Blood No Growth after 144 hours
--- NOTE | 2020-02-21 15:44 | P.CARDCATH ---
Date of Procedure: 02/21/20 Preoperative Diagnosis: cardiomyopathy, congestive heart failur and mitral regurgitation Postoperative Diagnosis: severe mitral regurgitation, cardiomyopathy and normal coronary arteries Procedure(s) Performed: left heart catheterization with left ventriculography Description of Procedure: HISTORY: This is a 60-year-old female who was admitted to the hospital with severe cardiomyopathy, flail posterior mitral leaflet and severe mitral regurgitation. Patient and is advised to have a cardiac catheterization to rule out underlying ischemic heart disease. CONSENT:I have discussed the risks, benefits and alternative therapies for the above-mentioned procedure and for both sedation/analgesia as well as necessary blood product administration, if indicated, as they pertain to this patient. The patient has indicated understanding and acceptance of the risks and procedures discussed. PROCEDURE: Patient was brought to the lab in a fasting state. Patient was given some IV sedation. The right wrist is infiltrated with lidocaine and right radial artery was entered using Seldinger technique. A 6-Zimbabwean catheter was left in place and selective coronary arteriography and left ventriculography was performed. Patient tolerated the procedure well. TR band was applied for hemostasis. No immediate complications were noted and patient was transferred to [facility] in a stable condition Conscious Sedation: Versed 1mg Fentanyl 25 g Duration 22minutes HEMODYNAMICS: The aortic pressure is about 110/70. Left ankle end-diastolic pressure is 8-12. No gradient across the aortic valv SELECTIVE CORONARY ARTERIOGRAPHY: LEFT MAIN: Normal length and free of occlusive disease THE LEFT ANTERIOR DESCENDING CORONARY ARTERY:. Good Caliber vessel giving rise to diagonal and septal branches. Free of any occlusive disease THE LEFT CIRCUMFLEX AND IS CORONARY ARTERY:. Good caliber vessel. Free of occlusive disease THE RIGHT CORONARY ARTERY:. Good caliber vessel. Free of occlusive disease LEFT VENTRICULOGRAPHY:. This revealed dilated left ventricle with severe generalized hypokinesia with an ejection fraction about 20%. There is severe mitral regurgitation FINAL IMPRESSION:, Normal coronary arteries. Dilated cardiomyopathy. Severe mitral regurgitation PLAN:. Medical therapy. Patient to be considered for mitral valve repair or mitral valve clip PROGNOSIS: poor.
[2020-02-21] MEDS: HEPARIN SOD,PORK IN 0.45% NACL 25,000 UNIT in 0.45% NACL 1 250ML.BAG IV SCH (23:27)
[2020-02-21] MEDS: MONTELUKAST 10 MG TAB PO SCH (23:28)
[2020-02-22] MEDS: PIPERACILLIN-TAZOBACTAM 3.375 GM in SODIUM CHLORIDE 0.9% 100 ML IVPB SCH ×3 (02:12→17:28)
[2020-02-22 04:48] LABS: Basophils % (A) 1 %; Eosinophils # (A) 0.4 k/uL (0-0.7); Eosinophils % (A) 6 %; HCT 40.7 % (34.0-46.0); HGB 12.9 gm/dL (11.4-16.0); Hypochromasia Moderate; Lymphocytes # (A) 1.3 k/uL (1.0-4.8); Lymphocytes % (A) 21 %; MCH 30.7 pg (25.0-35.0); MCHC 31.8 g/dL (31.0-37.0); MCV 96.7 fL (80.0-100.0); Mean Platelet Volume 8.4; Monocytes # (A) 0.5 k/uL (0-1.0); Monocytes % (A) 9 %; Neutrophils # (A) 3.6 k/uL (1.3-7.7); Neutrophils % (A) 61 %; Platelet Count 186 k/uL (150-450); RBC 4.21 m/uL (3.80-5.40); RDW 14.6 % (11.5-15.5); WBC 5.9 k/uL (3.8-10.6)
[2020-02-22 06:03] LABS: Calcium 8.5 mg/dL (8.4-10.2); Potassium 3.7 mmol/L (3.5-5.1)
[2020-02-22] MEDS: DOBUTamine DRIP 500 MG in DEXTROSE/WATER 1 250ML.BAG IV SCH (06:36)
[2020-02-22] MEDS: CARVEDILOL 3.125 MG TAB PO SCH ×2 (06:56→17:19)
[2020-02-22] MEDS: PANTOPRAZOLE 40 MG TABLET PO SCH (06:56)
--- NOTE | 2020-02-22 07:42 | P.PN ---
Subjective Progress Note Date: 02/22/20 Principal diagnosis: Moderate to severe mitral valve regurgitation, mitral valve prolapse, acute systolic heart failure, dilated cardiomyopathy with EF about 20%, new-onset paroxysmal atrial fibrillation, possible non-ST elevated myocardial infarction with positive troponins as high as 0.172 with normal coronaries on heart cath, acute kidney injury, elevated transaminases, right lower extremity DVT. Previous medical history of hypertension, hyperlipidemia, depression, anxiety, schizophrenia and is a lifetime nonsmoker. The patient is currently sitting up in bed in no acute distress in the intensive care unit. She denies any chest pain or shortness of breath. Currently in normal sinus rhythm with occasional PVCs. Remains on dobutamine IV. Received PICC line yesterday, remains on IV heparin and zosyn. Heart catheterization completed yesterday demonstrating normal coronaries. No new concerns. Objective - Vital Signs Vital signs: Vital Signs Temp 97.8 F 02/22/20 04:00 Pulse 98 02/22/20 07:00 Resp 24 02/22/20 07:00 BP 103/67 02/22/20 07:00 Pulse Ox 95 02/22/20 07:00 Intake & Output 02/21/20 02/22/20 02/22/20 18:59 06:59 18:59 Intake Total 850 675.43 20 Output Total 3460 1045 60 Balance -2610 -369.57 -40 Weight 73.5 kg Intake: IV 600 340 20 0.9 KVO 400 240 20 Piperacillin-Tazobactam 3 100 100 .375 gm In Sodium Chloride 0.9% 100 ml @ 25 mls/hr IVPB Q8H JACK Rx#: [id number] Intake, IV Titration 250 335.43 Amount DOBUTamine DRIP 500 mg In 250 250 Dextrose/Water 1 250ml. bag @ 5 MCG/KG/MIN 12.72 mls/hr IV .[id number] JACK Rx #:[id number] Heparin Sod,Pork in 0.45% 0 85.43 NaCl 25,000 unit In 0.45 % NaCl 1 250ml.bag @ 12 UNITS/KG/HR 9.504 mls/hr IV .Q24H JACK Rx#: [id number] Output: Urine 3460 1045 60 Other: Voiding Method Indwelling Catheter Indwelling Catheter # Voids 0 # Bowel Movements 1 - Constitutional General appearance: Present: cooperative, no acute distress - Respiratory Details: Lung sounds diminished bilaterally. Respirations even, non-labored. Currently on room air with oxygen saturations 96%. Only able to achieve 500mL on her incentive spirometry. - Cardiovascular Details: S1/S2 present, positive systolic murmur. Regular rate and rhythm, sinus rhythm with occasional PVCs on telemetry, rate in the 90s. Palpable peripheral pulses bilaterally, no edema present. No calf pain or tenderness noted. - Gastrointestinal Gastrointestinal Comment(s): Abdomen soft, non-tender, non-distended. Active bowel sounds x 4 quadrants. Tolerating diet. - Genitourinary Genitourinary Comment(s): Lester present draining clear yellow urine - Integumentary Integumentary Comment(s): Skin is warm and dry with evidence of good perfusion - Neurologic Neurologic: Present: CNII-XII intact - Musculoskeletal Musculoskeletal: Present: strength equal bilaterally - Psychiatric Psychiatric: Present: A&O x's 3 - Allied health notes Allied health notes reviewed: nursing - Labs CBC & Chem 7: 02/22/20 04:25 02/22/20 04:25 Labs: Abnormal Lab Results - Last 24 Hours (Table) 02/14/20 02/17/20 02/17/20 Range/Units 15:11 00:02 03:08 RBC (3.80-5.40) m/uL APTT (22.0-30.0) sec Sodium (137-145) mmol/L Glucose (74-99) mg/dL Plasma Lactic Acid Gerardo 2.8 H* 2.8 H* 4.1 H* (0.7-2.0) mmol/L 02/20/20 02/21/20 02/22/20 Range/Units 04:15 21:30 04:25 RBC 3.79 L (3.80-5.40) m/uL APTT 34.2 H 82.3 H (22.0-30.0) sec Sodium (137-145) mmol/L Glucose (74-99) mg/dL Plasma Lactic Acid Gerarod (0.7-2.0) mmol/L 02/22/20 Range/Units 04:25 RBC (3.80-5.40) m/uL APTT (22.0-30.0) sec Sodium 133 L (137-145) mmol/L Glucose 164 H (74-99) mg/dL Plasma Lactic Acid Gerardo (0.7-2.0) mmol/L Microbiology - Last 24 Hours (Table) 02/20/20 18:54 Nasal Screen MRSA/MSSA - Final Nasal Swab 02/17/20 01:00 Urine Culture - Final Urine,Catheterized 02/17/20 05:42 Blood Culture - Preliminary Blood No Growth after 96 hours Assessment and Plan Assessment: 1. Moderate to severe mitral valve regurgitation with mitral valve prolapse 2. Acute systolic heart failure 3. Dilated cardiomyopathy with EF about 20% 4. Possible non-ST elevated myocardial infarction with positive troponins as high as 0.172, normal coronaries on heart cath 5. Acute kidney injury 6. Elevated transaminase enzymes 7. New-onset paroxysmal atrial fibrillation, currently normal sinus 8. Newly diagnosed deep vein thrombosis to her right leg 9. History of hypertension 10. History of hyperlipidemia 11. History of depression/anxiety 12. History of schizophrenia 13. Lifetime nonsmoker Plan: 1. Continued to optimize medically with aspirin, statin, beta nadir, Dobutrex drip, and diuretics. 2. Continue heparin for right lower extremity DVT. Anticoagulation per cardiology 3. Encourage use of her incentive spirometry 10 times every hour while awake. 4. Increase activity as tolerated. Physical/occupational therapy and cardiac rehab following. 5. Patient seen by Dr. New. Recommend treatment of acute DVT for 4-6 weeks to prevent PE intra-operatively. Will re-evaluate for surgical MV repair vs. Mi traClip after 4-6 weeks medical optimization. Discussed with Dr. Carrero 6. Medical management and other comorbidities her primary care service, cardiology and pulmonary critical care medicine. 7. Will continue to see on an as needed basis while hospitalized. Patient may follow up with Dr. New in 4-6 weeks. Time with Patient: Greater than 30
[2020-02-22] MEDS: LORATADINE 10 MG TAB PO SCH (08:13)
[2020-02-22] MEDS: CHOLECALCIFEROL 1,000 UNIT TAB PO SCH (08:13)
[2020-02-22] MEDS: CALCIUM CARB-VIT D 500MG-200UN 1 EACH TAB PO SCH (08:13)
[2020-02-22] MEDS: POTASSIUM CHLORIDE ER 10 MEQ TAB.ER.PRT PO SCH (08:14)
[2020-02-22] MEDS: ATORVASTATIN 10 MG TAB PO SCH (08:14)
[2020-02-22] MEDS: LORazepam 0.5 MG TAB PO SCH ×3 (08:14→20:19)
[2020-02-22] MEDS: ASPIRIN 81 MG PO SCH (08:14)
[2020-02-22] MEDS: FUROSEMIDE 20 MG TAB PO SCH ×2 (08:14→16:20)
[2020-02-22] MEDS: DULoxetine HCL 60 MG CAPSULE.DR PO SCH (08:14)
[2020-02-22] MEDS: SPIRONOLACTONE 25 MG TAB PO SCH (08:14)
[2020-02-22] MEDS: POTASSIUM CHLORIDE ER 20 MEQ TAB.ER PO SCH (08:14)
[2020-02-22] MEDS: MUPIROCIN 2% OINT 22 GM TUBE NASAL SCH ×2 (08:15→20:19)
--- NOTE | 2020-02-22 08:58 | P.PN ---
Subjective Progress Note Date: 02/22/20 Principal diagnosis: Acute exacerbation of systolic congestive heart failure, and shortness of breath, non-ST elevated myocardial infarction On 02/22/2020 patient seen in follow-up in intensive care unit. Patient has been hospitalized with severe dyspnea related to acute exacerbation of systolic congestive heart failure and possibility of non-ST elevated myocardial infarctio n. Patient had a heart catheterization yesterday showed normal coronary arteries, dilated cardiomyopathy, severe mitral regurgitation. Surgical consultation was requested for consideration of mitral valve repair versus mitral clip. Jaquan recommends 4-6 weeks of medical optimization. Patient had recent history of DVT and she is on oral anticoagulation in the form of Eliquis. Clinically patient looks comfortable, she is awake and noted, oriented 3, resting comfortably in bed, room air pulse ox is 95%, she has been afebrile, she is on dobutamine at 5 mics per kilo per minute, 0.9 normal saline at a rate of 20, and heparin drip has been discontinued. Lung sounds are clear, no compensatory shortness of breath, no cognitive chest pain. No new chest x-ray today, today's labs have been reviewed, showing CBC within normal limits, sodium of 133, pressor electrolytes and renal profile were unremarkable Objective - Vital Signs Vital signs: Vital Signs Temp 97.8 F 02/22/20 04:00 Pulse 98 02/22/20 07:00 Resp 24 02/22/20 07:00 BP 103/67 02/22/20 07:00 Pulse Ox 95 02/22/20 07:00 Intake & Output 02/21/20 02/22/20 02/22/20 18:59 06:59 18:59 Intake Total 850 675.43 300 Output Total 3460 1045 80 Balance -2610 -369.57 220 Weight 73.5 kg Intake: IV 600 340 40 0.9 KVO 400 240 40 Piperacillin-Tazobactam 3 100 100 .375 gm In Sodium Chloride 0.9% 100 ml @ 25 mls/hr IVPB Q8H [facility] Rx#: [id number] Intake, IV Titration 250 335.43 20 Amount DOBUTamine DRIP 500 mg In 250 250 Dextrose/Water 1 250ml. bag @ 5 MCG/KG/MIN 12.72 mls/hr IV .[id number] [facility] Rx #:[id number] Heparin Sod,Pork in 0.45% 0 85.43 NaCl 25,000 unit In 0.45 % NaCl 1 250ml.bag @ 12 UNITS/KG/HR 9.504 mls/hr IV .Q24H [facility] Rx#: [id number] Sodium Chloride 0.9% 1, 20 000 ml @ 50 mls/hr IV . Q20H [facility] Rx#:[id number] Oral 240 Output: Urine 3460 1045 80 Other: Voiding Method Indwelling Catheter Indwelling Catheter # Voids 0 # Bowel Movements 1 - Exam GENERAL EXAM: Alert, very pleasant, 60-year-old white female, on room air, with a pulse ox of 95% comfortable in no apparent distress. HEAD: Normocephalic/atraumatic. EYES: Normal reaction of pupils, equal size. Conjunctiva pink, sclera white. NOSE: Clear with pink turbinates. THROAT: No erythema or exudates. NECK: No masses, no JVD, no thyroid enlargement, no adenopathy. CHEST: No chest wall deformity. Symmetrical expansion. LUNGS: Equal air entry with no crackles, wheeze, rhonchi or dullness. CVS: Regular rate and rhythm, normal S1 and S2, no gallops, no murmurs, no rubs ABDOMEN: Soft, nontender. No hepatosplenomegaly, normal bowel sounds, no guarding or rigidity. EXTREMITIES: No clubbing, no edema, no cyanosis, 2+ pulses and upper and lower extremities. MUSCULOSKELETAL: Muscle strength and tone normal. SPINE: No scoliosis or deformity SKIN: No rashes CENTRAL NERVOUS SYSTEM: Alert and oriented -3. No focal deficits, tone is normal in all 4 extremities. PSYCHIATRIC: Alert and oriented -3. Appropriate affect. Intact judgment and insight. - Labs CBC & Chem 7: 02/22/20 04:25 02/22/20 04:25 Labs: Abnormal Lab Results - Last 24 Hours (Table) 02/14/20 02/17/20 02/17/20 Range/Units 15:11 00:02 03:08 RBC (3.80-5.40) m/uL APTT (22.0-30.0) sec Sodium (137-145) mmol/L Glucose (74-99) mg/dL Plasma Lactic Acid Gerardo 2.8 H* 2.8 H* 4.1 H* (0.7-2.0) mmol/L 02/20/20 02/21/20 02/22/20 Range/Units 04:15 21:30 04:25 RBC 3.79 L (3.80-5.40) m/uL APTT 34.2 H 82.3 H (22.0-30.0) sec Sodium (137-145) mmol/L Glucose (74-99) mg/dL Plasma Lactic Acid Gerardo (0.7-2.0) mmol/L 02/22/20 Range/Units 04:25 RBC (3.80-5.40) m/uL APTT (22.0-30.0) sec Sodium 133 L (137-145) mmol/L Glucose 164 H (74-99) mg/dL Plasma Lactic Acid Gerardo (0.7-2.0) mmol/L Microbiology - Last 24 Hours (Table) 02/17/20 05:42 Blood Culture - Preliminary Blood No Growth after 120 hours 02/20/20 18:54 Nasal Screen MRSA/MSSA - Final Nasal Swab 02/17/20 01:00 Urine Culture - Final Urine,Catheterized Assessment and Plan Plan: Assessment: #1. Acute exacerbation of systolic congestive heart failure #2. Severe dyspnea related to the above #3. Possible non-ST segment elevated myocardial infarction #4. Severe mitral regurgitation and mitral valve prolapse, scheduled for mitral valve repair versus mitral clip placement in the 4-6 weeks #5. Acute right lower extremity DVT, on Eliquis #6. Acute kidney injury related to cardiorenal syndrome #7. History of schizoaffective disorder #8. Hyperlipidemia #9. Mild COPD, stable at this time #10. Elevated liver enzymes, improved secondary to congestive hepatopathy from heart failure Plan: Vital signs are stable, remains on dobutamine drip, cardiology is following, no complaints of shortness of breath or chest pain, increase activity as tolerated. Patient has been started on oral anticoagulation for right lower extremity DVT. No acute events overnight. Tolerating oral diet, no complains of abdominal pain. CT surgery has recommended 4-6 weeks of medical optimization before mitral valve repair surgery. No signs of fluid overload, patient is on maintenance dose of oral Lasix. Cardiology is following. From pulmonary/critical care perspective patient is stable and can be transferred to [facility] care I performed a history & physical examination of the patient and discussed their management with my nurse practitioner, Magaly Fischer. I reviewed the nurse practitioner's note and agree with the documented findings and plan of care. Lung sounds are positive for diffuse wheezes throughout the lung bell. The findings and the impression was discussed with the patient. I attest to the documentation by the nurse practitioner. Time with Patient: Less than 30
[2020-02-22] MEDS: APIXABAN 5 MG TAB PO SCH ×2 (09:28→20:19)
--- NOTE | 2020-02-22 09:57 | P.PN ---
Subjective Progress Note Date: 02/22/20 60-year-old female [facility] patient with past medical history of hypertension hyperlipidemia and schizophrenic effect who developed to have worsening shortness of breath for the last 2-3 weeks according to her was seen at [facility] treated for bronchitis with no effect. Patient call the clinic concern that she is having more dyspnea and shortness of breath with worsening symptoms was instructed to come to the emergency department. Was seen and evaluated has been having significant and worsening shortness of breath with minimum exertion increased PND orthopnea no angina had some abdominal discomfort with diarrhea no vomiting no worsening cough fever or chills. Jeanie was seen a [facility] department her troponin was elevated BNP was quite bit high at the time lactic acid was elevated as well patient chest x-ray showed early pulmonary edema with venous congestion. Patient d-dimer was elevated and ended up going for CTA showed no pulmonary embolism but sign of pulmonary edema and pulmonary hypertension. Patient was started on IV diuretics heparin drip and nitro and admitted to the hospital for elevated troponin with possible non-ST AK, pulmonary edema, congestive heart failure excessive patient. 02/14: Patient evaluated, denies any further complaints of shortness of breath. Liver enzymes still noted to be elevated AST 140, ALT 160, total bilirubin 1.6, potassium 3.0, sodium 136, BUN 22, creatinine 0.98. Potassium replaced per protocol. Liver ultrasound obtained for abnormal liver function, showed the gallbladder with abnormally thickened wall and gallstones, correlate for acute cholecystitis, nephrolithiasis, and fatty liver. Will consult surgery for acute cholecystitis. She continues on Lasix 40 mg daily IVP, cardiology on consult. Echocardiogram showed mild concentric left ventricular hypertrophy, left ventricular systolic function moderately impaired with an EF of 35-40%, increased LAP grade 2 diastolic dysfunction, LA is severely dilated, severe mitral regurgitation, moderate mitral valve prolapse, moderate tricuspid regurgitation, moderate pulmonary hypertension. Vital signs are stable, afebrile 97.6, heart rate 65, wrist rate 22, blood pressure 126/66 she's 98% on 2 L via nasal cannula. 02/15: Patient evaluated this morning, resting comfortably in bed. Denies any shortness of breath or chest pain. Liver enzymes are trending downwards, AST 100, ALT 129, total bilirubin 1.5, she is asymptomatic and tolerating food and fluids without nausea or vomiting or abdominal pain. Surgery is on consult, may need cholecystectomy as an outpatient basis once her cardiac status is stabilized. Cardiology on consult, may need cardiac cath, she remains on furosemide 40 mg IV push every 8 hours along with carvedilol 3.125 mg twice a day and lisinopril 5 mg daily. Vital signs are stable 109/75, respiratory rate of 22, heart rate 95, afebrile 97.8, 98% on 2 L via nasal cannula. Magnesium low at 1.5, potassium is also low at 3.0, electrolyte replacement has been ordered. 02/16 Overnight patient was to ICU around 10 pm for worsening blood pressure and shortness of breath. Patient was given a total of 1600 ml of fluids, chest helped the pressure briefly. Patient was started on Neosynephrine . Patient is maintaining the MAP at 60. Patient is currently on 3 L and did not need BiPAP overnight. Blood gases were done which suggested a pH of 7.48 CO2 33 pO2 79 bicarb 26 which didinot suggest need the BIPAP. UO was 25 ml/ hr. Lasix was given 40 iv once which did not improve the urine output. Labs his sodium is 135 potassium 5.7 bicarb 21 creatinine increased to 1.3 last lactic acid was 4.1 at 3 in the morning repeat lactic acid is pending. Total bilirubin is 2.5 liver enzymes is elevated. Urinalysis suggestive of ketones, wbc's and rbc's.: Patient currently on Zosyn. Surgery is not planning any intervention for acute cholecystitis. Patient is currently on Zosyn patient appears very unstable and prognosis appears guarded. On evaluation patient endorses shortness of breath denies any cough or sputum production. She denies any abdominal pain. Patient is started on dobutamine drip and digoxin by cardiology. Lasix switched to oral twice a day. 02/17 patient evaluated bedside. Denies any shortness of breath, chest main, palpitation, cough with sputum production. She denies any abdominal pain. On evaluation patient's vital signs,patient is afebrile to respiratory rate 22 blood pressure 99/70 96% onroom air with a pulse of 90. CBC is unremarkable hemoglobin is maintaining 12 sodium 133 potassium 3.4 BUN 27 creatinine 1.23, total bilirubin is improved to 1.5 AST improved to 756 from 1155 ALT 220 from 283. Chest x-ray done this morning suggestive of cardiomegaly with worsening interstitial suggestive for interstitial pneumonitis and stable left lower lobe infiltrate. Continue Lasix and Aldactone. Continue digoxin and Coreg. Continue dobutamine adjusted to the map of 60. off phenylephrine drip 02/18: Patient remains in the intensive care unit. She was started on dobutamine yesterday. She is scheduled for TERE today to evaluate mitral valve. She will also require cardiac catheterization and possible mitral valve repair. Cardiology is following closely. Atrial fibrillation converted to a sinus tachycardia. Chest x-ray this morning reveals similar to prior exam. Cardiomegaly. Possible left lower lobe atelectasis, edema, correlate to exclude pneumonia. Mild prominence of interstitium. General surgery has been following the patient and signed off at this point. No plan for any surgical intervention at this point. 111, blood pressure 111/76, pulse ox 98% on room air. CBC is unremarkable. INR 1.3. Sodium 133. Total bilirubin 1.7, liver function tests are improving with AST of 263, ALT 163, alkaline phosphatase 96. Urine culture has been finalized with no growth. Blood culture no growth at 96 hours and second set at 48 hours. Patient questioned about alcohol intake and there is concern the patient does have alcohol abuse history. No definitive details given by the patient. 02/19: Yesterday, patient underwent TERE that revealed severe anteriorly directed mitral regurgitation secondary to partial flail of the posterior leaflet, moderate mitral regurgitation, severe LV dysfunction with EF of 35%. She is scheduled for left heart catheterization today but her nurse is having a difficult time reaching the public guardian. Cardiovascular consult has also been added as well. Patient remains on dobutamine at 5 mcg/kg/m. Repeat chest x-ray reveals mild to moderate cardiomegaly and mild interstitial change persists. Correlate for mild pulmonary vascular congestion. She denies any chest pain or shortness of breath. She has been afebrile, heart rate 89, blood pressure 100/77, pulse ox 95% on room air. She is only reaching 500 on incentive spirometry. Therapy consult has been added and patient may require subacute rehab. pricing manager is following. Liver enzymes continued to improve with total bilirubin 1.5, AST 131, ALT 130. 02/20: Patient remains in the intensive care unit on dobutamine. She is scheduled for heart catheterization today which was delayed by 1 day as her public guardian was not able to be reached yesterday. vegetable scullion is a sinus rhythm with occasional PVCs. She has a Lester catheter with good urine output. Patient had a central line removed yesterday and found DVT right lower extremity and started on heparin drip. A PICC line has been placed. Patient has been seen by cardiothoracic surgery with plan for mitral surgery awaiting heart catheterization report and stabilization of patient. At this time, patient denies any chest pain, shortness of breath. She is resting in bed appears to be comfortable. 02/21: Patient remains in intensive care unit, on dobutamine drip and heparin drip. She underwent heart catheterization yesterday that showed no significant coronary artery disease. We will plan to discontinue heparin today and start patient on eliquis. Await cardiology input regarding dobutamine drip. Discharge plan is go to [facility] or [facility] and we anticipate discharge possibly by tomorrow. Cardiothoracic surgery is planning on bringing the patient back in 4-6 weeks for surgical repair of mitral valve. She has been afebrile, heart rate 99, sinus rhythm, blood pressure 104/72, pulse ox 95% on room air. CBC is unremarkable. Sodium 133, blood sugar 164. Review of systems Constitutional: Denies chills, Denies fever, Denies lethargy, Denies malaise, Denies poor appetite, reports weakness Eyes: denies decreased vision, denies diplopia, denies discharge, denies pain Ears, nose, mouth and throat: Denies dental pain, Denies headache, Denies nasal discharge, Denies nose pain Cardiovascular: Denies chest pain, Denies decreased exercise tolerance, Denies edema, Denies high blood pressure, Denies irregular heart beat, Denies palpitations, Denies paroxysmal nocturnal dyspnea, Denies rapid heart beat, Denies shortness of breath Respiratory: Denies congestion, Denies cough, Denies cough with sputum, positive for dyspnea Denies home oxygen, Denies wheezing Gastrointestinal: Denies abdominal pain, Denies change in bowel habits, Denies coffee ground emesis, Denies early satiety, Denies excessive gas, Denies heartbu rn, Denies hematemesis, Denies hematochezia, Denies loss of appetite, Denies nausea, Denies vomiting Genitourinary: Denies dysuria, Denies flank pain, Denies kidney stones, Denies menorrhagia, Denies urgency, Denies urinary frequency Musculoskeletal: reports gait dysfunction, Denies limitation of motion, Denies morning stiffness, Denies muscle cramps Integumentary: Denies rash, Denies wounds, Denies brittle nails, Denies change in hair/nails, Denies darkening of skin Neurological: Denies balance difficulties, Denies change in speech, Denies double vision, Denies gait dysfunction, Denies loss of vision, Denies motor disturbance, Denies numbness, Denies paralysis, Denies paresthesias, Denies s eizures Psychiatric: Denies anxiety, Denies depression Endocrine: Denies excessive sweating, Denies excessive thirst, Denies high blood sugars, Denies palpitations Hematologic/Lymphatic: Denies easy bruising, Denies lymphadenopathy Physical Examination Gen: This is a 60-year-old female. Patient is resting in the ICU bed and appears to be comfortable. HEENT: Head is atraumatic, normocephalic. Pupils equal, round. Sclerae is anicteric. NECK: Supple. No JVD. No lymphadenopathy. No thyromegaly. LUNGS: Diminished bilaterally. No wheezes or rhonchi. No intercostal retractions. HEART: Regular rate and rhythm. 2/6 systolic murmur. ABDOMEN: Soft. Bowel sounds are present. No masses. No tenderness. Lester catheter draining clear josy urine. EXTREMITIES: Bilateral pedal edema. No calf tenderness. NEUROLOGICAL: Patient is awake, alert and oriented x3. Cranial nerves 2 through 12 are grossly intact. Assessment and Plan 1. Acute hypoxic respiratory failure secondary to a combination of possible non-ST AK, and congestive heart failure. TERE as above. Cardiac catheterization revealed no significant coronary artery disease. Cardiology consult appreciated. 2. Acute systolic heart failure. Continue dobutamine drip--possibly weaning off today, Lasix decreased to 20 mg oral twice daily, Aldactone 25 mg daily, Coreg 3.125 mg twice daily. 3. Possible non-ST AK. Continue aspirin 81 mg daily, Lipitor 10 mg daily, Co reg. 4. Severe MR moderate mitral valve prolapse moderate pulmonary hypertension and moderate tricuspid regurgitation. Cardiothoracic consult appreciated.. 5. Abnormal liver function test secondary to decompensated congestive heart failure and acute cholecystitis, cholecystectomy as an outpatient basis. General surgery has signed off. 6. Acute kidney injury. With chronic kidney disease stage II. Monitor BUN and creatinine. Avoid nephrotoxic agents. 7. Hypotension secondary to cardiogenic shock. Dobutamine drip 8. New onset atrial fibrillation, paroxysmal atrial fibrillation. Continue Coreg. Heparin transition to eliquis. Cardiology consult appreciated. 9. Hyperlipidemia. Continue atorvastatin 10 mg a day. 10. Mild intermittent asthma. Continue Singulair 10 mg at bedtime, Claritin 10 mg daily. 11. Recurrent depression. Continue Cymbalta 60 mg daily, Ativan 0.5 mg 3 times daily. 12. History of schizoaffective disorders: Has been on risperidone 25 mg IM injection every 14 days and seen psych on regular basis. 13. Mild coagulopathy: With elevated PT/INR, secondary to decompensated congestive heart failure. 14. Right lower extremity DVT most likely due to central line. Eliquis will be started and heparin drip discontinued. 15. DVT prophylaxis: Eliquis. 16. GI prophylaxis. Continue pantoprazole orally. 17. COVID-19 infection not present. CODE STATUS: Full code. [facility]. Impression and plan of care have been directed as dictated by the signing physician. Eli Perry nurse practitioner acting as scribe for signing physician. Objective - Vital Signs Vital signs: Vital Signs Temp 97.8 F 02/22/20 04:00 Pulse 98 02/22/20 07:00 Resp 24 02/22/20 07:00 BP 103/67 02/22/20 07:00 Pulse Ox 95 02/22/20 07:00 Intake & Output 02/21/20 02/22/20 02/22/20 18:59 06:59 18:59 Intake Total 850 675.43 20 Output Total 3460 1045 60 Balance -2610 -369.57 -40 Weight 73.5 kg Intake: IV 600 340 20 0.9 KVO 400 240 20 Piperacillin-Tazobactam 3 100 100 .375 gm In Sodium Chloride 0.9% 100 ml @ 25 mls/hr IVPB Q8H [facility] Rx#: [id number] Intake, IV Titration 250 335.43 Amount DOBUTamine DRIP 500 mg In 250 250 Dextrose/Water 1 250ml. bag @ 5 MCG/KG/MIN 12.72 mls/hr IV .[id number] JACK Rx #:[id number] Heparin Sod,Pork in 0.45% 0 85.43 NaCl 25,000 unit In 0.45 % NaCl 1 250ml.bag @ 12 UNITS/KG/HR 9.504 mls/hr IV .Q24H JACK Rx#: [id number] Output: Urine 3460 1045 60 Other: Voiding Method Indwelling Catheter Indwelling Catheter # Voids 0 # Bowel Movements 1 - Labs CBC & Chem 7: 02/22/20 04:25 02/22/20 04:25 Labs: Abnormal Lab Results - Last 24 Hours (Table) 02/14/20 02/17/20 02/17/20 Range/Units 15:11 00:02 03:08 RBC (3.80-5.40) m/uL APTT (22.0-30.0) sec Sodium (137-145) mmol/L Glucose (74-99) mg/dL Plasma Lactic Acid Gerardo 2.8 H* 2.8 H* 4.1 H* (0.7-2.0) mmol/L 02/20/20 02/21/20 02/22/20 Range/Units 04:15 21:30 04:25 RBC 3.79 L (3.80-5.40) m/uL APTT 34.2 H 82.3 H (22.0-30.0) sec Sodium (137-145) mmol/L Glucose (74-99) mg/dL Plasma Lactic Acid Gerardo (0.7-2.0) mmol/L 02/22/20 Range/Units 04:25 RBC (3.80-5.40) m/uL APTT (22.0-30.0) sec Sodium 133 L (137-145) mmol/L Glucose 164 H (74-99) mg/dL Plasma Lactic Acid Gerardo (0.7-2.0) mmol/L Microbiology - Last 24 Hours (Table) 02/17/20 05:42 Blood Culture - Preliminary Blood No Growth after 120 hours 02/20/20 18:54 Nasal Screen MRSA/MSSA - Final Nasal Swab 02/17/20 01:00 Urine Culture - Final Urine,Catheterized
--- NOTE | 2020-02-22 10:02 | P.PN ---
Subjective Progress Note Date: 02/22/20 This is a 60-year-old female was admitted to the hospital with complaints of increasing shortness of breath and pedal edema. She was found to be in congestive heart failure. Clinically patient has a systolic murmur at the apex consistent with mitral regurgitation. Echo Cardigan showed evidence of mitral valve prolapse with severe regurgitation with impaired LV function. Patient has been on IV Lasix and seemed to be diuresing well. Her potassium and magnesium some low. Patient has been having runs of nonsustained V. tach. We will correct the potassium and magnesium levels. If she continues to have nonsustained V. tach, we'll start her on IV amiodarone. Patient will require TERE and cardiac catheterization and possible mitral valve repair. Meanwhile I will also add Aldactone and follow her lites closely. 02/18/2020: Patient is clinically doing better. Diuresing well. Appears to be less short of breath. Maintaining sinus rhythm. No complaints of chest pain. Patient is being scheduled for a TERE examination tomorrow to be done by Dr. Crump. Patient also may require cardiac catheterization and possible mitral valve repair. Meanwhile we'll continue current medical therapy. Lab values showed mild hypokalemia. Her liver function tests are improving. Most probably liver enzyme abnormalities are related to passive congestion. Her edema is also down. 02/19/2020: Patient is clinically better. Diuresing well. He had a TERE which is consistent with partial flail of the posterior mitral leaflet. Patient is going to have cardiac cath tomorrow by Dr. Zuñiga. Meanwhile we'll continue current medical therapy. We'll may also get surgical consult regarding possible mitral valve repair. 02/20/2020:. Patient remains clinically stable. Doesn't appear to be in acute distress. Her liver enzymes are improving. Patient is diuresing well. Patient was supposed to have a cardiac cath today. This was postponed because of lack of consent. Possible cath tomorrow. Patient is seen by [facility]. Surgeon. Venous duplex study showed evidence of DVT. Patient is being started on IV heparin. Further recommendations depend upon the findings on cardiac cath. Meanwhile will stay on the current medical therapy. 02/22/2020: This patient remains relatively stable. Blood pressure is running low. No complaints of any chest pain or shortness of breath. She is diagnosed to have DVT. At this point [facility]. Surgeon wants to continue with medical therapy. May consider mitral valve repair in about 3 weeks. If he feels that patient is high-risk candidate, may consider mitral valve clip. We will discontinue dobutamine. We'll start her on by mouth Lanoxin. If the blood pres sure stable we'll add ERIC inhibitor. Transfer to telemetry unit and increase her activity. Patient may need in hospital rehabilitation Objective - Vital Signs Vital signs: Vital Signs Temp 97.7 F 02/22/20 08:00 Pulse 91 02/22/20 09:00 Resp 24 02/22/20 09:00 BP 99/71 02/22/20 09:00 Pulse Ox 95 02/22/20 08:00 Intake & Output 02/21/20 02/22/20 02/22/20 18:59 06:59 18:59 Intake Total 850 675.43 420 Output Total 3460 1045 250 Balance -2610 -369.57 170 Weight 73.5 kg Intake: IV 600 340 160 0.9 KVO 400 240 60 Piperacillin-Tazobactam 3 100 100 100 .375 gm In Sodium Chloride 0.9% 100 ml @ 25 mls/hr IVPB Q8H JACK Rx#: [id number] Intake, IV Titration 250 335.43 20 Amount DOBUTamine DRIP 500 mg In 250 250 Dextrose/Water 1 250ml. bag @ 2.5 MCG/KG/MIN 6.36 mls/hr IV .Q24H JACK Rx#: [id number] Heparin Sod,Pork in 0.45% 0 85.43 NaCl 25,000 unit In 0.45 % NaCl 1 250ml.bag @ 12 UNITS/KG/HR 9.504 mls/hr IV .Q24H JACK Rx#: [id number] Sodium Chloride 0.9% 1, 20 000 ml @ 50 mls/hr IV . Q20H JACK Rx#:[id number] Oral 240 Output: Urine 3460 1045 250 Other: Voiding Method Indwelling Catheter Indwelling Catheter # Voids 0 # Bowel Movements 1 - Exam GENERAL EXAM: Patient is alert and oriented and doesn't appear to be in any acute distress HEENT: Normocephalic. Normal reaction of pupils, equal size, normal range of extraocular motion. No erythema or exudates in the throat. NECK: No masses, no nuchal rigidity. CHEST: No chest wall deformity. LUNGS: Diminished breath sounds HEART: S1 and S2 normal, systolic murmur at the apex ABDOMEN: No hepatosplenomegaly, normal bowel sounds, no guarding or rigidity. SKIN: No rashes CENTRAL NERVOUS SYSTEM: No focal deficits. EXTREMITIES: Edema improving - Labs CBC & Chem 7: 02/22/20 04:25 02/22/20 04:25 Labs: Abnormal Lab Results - Last 24 Hours (Table) 02/14/20 02/17/20 02/17/20 Range/Units 15:11 00:02 03:08 RBC (3.80-5.40) m/uL APTT (22.0-30.0) sec Sodium (137-145) mmol/L Glucose (74-99) mg/dL Plasma Lactic Acid Gerardo 2.8 H* 2.8 H* 4.1 H* (0.7-2.0) mmol/L 02/20/20 02/21/20 02/22/20 Range/Units 04:15 21:30 04:25 RBC 3.79 L (3.80-5.40) m/uL APTT 34.2 H 82.3 H (22.0-30.0) sec Sodium (137-145) mmol/L Glucose (74-99) mg/dL Plasma Lactic Acid Gerardo (0.7-2.0) mmol/L 02/22/20 Range/Units 04:25 RBC (3.80-5.40) m/uL APTT (22.0-30.0) sec Sodium 133 L (137-145) mmol/L Glucose 164 H (74-99) mg/dL Plasma Lactic Acid Gerardo (0.7-2.0) mmol/L Microbiology - Last 24 Hours (Table) 02/17/20 05:42 Blood Culture - Preliminary Blood No Growth after 120 hours 02/20/20 18:54 Nasal Screen MRSA/MSSA - Final Nasal Swab 02/17/20 01:00 Urine Culture - Final Urine,Catheterized Assessment and Plan (1) Mitral valve prolapse Current Visit: Yes Status: Acute Code(s): I34.1 - NONRHEUMATIC MITRAL (VALVE) PROLAPSE SNOMED Code(s): 020833067 (2) Severe mitral regurgitation Current Visit: Yes Status: Acute Code(s): I34.0 - NONRHEUMATIC MITRAL (VALVE) INSUFFICIENCY SNOMED Code(s): 86751499 (3) Cardiomyopathy Current Visit: Yes Status: Acute Code(s): I42.9 - CARDIOMYOPATHY, UNSPECIFIED SNOMED Code(s): 28382194 (4) Acute systolic heart failure Current Visit: Yes Status: Acute Code(s): I50.21 - ACUTE SYSTOLIC (CONGES TIVE) HEART FAILURE SNOMED Code(s): 839473352 Plan: Remained stable. We will continue current medical therapy. Discontinue dobutamine. Start her on by mouth Lanoxin. May add ERIC inhibitor if the blood pressure remains stable.
[2020-02-22] MEDS: MONTELUKAST 10 MG TAB PO SCH (20:19)
[2020-02-23] MEDS: PIPERACILLIN-TAZOBACTAM 3.375 GM in SODIUM CHLORIDE 0.9% 100 ML IVPB SCH ×2 (01:18→08:35)
[2020-02-23 04:34] LABS: Basophils # (A) 0.1 k/uL (0-0.2); Basophils % (A) 1 %; Eosinophils # (A) 0.4 k/uL (0-0.7); Eosinophils % (A) 5 %; HCT 44.2 % (34.0-46.0); HGB 13.2 gm/dL (11.4-16.0); Hypochromasia Moderate; Lymphocytes # (A) 1.4 k/uL (1.0-4.8); Lymphocytes % (A) 19 %; MCH 28.9 pg (25.0-35.0); MCHC 29.8 g/dL (31.0-37.0); MCV 96.9 fL (80.0-100.0); Monocytes # (A) 0.7 k/uL (0-1.0); Monocytes % (A) 9 %; Neutrophils # (A) 4.8 k/uL (1.3-7.7); Neutrophils % (A) 64 %; Platelet Count 191 k/uL (150-450); RBC 4.56 m/uL (3.80-5.40); RDW 14.9 % (11.5-15.5); WBC 7.6 k/uL (3.8-10.6)
[2020-02-23 04:43] LABS: Calcium 8.7 mg/dL (8.4-10.2); Potassium 4.1 mmol/L (3.5-5.1)
[2020-02-23 05:20] VITALS: BMI 28.7
[2020-02-23] MEDS: PANTOPRAZOLE 40 MG TABLET PO SCH (07:05)
[2020-02-23] MEDS: LORazepam 0.5 MG TAB PO SCH (08:31)
[2020-02-23] MEDS: CHOLECALCIFEROL 1,000 UNIT TAB PO SCH (08:31)
[2020-02-23] MEDS: MUPIROCIN 2% OINT 22 GM TUBE NASAL SCH (08:31)
[2020-02-23] MEDS: LORATADINE 10 MG TAB PO SCH (08:31)
[2020-02-23] MEDS: FUROSEMIDE 20 MG TAB PO SCH (08:31)
[2020-02-23] MEDS: ATORVASTATIN 10 MG TAB PO SCH (08:31)
[2020-02-23] MEDS: DULoxetine HCL 60 MG CAPSULE.DR PO SCH (08:31)
[2020-02-23] MEDS: CARVEDILOL 3.125 MG TAB PO SCH (08:31)
[2020-02-23] MEDS: ASPIRIN 81 MG PO SCH (08:32)
[2020-02-23] MEDS: CALCIUM CARB-VIT D 500MG-200UN 1 EACH TAB PO SCH (08:32)
[2020-02-23] MEDS: SPIRONOLACTONE 25 MG TAB PO SCH (08:32)
[2020-02-23] MEDS: APIXABAN 5 MG TAB PO SCH (08:32)
[2020-02-23] MEDS: POTASSIUM CHLORIDE ER 10 MEQ TAB.ER.PRT PO SCH (08:32)
[2020-02-23] MEDS: POTASSIUM CHLORIDE ER 20 MEQ TAB.ER PO SCH (08:35)
--- NOTE | 2020-02-23 08:38 | P.PN ---
Subjective Progress Note Date: 02/23/20 Principal diagnosis: Acute exacerbation of systolic congestive heart failure, and shortness of breath, non-ST elevated myocardial infarction On 02/22/2020 patient seen in follow-up in intensive care unit. Patient has been hospitalized with severe dyspnea related to acute exacerbation of systolic congestive heart failure and possibility of non-ST elevated myocardial infarctio n. Patient had a heart catheterization yesterday showed normal coronary arteries, dilated cardiomyopathy, severe mitral regurgitation. Surgical consultation was requested for consideration of mitral valve repair versus mitral clip. Jaquan recommends 4-6 weeks of medical optimization. Patient had recent history of DVT and she is on oral anticoagulation in the form of Eliquis. Clinically patient looks comfortable, she is awake and noted, oriented 3, resting comfortably in bed, room air pulse ox is 95%, she has been afebrile, she is on dobutamine at 5 mics per kilo per minute, 0.9 normal saline at a rate of 20, and heparin drip has been discontinued. Lung sounds are clear, no compensatory shortness of breath, no cognitive chest pain. No new chest x-ray today, today's labs have been reviewed, showing CBC within normal limits, sodium of 133, pressor electrolytes and renal profile were unremarkable. On 02/23/2020 patient seen in follow-up in the intensive care unit, she is awake and alert, oriented 3, she is resting comfortably in bed, she denies any chest pain, or shortness of breath, she is currently on room air with pulse ox of 96%, 0.9 normal saline at a rate of 20 ML per hour, no other drips, dobutamine drip has been discontinued, blood pressure is 89/51, with a mean of 63-65, patient is asymptomatic, no fever or chills, respirations are nonlabored, lung sounds are clear to auscultation. Patient has been transitioned to oral anticoagulation in the form of Eliquis for recent history of DVT. No acute events overnight, she is sinus rhythm on the monitor. Today's labs have been reviewed, and are unremarkable. The catheter is in place, patient is producing urine in the order of 35-50 ML per hour. He is on empiric antibiotics. No complaint of abdominal pain. Objective - Vital Signs Vital signs: Vital Signs Temp 97.8 F 02/23/20 04:00 Pulse 94 02/23/20 04:00 Resp 16 02/23/20 04:00 BP 89/51 02/23/20 04:00 Pulse Ox 96 02/23/20 04:00 Intake & Output 02/22/20 02/23/20 02/23/20 18:59 06:59 18:59 Intake Total 960 320 20 Output Total 2045 1510 50 Balance -1085 -1190 -30 Weight 73.5 kg 72.7 kg Intake: IV 360 320 20 0.9 KVO 260 220 20 Piperacillin-Tazobactam 3 100 100 .375 gm In Sodium Chloride 0.9% 100 ml @ 25 mls/hr IVPB Q8H JACK Rx#: [id number] Intake, IV Titration 20 Amount Sodium Chloride 0.9% 1, 20 000 ml @ 50 mls/hr IV . Q20H JACK Rx#:[id number] Oral 580 Output: Urine 2045 1510 50 Other: Voiding Method Indwelling Catheter Indwelling Catheter # Bowel Movements 1 1 - Exam GENERAL EXAM: Alert, very pleasant, 60-year-old white female, on room air, with a pulse ox of 95% comfortable in no apparent distress. HEAD: Normocephalic/atraumatic. EYES: Normal reaction of pupils, equal size. Conjunctiva pink, sclera white. NOSE: Clear with pink turbinates. THROAT: No erythema or exudates. NECK: No masses, no JVD, no thyroid enlargement, no adenopathy. CHEST: No chest wall deformity. Symmetrical expansion. LUNGS: Equal air entry with no crackles, wheeze, rhonchi or dullness. CVS: Regular rate and rhythm, normal S1 and S2, no gallops, no murmurs, no rubs ABDOMEN: Soft, nontender. No hepatosplenomegaly, normal bowel sounds, no guarding or rigidity. EXTREMITIES: No clubbing, no edema, no cyanosis, 2+ pulses and upper and lower extremities. MUSCULOSKELETAL: Muscle strength and tone normal. SPINE: No scoliosis or deformity SKIN: No rashes CENTRAL NERVOUS SYSTEM: Alert and oriented -3. No focal deficits, tone is normal in all 4 extremities. PSYCHIATRIC: Alert and oriented -3. Appropriate affect. Intact judgment and insight. - Labs CBC & Chem 7: 02/23/20 04:15 02/23/20 04:15 Labs: Abnormal Lab Results - Last 24 Hours (Table) 02/23/20 Range/Units 04:15 MCHC 29.8 L (31.0-37.0) g/dL Microbiology - Last 24 Hours (Table) 02/17/20 05:42 Blood Culture - Final Blood No Growth after 144 hours Assessment and Plan Plan: Assessment: #1. Acute exacerbation of systolic congestive heart failure #2. Severe dyspnea related to the above #3. Possible non-ST segment elevated myocardial infarction #4. Severe mitral regurgitation and mitral valve prolapse, scheduled for mitral valve repair versus mitral clip placement in the 4-6 weeks #5. Acute right lower extremity DVT, on Eliquis #6. Acute kidney injury related to cardiorenal syndrome #7. History of schizoaffective disorder #8. Hyperlipidemia #9. Mild COPD, stable at this time #10. Elevated liver enzymes, improved secondary to congestive hepatopathy from heart failure Plan: Clinically patient remains stable, no vasopressor support, dobutamine has been weaned off, no complaints of chest pain or shortness of breath, has been started on oral anticoagulation for right lower extremity DVT. Increase activity as tolerated, Hep-Lock IV fluids, consult with cardiology in terms of discharge planning, clinically patient has been stable, surgery is anticipated to be in another 4-6 weeks after optimization of patient's CHF. No fever or chills, no c ompletes of abdominal pain, no nausea vomiting. Stable for transfer out of the unit to selective care unit, consult discharge planning I performed a history & physical examination of the patient and discussed their management with my nurse practitioner, Magaly Fischer. I reviewed the nurse practitioner's note and agree with the documented findings and plan of care. Lung sounds are positive for diffuse wheezes throughout the lung bell. The findings and the impression was discussed with the patient. I attest to the documentation by the nurse practitioner. Time with Patient: Less than 30
[2020-02-23 08:55] VITALS: BP 98/53; PULSE 103; RESP 18
[2020-02-23] MEDS ORDERED: DIGOXIN 125 MCG TAB PO SCH (09:00)
[2020-02-23 09:04] VITALS: TEMP 98
--- NOTE | 2020-02-23 10:18 | P.DS ---
Providers Date of admission: 02/14/20 14:12 Expected date of discharge: 02/23/20 Attending physician: Justin Win Consults: 02/14/20 14:12 Consult Physician Urgent Consulting Provider: Ismael Hopkins Consult Reason/Comments: troponin elevated, BNP elevated-CHF, concern precipitated by event Do you want consulting provider notified?: Yes 02/17/20 00:00 Consult Physician Routine Consulting Provider: Shagufta Lewis Consult Reason/Comments: Icu management Do you want consulting provider notified?: Already Contacted 02/20/20 10:50 Consult Physician Urgent Consulting Provider: Nate New Consult Reason/Comments: Pt has severe mitral regurge Do you want consulting provider notified?: Already Contacted Primary care physician: [facility] Course: 60-[facility] with past medical history of hypertension hyperlipidemia and schizophrenic effect who developed to have worsening shortness of breath for the last 2-3 weeks according to her [facility] treated for bronchitis with no effect. Patient call the clinic concern that she is having more dyspnea and shortness of breath with worsening symptoms was instructed to come to the emergency department. Was seen and evaluated has been having significant and worsening shortness of breath with minimum exertion increased PND orthopnea no angina had some abdominal discomfort with diarrhea no vomiting no worsening cough fever or chills. [facility] troponin was elevated BNP was quite bit high at the time lactic acid was elevated as well patient chest x-ray showed early pulmonary edema with venous congestion. Patient d-dimer was elevated and ended up going for CTA showed no pulmonary embolism but sign of pulmonary edema and pulmonary hypertension. Patient was started on IV diuretics heparin drip and nitro and admitted to the hospital for elevated troponin with possible non-ST PR, pulmonary edema, congestive heart failure excessive patient. 02/14: Patient evaluated, denies any further complaints of shortness of breath. Liver enzymes still noted to be elevated AST 140, ALT 160, total bilirubin 1.6, potassium 3.0, sodium 136, BUN 22, creatinine 0.98. Potassium replaced per protocol. Liver ultrasound obtained for abnormal liver function, showed the gallbladder with abnormally thickened wall and gallstones, correlate for acute cholecystitis, nephrolithiasis, and fatty liver. Will consult surgery for acute cholecystitis. She continues on Lasix 40 mg daily IVP, cardiology on consult. Echocardiogram showed mild concentric left ventricular hypertrophy, left ventricular systolic function moderately impaired with an EF of 35-40%, increased LAP grade 2 diastolic dysfunction, LA is severely dilated, severe mitral regurgitation, moderate mitral valve prolapse, moderate tricuspid regurgitation, moderate pulmonary hypertension. Vital signs are stable, afebrile 97.6, heart rate 65, wrist rate 22, blood pressure 126/66 she's 98% on 2 L via nasal cannula. 02/15: Patient evaluated this morning, resting comfortably in bed. Denies any shortness of breath or chest pain. Liver enzymes are trending downwards, AST 100, ALT 129, total bilirubin 1.5, she is asymptomatic and tolerating food and fluids without nausea or vomiting or abdominal pain. Surgery is on consult, may need cholecystectomy as an outpatient basis once her cardiac status is stabilized. Cardiology on consult, may need cardiac cath, she remains on furosemide 40 mg IV push every 8 hours along with carvedilol 3.125 mg twice a day and lisinopril 5 mg daily. Vital signs are stable 109/75, respiratory rate of 22, heart rate 95, afebrile 97.8, 98% on 2 L via nasal cannula. Magnesium low at 1.5, potassium is also low at 3.0, electrolyte replacement has been ordered. 02/16 Overnight patient was to ICU around 10 pm for worsening blood pressure and shortness of breath. Patient was given a total of 1600 ml of fluids, chest hel ped the pressure briefly. Patient was started on Neosynephrine . Patient is maintaining the MAP at 60. Patient is currently on 3 L and did not need BiPAP overnight. Blood gases were done which suggested a pH of 7.48 CO2 33 pO2 79 bicarb 26 which didinot suggest need the BIPAP. UO was 25 ml/ hr. Lasix was given 40 iv once which did not improve the urine output. Labs his sodium is 135 potassium 5.7 bicarb 21 creatinine increased to 1.3 last lactic acid was 4.1 at 3 in the morning repeat lactic acid is pending. Total bilirubin is 2.5 liver enzymes is elevated. Urinalysis suggestive of ketones, wbc's and rbc's.: Patient currently on Zosyn. Surgery is not planning any intervention for acute cholecystitis. Patient is currently on Zosyn patient appears very unstable and prognosis appears guarded. On evaluation patient endorses shortness of breath denies any cough or sputum production. She denies any abdominal pain. Patient is started on dobutamine drip and digoxin by cardiology. Lasix switched to oral twice a day. 02/17 patient evaluated bedside. Denies any shortness of breath, chest main, palpitation, cough with sputum production. She denies any abdominal pain. On evaluation patient's vital signs,patient is afebrile to respiratory rate 22 blood pressure 99/70 96% onroom air with a pulse of 90. CBC is unremarkable hemoglobin is maintaining 12 sodium 133 potassium 3.4 BUN 27 creatinine 1.23, total bilirubin is improved to 1.5 AST improved to 756 from 1155 ALT 220 from 283. Chest x-ray done this morning suggestive of cardiomegaly with worsening interstitial suggestive for interstitial pneumonitis and stable left lower lobe infiltrate. Continue Lasix and Aldactone. Continue digoxin and Coreg. Continue dobutamine adjusted to the map of 60. off phenylephrine drip 02/18: Patient remains in the intensive care unit. She was started on dobutamine yesterday. She is scheduled for TERE today to evaluate mitral valve. She will also require cardiac catheterization and possible mitral valve repair. Cardiology is following closely. Atrial fibrillation converted to a sinus tachycardia. Chest x-ray this morning reveals similar to prior exam. Cardiomegaly. Possible left lower lobe atelectasis, edema, correlate to exclude pneumonia. Mild prominence of interstitium. General surgery has been following the patient and signed off at this point. No plan for any surgical intervention at this point. 111, blood pressure 111/76, pulse ox 98% on room air. CBC is unremarkable. INR 1.3. Sodium 133. Total bilirubin 1.7, liver function tests are improving with AST of 263, ALT 163, alkaline phosphatase 96. Urine culture has been finalized with no growth. Blood culture no growth at 96 hours and second set at 48 hours. Patient questioned about alcohol intake and there is concern the patient does have alcohol abuse history. No definitive details given by the patient. 02/19: Yesterday, patient underwent TERE that revealed severe anteriorly directed mitral regurgitation secondary to partial flail of the posterior leaflet, moderate mitral regurgitation, severe LV dysfunction with EF of 35%. She is scheduled for left heart catheterization today but her nurse is having a difficult time reaching the public guardian. Cardiovascular consult has also been added as well. Patient remains on dobutamine at 5 mcg/kg/m. Repeat chest x-ray reveals mild to moderate cardiomegaly and mild interstitial change persists. Correlate for mild pulmonary vascular congestion. She denies any chest pain or shortness of breath. She has been afebrile, heart rate 89, blood pressure 100/77, pulse ox 95% on room air. She is only reaching 500 on incentive spirometry. Therapy consult has been added and patient may require subacute rehab. retail tire sales manager is following. Liver enzymes continued to improve with total bilirubin 1.5, AST 131, ALT 130. 02/20: Patient remains in the intensive care unit on dobutamine. She is scheduled for heart catheterization today which was delayed by 1 day as her public guardian was not able to be reached yesterday. apron worker is a sinus rhythm with occasional PVCs. She has a Lester catheter with good urine output. Patient had a central line removed yesterday and found DVT right lower extremity and started on heparin drip. A PICC line has been placed. Patient has been seen by cardiothoracic surgery with plan for mitral surgery awaiting heart catheterization report and stabilization of patient. At this time, patient denies any chest pain, shortness of breath. She is resting in bed appears to be comfortable. 02/21: Patient remains in intensive care unit, on dobutamine drip and heparin drip. She underwent heart catheterization yesterday that showed no significant coronary artery disease. We will plan to discontinue heparin today and start patient on eliquis. Await cardiology input regarding dobutamine drip. Discharge plan is go to [facility] or [facility] and we anticipate discharge possibly by tomorrow. Cardiothoracic surgery is planning on bringing the patient back in 4-6 weeks for surgical repair of mitral valve. She has been afebrile, heart rate 99, sinus rhythm, blood pressure 104/72, pulse ox 95% on room air. CBC is unremarkable. Sodium 133, blood sugar 164. 02/22: Yesterday, cardiology discontinued dobutamine drip and patient started on Lanoxin. Plan to start ERIC inhibitor if blood pressure is stable. She was started on Lasix 20 mg oral twice a day. At 98/53, asymptomatic. Heart rate 103, afebrile, pulse ox 95% on room air. Patient does have shortness of breath with minimal activity. The patient was to be transferred to the cardiac stepdown unit but no bed is available. Incentive spirometry she is only reaching 500 ML's. She is eating 50-100% of meals. CBC and a sick metabolic panel within normal limits Lester catheter is in place which we will plan to discontinue prior to discharge. The patient will be discharged to rehab today in stable condition. Assessment and Plan 1. Acute hypoxic respiratory failure secondary to a combination of possible non-ST PR, and congestive heart failure. 2. Acute systolic heart failure. 3. Possible non-ST PR. 4. Severe MR moderate mitral valve prolapse moderate pulmonary hypertension and moderate tricuspid regurgitation. 5. Abnormal liver function test secondary to decompensated congestive heart failure and acute cholecystitis, cholecystectomy as an outpatient basis. 6. Acute kidney injury. With chronic kidney disease stage II. 7. Hypotension secondary to cardiogenic shock. 8. New onset atrial fibrillation, paroxysmal atrial fibrillation. 9. Hyperlipidemia. 10. Mild intermittent asthma. 11. Recurrent depression. 12. History of schizoaffective disorder. 13. Mild coagulopathy: With elevated PT/INR, secondary to decompensated congestive heart failure. 14. Right lower extremity DVT most likely due to central line. 15. COVID-19 infection not present. [facility]. Impression and plan of care have been directed as dictated by the signing physician. Eli Perry nurse practitioner acting as scribe for signing physician. Patient Condition at Discharge: Good Plan - Discharge Summary Discharge Rx Participant: No New Discharge Prescriptions: New Spironolactone [Aldactone] 25 mg PO DAILY tab Aspirin 81 mg PO DAILY chew Mupirocin 2% Oint [Bactroban 2% Oint] 1 applic NASAL BID applic Carvedilol [Coreg] 3.125 mg PO BID-W/MEALS tab Apixaban [Eliquis] 10 mg PO BID tab Potassium Chloride ER [K-Dur 20] 20 meq PO DAILY tab.er.prt Digoxin [Lanoxin] 125 mcg PO DAILY tab Furosemide [Lasix] 20 mg PO BID@0900,1600 tab Pantoprazole [Protonix] 40 mg PO AC-BRKFST tablet. Continue risperiDONE MICROSPHERES [RisperDAL CONSTA] 25 mg IM Q14D Cholecalciferol [Vitamin D3 (25 Mcg = 1000 Iu)] 5,000 unit PO DAILY Albuterol Sulfate [Albuterol Sulfate Hfa] 2 puff PO RT-Q6H PRN PRN Reason: Shortness Of Breath Atorvastatin [Lipitor] 10 mg PO DAILY Americo/D3/Mag11/Zinc/Set Up Mechanic Automatic Line/Nando/Bor [Caltrate 600+D Plus Tablet] 1 tab PO DAILY DULoxetine HCL [Cymbalta] 60 mg PO DAILY Loratadine [Claritin] 10 mg PO DAILY Montelukast [Singulair] 10 mg PO HS LORazepam [Ativan] 0.5 mg PO TID #9 tab Discontinued Atorvastatin [Lipitor] 10 mg PO DAILY Discharge Medication List risperiDONE MICROSPHERES [RisperDAL CONSTA] 25 mg IM Q14D 08/13/16 [History] Cholecalciferol [Vitamin D3 (25 Mcg = 1000 Iu)] 5,000 unit PO DAILY 05/10/19 [History] Albuterol Sulfate [Albuterol Sulfate Hfa] 2 puff PO RT-Q6H PRN 02/14/20 [History] Atorvastatin [Lipitor] 10 mg PO DAILY 02/14/20 [History] Americo/D3/Mag11/Zinc/Set Up Mechanic Automatic Line/Nando/Bor [Caltrate 600+D Plus Tablet] 1 tab PO DAILY 02/14/20 [History] DULoxetine HCL [Cymbalta] 60 mg PO DAILY 02/14/20 [History] Loratadine [Claritin] 10 mg PO DAILY 02/14/20 [History] Montelukast [Singulair] 10 mg PO HS 02/14/20 [History] Apixaban [Eliquis] 10 mg PO BID tab 02/23/20 [Rx] Aspirin 81 mg PO DAILY chew 02/23/20 [Rx] Carvedilol [Coreg] 3.125 mg PO BID-W/MEALS tab 02/23/20 [Rx] Digoxin [Lanoxin] 125 mcg PO DAILY tab 02/23/20 [Rx] Furosemide [Lasix] 20 mg PO BID@0900,1600 tab 02/23/20 [Rx] LORazepam [Ativan] 0.5 mg PO TID #9 tab 02/23/20 [Rx] Mupirocin 2% Oint [Bactroban 2% Oint] 1 applic NASAL BID applic 02/23/20 [Rx] Pantoprazole [Protonix] 40 mg PO AC-BRKFST tablet. 02/23/20 [Rx] Potassium Chloride ER [K-Dur 20] 20 meq PO DAILY tab.er.prt 02/23/20 [Rx] Spironolactone [Aldactone] 25 mg PO DAILY tab 02/23/20 [Rx] Follow up Appointment(s)/Referral(s): [facility], [NON-STAFF] - Nate New MD [STAFF PHYSICIAN] - 6 Weeks [facility] Abby kulkarni [Primary Care Provider] - 1-2 days Discharge Disposition: TRANSFER TO SNF/ECF
== END 2020-02-23 14:10 | DRG 280 ==
LOC: EC 11:01 → 3SCARD 14:12 → 2SICU 02-16 20:45
PROVIDERS: ADMIT Internal Medicine Geriatric Medicine; ATTEND Internal Medicine Geriatric Medicine
PROC: 06HM33Z Insertion of Infusion Device into Right Femoral Vein, Percutaneous Approach (ICD-10-PCS; 2020-02-17)
PROC: 3E033XZ Introduction of Vasopressor into Peripheral Vein, Percutaneous Approach (ICD-10-PCS; 2020-02-17)
PROC: B246ZZ4 Ultrasonography of Right and Left Heart, Transesophageal (ICD-10-PCS; 2020-02-19)
PROC: 02HV33Z Insertion of Infusion Device into Superior Vena Cava, Percutaneous Approach (ICD-10-PCS; 2020-02-21)
PROC: 4A023N7 Measurement of Cardiac Sampling and Pressure, Left Heart, Percutaneous Approach (ICD-10-PCS; principal; 2020-02-21 09:15)
PROC: B2111ZZ Fluoroscopy of Multiple Coronary Arteries using Low Osmolar Contrast (ICD-10-PCS; principal; 2020-02-21 09:15)
PROC: B2151ZZ Fluoroscopy of Left Heart using Low Osmolar Contrast (ICD-10-PCS; principal; 2020-02-21 09:15)
DX: I21.4 Non-ST elevation (NSTEMI) myocardial infarction (principal); I50.23 Acute on chronic systolic (congestive) heart failure; I51.1 Rupture of chordae tendineae, not elsewhere classified; J96.01 Acute respiratory failure with hypoxia; R57.0 Cardiogenic shock; I13.0 Hypertensive heart and chronic kidney disease with heart failure and stage 1 through stage 4 chronic kidney disease, or unspecified chronic kidney disease; I42.0 Dilated cardiomyopathy; T82.868A Thrombosis due to vascular prosthetic devices, implants and grafts, initial encounter; D68.9 Coagulation defect, unspecified; E87.2 Acidosis; I47.2 Ventricular tachycardia; J98.11 Atelectasis; K80.00 Calculus of gallbladder with acute cholecystitis without obstruction; N17.9 Acute kidney failure, unspecified; I27.20 Pulmonary hypertension, unspecified; F41.9 Anxiety disorder, unspecified; I34.1 Nonrheumatic mitral (valve) prolapse; I48.0 Paroxysmal atrial fibrillation; K75.81 Nonalcoholic steatohepatitis (NASH); Z11.59 Encounter for screening for other viral diseases; E78.5 Hyperlipidemia, unspecified; E87.6 Hypokalemia; F10.10 Alcohol abuse, uncomplicated; F25.9 Schizoaffective disorder, unspecified; I49.3 Ventricular premature depolarization; J44.9 Chronic obstructive pulmonary disease, unspecified; J45.20 Mild intermittent asthma, uncomplicated; K76.1 Chronic passive congestion of liver; N18.2 Chronic kidney disease, stage 2 (mild); Z79.01 Long term (current) use of anticoagulants; Z79.82 Long term (current) use of aspirin; Z79.899 Other long term (current) drug therapy; Z82.49 Family history of ischemic heart disease and other diseases of the circulatory system; Z86.718 Personal history of other venous thrombosis and embolism; Z87.891 Personal history of nicotine dependence; Z80.0 Family history of malignant neoplasm of digestive organs; Z80.8 Family history of malignant neoplasm of other organs or systems
CPT/HCPCS: 36415; 36573; 36600; 71045; 71046; 71275; 76705; 80048; 80053; 80061; 80074; 81001; 82805; 83036; 83605; 83735; 83880; 84100; 84132; 84443; 84484; 85025; 85379; 85610; 85730; 87040; 87070; 87086; 93005; 93306; 93312; 93320; 93325; 93458; 93880; 93970; 94150; 94640; 94760; 96365; 96366; 96375; 96376; 99291

== ENCOUNTER 2020-04-16 14:17 | Inpatient (IN) | payer MEDICARE, OTHER ==
[2020-04-16] MEDS ORDERED: SODIUM CHLORIDE 0.9% 1,000 ML IV STA (14:32)
--- NOTE | 2020-04-16 14:33 | ED ---
Syncope HPI - General Chief Complaint: Syncope Stated Complaint: syncope Time Seen by Provider: 04/16/20 14:31 Source: patient, EMS, RN notes reviewed, old records reviewed Mode of arrival: EMS Limitations: no limitations - History of Present Illness Initial Comments: This is a 60-year-old female after syncopal event patient has significant syncopal event 5 for landing on her face. He is on blood thinners, has copious of profound bleeding from urgent care, patient complaining of facial pain. Headache. MD Complaint: loss of consciousness, collapsed -: unknown Prodromal Symptoms: headache -: second(s) Witnessed: yes - by bystander Injuries Sustained Associated with Event: Face Current Symptoms: back to baseline Context: at rest Treatments Prior to Arrival: none - Related Data Home Medications Medication Instructions Recorded Confirmed risperiDONE MICROSPHERES 25 mg IM Q14D 08/13/16 02/14/20 [RisperDAL CONSTA] Cholecalciferol [Vitamin D3 (25 5,000 unit PO DAILY 05/10/19 02/14/20 Mcg = 1000 Iu)] Albuterol Sulfate [Albuterol 2 puff PO RT-Q6H PRN 02/14/20 02/14/20 Sulfate Hfa] Atorvastatin [Lipitor] 10 mg PO DAILY 02/14/20 02/14/20 Americo/D3/Mag11/Zinc/[facility]ist/Nando/Bor 1 tab PO DAILY 02/14/20 02/14/20 [Caltrate 600+D Plus Tablet] DULoxetine HCL [Cymbalta] 60 mg PO DAILY 02/14/20 02/14/20 Loratadine [Claritin] 10 mg PO DAILY 02/14/20 02/14/20 Montelukast [Singulair] 10 mg PO HS 02/14/20 02/14/20 Previous Rx's Medication Instructions Recorded Apixaban [Eliquis] 10 mg PO BID tab 02/23/20 Aspirin 81 mg PO DAILY chew 02/23/20 Digoxin [Lanoxin] 125 mcg PO DAILY tab 02/23/20 Furosemide [Lasix] 20 mg PO BID@0900,1600 tab 02/23/20 LORazepam [Ativan] 0.5 mg PO TID #9 tab 02/23/20 Mupirocin 2% Oint [Bactroban 2% 1 applic NASAL BID applic 02/23/20 Oint] Pantoprazole [Protonix] 40 mg PO AC-BRKFST tablet. 02/23/20 Potassium Chloride ER [K-Dur 20] 20 meq PO DAILY tab.er.prt 02/23/20 Spironolactone [Aldactone] 25 mg PO DAILY tab 02/23/20 carvediloL [Coreg] 3.125 mg PO BID-W/MEALS tab 02/23/20 Allergies Allergy/AdvReac Type Severity Reaction Status Date / Time No Known Allergies Allergy Verified 04/16/20 14:22 Review of Systems ROS Statement: Those systems with pertinent positive or pertinent negative responses have been documented in the HPI. ROS Other: All systems not noted in ROS Statement are negative. Past Medical History Past Medical History: GERD/Reflux, Hyperlipidemia, Hypertension, Memory Impairment History of Any Multi-Drug Resistant Organisms: None Reported Past Surgical History: Unable to Obtain Additional Past Surgical History / Comment(s): Non-cancerous growths removed from stomach when patient was in high school. Past Anesthesia/Blood Transfusion Reactions: Unable to Obtain Additional Past Anesthesia/Blood Transfusion Reaction / Comment(s): Unkown. Past Psychological History: Anxiety, Bipolar, Depression, Schizophrenia Smoking Status: Never smoker Past Alcohol Use History: None Reported Past Drug Use History: None Reported - Past Family History Mother Family Medical History: Cancer (Stomach), Congestive Heart Failure (CHF) Father Family Medical History: Cancer (Bone) Sister(s) Family Medical History: No Reported History Brother(s) Family Medical History: No Reported History General Exam Limitations: no limitations General appearance: alert, in no apparent distress Head exam: Present: atraumatic, normocephalic, normal inspection Eye exam: Present: normal appearance, PERRL, EOMI. Absent: scleral icterus, conjunctival injection, periorbital swelling ENT exam: Present: normal exam, mucous membranes moist Neck exam: Present: normal inspection. Absent: tenderness, meningismus, lymphadenopathy Respiratory exam: Present: normal lung sounds bilaterally. Absent: respiratory distress, wheezes, rales, rhonchi, stridor Cardiovascular Exam: Present: regular rate, normal rhythm, normal heart sounds. Absent: systolic murmur, diastolic murmur, rubs, gallop, clicks GI/Abdominal exam: Present: soft, normal bowel sounds. Absent: distended, tenderness, guarding, rebound, rigid Extremities exam: Present: normal inspection, full ROM, normal capillary refill. Absent: tenderness, pedal edema, joint swelling, calf tenderness Back exam: Present: normal inspection Neurological exam: Present: alert, oriented X3, CN II-XII intact Psychiatric exam: Present: normal affect, normal mood Skin exam: Present: warm, dry, intact, normal color. Absent: rash Course Vital Signs 04/16/20 04/16/20 14:18 15:00 Temperature 98.1 F Pulse Rate 63 Respiratory 16 16 Rate Blood Pressure 112/79 O2 Sat by Pulse 98 Oximetry - Reevaluation(s) Reevaluation #1: 04/16/20 16:11 Medical record is reviewed Reevaluation #2: 04/16/20 16:45 No recurrent syncope here in the ER Reevaluation #3: 04/16/20 16:45 Patient questions are answered patient is informed of results Medical Decision Making - Medical Decision Making 60 female regarding syncopal event patient has syncopal event here in the ER with nosebleed. Patient will be admitted for evaluation and treatment, mon itoring of syncope - Lab Data Result diagrams: 04/16/20 14:41 04/16/20 14:41 Lab Results 04/16/20 04/16/20 04/16/20 Range/Units 14:41 14:41 14:41 WBC 5.4 (3.8-10.6) k/uL RBC 4.07 (3.80-5.40) m/uL Hgb 12.3 (11.4-16.0) gm/dL Hct 37.6 (34.0-46.0) % MCV 92.4 D (80.0-100.0) fL MCH 30.2 (25.0-35.0) pg MCHC 32.7 (31.0-37.0) g/dL RDW 15.4 (11.5-15.5) % Plt Count 198 (150-450) k/uL Neutrophils % 64 % Lymphocytes % 22 % Monocytes % 7 % Eosinophils % 4 % Basophils % 1 % Neutrophils # 3.5 (1.3-7.7) k/uL Lymphocytes # 1.2 (1.0-4.8) k/uL Monocytes # 0.4 (0-1.0) k/uL Eosinophils # 0.2 (0-0.7) k/uL Basophils # 0.1 (0-0.2) k/uL PT 11.6 (9.0-12.0) sec INR 1.1 (<1.2) APTT 29.4 (22.0-30.0) sec Sodium 140 (137-145) mmol/L Potassium 4.1 (3.5-5.1) mmol/L Chloride 110 H (98-107) mmol/L Carbon Dioxide 23 (22-30) mmol/L Anion Gap 7 mmol/L BUN 14 (7-17) mg/dL Creatinine 0.83 (0.52-1.04) mg/dL Est GFR (CKD-EPI)AfAm 89 (>60 ml/min/1.73 sqM) Est GFR (CKD-EPI)NonAf 77 (>60 ml/min/1.73 sqM) Glucose 141 H (74-99) mg/dL Calcium 9.0 (8.4-10.2) mg/dL Phosphorus 3.2 (2.5-4.5) mg/dL Magnesium 1.9 (1.6-2.3) mg/dL Total Bilirubin 0.8 (0.2-1.3) mg/dL AST 19 (14-36) U/L ALT 6 (4-34) U/L Alkaline Phosphatase 72 (38-126) U/L Creatine Kinase 82 (30-135) U/L Troponin I (0.000-0.034) ng/mL NT-Pro-B Natriuret Pep pg/mL Total Protein 6.0 L (6.3-8.2) g/dL Albumin 3.7 (3.5-5.0) g/dL Urine Color Urine Appearance (Clear) Urine pH (5.0-8.0) Ur Specific Patterson (1.001-1.035) Urine Protein (Negative) Urine Glucose (UA) (Negative) Urine Ketones (Negative) Urine Blood (Negative) Urine Nitrite (Negative) Urine Bilirubin (Negative) Urine Urobilinogen (<2.0) mg/dL Ur Leukocyte Esterase (Negative) Urine RBC (0-5) /hpf Urine WBC (0-5) /hpf Hyaline Casts (0-2) /lpf Urine Mucus (None) /hpf Digoxin ng/mL 04/16/20 04/16/20 04/16/20 Range/Units 14:41 14:41 14:41 WBC (3.8-10.6) k/uL RBC (3.80-5.40) m/uL Hgb (11.4-16.0) gm/dL Hct (34.0-46.0) % MCV (80.0-100.0) fL MCH (25.0-35.0) pg MCHC (31.0-37.0) g/dL RDW (11.5-15.5) % Plt Count (150-450) k/uL Neutrophils % % Lymphocytes % % Monocytes % % Eosinophils % % Basophils % % Neutrophils # (1.3-7.7) k/uL Lymphocytes # (1.0-4.8) k/uL Monocytes # (0-1.0) k/uL Eosinophils # (0-0.7) k/uL Basophils # (0-0.2) k/uL PT (9.0-12.0) sec INR (<1.2) APTT (22.0-30.0) sec Sodium (137-145) mmol/L Potassium (3.5-5.1) mmol/L Chloride (98-107) mmol/L Carbon Dioxide (22-30) mmol/L Anion Gap mmol/L BUN (7-17) mg/dL Creatinine (0.52-1.04) mg/dL Est GFR (CKD-EPI)AfAm (>60 ml/min/1.73 sqM) Est GFR (CKD-EPI)NonAf (>60 ml/min/1.73 sqM) Glucose (74-99) mg/dL Calcium (8.4-10.2) mg/dL Phosphorus (2.5-4.5) mg/dL Magnesium (1.6-2.3) mg/dL Total Bilirubin (0.2-1.3) mg/dL AST (14-36) U/L ALT (4-34) U/L Alkaline Phosphatase (38-126) U/L Creatine Kinase (30-135) U/L Troponin I 0.029 (0.000-0.034) ng/mL NT-Pro-B Natriuret Pep 8420 pg/mL Total Protein (6.3-8.2) g/dL Albumin (3.5-5.0) g/dL Urine Color Urine Appearance (Clear) Urine pH (5.0-8.0) Ur Specific Patterson (1.001-1.035) Urine Protein (Negative) Urine Glucose (UA) (Negative) Urine Ketones (Negative) Urine Blood (Negative) Urine Nitrite (Negative) Urine Bilirubin (Negative) Urine Urobilinogen (<2.0) mg/dL Ur Leukocyte Esterase (Negative) Urine RBC (0-5) /hpf Urine WBC (0-5) /hpf Hyaline Casts (0-2) /lpf Urine Mucus (None) /hpf Digoxin 0.8 ng/mL 04/16/20 Range/Units 15:28 WBC (3.8-10.6) k/uL RBC (3.80-5.40) m/uL Hgb (11.4-16.0) gm/dL Hct (34.0-46.0) % MCV (80.0-100.0) fL MCH (25.0-35.0) pg MCHC (31.0-37.0) g/dL RDW (11.5-15.5) % Plt Count (150-450) k/uL Neutrophils % % Lymphocytes % % Monocytes % % Eosinophils % % Basophils % % Neutrophils # (1.3-7.7) k/uL Lymphocytes # (1.0-4.8) k/uL Monocytes # (0-1.0) k/uL Eosinophils # (0-0.7) k/uL Basophils # (0-0.2) k/uL PT (9.0-12.0) sec INR (<1.2) APTT (22.0-30.0) sec Sodium (137-145) mmol/L Potassium (3.5-5.1) mmol/L Chloride (98-107) mmol/L Carbon Dioxide (22-30) mmol/L Anion Gap mmol/L BUN (7-17) mg/dL Creatinine (0.52-1.04) mg/dL Est GFR (CKD-EPI)AfAm (>60 ml/min/1.73 sqM) Est GFR (CKD-EPI)NonAf (>60 ml/min/1.73 sqM) Glucose (74-99) mg/dL Calcium (8.4-10.2) mg/dL Phosphorus (2.5-4.5) mg/dL Magnesium (1.6-2.3) mg/dL Total Bilirubin (0.2-1.3) mg/dL AST (14-36) U/L ALT (4-34) U/L Alkaline Phosphatase (38-126) U/L Creatine Kinase (30-135) U/L Troponin I (0.000-0.034) ng/mL NT-Pro-B Natriuret Pep pg/mL Total Protein (6.3-8.2) g/dL Albumin (3.5-5.0) g/dL Urine Color Light Yellow Urine Appearance Clear (Clear) Urine pH 6.5 (5.0-8.0) Ur Specific Patterson 1.011 (1.001-1.035) Urine Protein Negative (Negative) Urine Glucose (UA) Negative (Negative) Urine Ketones Negative (Negative) Urine Blood Small H (Negative) Urine Nitrite Negative (Negative) Urine Bilirubin Negative (Negative) Urine Urobilinogen <2.0 (<2.0) mg/dL Ur Leukocyte Esterase Negative (Negative) Urine RBC 7 H (0-5) /hpf Urine WBC <1 (0-5) /hpf Hyaline Casts 1 (0-2) /lpf Urine Mucus Rare H (None) /hpf Digoxin ng/mL - Radiology Data Radiology results: report reviewed (CT brain C-spine and facial bones shows significant nasal fractures with displacement), image reviewed Disposition Clinical Impression: Tachycardia, Nasal fracture, Syncope, Epistaxis Disposition: ADMITTED IP TO THIS [facility] Condition: Fair Is patient prescribed a controlled substance at d/c from ED?: No Referrals: [facility] [Primary Care Provider] - 1-2 days
[2020-04-16 15:04] LABS: INR 1.1 (<1.2); Partial Thromboplastin Time 29.4 sec (22.0-30.0); Prothrombin Time 11.6 sec (9.0-12.0)
[2020-04-16 15:09] LABS: Albumin 3.7 g/dL (3.5-5.0); Magnesium 1.9 mg/dL (1.6-2.3); Phosphorus 3.2 mg/dL (2.5-4.5); Potassium 4.1 mmol/L (3.5-5.1); Total Bilirubin 0.8 mg/dL (0.2-1.3)
[2020-04-16 15:16] LABS: Basophils # (A) 0.1 k/uL (0-0.2); Basophils % (A) 1 %; Eosinophils # (A) 0.2 k/uL (0-0.7); Eosinophils % (A) 4 %; HCT 37.6 % (34.0-46.0); HGB 12.3 gm/dL (11.4-16.0); Lymphocytes # (A) 1.2 k/uL (1.0-4.8); Lymphocytes % (A) 22 %; MCH 30.2 pg (25.0-35.0); MCHC 32.7 g/dL (31.0-37.0); Mean Platelet Volume 7.8; Monocytes # (A) 0.4 k/uL (0-1.0); Monocytes % (A) 7 %; Neutrophils # (A) 3.5 k/uL (1.3-7.7); Neutrophils % (A) 64 %; Platelet Count 198 k/uL (150-450); RBC 4.07 m/uL (3.80-5.40); RDW 15.4 % (11.5-15.5); WBC 5.4 k/uL (3.8-10.6)
[2020-04-16 15:19] LABS: MCV 92.4 fL (80.0-100.0)
[2020-04-16 15:51] LABS: Appearance,Urine Clear (Clear); Bilirubin,Urine Negative (Negative); Blood,Urine Small (Negative); Color,Urine Light Yellow; Glucose,Urine (UA) Negative (Negative); Hyaline Casts,Urine 1 /lpf (0-2); Ketones,Urine Negative (Negative); Leukocyte Esterase,Urine Negative (Negative); Mucus,Urine Rare /hpf; Nitrite,Urine Negative (Negative); PH, Urine 6.5 (5.0-8.0); Protein,Urine Negative (Negative); RBC,Urine 7 /hpf (0-5); Specific Gravity,Urine 1.011 (1.001-1.035); Urobilinogen,Urine <2.0 mg/dL (<2.0); WBC,Urine <1 /hpf (0-5)
--- NOTE | 2020-04-16 16:08 | CT ---
EXAMINATION TYPE: CT brain cspine wo con DATE OF EXAM: 04/16/2020 COMPARISON: Brain 05/26/2012 HISTORY: 60-year-old female pain after Fall today with nose bleed and LOC. CT DLP: 1060.7 mGycm Automated exposure control for dose reduction was used. Technique: Examination of the head was done in axial plane without intravenous contrast. Coronal and sagittal reconstructions performed. CT of the cervical spine was obtained in axial plane without intravenous injection of contrast mater ial. Coronal and sagittal reformatted images were obtained from the axial views for evaluation of f ractures, spinal alignment and canal. FINDINGS: Head: There is no evidence of acute intracranial hemorrhage, acute ischemic changes, mass, mass-effect, or extra-axial fluid collection. There is no effacement of cerebral sulci or basal subarachnoid cister ns. There is no hydrocephalus. There is no midline shift. Morales-white matter distinction is preserv ed. Previous left frontotemporal craniotomy flap. There is a tract of encephalomalacia/gliosis along the left frontal region. Mild white matter hypodensity suggests changes of chronic small vessel ischemic disease. No calvarial fracture. Mastoid air cells well pneumatized. Facial bones reported separately. Cervical spine: No craniocervical junction abnormality, predental space widening, or prevertebral soft tissue swellin g. Trace grade 1 anterolisthesis at C4-C5 with reversal of the normal cervical lordosis. No acute fracture of the cervical spine. No evident canal compromise by CT. Motion artifact in the upper lungs. There seems to be diffuse septal lines and interstitial thickenin g. Sagittal and coronal reformatted images confirm above findings. COMBINED IMPRESSION: 1. Previous left frontal temporal craniotomy flap. No acute intracranial abnormality seen. 2. No acute fracture of the cervical spine. Degenerative grade 1 anterolisthesis C4-C5. 3. Facial this seems to be diffuse septal lines in the visualized upper lungs. Correlate for fluid ov erload state and early interstitial edema. 4. Facial bones reported separately.
--- NOTE | 2020-04-16 16:12 | CT ---
EXAMINATION TYPE: CT facial bones wo con DATE OF EXAM: 04/16/2020 COMPARISON: None HISTORY: 60-year-old female with pain after Fall today with nose bleed and LOC. TECHNIQUE: Contiguous axial scanning of the facial bones without IV contrast. Coronal reconstructions performed. CT DLP: 1060.7 mGycm Automated exposure control for dose reduction was used. FINDINGS: The mandible and TMJs are intact. The pneumatic arch is in pterygoid plates are intact. There is a comminuted fracture of the bilateral nasal bones. There is some foreshortening and displac ement with lateral angulation involving the left nasal bones. A displaced fracture fragment measuring 4 mm is located just deep to the skin surface, refer to axial image 51. Orbits and globes appear intact. Trace mucosal thickening anterior ethmoid air cells and right maxillary sinus. Hemorrhagic debris within the left nostril. IMPRESSION: 1. Comminuted fracture of the bilateral nasal bones. Some foreshortening and displacement with latera l angulation involving the left nasal bone. 2. A 4 mm displaced fracture fragment along the anterior right nose located just deep to the skin venus face, refer to axial image 51.
[2020-04-16] MEDS ORDERED: NITROGLYCERIN SL TABS 0.4 MG TAB SUBLINGUAL PRN (18:32)
[2020-04-17] MEDS ORDERED: HYDROcodone/APAP 5-325MG 1 EACH TAB PO PRN (01:00)
--- NOTE | 2020-04-17 01:12 | XR ---
EXAMINATION TYPE: XR chest 2V DATE OF EXAM: 04/17/2020 COMPARISON: 02/20/2020 HISTORY: Short of breath TECHNIQUE: FINDINGS: Heart is enlarged. There is slight blunting of the costophrenic angles. There is minimal pu lmonary congestion. There are chest leads. Bony thorax is intact. IMPRESSION: Cardiomegaly and small pleural effusions. No obvious heart failure. No adverse change com pared to old exam. Pulmonary vascularity slightly improved compared to old exam.
[2020-04-17 03:51] LABS: Cholesterol 151 mg/dL (<200); HDL Cholesterol 57 mg/dL (40-60); LDL Cholesterol,Calculated 79 mg/dL (0-99); Triglycerides 75 mg/dL (<150)
[2020-04-17] MEDS: PANTOPRAZOLE 40 MG TABLET PO SCH (06:41)
[2020-04-17] MEDS ORDERED: carvediloL 3.125 MG TAB PO SCH (07:30)
[2020-04-17] MEDS ORDERED: D3 PO SCH (09:00)
[2020-04-17] MEDS ORDERED: CAL PO SCH (09:00)
[2020-04-17] MEDS ORDERED: MAG11 PO SCH (09:00)
[2020-04-17] MEDS ORDERED: ZINC PO SCH (09:00)
[2020-04-17] MEDS ORDERED: COP PO SCH (09:00)
[2020-04-17] MEDS ORDERED: BOR PO SCH (09:00)
[2020-04-17] MEDS ORDERED: APIXABAN 5 MG TAB PO SCH (09:00)
[2020-04-17] MEDS ORDERED: MANG PO SCH (09:00)
[2020-04-17] MEDS: ALBUTEROL NEBULIZED 2.5 MG/3 ML INHALATION PRN ×2 (09:03→20:42)
[2020-04-17] MEDS: CHOLECALCIFEROL 1,000 UNIT TAB PO SCH (10:13)
[2020-04-17] MEDS: ASPIRIN 81 MG PO SCH (10:13)
[2020-04-17] MEDS: ATORVASTATIN 10 MG TAB PO SCH (10:13)
[2020-04-17] MEDS: LORazepam 0.5 MG TAB PO SCH ×3 (10:14→22:00)
[2020-04-17] MEDS: SPIRONOLACTONE 25 MG TAB PO SCH (10:14)
[2020-04-17] MEDS: DIGOXIN 125 MCG TAB PO SCH (10:14)
[2020-04-17] MEDS: DULoxetine HCL 60 MG CAPSULE.DR PO SCH (10:14)
[2020-04-17] MEDS: LORATADINE 10 MG TAB PO SCH (10:14)
--- NOTE | 2020-04-17 12:00 | ECHOF ---
Referral Reason:vt, dilated cm MEASUREMENTS -------- HEIGHT: 160.0 cm WEIGHT: 81.7 kg BP: RVIDd: 3.2 cm (< 3.3) IVSd: 1.0 cm (0.6 - 1.1) LVIDd: 5.7 cm (3.9 - 5.3) LVPWd: 1.7 cm (0.6 - 1.1) IVSs: 1.4 cm LVIDs: 5.2 cm LVPWs: 1.8 cm LA Diam: 6.4 cm (2.7 - 3.8) LAESV Index (A-L): 89.55 ml/m Ao Diam: 3.0 cm (2.0 - 3.7) AV Cusp: 1.9 cm (1.5 - 2.6) MV EXCURSION: 30.195 mm (> 18.000) MV EF SLOPE: 189 mm/s (70 - 150) EPSS: 1.9 cm MV E Ted: 0.94 m/s MV DecT: 140 ms MV A Ted: 0.61 m/s MV E/A Ratio: 1.55 RAP: 5.00 mmHg RVSP: 51.63 mmHg FINDINGS -------- Sinus rhythm. Echo Done 03/04-TERE Done/03/04: indicates partial flail posterior MVL with severe anteriorly directed M R. The left ventricle is moderately dilated. Overall left ventricular systolic function is severely im paired with, an EF between 20 - 25 %. Increased LAP. Grade 3 Diastolic Dysfunction. The right ventricle is normal in size. The left atrium is markedly dilated. LA is severely dilated >40 ml/m2 The right atrial size is normal. The aortic valve is trileaflet, and appears structurally normal. No aortic stenosis or regurgitation. There is severe anteriorly directed mitral regurgitation with what appears to be partial flail of the posterior leaflet. [id number] tricuspid regurgitation present. There is moderate pulmonary hypertension. The r ight ventricular systolic pressure, as measured by Doppler, is 51.63mmHg. There is no pulmonic regurgitation present. The aortic root size is normal. There is no pericardial effusion. CONCLUSIONS -------- 1. Echo Done 03/04-TERE Done/03/04: indicates partial flail posterior MVL with severe anteriorly directe d MR. 2. The left ventricle is moderately dilated. 3. Overall left ventricular systolic function is severely impaired with, an EF between 20 - 25 %. 4. Increased LAP. Grade 3 Diastolic Dysfunction. 5. The right ventricle is normal in size. 6. LA is severely dilated >40 ml/m2 7. The right atrial size is normal. 8. There is severe anteriorly directed mitral regurgitation with what appears to be partial flail of the posterior leaflet. 9. There is moderate pulmonary hypertension. 10. The right ventricular systolic pressure, as measured by Doppler, is 51.63mmHg. 11. There is no pulmonic regurgitation present. 12. The aortic root size is normal. 13. There is no pericardial effusion. COMPOSITE ENGINEER: Rachelle Staley RDCS
--- NOTE | 2020-04-17 12:14 | P.CNPUL ---
History of Present Illness Consult date: 04/17/20 Requesting physician: Maria E Vásquez Reason for consult: dyspnea, other Chief complaint: Dizziness, fall, facial injury, dyspnea History of present illness: 60-year-old female patient who follows with the [facility] [place], with known history of severe mitral regurgitation, who has been evaluated by cardiothoracic surgery for possibility of surgical repair, patient has upcoming appointment tomorrow with Dr. New. Patient was recently hospitalized for acute non-ST elevated myocardial infarction, acute exacerbation of congestive heart failure with systolic dysfunction, she was found to have severe mitral regurgitation with flail posterior mitral leaflet, moderate pulmonary hyp ertension and moderately severe tricuspid regurgitation. Heart catheterization on 02/21/2020 showed normal coronary arteries, dilated cardiomyopathy. Patient had acute kidney injury and top of chronic kidney disease stage III at baseline. Other medical history includes history of schizophrenia, and patient has a public guardian, paroxysmal atrial fibrillation, hyperlipidemia, mild intermittent bronchial asthma, depression. Patient was discharged to [facility] following her hospitalization on 02/23/2020. On 04/16/2020 patient was brought into the emergency department by an ambulance for evaluation [place] patient felt dizzy, she states the room w as spinning, and patient landed on her face sustaining injury to her nose, and there is significant bruising involving the bridge of her nose and under both eyes. She is on Eliquis for paroxysmal atrial fibrillation. CT of the head showed no evidence of acute intracranial hemorrhage, no acute ischemic changes, no acute process, cervical spine showing antral listhesis grade 1, C4-C5, no acute fracture, CT of the face showed comminuted fracture the bilateral nasal bones, some foreshortening and displacement with lateral angulation involving the left nasal bone, a 4 mm displaced fracture fragment along the anterior right nose located just deep to the skin surface. Chest x-ray showed cardiomegaly and small pleural effusions, pulmonary vascularity was slightly improved compared to last chest x-ray from 02/20/2020. Vital signs remain stable, hemodynamically stable, neurologically patient is intact, she is awake and alert, oriented 3, providing history of present illness, no acute distress. Room pulse ox is 93- 97%, no cough or congestion, no complaints of chest pain or palpitations. No lower extremity swelling. Review of Systems All systems: negative Constitutional: Denies chills, Denies fever Eyes: denies blurred vision, denies pain Ears, nose, mouth and throat: Denies headache, Denies sore throat Cardiovascular: Denies chest pain, Denies shortness of breath Respiratory: Reports dyspnea, Denies cough Gastrointestinal: Denies abdominal pain, Denies diarrhea, Denies nausea, Denies vomiting Genitourinary: Denies dysuria, Denies hematuria Musculoskeletal: Denies myalgias Integumentary: Denies pruritus, Denies rash Neurological: Denies numbness, Denies weakness Psychiatric: Denies anxiety, Denies depression Endocrine: Denies fatigue, Denies weight change Past Medical History Past Medical History: Heart Failure, GERD/Reflux, Hyperlipidemia, Hypertension, Memory Impairment History of Any Multi-Drug Resistant Organisms: None Reported Past Surgical History: Unable to Obtain Additional Past Surgical History / Comment(s): Non-cancerous growths removed from stomach when patient was in high school. Laser eye surgery. Past Anesthesia/Blood Transfusion Reactions: Unable to Obtain Additional Past Anesthesia/Blood Transfusion Reaction / Comment(s): Unkown. Past Psychological History: Anxiety, Bipolar, Depression, Schizophrenia Additional Psychological History / Comment(s): Numerous inpatient psychiatric admissions. Open with [facility], Patient sees Lakshmi from the ACT team. Smoking Status: Never smoker Past Alcohol Use History: None Reported Past Drug Use History: None Reported Additional Drug Use History / Comment(s): Patient denies. - Past Family History Mother Family Medical History: Cancer, Congestive Heart Failure (CHF) Father Family Medical History: Cancer Sister(s) Family Medical History: No Reported History Brother(s) Family Medical History: No Reported History Medications and Allergies Home Medications Medication Instructions Recorded Confirmed Type risperiDONE MICROSPHERES 25 mg IM Q14D 08/13/16 04/16/20 History [RisperDAL CONSTA] Cholecalciferol [Vitamin D3 (25 5,000 unit PO DAILY 05/10/19 04/16/20 History Mcg = 1000 Iu)] Albuterol Sulfate [Albuterol 2 puff PO RT-Q6H PRN 02/14/20 04/16/20 History Sulfate Hfa] Atorvastatin [Lipitor] 10 mg PO DAILY 02/14/20 04/16/20 History Americo/D3/Mag11/Zinc/Alarm Mechanism Adjuster/Nando/Bor 1 tab PO DAILY 02/14/20 04/16/20 History [Caltrate 600+D Plus Tablet] DULoxetine HCL [Cymbalta] 60 mg PO DAILY 02/14/20 04/16/20 History Loratadine [Claritin] 10 mg PO DAILY 02/14/20 04/16/20 History Montelukast [Singulair] 10 mg PO HS 02/14/20 04/16/20 History Apixaban [Eliquis] 10 mg PO BID tab 02/23/20 04/16/20 Rx Aspirin 81 mg PO DAILY chew 02/23/20 04/16/20 Rx Digoxin [Lanoxin] 125 mcg PO DAILY tab 02/23/20 04/16/20 Rx LORazepam [Ativan] 0.5 mg PO TID #9 tab 02/23/20 04/16/20 Rx Pantoprazole [Protonix] 40 mg PO AC-BRKFST tablet. 02/23/20 04/16/20 Rx Spironolactone [Aldactone] 25 mg PO DAILY tab 02/23/20 04/16/20 Rx carvediloL [Coreg] 3.125 mg PO BID-W/MEALS tab 02/23/20 04/16/20 Rx Allergies Allergy/AdvReac Type Severity Reaction Status Date / Time No Known Allergies Allergy Verified 04/16/20 17:00 Physical Exam Vitals: Vital Signs Temp Pulse Pulse Resp BP BP Pulse Ox 04/17/20 09:10 72 04/17/20 09:04 71 93 L 04/17/20 08:19 98.2 F 98 18 102/69 97 04/17/20 05:45 98.6 F 109 H 28 H 113/78 95 04/17/20 02:15 98 F 123 H 31 H 127/91 94 L 04/16/20 21:43 93 L 04/16/20 20:40 97.5 F L 113 H 30 H 126/90 04/16/20 19:56 97.9 F 104 H 16 129/93 95 04/16/20 17:26 97.7 F 101 H 16 118/88 94 L 04/16/20 15:00 98.1 F 63 16 112/79 98 04/16/20 14:18 16 Intake and Output 04/16/20 04/17/20 04/17/20 22:59 06:59 14:59 Other: Voiding Method Toilet Toilet Toilet # Voids 3 3 2 # Bowel Movements 1 1 Weight 81.647 kg GENERAL EXAM: Alert, very pleasant 60-year-old white female, on room air, with a pulse ox of 93-97%, 70 to been, in no acute distress, has significant bruising of the bridge of her nose, and under both eyes from a recent history of a fall and syncopal episode comfortable in no apparent distress. HEAD: Normocephalic/atraumatic. EYES: Normal reaction of pupils, equal size. Conjunctiva pink, sclera white. NOSE: Clear with pink turbinates. THROAT: No erythema or exudates. NECK: No masses, no JVD, no thyroid enlargement, no adenopathy. CHEST: No chest wall deformity. Symmetrical expansion. LUNGS: Equal air entry with no crackles, wheeze, rhonchi or dullness. CVS: Regular rate and rhythm, normal S1 and S2, no gallops, no murmurs, no rubs ABDOMEN: Soft, nontender. No hepatosplenomegaly, normal bowel sounds, no guarding or rigidity. EXTREMITIES: No clubbing, no edema, no cyanosis, 2+ pulses and upper and lower extremities. MUSCULOSKELETAL: Muscle strength and tone normal. SPINE: No scoliosis or deformity SKIN: No rashes CENTRAL NERVOUS SYSTEM: Alert and oriented -3. No focal deficits, tone is normal in all 4 extremities. PSYCHIATRIC: Alert and oriented -3. Appropriate affect. Intact judgment and insight. Results - Laboratory Findings CBC and BMP: 04/16/20 14:41 04/16/20 14:41 PT/INR, D-dimer PT 11.6 sec (9.0-12.0) 04/16/20 14:41 INR 1.1 (<1.2) 04/16/20 14:41 Abnormal lab findings: Abnormal Labs 04/16/20 04/16/20 04/16/20 14:41 15:28 21:43 Chloride 110 H Glucose 141 H Troponin I 0.039 H* Total Protein 6.0 L Urine Blood Small H Urine RBC 7 H Urine Mucus Rare H 04/17/20 03:13 Chloride Glucose Troponin I 0.083 H* Total Protein Urine Blood Urine RBC Urine Mucus - Diagnostic Findings Chest x-ray: report reviewed, image reviewed Additional studies: CT of the head, neck, and facial bones Assessment and Plan Plan: Assessment: #1. Syncopal episode, fall, unclear etiology, rule out cardiac etiology, dysrhythmia in this patient with known history of severe mitral regurgitation, awaiting surgical repair. Possibility of seizures is also considered, patient did have a loss of consciousness #2. Acute comminuted fracture of the bilateral nasal bones with a displaced fragment along the anterior right nose, related to a syncopal episode and fall. Head CT was negative for any acute intracranial process, no cervical spine fracture #3. Recent hospitalization from 02/14/2020 through 02/23/2020 non-ST elevated myocardial infarction, and acute exacerbation of systolic CHF #4. Severe mitral regurgitation with flail posterior mitral valve leaflet, awaiting surgery #5. Moderately severe pulmonary hypertension, and moderate tricuspid regurgitation #6. Normal coronary arteries, status post cardiac catheterization on 02/21/2020 #7. Severe LV dysfunction with diffuse global hypokinesis, and an ejection fraction of 35% #8. Troponin leak, cardiology is consulted #9. History of hypertension #10. Hyperlipidemia #11. Schizophrenia Plan: Chest x-ray was reviewed showing small pleural effusions, from pulmonary perspective patient is stable, patient is on room air, no acute respiratory dist ress. No recurrence of syncopal episode, maintaine safety precautions, will defer to cardiology and cardiothoracic surgery for the management of CHF, and severe mitral regurgitation. Continue current medical treatment. I performed a history & physical examination of the patient and discussed their management with my nurse practitioner, Magaly Fischer. I reviewed the nurse practitioner's note and agree with the documented findings and plan of care. Lung sounds are positive for diminished breath sounds. The findings and the impression was discussed with the patient. I attest to the documentation by the nurse practitioner. Time with Patient: Greater than 30
--- NOTE | 2020-04-17 12:35 | P.CRDCN ---
<Jeri Sue - Last Filed: 04/17/20 12:23> History of Present Illness History of present illness: HISTORY OF PRESENTING ILLNESS This is a pleasant 60-year-old female past medical history significant for dilated cardiomyopathy, severe mitral regurgitation, paroxysmal atrial fibrillation, recent diagnosis of DVT, dyslipidemia, systolic heart failure and mental illness. She was recently diagnosed with severe mitral regurgitation and is currently following with Dr. New with an appointment scheduled for tomorrow to make a determination regarding proceeding with mitral valve repair. She was discharged from the hospital in February and [facility] she was recently discharged home. The patient states she lives alone and she follows closely with [facility] with appointment coordinations and medical care. She was out and about yesterday attempting to purchase a cell phone. She states she was walking into the mall when she became acutely dizzy and fell forward. She had her face on the ground and suffered a nasal fracture. She states she felt dizzy and lightheaded prior to falling but had no chest pain, shortness of breath or palpitations. Telemetry tracings reviewed revealed episodes of monomorphic ventricular tachycardia. On recent admission she underwent a cardiac catheterization revealing normal coronary arteries with no obstructive disease with severe mitral regurgitation and dilated cardiomyopathy with ejection fraction of 35-40%. She is seen and examined this morning resting comfortably laying flat in no acute distress. She denies active symptoms of c hest pain, shortness of breath, dizziness or palpitations. DIAGNOSTICS EKG reveals sinus mechanism with nonspecific abnormalities noted. Chest xray reveals cardiomegaly and small pleural effusions with no overt heart failure and improved pulmonary vascularity from previous exam. Laboratory reviewed, CBC unremarkable, sodium 140, potassium 4.1, creatinine 0.83, magnesium 1.9, troponin 0.029, 0.030, 0.039, 0.083 and an T proBNP 8420. Current cardiac medications include Eliquis 10 mg twice a day, aspirin 81 mg daily, digoxin 125 g daily, Aldactone 25 mg daily, carvedilol 3.125 mg twice a day and atorvastatin 10 mg daily. REVIEW OF SYSTEMS At the time of my exam: CONSTITUTIONAL: Denies fever or chills. CARDIOVASCULAR: Denies chest pain, shortness of breath, orthopnea, PND or palpitations. RESPIRATORY: Denies cough. GASTROINTESTINAL: Denies abdominal pain, diarrhea, constipation, nausea or vomiting. MUSCULOSKELETAL: Denies myalgias. NEUROLOGIC: Denies numbness, tingling or weakness. ENDOCRINE: Denies fatigue, weight change, polydipsia or polyurina. GENITOURINARY: Denies burning, hematuria or urgency with micturation. HEMATOLOGIC: Denies history of anemia or bleeding. PHYSICAL EXAMINATION Blood pressure 102/69 heart rate 72 afebrile and maintaining oxygen saturation on room air. CONSTITUTIONAL: No apparent distress. HEENT: Head is normocephalic. Pupils are equal, round. Sclerae anicteric. Mucous membranes of the mouth are moist. No JVD. No carotid bruit. CHEST EXAMINATION: Lungs are clear to auscultation. No chest wall tenderness is noted on palpation or with deep breathing. HEART EXAMINATION: Regular rate and rhythm. S1, S2 heard. Systolic ejection murmur at all listening points, no gallops or rub. ABDOMEN: Soft, nontender. Positive bowel sounds. EXTREMITIES: 2+ peripheral pulses, no lower extremity edema and no calf tenderness. NEUROLOGIC EXAMINATION: Patient is awake, alert and oriented x3. ASSESSMENT Fall, no LOC Non-sustained monomorphic ventricular tachycardia Mitral valve prolapse Severe MR Dilated cardiomyopathy Paroxysmal atrial fibrillation, currently in sinus mechanism Troponin leak secondary to supply and demand mismatch PLAN Repeat 2-D echocardiogram and Doppler study to assess LV systolic function. Increase Coreg to 6.25 mg twice a day as her blood pressure tolerates. Decrease Eliquis 25 mg twice a day. We will ask Dr. New to reevaluate the patient while she is here. Dr. Palencia will evaluate her arrhythmia consideration of possible EP study. Further recommendations to follow based upon clinical course. Thank you kindly for this consultation. Nurse Practitioner note has been reviewed, I agree with a documented findings and plan of care. Patient was seen and examined. Past Medical History Past Medical History: Heart Failure, GERD/Reflux, Hyperlipidemia, Hypertension, Memory Impairment History of Any Multi-Drug Resistant Organisms: None Reported Past Surgical History: Unable to Obtain Additional Past Surgical History / Comment(s): Non-cancerous growths removed from stomach when patient was in high school. Laser eye surgery. Past Anesthesia/Blood Transfusion Reactions: Unable to Obtain Additional Past Anesthesia/Blood Transfusion Reaction / Comment(s): Unkown. Past Psychological History: Anxiety, Bipolar, Depression, Schizophrenia Additional Psychological History / Comment(s): Numerous inpatient psychiatric admissions. Open with [facility], Patient sees Lakshmi from the ACT team. Smoking Status: Never smoker Past Alcohol Use History: None Reported Past Drug Use History: None Reported Additional Drug Use History / Comment(s): Patient denies. - Past Family History Mother Family Medical History: Cancer, Congestive Heart Failure (CHF) Father Family Medical History: Cancer Sister(s) Family Medical History: No Reported History Brother(s) Family Medical History: No Reported History Medications and Allergies Home Medications Medication Instructions Recorded Confirmed Type risperiDONE MICROSPHERES 25 mg IM Q14D 08/13/16 04/16/20 History [RisperDAL CONSTA] Cholecalciferol [Vitamin D3 (25 5,000 unit PO DAILY 05/10/19 04/16/20 History Mcg = 1000 Iu)] Albuterol Sulfate [Albuterol 2 puff PO RT-Q6H PRN 02/14/20 04/16/20 History Sulfate Hfa] Atorvastatin [Lipitor] 10 mg PO DAILY 02/14/20 04/16/20 History Americo/D3/Mag11/Zinc/Crankshaft Straightener/Nando/Bor 1 tab PO DAILY 02/14/20 04/16/20 History [Caltrate 600+D Plus Tablet] DULoxetine HCL [Cymbalta] 60 mg PO DAILY 02/14/20 04/16/20 History Loratadine [Claritin] 10 mg PO DAILY 02/14/20 04/16/20 History Montelukast [Singulair] 10 mg PO HS 02/14/20 04/16/20 History Apixaban [Eliquis] 10 mg PO BID tab 02/23/20 04/16/20 Rx Aspirin 81 mg PO DAILY chew 02/23/20 04/16/20 Rx Digoxin [Lanoxin] 125 mcg PO DAILY tab 02/23/20 04/16/20 Rx LORazepam [Ativan] 0.5 mg PO TID #9 tab 02/23/20 04/16/20 Rx Pantoprazole [Protonix] 40 mg PO AC-BRKFST tablet. 02/23/20 04/16/20 Rx Spironolactone [Aldactone] 25 mg PO DAILY tab 02/23/20 04/16/20 Rx carvediloL [Coreg] 3.125 mg PO BID-W/MEALS tab 02/23/20 04/16/20 Rx Allergies Allergy/AdvReac Type Severity Reaction Status Date / Time No Known Allergies Allergy Verified 04/16/20 17:00 Physical Exam Vitals: Vital Signs Temp Pulse Pulse Resp BP BP Pulse Ox 04/17/20 08:19 98.2 F 98 18 102/69 97 04/17/20 05:45 98.6 F 109 H 28 H 113/78 95 04/17/20 02:15 98 F 123 H 31 H 127/91 94 L 04/16/20 21:43 93 L 04/16/20 20:40 97.5 F L 113 H 30 H 126/90 04/16/20 19:56 97.9 F 104 H 16 129/93 95 04/16/20 17:26 97.7 F 101 H 16 118/88 94 L 04/16/20 15:00 98.1 F 63 16 112/79 98 04/16/20 14:18 16 Intake and Output 04/16/20 04/17/20 04/17/20 22:59 06:59 14:59 Other: Voiding Method Toilet Toilet # Voids 3 3 2 # Bowel Movements 1 1 Weight 81.647 kg Results 04/16/20 14:41 04/16/20 14:41 Cardiac Enzymes 04/16/20 04/16/20 04/16/20 Range/Units 14:41 14:41 18:59 AST 19 (14-36) U/L Troponin I 0.029 0.030 (0.000-0.034) ng/mL 04/16/20 04/17/20 Range/Units 21:43 03:13 AST (14-36) U/L Troponin I 0.039 H* 0.083 H* (0.000-0.034) ng/mL Coagulation 04/16/20 Range/Units 14:41 PT 11.6 (9.0-12.0) sec APTT 29.4 (22.0-30.0) sec Lipids 04/17/20 Range/Units 03:13 Triglycerides 75 (<150) mg/dL Cholesterol 151 (<200) mg/dL HDL Cholesterol 57 (40-60) mg/dL CBC 04/16/20 Range/Units 14:41 WBC 5.4 (3.8-10.6) k/uL RBC 4.07 (3.80-5.40) m/uL Hgb 12.3 (11.4-16.0) gm/dL Hct 37.6 (34.0-46.0) % Plt Count 198 (150-450) k/uL Comprehensive Metabolic Panel 04/16/20 Range/Units 14:41 Sodium 140 (137-145) mmol/L Potassium 4.1 (3.5-5.1) mmol/L Chloride 110 H (98-107) mmol/L Carbon Dioxide 23 (22-30) mmol/L BUN 14 (7-17) mg/dL Creatinine 0.83 (0.52-1.04) mg/dL Glucose 141 H (74-99) mg/dL Calcium 9.0 (8.4-10.2) mg/dL AST 19 (14-36) U/L ALT 6 (4-34) U/L Alkaline Phosphatase 72 (38-126) U/L Total Protein 6.0 L (6.3-8.2) g/dL Albumin 3.7 (3.5-5.0) g/dL Current Medications Generic Name Dose Route Start Last Admin Trade Name Freq PRN Reason Stop Dose Admin Hydrocodone Bitart/Acetaminophen 1 each 04/17/20 01:00 [place] 5-325 PO Q6HR PRN Pain Albuterol Sulfate 2.5 mg 04/17/20 01:00 Ventolin Nebulized INHALATION RT-Q6H PRN Shortness Of Breath Apixaban 10 mg 04/17/20 09:00 Eliquis PO BID [facility] Aspirin 81 mg 04/17/20 09:00 Aspirin PO DAILY [facility] Atorvastatin Calcium 10 mg 04/17/20 09:00 Lipitor PO DAILY [facility] Carvedilol 3.125 mg 04/17/20 07:30 04/17/20 06:41 Coreg PO 3.125 mg BID-W/MEALS JACK Administration Cholecalciferol 5,000 unit 04/17/20 09:00 Vitamin D3 (25 Mcg = 1000 Iu) PO DAILY [facility] Digoxin 125 mcg 04/17/20 09:00 Lanoxin PO DAILY [facility] Duloxetine HCl 60 mg 04/17/20 09:00 Cymbalta PO DAILY [facility] Loratadine 10 mg 04/17/20 09:00 Claritin PO DAILY [facility] Lorazepam 0.5 mg 04/17/20 09:00 Ativan PO TID JACK Montelukast Sodium 10 mg 04/17/20 21:00 Singulair PO HS JACK Nitroglycerin 0.4 mg 04/16/20 18:32 Nitrostat SUBLINGUAL Q5M PRN Chest Pain Pantoprazole Sodium 40 mg 04/17/20 07:30 04/17/20 06:41 Protonix PO 40 mg AC-BRKFST JACK Administration Risperidone 25 mg 04/26/20 09:00 Risperdal Consta IM Q14D JACK Spironolactone 25 mg 04/17/20 09:00 Aldactone PO DAILY JACK Intake and Output 04/16/20 04/17/20 04/17/20 22:59 06:59 14:59 Other: Voiding Method Toilet Toilet # Voids 3 3 2 # Bowel Movements 1 1 Weight 81.647 kg 04/16/20 14:41 04/16/20 14:41 <Abdoulaye Luwdig - Last Filed: 04/17/20 18:44> History of Present Illness History of present illness: Patient seen and examined. Agree with assessment and plan as above. Patient is a somewhat poor historian however did appear to have a syncopal episode with acute onset lightheadedness and fall with trauma to her face. Complicated course from February with findings of new-onset cardiomyopathy and partial flail of the posterior mitral valve leaflet and severe mitral regurgitation. She additionally had nonsustained ventricular tachycardia during that hospitalization. Overnight she again had a 9 beat run of nonsustained VT. Her repeat echocardiogram shows worsened LV function with ejection fraction 20-25% and again severe mitral regurgitation. Due to decrease in ejection fraction as well as partial flail, we will have cardiothoracic surgery see patient again as she has been scheduled for outpatient follow-up tomorrow. Patient does have decreased ejection fraction with inability to tolerate much heart failure regimen secondary to borderline low blood pressures. Coreg increased to 6.25 mg twice a day. If blood pressure tolerates consider addition of very low-dose ERIC inhibitor. Given decreased ejection fraction, nonsustained VT and acute onset syncope somewhat concerning for cardiogenic syncope, we will have electrophysiology evaluate patient for possible EP study versus AICD. Patient on Eliquis for atrial fibrillation as well as prior DVT however has been taking the 10 mg bid dose which is only needed for the first 7 days and we will decrease to 5 mg twice a day. Abdoulaye Ludwig DO Physical Exam Vitals: Vital Signs Temp Pulse Pulse Resp BP BP Pulse Ox 04/17/20 15:00 98.1 F 92 18 117/81 98 04/17/20 09:10 72 04/17/20 09:04 71 93 L 04/17/20 08:19 98.2 F 98 18 102/69 97 04/17/20 05:45 98.6 F 109 H 28 H 113/78 95 04/17/20 02:15 98 F 123 H 31 H 127/91 94 L 04/16/20 21:43 93 L 04/16/20 20:40 97.5 F L 113 H 30 H 126/90 04/16/20 19:56 97.9 F 104 H 16 129/93 95 Intake and Output 04/17/20 04/17/20 04/17/20 06:59 14:59 22:59 Other: Voiding Method Toilet Toilet Toilet # Voids 3 2 # Bowel Movements 1 Results 04/16/20 14:41 04/16/20 14:41 Cardiac Enzymes 04/16/20 04/16/20 04/17/20 Range/Units 18:59 21:43 03:13 Troponin I 0.030 0.039 H* 0.083 H* (0.000-0.034) ng/mL Lipids 04/17/20 Range/Units 03:13 Triglycerides 75 (<150) mg/dL Cholesterol 151 (<200) mg/dL HDL Cholesterol 57 (40-60) mg/dL Current Medications Generic Name Dose Route Start Last Admin Trade Name Freq PRN Reason Stop Dose Admin Hydrocodone Bitart/Acetaminophen 1 each 04/17/20 01:00 [place] 5-325 PO Q6HR PRN Pain Albuterol Sulfate 2.5 mg 04/17/20 01:00 04/17/20 09:03 Ventolin Nebulized INHALATION 2.5 mg RT-Q6H PRN Administration Shortness Of Breath Apixaban 5 mg 04/17/20 21:00 Eliquis PO BID JACK Aspirin 81 mg 04/17/20 09:00 04/17/20 10:13 Aspirin PO 81 mg DAILY JACK Administration Atorvastatin Calcium 10 mg 04/17/20 09:00 04/17/20 10:13 Lipitor PO 10 mg DAILY JACK Administration Carvedilol 6.25 mg 04/17/20 17:30 04/17/20 17:31 Coreg PO 6.25 mg BID-W/MEALS JACK Administration Cholecalciferol 5,000 unit 04/17/20 09:00 04/17/20 10:13 Vitamin D3 (25 Mcg = 1000 Iu) PO 5,000 unit DAILY [facility] Administration Digoxin 125 mcg 04/17/20 09:00 04/17/20 10:14 Lanoxin PO 125 mcg DAILY [facility] Administration Duloxetine HCl 60 mg 04/17/20 09:00 04/17/20 10:14 Cymbalta PO 60 mg DAILY [facility] Administration Loratadine 10 mg 04/17/20 09:00 04/17/20 10:14 Claritin PO 10 mg DAILY [facility] Administration Lorazepam 0.5 mg 04/17/20 09:00 04/17/20 15:59 Ativan PO 0.5 mg TID [facility] Administration Montelukast Sodium 10 mg 04/17/20 21:00 Singulair PO HS [facility] Nitroglycerin 0.4 mg 04/16/20 18:32 Nitrostat SUBLINGUAL Q5M PRN Chest Pain Pantoprazole Sodium 40 mg 04/17/20 07:30 04/17/20 06:41 Protonix PO 40 mg AC-BRKFST [facility] Administration Risperidone 25 mg 04/26/20 09:00 Risperdal Consta IM Q14D [facility] Spironolactone 25 mg 04/17/20 09:00 04/17/20 10:14 Aldactone PO 25 mg DAILY [facility] Administration Intake and Output 04/17/20 04/17/20 04/17/20 06:59 14:59 22:59 Other: Voiding Method Toilet Toilet Toilet # Voids 3 2 # Bowel Movements 1 04/16/20 14:41 04/16/20 14:41
--- NOTE | 2020-04-17 14:10 | P.HPIM ---
History of Present Illness H&P Date: 04/17/20 Chief Complaint: syncope HISTORY OF PRESENT ILLNESS This is a 60-year-old female patient at [facility] with past medical history of hypertension, hyperlipidemia, schizoaffective disorder. She was recently hospitalized in February of this year which time she was treated for acute hypoxic respiratory failure secondary to acute systolic heart failure, acute kidney injury, cardiogenic shock, new onset of atrial fibrillation, right lower extremity DVT due to central line and started on eliquis. Echocardiogram revealed EF of 35-40%, increased LAP grade 2 diastolic dysfunction, LA is severely dilated, severe mitral regurgitation, moderate mitral valve prolapse, moderate tricuspid regurgitation, moderate pulmonary hypertension. She subsequently underwent TERE which revealed severe anteriorly directed mitral regurgitation secondary to partial flail of the posterior leaflet. Moderate mitral regurgitation, severe LV dysfunction. Heart catheterization completed on February [address] Carrero revealed normal coronary arteries, dilated cardiomyopathy, severe mitral regurgitation with plan for medical management and consider mitral valve repair or clip. She was evaluated by cardiothoracic surgery with plan for follow-up visit outpatient in 4-6 weeks. Her follow-up appointment is scheduled for tomorrow. She was discharged to [facility] and subsequently discharged to home. Patient states that she was walking and went to open a door, suddenly felt dizzy and landed face first on the ground. She denied having any palpitations, no nausea or vomiting. She did have significant bleeding from her nose Patient presented to [facility] emergency center. Patient found to be afebrile, heart rate 63, blood pressure 112/79, pulse ox 98% on room air. CBC unremarkable with hemoglobin of 12.3. Electrolytes essentially normal. Blood sugar 141. Liver function tests normal. ProBNP 8420, troponin 0.029. Digoxin level 0.8. Urinalysis negative for infection. CAT scan of the facial bones revealed comminuted fracture bilateral nasal bones. Some foreshortening and displacement with lateral angulation involving the left nasal bone. 4 mm displaced fracture fragment along the anterior right nose located just deep to the skin surface. CAT scan of the brain and cervical spine revealed previous left frontal temporal craniotomy flap. No acute intracranial abnormality. No acute fracture of the cervical spine. Degenerative grade 1 anterolisthesis C4- C5. Possible early interstitial edema. Chest x-ray reveals cardiomegaly and small pleural effusions no obvious heart failure. No adverse change compared to prior exam. Pulmonary vascularity slightly improved compared to old exam. Mary ent has been placed on the observation unit and consult requested with cardiology and pulmonary medicine. Echocardiogram has been ordered. Cardiology noted that patient had a nonsustained run of ventricular tachycardia 24 beats. REVIEW OF SYSTEMS Constitutional: No fever, no chills, no night sweats. No weight change. No weakness, fatigue or lethargy. No daytime sleepiness. EENT: No headache. No blurred vision or double vision, no loss of vision. No loss of Hearing, no ringing in the ears, no dizziness. No nasal drainage or congestion. Reports epistaxis. No sore throat. Lungs: No shortness of breath, cough, no sputum production. No wheezing. Cardiovascular: No chest pain, no lower extremity edema. No palpitations. No paroxysmal nocturnal dyspnea. No orthopnea. No lightheadedness or dizziness. Reports syncopal episodes. Abdominal: No abdominal pain. No nausea, vomiting. No diarrhea. No constipation. No bloody or tarry stools. No loss of appetite. Genitourinary: No dysuria, increased frequency, urgency. No urinary retention. Musculoskeletal: No myalgias. No muscle weakness, no gait dysfunction, no frequent falls. No back pain. No neck pain. Integumentary: No wounds, no lesions. No rash or pruritus. No unusual bruising. No change in hair or nails. Reports facial ecchymosis. Neurologic: No aphasia. No facial droop. No change in mentation. No head injury. No headache. No paralysis. No paresthesia. Psychiatric: No depression. No anxiety. No mood swings. Endocrine: No abnormal blood sugars. No weight change. No excessive sweating or thirst. No cold intolerance. PHYSICAL EXAMINATION Gen: This is a 60-year-old obese female. She is resting in bed and appears to be comfortable. HEENT: Ecchymosis to the nasal bridge, bilateral periorbital area and right forehead, normocephalic. Pupils equal, round. Sclerae is anicteric. NECK: Supple. No JVD. No lymphadenopathy. No thyromegaly. LUNGS: Clear to auscultation. No wheezes or rhonchi. No intercostal retractions. HEART: Regular rate and rhythm. Systolic and diastolic murmurs auscultated. ABDOMEN: Soft. Bowel sounds are present. No masses. No tenderness. BACK: No ecchymosis to back, flank or buttocks. No ecchymosis or tenderness along the thoracic/lumbar spine. EXTREMITIES: No pedal edema. No calf tenderness. Dorsalis pedis +2 bilaterally NEUROLOGICAL: Patient is awake, alert and oriented x3. Cranial nerves 2 through 12 are grossly intact. ASSESSMENT AND PLAN 1. Cardiogenic syncope episode secondary to 20 beat run of ventricular tachycardia. Cardiology consult appreciated. Consult for cardiothoracic surgery, Dr. Palencia has been added as well as repeat echocardiogram. 2. Nonsustained episode of ventricular tachycardia. Hypertension. Continue Coreg 6.25 mg twice daily. 3. Paroxysmal atrial fibrillation. Continue Coreg, digoxin 125 g daily, eliquis at 5 mg twice daily. 4. Dilated cardiomyopathy and chronic systolic heart failure. Continue Aldactone 25 mg daily. 5. Right lower extremity DVT. Continue eliquis. 6. Severe mitral regurgitation. Cardiothoracic surgery to reevaluate for valve repair or clip. 7. Hypertension. Continue Coreg 6.25 mg twice daily.. 8. Schizoaffective disorder. Patient intends on risperidone 25 mg IM every 14 days. Continue Cymbalta 60 mg daily 9. Generalized anxiety disorder. Continue Ativan 0.5 mg 3 times daily. 10. Gastroesophageal reflux disease. Continue Protonix 40 mg daily. 11. Mild intermittent asthma. Continue Singulair 10 mg at bedtime and albuterol inhaler as needed. 12. DVT prophylaxis. Eliquis. 13. GI prophylaxis. Protonix. Patient will be admitted to the hospital for a minimum of 2 night stay. Discharge plan: Return home most likely. firmware manager will follow-up tomorrow. Impression and plan of care have been directed as dictated by the signing physician. Eli Perry nurse practitioner acting as scribe for signing physician. Past Medical History Past Medical History: Heart Failure, GERD/Reflux, Hyperlipidemia, Hypertension, Memory Impairment History of Any Multi-Drug Resistant Organisms: None Reported Past Surgical History: Unable to Obtain Additional Past Surgical History / Comment(s): Non-cancerous growths removed from stomach when patient was in high school. Laser eye surgery. Past Anesthesia/Blood Transfusion Reactions: Unable to Obtain Additional Past Anesthesia/Blood Transfusion Reaction / Comment(s): Unkown. Past Psychological History: Anxiety, Bipolar, Depression, Schizophrenia Additional Psychological History / Comment(s): Numerous inpatient psychiatric admissions. Open with [facility], Patient sees Lakshmi from the ACT team. Smoking Status: Never smoker Past Alcohol Use History: None Reported Past Drug Use History: None Reported Additional Drug Use History / Comment(s): Patient denies. - Past Family History Mother Family Medical History: Cancer, Congestive Heart Failure (CHF) Father Family Medical History: Cancer Sister(s) Family Medical History: No Reported History Brother(s) Family Medical History: No Reported History Medications and Allergies Home Medications Medication Instructions Recorded Confirmed Type risperiDONE MICROSPHERES 25 mg IM Q14D 08/13/16 04/16/20 History [RisperDAL CONSTA] Cholecalciferol [Vitamin D3 (25 5,000 unit PO DAILY 05/10/19 04/16/20 History Mcg = 1000 Iu)] Albuterol Sulfate [Albuterol 2 puff PO RT-Q6H PRN 02/14/20 04/16/20 History Sulfate Hfa] Atorvastatin [Lipitor] 10 mg PO DAILY 02/14/20 04/16/20 History Americo/D3/Mag11/Zinc/Outside Medical Sales Representative/Nando/Bor 1 tab PO DAILY 02/14/20 04/16/20 History [Caltrate 600+D Plus Tablet] DULoxetine HCL [Cymbalta] 60 mg PO DAILY 02/14/20 04/16/20 History Loratadine [Claritin] 10 mg PO DAILY 02/14/20 04/16/20 History Montelukast [Singulair] 10 mg PO HS 02/14/20 04/16/20 History Apixaban [Eliquis] 10 mg PO BID tab 02/23/20 04/16/20 Rx Aspirin 81 mg PO DAILY chew 02/23/20 04/16/20 Rx Digoxin [Lanoxin] 125 mcg PO DAILY tab 02/23/20 04/16/20 Rx LORazepam [Ativan] 0.5 mg PO TID #9 tab 02/23/20 04/16/20 Rx Pantoprazole [Protonix] 40 mg PO AC-BRKFST tablet. 02/23/20 04/16/20 Rx Spironolactone [Aldactone] 25 mg PO DAILY tab 02/23/20 04/16/20 Rx carvediloL [Coreg] 3.125 mg PO BID-W/MEALS tab 02/23/20 04/16/20 Rx Allergies Allergy/AdvReac Type Severity Reaction Status Date / Time No Known Allergies Allergy Verified 04/16/20 17:00 Physical Exam Vitals: Vital Signs Temp Pulse Pulse Resp BP BP Pulse Ox 04/17/20 09:10 72 04/17/20 09:04 71 93 L 04/17/20 08:19 98.2 F 98 18 102/69 97 04/17/20 05:45 98.6 F 109 H 28 H 113/78 95 04/17/20 02:15 98 F 123 H 31 H 127/91 94 L 04/16/20 21:43 93 L 04/16/20 20:40 97.5 F L 113 H 30 H 126/90 04/16/20 19:56 97.9 F 104 H 16 129/93 95 04/16/20 17:26 97.7 F 101 H 16 118/88 94 L 04/16/20 15:00 98.1 F 63 16 112/79 98 04/16/20 14:18 16 Intake and Output 04/16/20 04/17/20 04/17/20 22:59 06:59 14:59 Other: Voiding Method Toilet Toilet # Voids 3 3 2 # Bowel Movements 1 1 Weight 81.647 kg Results CBC & Chem 7: 04/16/20 14:41 04/16/20 14:41 Labs: Abnormal Lab Results - Last 24 Hours (Table) 04/16/20 04/16/20 04/16/20 Range/Units 14:41 15:28 21:43 Chloride 110 H (98-107) mmol/L Glucose 141 H (74-99) mg/dL Troponin I 0.039 H* (0.000-0.034) ng/mL Total Protein 6.0 L (6.3-8.2) g/dL Urine Blood Small H (Negative) Urine RBC 7 H (0-5) /hpf Urine Mucus Rare H (None) /hpf 04/17/20 Range/Units 03:13 Chloride (98-107) mmol/L Glucose (74-99) mg/dL Troponin I 0.083 H* (0.000-0.034) ng/mL Total Protein (6.3-8.2) g/dL Urine Blood (Negative) Urine RBC (0-5) /hpf Urine Mucus (None) /hpf Thrombosis Risk Factor Assmnt - Choose All That Apply Any of the Below Risk Factors Present?: Yes Each Factor Represents 1 point: Obesity (BMI >25) Other Risk Factors: Yes Each Risk Factor Represents 2 Points: Age 61-74 years Each Risk Factor Represents 3 Points: History of DVT/PE Thrombosis Risk Factor Assessment Total Risk Factor Score: 6 Thrombosis Risk Factor Assessment Level: High Risk
--- NOTE | 2020-04-17 16:36 | P.GSCN ---
History of Present Illness Consult date: 04/17/20 Reason for Consult: Mitral valve regurgitation, was to have appointment tomorrow with Dr. New Requesting physician: Jeri Sue History of present illness: This is a 60-year-old female patient who follows with the [facility]'s clinic on an outpatient basis. She has a previous medical history of severe mitral regu rgitation, dilated cardiomyopathy, paroxysmal atrial fibrillation, hypertension, hyperlipidemia, schizophrenia, and depression with multiple psychiatric admissions. She was seen by Dr. New in February of this year when she was admitted to [facility] for progressive shortness of breath and lower extremity edema. Workup included a 2-D echocardiogram which demonstrated moderately impaired left ventricular systolic function with EF 35-40%, severely dilated left atrium, severe mitral valve regurgitation with anteriorly directed jet, moderate mitral valve prolapse of the posterior leaflet, moderate tricuspid valve regurgitation with moderate pulmonary hypertension. Further evaluation with transesophageal echocardiogram confirmed severe anteriorly directed mitral valve regurgitation secondary to partial flail of the posterior leaflet, enlarged left atrium, moderate tricuspid regurgitation, and diffuse global hypokinesis with severe LV dysfunction and ejection fraction 35%. Preoperative workup was ordered. During that hospitalization the patient was also found to have new onset paroxysmal atrial fibrillation as well as acute kidney injury, transaminitis, and right lower extremity DVT. We recommended treatment of the acute DVT for 4-6 weeks to prevent pulmonary embolism intraoperatively and the patient was scheduled to follow up with Dr. New after medical optimization to discuss surgical mitral valve repair versus MitraClip. She was scheduled to see Dr. New in the office tomorrow, however she presented to [facility] emergency room yesterday afternoon after experiencing dizziness and a [place] the mall with resultant facial fractures. She was admitted to the cardiac observation unit with consultation placed to cardiology and pulmonology. Appare ntly she had a run of nonsustained V. tach, Dr. Palencia from EP was consulted. Dr. New from cardiothoracic surgery was consulted by cardiology to see the patient while hospitalized. Review of Systems Review of systems was completed and was negative except as noted - Constitutional Constitutional Comment(s): Complaint of dizziness shortly before falling face forward Past Medical History Past Medical History: Atrial Fibrillation, Heart Failure, Deep Vein Thrombosis (DVT), GERD/Reflux, Hyperlipidemia, Hypertension, Memory Impairment Additional Past Medical History / Comment(s): Mitral valve regurgitation; dilated cardiomyopathy; paroxysmal atrial fibrillation; right lower extremity DVT on Eliquis for anticoagulation History of Any Multi-Drug Resistant Organisms: None Reported Past Surgical History: Unable to Obtain Additional Past Surgical History / Comment(s): Non-cancerous growths removed from stomach when patient was in high school. Laser eye surgery. Past Anesthesia/Blood Transfusion Reactions: Unable to Obtain Additional Past Anesthesia/Blood Transfusion Reaction / Comm: Unkown. Past Psychological History: Anxiety, Bipolar, Depression, Schizophrenia Additional Psychological History / Comment(s): Numerous inpatient psychiatric admissions. Open with [facility], Patient sees Lakshmi from the ACT team. Smoking Status: Never smoker Past Alcohol Use History: None Reported Past Drug Use History: None Reported Additional Drug Use History / Comment(s): Patient denies. - Past Family History Mother Family Medical History: Cancer, Congestive Heart Failure (CHF) Father Family Medical History: Cancer Sister(s) Family Medical History: No Reported History Brother(s) Family Medical History: No Reported History Medications and Allergies Home Medications Medication Instructions Recorded Confirmed Type risperiDONE MICROSPHERES 25 mg IM Q14D 08/13/16 04/16/20 History [RisperDAL CONSTA] Cholecalciferol [Vitamin D3 (25 5,000 unit PO DAILY 05/10/19 04/16/20 History Mcg = 1000 Iu)] Albuterol Sulfate [Albuterol 2 puff PO RT-Q6H PRN 02/14/20 04/16/20 History Sulfate Hfa] Atorvastatin [Lipitor] 10 mg PO DAILY 02/14/20 04/16/20 History Americo/D3/Mag11/Zinc/Oil Dispatcher/Nando/Bor 1 tab PO DAILY 02/14/20 04/16/20 History [Caltrate 600+D Plus Tablet] DULoxetine HCL [Cymbalta] 60 mg PO DAILY 02/14/20 04/16/20 History Loratadine [Claritin] 10 mg PO DAILY 02/14/20 04/16/20 History Montelukast [Singulair] 10 mg PO HS 02/14/20 04/16/20 History Apixaban [Eliquis] 10 mg PO BID tab 02/23/20 04/16/20 Rx Aspirin 81 mg PO DAILY chew 02/23/20 04/16/20 Rx Digoxin [Lanoxin] 125 mcg PO DAILY tab 02/23/20 04/16/20 Rx LORazepam [Ativan] 0.5 mg PO TID #9 tab 02/23/20 04/16/20 Rx Pantoprazole [Protonix] 40 mg PO AC-BRKFST tablet. 02/23/20 04/16/20 Rx Spironolactone [Aldactone] 25 mg PO DAILY tab 02/23/20 04/16/20 Rx carvediloL [Coreg] 3.125 mg PO BID-W/MEALS tab 02/23/20 04/16/20 Rx Allergies Allergy/AdvReac Type Severity Reaction Status Date / Time No Known Allergies Allergy Verified 04/16/20 17:00 Surgical - Exam Vital Signs Resp 16 04/16/20 14:18 - General well developed, well nourished, no distress, no pain - Eyes Periorbital edema normal ocular movement - ENT Multiple bruises over her nasal area - Neck no masses, no bruits, trachea midline - Respiratory Lungs sounds clear but diminished bilaterally. Respirations even, nonlabored. Currently on room air with oxygen saturation 98%. No chest wall deformities. No clubbing or cyanosis present. - Cardiovascular S1, soft S2 present. Positive systolic murmur. Regular rate and rhythm, sinus rhythm on telemetry. Palpable peripheral pulses bilaterally. No edema present. No calf pain or tenderness noted. - Abdomen Abdomen: soft, non tender, bowel sounds - Genitourinary Deferred - Rectum Deferred - Integumentary Skin is warm and dry - Neurologic normal coordination, normal sensation - Musculoskeletal normal posture - Psychiatric Patient does have a blank stare oriented to time, oriented to person, oriented to place, speech is normal Results - Labs 04/16/20 14:41 04/16/20 14:41 Abnormal Lab Results - Last 24 Hours (Table) 04/16/20 04/17/20 Range/Units 21:43 03:13 Troponin I 0.039 H* 0.083 H* (0.000-0.034) ng/mL Diabetes panel 04/17/20 Range/Units 03:13 Triglycerides 75 (<150) mg/dL HDL Cholesterol 57 (40-60) mg/dL - Imaging Chest x-ray: report reviewed, image reviewed Additional studies: CT scans reviewed Assessment and Plan Assessment: 1. Fall from standing with resultant facial fractures 2. Episode of nonsustained V. tach 3. Severe anteriorly directed mitral regurgitation with partial flail posterior leaflet 4. Severely impaired left ventricular dysfunction, dilated cardiomyopathy, grade 3 diastolic dysfunction, EF 20-25% on current transthoracic echocardiogram 5. History of paroxysmal atrial fibrillation, currently in sinus rhythm 6. History of right lower extremity DVT in February 2020, currently on Eliquis for anticoagulation 7. Hypertension 8. Hyperlipidemia 9. Schizophrenia, depression with multiple psychiatric admissions Plan: The patient was seen and examined at the bedside. Chart/diagnostics were reviewed. The patient will be seen tomorrow by Dr. New and further recommendations will be made for surgical mitral valve repair versus mitral clip. Of note the patient does have a public guardian to make decisions. Preoperative workup was completed when she was here in February. Appreciate Dr. Palencia's recommendations regarding nonsustained V. tach. Continue medical management per primary care, cardiology. More recommendations to follow. Thank you for this consult. We look forward to working with you in the care of your patient. Time with Patient: Greater than 30
[2020-04-17] MEDS: carvediloL 6.25 MG TAB PO SCH (17:31)
[2020-04-17] MEDS: APIXABAN 5 MG TAB PO SCH (20:35)
[2020-04-17] MEDS: MONTELUKAST 10 MG TAB PO SCH (20:35)
[2020-04-18] MEDS: carvediloL 6.25 MG TAB PO SCH ×2 (06:15→17:03)
[2020-04-18] MEDS: PANTOPRAZOLE 40 MG TABLET PO SCH (06:15)
[2020-04-18] MEDS: ALBUTEROL NEBULIZED 2.5 MG/3 ML INHALATION PRN (08:04)
--- NOTE | 2020-04-18 08:51 | P.PN ---
Subjective Progress Note Date: 04/18/20 Principal diagnosis: Chronic systolic heart failure, syncope HISTORY OF PRESENTING ILLNESS This is a pleasant 60-year-old female past medical history significant for dilated cardiomyopathy, severe mitral regurgitation, paroxysmal atrial fibrillation, recent diagnosis of DVT, dyslipidemia, systolic heart failure and mental illness. She was recently diagnosed with severe mitral regurgitation and is currently following with Dr. New with an appointment scheduled for tomorrow to make a determination regarding proceeding with mitral valve repair. She was discharged from the hospital in February and sent to [facility] for which she was recently discharged home. The patient states she lives alone and she follows closely with [facility] with appointment coordinations and medical care. She was out and about yesterday attempting to purchase a cell phone. She states she was walking into the mall when she became acutely dizzy and fell forward. She had her face on the ground and suffered a nasal fracture. She states she felt dizzy and lightheaded prior to falling but had no chest pain, shortness of breath or palpitations. Telemetry tracings reviewed revealed episodes of monomorphic ventricular tachycardia. On recent admission she underwent a cardiac catheterization revealing normal coronary arteries with no obstructive disease with severe mitral regurgitation and dilated cardiomyopathy with ejection fraction of 35-40%. She is seen and examined this morning resting comfortably laying flat in no acute distress. She denies active symptoms of [address] pain, shortness of breath, dizziness or palpitations. 04/18/2020 Patient seen and examined. Patient had transthoracic echo performed yesterday which showed ejection fraction 20-25% with severe anteriorly directed mitral regurgitation which was a decrease from prior 35-40%. She has been unable to tolerate much heart failure regimen and Coreg was increased from 3.125-6.25 mg twice a day yesterday. Blood pressure this morning 99/67. She denies any lightheadedness since her event and has been walking to the bathroom without lightheadedness. She denies any chest pain, pressure. 5 beat run of nonsustained VT yesterday afternoon and patient remains in normal sinus rhythm. REVIEW OF SYSTEMS At the time of my exam: CONSTITUTIONAL: Denies fever or chills. CARDIOVASCULAR: Denies chest pain, shortness of breath, orthopnea, PND or palpitations. RESPIRATORY: Denies cough. GASTROINTESTINAL: Denies abdominal pain, diarrhea, constipation, nausea or vomiting. MUSCULOSKELETAL: Denies myalgias. NEUROLOGIC: Denies numbness, tingling or weakness. ENDOCRINE: Denies fatigue, weight change, polydipsia or polyurina. GENITOURINARY: Denies burning, hematuria or urgency with micturation. HEMATOLOGIC: Denies history of anemia or bleeding. PHYSICAL EXAMINATION Blood pressure 99/67 heart rate 99 afebrile and maintaining oxygen saturation on room air. CONSTITUTIONAL: No apparent distress. HEENT: Head is normocephalic. Pupils are equal, round. Sclerae anicteric. Mucous membranes of the mouth are moist. No JVD. No carotid bruit. CHEST EXAMINATION: Lungs are clear to auscultation. No chest wall tenderness is noted on palpation or with deep breathing. HEART EXAMINATION: Regular rate and rhythm. S1, S2 heard. Systolic ejection murmur at all listening points, no gallops or rub. ABDOMEN: Soft, nontender. Positive bowel sounds. EXTREMITIES: 2+ peripheral pulses, no lower extremity edema and no calf tenderness. NEUROLOGIC EXAMINATION: Somewhat poor insight in the medical history ASSESSMENT Syncope and fall, suspicious for cardiogenic source given acute onset, and risk factors including dilated cardiomyopathy with nonsustained VT Non-sustained monomorphic ventricular tachycardia Severe MR with partial flail of the anterior leaflet Dilated cardiomyopathy Paroxysmal atrial fibrillation, currently in sinus rhythm Troponin leak secondary to supply and demand mismatch History of DVT PLAN Blood pressures have been low with this morning . Coreg was increased to 6.25 mg twice a day yesterday. Ideally if blood pressure tolerates consider adding lisinopril 2.5 mg daily. Patient appears euvolemic. From a heart failure standpoint, concerning that patient unable to tolerate much of any guideline directed medical therapy with worsened ejection fraction. We will await input from cardiothoracic surgery regarding repair of mitral valve. Suspicion of cardiogenic source of syncope. We will await electrophysiology input regarding possible AICD versus EP study and timing. Continue beta nadir for nonsustained VT and defer antiarrhythmics to the discretion of electrophysiology. Continue Eliquis 5 mg twice a day for her atrial fibrillation and DVT. Continue digoxin and Coreg for rate control. Objective - Vital Signs Vital signs: Vital Signs Temp 97.7 F 04/18/20 03:55 Pulse 104 H 04/18/20 08:15 Resp 19 04/18/20 03:55 BP 99/67 04/18/20 03:55 Pulse Ox 96 04/18/20 08:05 Intake & Output 04/17/20 04/18/20 04/18/20 18:59 06:59 18:59 Intake Total 500 Balance 500 Intake: Oral 500 Other: Voiding Method Toilet Toilet # Voids 2 3 - Labs CBC & Chem 7: 04/16/20 14:41 04/16/20 14:41
[2020-04-18] MEDS: ASPIRIN 81 MG PO SCH (10:04)
[2020-04-18] MEDS: CHOLECALCIFEROL 1,000 UNIT TAB PO SCH (10:04)
[2020-04-18] MEDS: DIGOXIN 125 MCG TAB PO SCH (10:04)
[2020-04-18] MEDS: SPIRONOLACTONE 25 MG TAB PO SCH (10:04)
[2020-04-18] MEDS: LORazepam 0.5 MG TAB PO SCH ×2 (10:04→20:32)
[2020-04-18] MEDS: LORATADINE 10 MG TAB PO SCH (10:04)
[2020-04-18] MEDS: APIXABAN 5 MG TAB PO SCH ×2 (10:04→20:32)
[2020-04-18] MEDS: ATORVASTATIN 10 MG TAB PO SCH (10:04)
[2020-04-18] MEDS: DULoxetine HCL 60 MG CAPSULE.DR PO SCH (10:05)
--- NOTE | 2020-04-18 10:47 | P.PN ---
Subjective Progress Note Date: 04/18/20 HISTORY OF PRESENT ILLNESS This is a 60-year-old female patient at [facility] with past medical history of hypertension, hyperlipidemia, schizoaffective disorder. She was recently hospitalized in February of this year which time she was treated for acute hypoxic respiratory failure secondary to acute systolic heart failure, acute kidney injury, cardiogenic shock, new onset of atrial fibrillation, right lower extremity DVT due to central line and started on eliquis. Echocardiogram revealed EF of 35-40%, increased LAP grade 2 diastolic dysfunction, LA is charleen rely dilated, severe mitral regurgitation, moderate mitral valve prolapse, moderate tricuspid regurgitation, moderate pulmonary hypertension. She subsequently underwent TERE which revealed severe anteriorly directed mitral regurgitation secondary to partial flail of the posterior leaflet. Moderate mitral regurgitation, severe LV dysfunction. Heart catheterization completed on February [address] Carrero revealed normal coronary arteries, dilated cardiomyopathy, severe mitral regurgitation with plan for medical management and consider mitral valve repair or clip. She was evaluated by cardiothoracic surgery with plan for follow-up visit outpatient in 4-6 weeks. Her follow-up appointment is scheduled for tomorrow. She was discharged to [facility] and subsequently discharged to home. Patient states that she was walking and went to open a door, suddenly felt dizzy and landed face first on the ground. She denied having any palpitations, no nausea or vomiting. She did have significant bleeding from her nose Patient presented to [facility] emergency center. Patient found to be afebrile, heart rate 63, blood pressure 112/79, pulse ox 98% on room air. CBC unremarkable with hemoglobin of 12.3. Electrolytes essentially normal. Blood sugar 141. Liver function tests normal. ProBNP 8420, troponin 0.029. Digoxin level 0.8. Urinalysis negative for infection. CAT scan of the facial bones revealed comminuted fracture bilateral nasal bones. Some foreshortening and displacement with lateral angulation involving the left nasal bone. 4 mm displaced fracture fragment along the anterior right nose located just deep to the skin surface. CAT scan of the brain and cervical spine revealed previous left frontal temporal craniotomy flap. No acute intracranial abnormality. No acute fracture of the cervical spine. Degenerative grade 1 anterolisthesis C4- C5. Possible early interstitial edema. Chest x-ray reveals cardiomegaly and small pleural effusions no obvious heart failure. No adverse change compared to prior exam. Pulmonary vascularity slightly improved compared to old exam. Patient has been placed on the observation unit and consult requested with cardiology and pulmonary medicine. Echocardiogram has been ordered. Cardiology noted that patient had a nonsustained run of ventricular tachycardia 24 beats. 04/18: Patient remains in cardiac obs unit waiting for bed on cardiac stepdown unit. Echocardiogram reveals EF of 20-25%, moderate pulmonary hypertension, severe mitral regurgitation. Patient has been seen by cardiothoracic surgery to determine plan regarding valve repair versus clip. Patient has been afebrile, heart rate 89, blood pressure 115/83, pulse ox 96% on room air. Triglycerides 75, cholesterol 151, LDL 79, HDL 57. Repeat troponins were 0.039 and 0.083. Patient states she is feeling better today. No chest pain, no palpitations, no shortness of breath. REVIEW OF SYSTEMS Constitutional: No fever, no chills, no night sweats. No weight change. No weakness, fatigue or lethargy. No daytime sleepiness. EENT: No headache. No blurred vision or double vision, no loss of vision. No loss of Hearing, no ringing in the ears, no dizziness. No nasal drainage or congestion. Denies epistaxis. No sore throat. Lungs: No shortness of breath, cough, no sputum production. No wheezing. Cardiovascular: No chest pain, no lower extremity edema. No palpitations. No paroxysmal nocturnal dyspnea. No orthopnea. No lightheadedness or dizziness. Denies syncopal episodes. Abdominal: No abdominal pain. No nausea, vomiting. No diarrhea. No constipation. No bloody or tarry stools. No loss of appetite. Genitourinary: No dysuria, increased frequency, urgency. No urinary retention. Musculoskeletal: No myalgias. No muscle weakness, no gait dysfunction, no frequent falls. No back pain. No neck pain. Integumentary: No wounds, no lesions. No rash or pruritus. No unusual bruisi ng. No change in hair or nails. Reports facial ecchymosis. Neurologic: No aphasia. No facial droop. No change in mentation. No head injury. No headache. No paralysis. No paresthesia. Psychiatric: No depression. No anxiety. No mood swings. Endocrine: No abnormal blood sugars. No weight change. No excessive sweating or thirst. No cold intolerance. PHYSICAL EXAMINATION Gen: This is a 60-year-old obese female. She is resting in bed and appears to be comfortable. HEENT: Ecchymosis to the nasal bridge, bilateral periorbital area and right forehead, normocephalic. Pupils equal, round. Sclerae is anicteric. NECK: Supple. No JVD. No lymphadenopathy. No thyromegaly. LUNGS: Clear to auscultation. No wheezes or rhonchi. No intercostal retractions. HEART: Regular rate and rhythm. Systolic and diastolic murmurs auscultated. ABDOMEN: Soft. Bowel sounds are present. No masses. No tenderness. BACK: No ecchymosis to back, flank or buttocks. No ecchymosis or tenderness along the thoracic/lumbar spine. EXTREMITIES: No pedal edema. No calf tenderness. Dorsalis pedis +2 bilaterally NEUROLOGICAL: Patient is awake, alert and oriented x3. Cranial nerves 2 through 12 are grossly intact. ASSESSMENT AND PLAN 1. Cardiogenic syncope episode secondary to 20 beat run of ventricular tachycardia. Cardiology consult appreciated. Consult for cardiothoracic surgery appreciated. Repeat echocardiogram as above. 2. Nonsustained episode of ventricular tachycardia. Hypertension. Continue Coreg 6.25 mg twice daily was increased on 04/17. 3. Paroxysmal atrial fibrillation. Continue Coreg, digoxin 125 g daily, eliquis at 5 mg twice daily. 4. Dilated cardiomyopathy and chronic systolic heart failure. Continue Aldactone 25 mg daily, Coreg. 5. Right lower extremity DVT. Continue eliquis. 6. Severe mitral regurgitation. Cardiothoracic surgery to reevaluate for valve repair or clip. 7. Hypertension. Continue Coreg 6.25 mg twice daily. 8. Schizoaffective disorder. Patient intends on risperidone 25 mg IM every 14 days. Continue Cymbalta 60 mg daily 9. Generalized anxiety disorder. Continue Ativan 0.5 mg decreaed to 2 times daily. 10. Gastroesophageal reflux disease. Continue Protonix 40 mg daily. 11. Mild intermittent asthma. Continue Singulair 10 mg at bedtime and albuterol inhaler as needed. 12. DVT prophylaxis. Eliquis. 13. GI prophylaxis. Protonix. Discharge plan: Return home most likely. provider relations manager will follow-up tomorrow. Impression and plan of care have been directed as dictated by the signing physician. Eli Perry nurse practitioner acting as scribe for signing physician. Objective - Vital Signs Vital signs: Vital Signs Temp 97.5 F L 04/18/20 08:50 Pulse 89 04/18/20 08:50 Resp 16 04/18/20 08:50 BP 115/83 04/18/20 08:50 Pulse Ox 96 04/18/20 08:50 Intake & Output 04/17/20 04/18/20 04/18/20 18:59 06:59 18:59 Intake Total 500 Balance 500 Intake: Oral 500 Other: Voiding Method Toilet Toilet Toilet # Voids 2 3 - Labs CBC & Chem 7: 04/16/20 14:41 04/16/20 14:41
--- NOTE | 2020-04-18 14:35 | P.CRDCN ---
History of Present Illness History of present illness: This is Dr. Palencia dictating a consult on this patient The patient was interviewed and examined Electrophysiology consult IMPRESSION / ASSESSMENT: Syncope, first episode likely due to ventricular arrhythmia, unheralded Long run of nonsustained ventricular tachycardia on the monitor No sustained arrhythmia so far Beta blockers have been maximized Severe mitral regurgitation with flail posterior mitral leaflet Reduction in LV systolic function over the last 2 months Severe LV dysfunction currently Borderline troponins Normal electrolytes PLAN: From a cardiac standpoint this patient needs heart valve surgery preferably mitral valve repair admitted for LV dysfunction Subsequently electrophysiologic reevaluation prior to discharge/eps. Discussed with Dr. Ludwig and this practitioner Maximize beta blockers Hold off on amiodarone Patient is not a candidate for LifeVest She has mental illness and needs inpatient care to address her current issues of severe mitral prolapse, severe LV dysfunction and subsequently syncope HPI Patient presented to the emergency room with an episode of syncope. She was standing buying a cell phone. She been walking around in the mall. Without any prodrome she fell forwards and his to face and fractured her nose. She has bruising around her eyes No cervical spine or head fractures Comminuted fracture of the nasal bones Twelve-lead ECG shows sinus rhythm 4/sinus tachycardia 0.[address] depression in the lateral leads normal IN narrow QRS Occasional PVCs noted Telemetry shows PVCs ventricular couplets and one run of nonsustained ventricular tachycardia with negatively oriented QRS is in lead 2 Repeat 2-D echo shows reduction in LV systolic function as compared to February Left ventricular ejection fraction 20 have been 25% Severe mitral regurgitation, flail posterior leaflet Moderate pulmonary hypertension RVSP around 50 mg of mercury ROS: No fever chills or rigors, no cough, phlegm or expectoration, no nausea, vomiting or diarrhea, no hematuria, dysuria, no musculoskeletal complaints, no strokes or seizures, no skin lesions. EXAMINATION: Afebrile 97.5F pulse rate of 102 beats a minute, blood pressure 115/83 mmHg Breath sounds are clear no rhonchi no crackles line systolic murmur, pansystolic No lower extremity edema evidence of facial injury REVIEW OF LABS, ECG & MEDICAL DATA History of dilated cardio myopathy, nonischemic Severe mitral regurgitation mitral prolapse History of DVT History of mental illness, schizophrenia Awaiting cardiac surgery Past Medical History Past Medical History: Atrial Fibrillation, Heart Failure, Deep Vein Thrombosis (DVT), GERD/Reflux, Hyperlipidemia, Hypertension, Memory Impairment Additional Past Medical History / Comment(s): Mitral valve regurgitation; dilated cardiomyopathy; paroxysmal atrial fibrillation; right lower extremity DVT on Eliquis for anticoagulation History of Any Multi-Drug Resistant Organisms: None Reported Past Surgical History: Unable to Obtain Additional Past Surgical History / Comment(s): Non-cancerous growths removed from stomach when patient was in high school. Laser eye surgery. Past Anesthesia/Blood Transfusion Reactions: Unable to Obtain Additional Past Anesthesia/Blood Transfusion Reaction / Comment(s): Unkown. Past Psychological History: Anxiety, Bipolar, Depression, Schizophrenia Additional Psychological History / Comment(s): Numerous inpatient psychiatric admissions. Open with [facility], Patient sees Lakshmi from the ACT team. Smoking Status: Never smoker Past Alcohol Use History: None Reported Past Drug Use History: None Reported Additional Drug Use History / Comment(s): Patient denies. - Past Family History Mother Family Medical History: Cancer, Congestive Heart Failure (CHF) Father Family Medical History: Cancer Sister(s) Family Medical History: No Reported History Brother(s) Family Medical History: No Reported History Medications and Allergies Home Medications Medication Instructions Recorded Confirmed Type risperiDONE MICROSPHERES 25 mg IM Q14D 08/13/16 04/16/20 History [RisperDAL CONSTA] Cholecalciferol [Vitamin D3 (25 5,000 unit PO DAILY 05/10/19 04/16/20 History Mcg = 1000 Iu)] Albuterol Sulfate [Albuterol 2 puff PO RT-Q6H PRN 02/14/20 04/16/20 History Sulfate Hfa] Atorvastatin [Lipitor] 10 mg PO DAILY 02/14/20 04/16/20 History Americo/D3/Mag11/Zinc/Alpine Guide/Nando/Bor 1 tab PO DAILY 02/14/20 04/16/20 History [Caltrate 600+D Plus Tablet] DULoxetine HCL [Cymbalta] 60 mg PO DAILY 02/14/20 04/16/20 History Loratadine [Claritin] 10 mg PO DAILY 02/14/20 04/16/20 History Montelukast [Singulair] 10 mg PO HS 02/14/20 04/16/20 History Apixaban [Eliquis] 10 mg PO BID tab 02/23/20 04/16/20 Rx Aspirin 81 mg PO DAILY chew 02/23/20 04/16/20 Rx Digoxin [Lanoxin] 125 mcg PO DAILY tab 02/23/20 04/16/20 Rx LORazepam [Ativan] 0.5 mg PO TID #9 tab 02/23/20 04/16/20 Rx Pantoprazole [Protonix] 40 mg PO AC-BRKFST tablet. 02/23/20 04/16/20 Rx Spironolactone [Aldactone] 25 mg PO DAILY tab 02/23/20 04/16/20 Rx carvediloL [Coreg] 3.125 mg PO BID-W/MEALS tab 02/23/20 04/16/20 Rx Allergies Allergy/AdvReac Type Severity Reaction Status Date / Time No Known Allergies Allergy Verified 04/16/20 17:00 Physical Exam Vitals: Vital Signs Temp Pulse Pulse Resp BP Pulse Ox 04/18/20 08:50 97.5 F L 89 16 115/83 96 04/18/20 08:15 104 H 04/18/20 08:05 102 H 96 04/18/20 03:55 97.7 F 99 19 99/67 96 04/17/20 20:50 88 04/17/20 20:42 88 04/17/20 19:50 97.8 F 92 25 H 105/73 94 L 04/17/20 15:00 98.1 F 92 18 117/81 98 Intake and Output 04/17/20 04/18/20 04/18/20 22:59 06:59 14:59 Intake Total 500 Balance 500 Intake: Oral 500 Other: Voiding Method Toilet Toilet Toilet # Voids 3 1 Results 04/16/20 14:41 04/16/20 14:41 Current Medications Generic Name Dose Route Start Last Admin Trade Name Freq PRN Reason Stop Dose Admin Hydrocodone Bitart/Acetaminophen 1 each 04/17/20 01:00 Sodus 5-325 PO Q6HR PRN Pain Albuterol Sulfate 2.5 mg 04/17/20 01:00 04/18/20 08:04 Ventolin Nebulized INHALATION 2.5 mg RT-Q6H PRN Administration Shortness Of Breath Apixaban 5 mg 04/17/20 21:00 04/18/20 10:04 Eliquis PO 5 mg BID JACK Administration Aspirin 81 mg 04/17/20 09:00 04/18/20 10:04 Aspirin PO 81 mg DAILY [facility] Administration Atorvastatin Calcium 10 mg 04/17/20 09:00 04/18/20 10:04 Lipitor PO 10 mg DAILY [facility] Administration Carvedilol 6.25 mg 04/17/20 17:30 04/18/20 06:15 Coreg PO 6.25 mg BID-W/MEALS JACK Administration Cholecalciferol 5,000 unit 04/17/20 09:00 04/18/20 10:04 Vitamin D3 (25 Mcg = 1000 Iu) PO 5,000 unit DAILY [facility] Administration Digoxin 125 mcg 04/17/20 09:00 04/18/20 10:04 Lanoxin PO 125 mcg DAILY [facility] Administration Duloxetine HCl 60 mg 04/17/20 09:00 04/18/20 10:05 Cymbalta PO 60 mg DAILY [facility] Administration Loratadine 10 mg 04/17/20 09:00 04/18/20 10:04 Claritin PO 10 mg DAILY [facility] Administration Lorazepam 0.5 mg 04/18/20 21:00 Ativan PO BID [facility] Montelukast Sodium 10 mg 04/17/20 21:00 04/17/20 20:35 Singulair PO 10 mg HS [facility] Administration Nitroglycerin 0.4 mg 04/16/20 18:32 Nitrostat SUBLINGUAL Q5M PRN Chest Pain Pantoprazole Sodium 40 mg 04/17/20 07:30 04/18/20 06:15 Protonix PO 40 mg AC-BRKFST [facility] Administration Risperidone 25 mg 04/26/20 09:00 Risperdal Consta IM Q14D [facility] Spironolactone 25 mg 04/17/20 09:00 04/18/20 10:04 Aldactone PO 25 mg DAILY [facility] Administration Intake and Output 04/17/20 04/18/20 04/18/20 22:59 06:59 14:59 Intake Total 500 Balance 500 Intake: Oral 500 Other: Voiding Method Toilet Toilet Toilet # Voids 3 1 04/16/20 14:41 04/16/20 14:41
[2020-04-18] MEDS: MONTELUKAST 10 MG TAB PO SCH (20:32)
[2020-04-19] MEDS: carvediloL 6.25 MG TAB PO SCH ×2 (05:40→17:38)
[2020-04-19] MEDS: PANTOPRAZOLE 40 MG TABLET PO SCH (05:40)
[2020-04-19 06:58] LABS: Calcium 9.2 mg/dL (8.4-10.2); Potassium 4.1 mmol/L (3.5-5.1)
[2020-04-19] MEDS: DIGOXIN 125 MCG TAB PO SCH (08:19)
[2020-04-19] MEDS: DULoxetine HCL 60 MG CAPSULE.DR PO SCH (08:19)
[2020-04-19] MEDS: LORazepam 0.5 MG TAB PO SCH ×2 (08:19→20:31)
[2020-04-19] MEDS: LORATADINE 10 MG TAB PO SCH (08:19)
[2020-04-19] MEDS: APIXABAN 5 MG TAB PO SCH ×2 (08:19→20:31)
[2020-04-19] MEDS: ASPIRIN 81 MG PO SCH (08:19)
[2020-04-19] MEDS: ATORVASTATIN 10 MG TAB PO SCH (08:19)
[2020-04-19] MEDS: SPIRONOLACTONE 25 MG TAB PO SCH (08:19)
[2020-04-19] MEDS: CHOLECALCIFEROL 1,000 UNIT TAB PO SCH (08:19)
--- NOTE | 2020-04-19 10:03 | P.PN ---
Subjective Progress Note Date: 04/19/20 Chronic systolic heart failure, syncope HISTORY OF PRESENTING ILLNESS This is a pleasant 60-year-old female past medical history significant for dilated cardiomyopathy, severe mitral regurgitation, paroxysmal atrial fibrillation, recent diagnosis of DVT, dyslipidemia, systolic heart failure and mental illness. She was recently diagnosed with severe mitral regurgitation and is currently following with Dr. New with an appointment scheduled for tomorrow to make a determination regarding proceeding with mitral valve repair. She was discharged from the hospital in February and sent to [facility] for which she was recently discharged home. The patient states she lives alone and she follows closely with [facility] with appointment coordinations and medical care. She was out and about yesterday attempting to purchase a cell phone. She states she was walking into the mall when she became acutely dizzy and fell forward. She had her face on the ground and suffered a nasal fracture. She states she felt dizzy and lightheaded prior to falling but had no chest pain, shortness of breath or palpitations. Telemetry tracings reviewed revealed episodes of monomorphic ventricular tachycardia. On recent admission she underwent a cardiac catheterization revealing normal coronary arteries with no obstructive disease with severe mitral regurgitation and dilated cardiomyopathy with ejection fraction of 35-40%. She is seen and examined this morning resting comfortably laying flat in no acute distress. She denies active symptoms of chest pain, shortness of breath, dizziness or palpitations. 04/18/2020 Patient seen and examined. Patient had transthoracic echo performed yesterday which showed ejection fraction 20-25% with severe anteriorly directed mitral regurgitation which was a decrease from prior 35-40%. She has been unable to tolerate much heart failure regimen and Coreg was increased from 3.125-6.25 mg twice a day yesterday. Blood pressure this morning 99/67. She denies any lightheadedness since her event and has been walking to the bathroom without lightheadedness. She denies any chest pain, pressure. 5 beat run of nonsustained VT yesterday afternoon and patient remains in normal sinus rhythm. 04/19/2020 Patient seen and examined. Patient was then episode of feeling lightheaded this morning when she was walking. She also is noted to have occasional nonsustained VT for approximately 9 beats. Her blood pressures are remains somewhat marginal, 103/72. She denies much shortness of breath. REVIEW OF SYSTEMS At the time of my exam: CONSTITUTIONAL: Denies fever or chills. CARDIOVASCULAR: Denies chest pain, shortness of breath, orthopnea, PND or palpitations. RESPIRATORY: Denies cough. GASTROINTESTINAL: Denies abdominal pain, diarrhea, constipation, nausea or vomiting. MUSCULOSKELETAL: Denies myalgias. NEUROLOGIC: Denies numbness, tingling or weakness. ENDOCRINE: Denies fatigue, weight change, polydipsia or polyurina. GENITOURINARY: Denies burning, hematuria or urgency with micturation. HEMATOLOGIC: Denies history of anemia or bleeding. PHYSICAL EXAMINATION Blood pressure 103/69 heart rate 83 afebrile and maintaining oxygen saturation on room air. CONSTITUTIONAL: No apparent distress. HEENT: Head is normocephalic. Pupils are equal, round. Sclerae anicteric. Mucous membranes of the mouth are moist. No JVD. No carotid bruit. CHEST EXAMINATION: Lungs are clear to auscultation. No chest wall tenderness is noted on palpation or with deep breathing. HEART EXAMINATION: Regular rate and rhythm. S1, S2 heard. Systolic ejection murmur at all listening points, no gallops or rub. ABDOMEN: Soft, nontender. Positive bowel sounds. EXTREMITIES: 2+ peripheral pulses, no lower extremity edema and no calf tenderness. NEUROLOGIC EXAMINATION: Somewhat poor insight in to medical history ASSESSMENT Syncope and fall, suspicious for cardiogenic source given acute onset, and risk factors including dilated cardiomyopathy with nonsustained VT Non-sustained monomorphic ventricular tachycardia Severe MR with partial flail of the anterior leaflet Dilated cardiomyopathy Paroxysmal atrial fibrillation, currently in sinus rhythm Troponin leak secondary to supply and demand mismatch, normal coronary arteries by catheterization 02/21/2020 History of DVT PLAN Discussed case with cardiothoracic surgery who is recommending a mitraclip. Discussed with patient and patient is agreeable to transfer to [facility] in [place] for MitraClip. Patient has had what appears to be decreased and ejection fraction from February echo of 35-40 to currently 20-25% and patient should have intervention of mitral valve before she is discharged. Continue Eliquis 5 mg twice a day for atrial fibrillation as well as DVT. Continue Coreg 6.25 mg twice a day and ideally add ERIC inhibitor if blood pressure allows. Continue digoxin given patient with RVR when she converts to atrial fibrillation. Patient likely will need an AICD given cardiomyopathy, nonsustained VT and syncope likely related to DVT. Transfer to [facility] for definitive treatment of mitral valve. Objective - Vital Signs Vital signs: Vital Signs Temp 97.4 F L 04/19/20 08:00 Pulse 83 04/19/20 08:00 Resp 14 04/19/20 08:00 BP 103/72 04/19/20 08:00 Pulse Ox 95 04/19/20 08:00 Intake & Output 04/18/20 04/19/20 04/19/20 18:59 06:59 18:59 Other: Voiding Method Toilet Toilet Toilet # Voids 1 2 - Labs CBC & Chem 7: 04/16/20 14:41 04/19/20 06:18 Labs: Abnormal Lab Results - Last 24 Hours (Table) 04/19/20 Range/Units 06:18 Chloride 108 H (98-107) mmol/L Glucose 100 H (74-99) mg/dL
--- NOTE | 2020-04-19 11:42 | P.DS ---
Providers Date of admission: 04/17/20 10:37 Expected date of discharge: 04/19/20 Attending physician: Dio Angel MD Consults: 04/16/20 18:32 Consult Physician Urgent Consulting Provider: Hawa Porter Consult Reason/Comments: syncop Do you want consulting provider notified?: Yes 04/17/20 00:15 Consult Physician Routine Consulting Provider: Shagufta Lewis Consult Reason/Comments: SOB; increased respirations; hx CHF Do you want consulting provider notified?: Yes, Notify in am 04/17/20 10:21 Consult Physician Routine Consulting Provider: Martin Palencia Consult Reason/Comments: Re: syncope, possible EP study Do you want consulting provider notified?: Already Contacted 04/17/20 10:23 Consult Physician Routine Consulting Provider: Nate New Consult Reason/Comments: needs mitral repair, appt tomorrow, here with s yncope, vt and sob Do you want consulting provider notified?: Yes Primary care physician: [facility] Course: HISTORY OF PRESENT ILLNESS This is a 60-year-old female patient at [facility] with past medical history of hypertension, hyperlipidemia, schizoaffective disorder. She was recently hospitalized in February of this year which time she was treated for acute hypoxic respiratory failure secondary to acute systolic heart failure, acute kidney injury, cardiogenic shock, new onset of atrial fibrillation, right lower extremity DVT due to central line and started on eliquis. Echocardiogram revealed EF of 35-40%, increased LAP grade 2 diastolic dysfunction, LA is sev erely dilated, severe mitral regurgitation, moderate mitral valve prolapse, moderate tricuspid regurgitation, moderate pulmonary hypertension. She subsequently underwent TERE which revealed severe anteriorly directed mitral regurgitation secondary to partial flail of the posterior leaflet. Moderate mitral regurgitation, severe LV dysfunction. Heart catheterization completed on February [address] Carrero revealed normal coronary arteries, dilated cardiomyopathy, severe mitral regurgitation with plan for medical management and consider mitral valve repair or clip. She was evaluated by cardiothoracic surgery with plan for follow-up visit outpatient in 4-6 weeks. Her follow-up appointment is scheduled for tomorrow. She was discharged to [facility] and subsequently discharged to home. Patient states that she was walking and went to open a door, suddenly felt dizzy and landed face first on the ground. She denied having any palpitations, no nausea or vomiting. She did hav e significant bleeding from her nose Patient presented to [facility] emergency center. Patient found to be afebrile, heart rate 63, blood pressure 112/79, pulse ox 98% on room air. CBC unremarkable with hemoglobin of 12.3. Electrolytes essentially normal. Blood sugar 141. Liver function tests normal. ProBNP 8420, troponin 0.029. Digoxin level 0.8. Urinalysis negative for infection. CAT scan of the facial bones revealed comminuted fracture bilateral nasal bones. Some foreshortening and displacement with lateral angulation involving the left nasal bone. 4 mm displaced fracture fragment along the anterior right nose located just deep to the skin surface. CAT scan of the brain and cervical spine revealed previous left frontal temporal craniotomy flap. No acute intracranial abnormality. No acute fracture of the cervical spine. Degenerative grade 1 anterolisthesis C4- C5. Possible early interstitial edema. Chest x-ray reveals cardiomegaly and small pleural effusions no obvious heart failure. No adverse change compared to prior exam. Pulmonary vascularity slightly improved compared to old exam. Patient has been placed on the observation unit and consult requested with cardiology and pulmonary medicine. Echocardiogram has been ordered. Cardiology noted that patient had a nonsustained run of ventricular tachycardia 24 beats. 04/18: Patient remains in cardiac obs unit waiting for bed on cardiac stepdown unit. Echocardiogram reveals EF of 20-25%, moderate pulmonary hypertension, severe mitral regurgitation. Patient has been seen by cardiothoracic surgery to determine plan regarding valve repair versus clip. Patient has been afebrile, heart rate 89, blood pressure 115/83, pulse ox 96% on room air. Triglycerides 75, cholesterol 151, LDL 79, HDL 57. Repeat troponins were 0.039 and 0.083. Patient states she is feeling better today. No chest pain, no palpitations, no shortness of breath. 04/19: Cardiothoracic surgery has evaluated the patient and recommends mitral clip which is not done in our facility. We have made arrangements for patient to be transferred to [facility] for definitive care. Awaiting echo through the patient had 2 runs of V. tach this morning 8 beat and 7 beat. She also had a 14 beat run last evening as well as couplets and bigeminy. Patient was symptomatic with some episodes of V. tach. Currently, patient is denying any chest pain, shortness of breath palpitations. She has been afebrile, heart rate 83, blood pressure 103/72, pulse ox 95% on room air. Repeat blood work reveals sodium 140, potassium 4.1, chloride 108, CO2 25, BUN 15 and creatinine 0.99. Blood sugar 100. Patient will be transferred to [facility] once all arrangements are completed. ASSESSMENT AND PLAN 1. Cardiogenic syncope episode secondary to 20 beat run of ventricular tachycardia. 2. Multiple nonsustained episodes of ventricular tachycardia. 3. Paroxysmal atrial fibrillation. 4. Dilated cardiomyopathy and chronic systolic heart failure. 5. Right lower extremity DVT. 6. Severe mitral regurgitation. 7. Hypertension. 8. Schizoaffective disorder. 9. Generalized anxiety disorder. 10. Gastroesophageal reflux disease. 11. Mild intermittent asthma. Discharge plan: Transfer to [facility] Impression and plan of care have been directed as dictated by the signing physician. Eli Perry nurse practitioner acting as scribe for signing physician. Patient Condition at Discharge: Stable Plan - Discharge Summary Discharge Rx Participant: No New Discharge Prescriptions: No Action risperiDONE MICROSPHERES [RisperDAL CONSTA] 25 mg IM Q14D Cholecalciferol [Vitamin D3 (25 Mcg = 1000 Iu)] 5,000 unit PO DAILY Albuterol Sulfate [Albuterol Sulfate Hfa] 2 puff PO RT-Q6H PRN PRN Reason: Shortness Of Breath Atorvastatin [Lipitor] 10 mg PO DAILY Americo/D3/Mag11/Zinc/Can Washer/Nando/Bor [Caltrate 600+D Plus Tablet] 1 tab PO DAILY DULoxetine HCL [Cymbalta] 60 mg PO DAILY Loratadine [Claritin] 10 mg PO DAILY Montelukast [Singulair] 10 mg PO HS Spironolactone [Aldactone] 25 mg PO DAILY tab Aspirin 81 mg PO DAILY chew carvediloL [Coreg] 3.125 mg PO BID-W/MEALS tab Apixaban [Eliquis] 10 mg PO BID tab Digoxin [Lanoxin] 125 mcg PO DAILY tab Pantoprazole [Protonix] 40 mg PO AC-BRKFST tablet. LORazepam [Ativan] 0.5 mg PO TID #9 tab Discharge Medication List risperiDONE MICROSPHERES [RisperDAL CONSTA] 25 mg IM Q14D 08/13/16 [History] Cholecalciferol [Vitamin D3 (25 Mcg = 1000 Iu)] 5,000 unit PO DAILY 05/10/19 [History] Albuterol Sulfate [Albuterol Sulfate Hfa] 2 puff PO RT-Q6H PRN 02/14/20 [History] Atorvastatin [Lipitor] 10 mg PO DAILY 02/14/20 [History] Americo/D3/Mag11/Zinc/Can Washer/Nando/Bor [Caltrate 600+D Plus Tablet] 1 tab PO DAILY 02/14/20 [History] DULoxetine HCL [Cymbalta] 60 mg PO DAILY 02/14/20 [History] Loratadine [Claritin] 10 mg PO DAILY 02/14/20 [History] Montelukast [Singulair] 10 mg PO HS 02/14/20 [History] Apixaban [Eliquis] 10 mg PO BID tab 02/23/20 [Rx] Aspirin 81 mg PO DAILY chew 02/23/20 [Rx] Digoxin [Lanoxin] 125 mcg PO DAILY tab 02/23/20 [Rx] LORazepam [Ativan] 0.5 mg PO TID #9 tab 02/23/20 [Rx] Pantoprazole [Protonix] 40 mg PO AC-BRKFST tablet. 02/23/20 [Rx] Spironolactone [Aldactone] 25 mg PO DAILY tab 02/23/20 [Rx] carvediloL [Coreg] 3.125 mg PO BID-W/MEALS tab 02/23/20 [Rx] Follow up Appointment(s)/Referral(s): [facility] [Primary Care Provider] - 1-2 days
[2020-04-19] MEDS: ALBUTEROL NEBULIZED 2.5 MG/3 ML INHALATION PRN (11:46)
[2020-04-19] MEDS: MONTELUKAST 10 MG TAB PO SCH (20:31)
[2020-04-19 20:37] VITALS: BP 110/84; PULSE 103; RESP 20; TEMP 97.4
--- NOTE | 2020-04-23 02:48 | CDI ---
Documentation Clarification Form Date:04/23/2020 From:Mariano Shelton Phone: If you have a question about this query, please contact Carol Daniels, Laminate Floor Installer at [phone] between 8am and 5pm. Admit Date: 04/17/2020 Discharge Date: 04/19/2020 Patient Name: Debbie Stallings Visit Number: [id number] ATTENTION: The Clinical Documentation Specialists (CDI) and [facility] Coding Staff appreciate your assistance in clarifying documentation. Please respond to the clarification below the line at the bottom and electronically sign. The CDI & [facility] Coding staff will review the response and follow-up if needed. Please note: Queries are made part of the Legal Health Record. If you have any questions, please contact the author of this message via ITS. Dear Dio Connors MD., Troponin leak secondary to supply and demand mismatch. Patient History/Risk Factors: Ventricular tachycardia, Atrial fibrillation Troponin:0.029H, 0.083HH EKG Results: EKG reveals sinus mechanism with nonspecific abnormalities noted. Echocardiogram reveals EF of 20-25%, moderate pulmonary hypertension,severe mitral regurgitation Blood pressures have been low with this morning 99/67.Coreg was increased to 6.25 mg twice a day yesterday.Ideally if blood pressure tolerates consider adding lisinopril 2.5 mg daily. Cardiogenic syncope episode secondary to 20 beat run of ventricular tachycardia.Multiple nonsustained episodes of ventricular tachycardia,Paroxysmal atrial fibrillation, Dilated cardiomyopathy and chronic systolic heart failure. 04/17 Consult note " Troponin leak secondary to supply and demand mismatch." In order to capture the severity of condition, please clarify Demand mismatch related to___ Type 2 [place] Not related to Type 2 [place] Other Condition, please specify type 2 MI MTDD
== END 2020-04-19 20:50 | disposition short-term general hospital (02) | DRG 281 ==
LOC: EC 14:17 → 3NCARDOBS 18:32 → OBSVTOIN 04-17 10:37
PROVIDERS: ADMIT Internal Medicine; ATTEND Internal Medicine
DX: I47.2 Ventricular tachycardia (principal); I21.A1 Myocardial infarction type 2; I13.0 Hypertensive heart and chronic kidney disease with heart failure and stage 1 through stage 4 chronic kidney disease, or unspecified chronic kidney disease; I42.0 Dilated cardiomyopathy; I50.22 Chronic systolic (congestive) heart failure; E78.5 Hyperlipidemia, unspecified; F31.9 Bipolar disorder, unspecified; K21.9 Gastro-esophageal reflux disease without esophagitis; G31.84 Mild cognitive impairment of uncertain or unknown etiology; I27.20 Pulmonary hypertension, unspecified; F41.1 Generalized anxiety disorder; I48.0 Paroxysmal atrial fibrillation; I08.3 Combined rheumatic disorders of mitral, aortic and tricuspid valves; F25.9 Schizoaffective disorder, unspecified; E66.9 Obesity, unspecified; J45.20 Mild intermittent asthma, uncomplicated; S02.2XXA Fracture of nasal bones, initial encounter for closed fracture; W18.30XA Fall on same level, unspecified, initial encounter; N18.3 Chronic kidney disease, stage 3 (moderate); M43.02 Spondylolysis, cervical region; Z79.82 Long term (current) use of aspirin; Z79.01 Long term (current) use of anticoagulants; Z79.899 Other long term (current) drug therapy; Z82.49 Family history of ischemic heart disease and other diseases of the circulatory system; Z86.718 Personal history of other venous thrombosis and embolism; Z80.9 Family history of malignant neoplasm, unspecified; I25.2 Old myocardial infarction; Z68.31 Body mass index [BMI] 31.0-31.9, adult
CPT/HCPCS: 36415; 70450; 70486; 71046; 72125; 80048; 80053; 80061; 80162; 81001; 82550; 83735; 83880; 84100; 84484; 85025; 85610; 85730; 93005; 93306; 94640; 94760; 96360; 99285

== ENCOUNTER → 2024-11-10 | Outpatient (CLI) | payer MEDICARE, OTHER ==
--- NOTE | 2024-11-10 14:02 | US ---
EXAMINATION TYPE: US kidneys/renal and bladder DATE OF EXAM: 11/10/2024 COMPARISON: US(02/15/2020) CLINICAL INDICATION: Female, 64 years old with history of N18.31 CKD STAGE 3; TECHNIQUE: Grayscale imaging of the bilateral kidneys and urinary bladder: FINDINGS: EXAM MEASUREMENTS: Right Kidney: 10.1x4.2x4.6cm Left Kidney: 10.5x4.8x3.8cm limited exam due to overlying bowel/rib shadow Right Kidney: Multiple anechoic areas seen, Largest: 1. 2.5x2.4x2.1cm 2. 1.0x0.8x1.2cm 3. 1.0x1.0x0.9cm ?echogenic foci seen: 0.7cm Left Kidney: Multiple anechoic areas seen Largest: 1.4x1.2x1.2cm ?echogenic foci:0.9cm ?calcification vs other Bladder: wnl Bilateral Jets seen: Yes Increased cortical echogenicity bilaterally is seen. There are thin-walled cysts of varying size and shape noted bilaterally. There are echogenic foci which could reflect nonobstructing renal calculi bi laterally. Correlate clinically. No hydronephrosis seen bilaterally. IMPRESSION: Evidence of chronic medical renal disease. No hydronephrosis noted bilaterally. [facility] Franz, , 11/10/2024 2:00 PM
== END | disposition home or self-care (01) ==
LOC: RADUSWWP 12:56
PROVIDERS: ATTEND Internal Medicine
DX: N20.0 Calculus of kidney (principal); N18.31 Chronic kidney disease, stage 3a
CPT/HCPCS: 76770